=== PATIENT | male | born 1960 | race Caucasian/White ===

== ENCOUNTER → 2018-02-02 09:51 | Outpatient (CLI) | payer OTHER, SELFPAY ==
[2018-02-02 12:41] LABS: Vitamin D,25 Hydroxy 19.3 ng/mL (29.95-100.01)
[2018-02-02 12:43] LABS: Anion Gap 12 (5-15); BUN 19 mg/dL (7-18); BUN/Creat Ratio 17.6 RATIO (10-20); Calcium,Total 9.3 mg/dL (8.5-10.1); Chloride 107 mmol/L (98-107); Cholesterol 211 mg/dL (200); Creatinine, Serum 1.08 mg/dL (0.70-1.30); EST Glomerular Filtration Rate 74 mL/min (>60); Est Glom Filt Rate - Afr Amer 90 mL/min (>60); Glucose 94 mg/dL (74-106); High Density Lipoprotein 38 mg/dL; Potassium 4.5 mmol/L (3.5-5.1); Sodium Level 142 mmol/L (136-145); Triglycerides 221 mg/dL; Very Low Density Lipoprotein 44 mg/dL (5-40)
== END ==
PROVIDERS: Family Provider Family Medicine; PCP Family Medicine; Visit Provider Family Medicine
DX: Z00.00 Encounter for general adult medical examination without abnormal findings (principal)
CPT/HCPCS: 36415; 80048; 80061; 82306

== ENCOUNTER → 2019-04-17 15:43 | Outpatient (CLI) | payer OTHER, SELFPAY ==
[2016-01-21 13:17] VITALS: BMI 37.2
[2019-04-17 18:06] LABS: Vitamin D,25 Hydroxy 10.7 ng/mL (29.95-100.01)
[2019-04-17 18:22] LABS: Anion Gap 7 (5-15); BUN 18 mg/dL (7-18); BUN/Creat Ratio 15.9 RATIO (10-20); Calcium,Total 9.3 mg/dL (8.5-10.1); Chloride 106 mmol/L (98-107); Cholesterol 219 mg/dL (200); Creatinine, Serum 1.13 mg/dL (0.70-1.30); EST Glomerular Filtration Rate 70 mL/min (>60); Est Glom Filt Rate - Afr Amer 85 mL/min (>60); Glucose 83 mg/dL (74-106); High Density Lipoprotein 38 mg/dL; PSA,Total - Annual Screen 3.25 ng/mL (0.00-4.00); Potassium 4.2 mmol/L (3.5-5.1); Sodium Level 140 mmol/L (136-145); Thyroid Stim Hormone (TSH) 1.84 uIU/mL (0.358-3.74); Triglycerides 360 mg/dL; Very Low Density Lipoprotein 72 mg/dL (5-40)
== END ==
PROVIDERS: Family Provider Family Medicine; PCP Family Medicine; Referring Provider Family Medicine; Visit Provider Family Medicine
DX: Z00.00 Encounter for general adult medical examination without abnormal findings (principal); E66.9 Obesity, unspecified; I10 Essential (primary) hypertension
CPT/HCPCS: 36415; 80048; 80061; 82306; 84153; 84403; 84443; G0103

== ENCOUNTER 2019-12-30 15:07 | Emergency (ER) | payer OTHER, SELFPAY ==
[2019-12-30 15:07] VITALS: BP 143/74; PULSE 72; RESP 18; TEMP 36.4; O2SAT 94; BMI 43.7
[2019-12-30 16:14] VITALS: BMI 43.7
[2019-12-30 16:20] LABS: Absolute Lymphocyte Count 1.46 X10^3/uL (0.83-4.51); Absolute Neutrophil Count 5.6 X10^3/uL (2.0-7.7); Basophil# 0.06 X10^3/uL; Basophil% 0.7 % (0-1); Eosinophil# 0.23 X10^3/uL; Eosinophils% 2.8 % (0-5); Hematocrit 44.5 % (40-54); Hemoglobin 14.7 g/dL (13.0-16.5); Lymphocyte # 1.46 X10^3/ul (4.0); Lymphocyte % 17.5 % (19-41); Mean Corpuscular Hgb 31.7 pg (27.0-32.0); Mean Corpuscular Volume 95.9 fL (80-94); Mean Platelet Vol. 10.6 fl (6.2-12.0); Monocyte# 0.87 X10^3/uL; Monocyte% 10.5 % (0-10); NRBC Flagged by Analyzer 0 % (0-5); Neutrophil # 5.64 X10^3/uL (2.7-7.7); Neutrophil % 67.8 % (47-70); Platelet Count 185 K/mm3 (150-450); RBC Distribution Width CV 12.4 % (11.6-14.6); RBC Distribution Width SD 43.3 fl (35.1-43.9); Red Blood Count 4.64 M/mm3 (4.6-6.2); White Blood Count 8.3 K/mm3 (4.4-11.0)
--- NOTE | 2019-12-30 16:43 | ED.DCSUM_ITS ---
History of Present Illness Chief Complaint: Neuro S/Sx Detail of Chief Complaint: Droopy left eye, fatigue, malaise and elevated blood pressure Informant: Patient, Significant Other Onset: - - Symptoms probably present for 1 year. Ptosis 1 week per patient. Significant other does not believe there is any significant difference. Context: Gradual Onset Timing: Continuous Quality: Generalized fatigue Location: Generalized Current Severity: Mild Maximum Severity: Moderate Worsened by: Nothing Relieved by: Nothing Associated Symptoms: No other symptoms Narrative: Patient is a 59-year-old male who was sent to the emergency department by his physician based on symptoms. Patient denies headache. He denies double vision, blurred vision loss of vision. He does report his eyes crossing. He denies history of diabetes. He states images sometimes overlap. This is been an issue for 1 year. He has not seen an steelscope operator or cable assembler and swager in greater than 1 year. He has no known thyroid disease and denies thyroid symptoms. He denies cardiac or respiratory symptoms. He denies GI symptoms. He denies paresthesia, anesthesia or motor weakness. He denies problems with balance. 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 Recent Illness/Hospitalization: No - Past Medical History (1) Obstructive sleep apnea Status: Acute (2) History of hypertension Status: Acute Past Medical History - Allergies and Home Meds Allergies/Adverse Reactions: Allergies No Known Allergies Allergy (Verified 12/30/19 15:07) Primary Care Physician: Shady Pathak MD [Primary Care Provider] - Prior records reviewed: No Surgical History: noncontributory Lives: Spouse/ Significant Other Smoking Status: Never smoker Alcohol: None Drugs: None Review of Systems General: Reports: Malaise. Denies: Chills, Fever, Subjective, Sweats, Weight loss Eyes: Reports: - - Does report horizontal processing of images.. Denies: Visual changes - bilaterally, Blurred Vision - bilaterally, Diplopia ENT: Reports: - - Denies tinnitus or decreased hearing.. Denies: Bilateral ear pain, Rhinorrhea, Sore throat Cardiovascular: Denies: Chest pain, Palpitations Respiratory: Denies: Dyspnea, Cough, Dyspnea on exertion Gastrointestinal: Denies: Abdominal pain, Nausea, Vomiting, Diarrhea, Melena, Hematochezia Genitourinary: Denies: Dysuria, Hematuria, Frequency Musculoskeletal: Reports: Swelling. Denies: Myalgias, Arthralgias, Neck pain, Back pain, Extremity Pain, -, - - She reports increased swelling at nighttime and less swelling noted in the morning upon arising. Skin: Denies: Rash, Wounds Neurological: Denies: Headache, Weakness, Parasthesia, Numbness Endocrine: Denies: Polyuria, Polydipsia Hematologic: Denies: Easy bruising, Easy bleeding Physical Exam Vital Signs/Narrative: Vital Signs Temp Pulse Resp BP Pulse Ox 12/30/19 15:07 97.6 F L 72 18 143/74 H 94 Inital Vital Signs reviewed: Yes General: Well nourished, Well developed, Obese, No Acute Distress Head: Normocephalic, Atraumatic Eyes: Perrl. Negative for: EOMI - The right eye does not always track with the left. This may represent a 6th nerve palsy. 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 There is no ptosis. There is slight proptosis noted., Pale conjunctiva, Scleral icterus ENT: Moist mucous membranes, No rhinorrhea, TM's clear Neck: Supple, Nontender, No lymphadenopathy, No JVD Cardiovascular: Regular rate, Regular rhythm, No murmurs, Normal S1, Normal S2 Respiratory: No distress, CTA bilaterally, Chest nontender Abdomen: Soft, Nontender, Nondistended, Normal bowel sounds Back: Nontender, Normal Inspection Extremities: Nontender, Edema Skin: Normal color, No rash Neurological: Alert, Oriented x3, Cranial nerves II-XII grossly intact, Normal Strength, Normal Sensation, Normal DTR, - - There is no clonus or Babinski sign. Cerebellar testing was normal. Psychological: Normal affect, Normal Mood Diagnostic/Tx/Re-eval Laboratory Results 12/30/19 12/30/19 16:12 16:12 WBC 8.3 RBC 4.64 Hgb 14.7 Hct 44.5 MCV 95.9 H MCH 31.7 MCHC 33.0 RDW Std Deviation 43.3 RDW Coeff of Donny 12.4 Plt Count 185 MPV 10.6 Immature Gran % (Auto) 0.700 Neut % (Auto) 67.8 Lymph % (Auto) 17.5 L [place] % (Auto) 10.5 H Eos % (Auto) 2.8 Baso % (Auto) 0.7 Absolute Neuts (auto) 5.6 Absolute Lymphs (auto) 1.46 Nucleated RBC % 0 Sodium 141 Potassium 5.1 Chloride 111 H Carbon Dioxide 27.0 Anion Gap 3 L BUN 22 H Creatinine 1.15 Estim Creat Clear Calc 78.43 Est GFR (MDRD) Af Amer 83 Est GFR (MDRD) Non-Af 69 BUN/Creatinine Ratio 19.1 Glucose 87 Calcium 8.7 Total Bilirubin 0.50 AST 36 ALT 38 Alkaline Phosphatase 83 Total Protein 6.6 Albumin 3.3 Globulin 3.3 Albumin/Globulin Ratio 1.0 Patient's laboratory tests are unremarkable. Since the ocular findings are old we will have him follow-up with ophthalmology and his primary care physician. - Medical Decision Making CBC was obtained to assess for anemia. Basic metabolic panel was obtained to assess electrolytes and renal function. Imaging of the brain was not obtained since ocular findings are not new. ED Disposition - Plan for ED Patient: Disposition: Home or Assisted Living Diagnosis: Malaise and fatigue, Sixth nerve palsy of right eye Instructions: ED Weakness [facility] Referrals: Shady Pathak MD [Primary Care Provider] - 1 Week Shelton Kingston MD [STAFF PHYSICIAN] - 5-7 Days Additional Instructions: Since you presently do not have an steelscope operator you were referred to Dr. Arndt.
[2019-12-30 16:45] LABS: AST(SGOT) 36 U/L (15-37); Alanine Aminotransfer ALT/SGPT 38 U/L (16-61); Albumin, Serum 3.3 g/dL (3.2-5.0); Alkaline Phosphatase 83 U/L (45-117); Anion Gap 3 (5-15); BUN 22 mg/dL (7-18); BUN/Creat Ratio 19.1 RATIO (10-20); Calcium,Total 8.7 mg/dL (8.5-10.1); Chloride 111 mmol/L (98-107); Creatinine, Serum 1.15 mg/dL (0.70-1.30); EST Glomerular Filtration Rate 69 mL/min (>60); Est Glom Filt Rate - Afr Amer 83 mL/min (>60); Estimated Creatinine Clearance 78.43 ml/min; Globulin 3.3 g/dL (2.2-4.2); Glucose 87 mg/dL (74-106); Potassium 5.1 mmol/L (3.5-5.1); Protein, Total 6.6 g/dL (6.4-8.2); Sodium Level 141 mmol/L (136-145)
[2019-12-30 17:07] VITALS: BP 177/104; PULSE 51; RESP 20; O2SAT 96
[2019-12-30 17:21] VITALS: BP 179/96; PULSE 75; RESP 16; O2SAT 96
== END 2019-12-30 17:22 | disposition home or self-care (01) ==
PROVIDERS: Emergency Provider Emergency Medicine; PCP Family Medicine
DX: H49.20 Sixth [abducent] nerve palsy, unspecified eye (principal); G47.33 Obstructive sleep apnea (adult) (pediatric); E66.9 Obesity, unspecified; I10 Essential (primary) hypertension
CPT/HCPCS: 80053; 85025; 99283; A4216

== ENCOUNTER → 2020-01-17 10:32 | Outpatient (CLI) | payer OTHER, SELFPAY ==
[2019-12-30 16:14] VITALS: BMI 43.7
[2020-01-17 12:46] LABS: Cholesterol 220 mg/dL (200); High Density Lipoprotein 36 mg/dL; Triglycerides 235 mg/dL; Very Low Density Lipoprotein 47 mg/dL (5-40)
== END ==
LOC: MFPLAB 10:33
PROVIDERS: PCP Family Medicine; Referring Provider Family Medicine; Visit Provider Family Medicine
DX: I10 Essential (primary) hypertension (principal)
CPT/HCPCS: 36415; 80061

== ENCOUNTER → 2020-02-25 13:45 | Outpatient (CLI) | payer OTHER, SELFPAY | PROVIDERS: PCP Family Medicine; Referring Provider Family Medicine | DX: H53.2 Diplopia (principal) | CPT/HCPCS: 36415 ==

== ENCOUNTER 2020-03-24 08:58 | Inpatient (IN) | payer OTHER, SELFPAY ==
[2020-03-24] VITALS (9 sets, daily range): BP systolic 98–182; BP diastolic 61–100; PULSE 54–77; RESP 17–22; TEMP 36.3–36.8; O2SAT 87–96; BMI 43.9; BMI 43.0
--- NOTE | 2020-03-24 09:20 | EKG12_ITS ---
Test Reason : SOB Blood Pressure : / mmHG Vent. Rate : 058 BPM Atrial Rate : 072 BPM P-R Int : 000 ms QRS Dur : 086 ms QT Int : 402 ms P-R-T Axes : 000 052 056 degrees QTc Int : 394 ms Normal sinus rhythm Nonspecific ST and T wave abnormality Abnormal ECG Confirmed by VICKI DEL REAL, DARÍO ([id number]), editor greeting card SHANTE WONG ([id number]) on 03/27/2020 11:23:24 AM Referred By: KAROLINA Confirmed By:DARÍO COEHN MD
--- NOTE | 2020-03-24 09:24 | ED.VIS.GEN ---
History of Present Illness Chief Complaint: Shortness of Breath Informant: Patient Onset: Days Maximum Severity: Mild Narrative: The patient presents complaining of cough shortness of breath for about 6 days. 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 He has hypertension he has no cardiovascular disease. No history of DE PE COPD DVT. States his cough is harsh and dry nonproductive not sure if he is having fevers, bowel and bladder unremarkable he is able to execute all of his daily activities, presents complaining of the persistent cough and sense of shortness of breath Past Medical History - Allergies and Home Meds Allergies/Adverse Reactions: Allergies No Known Allergies Allergy (Verified 03/24/20 08:58) Primary Care Physician: Shady Pathak MD [Primary Care Provider] - Past Medical History: - - Pretension Covid exposure Surgical History: noncontributory Smoking Status: Never smoker Review of Systems General: Reports: Fever. Denies: Chills, Sweats Eyes: Denies: Visual changes - bilaterally, Diplopia ENT: Denies: Rhinorrhea, Sore throat Cardiovascular: Denies: Palpitations Respiratory: Reports: Dyspnea, Cough. Denies: Dyspnea on exertion Gastrointestinal: Denies: Abdominal pain, Nausea, Vomiting, Diarrhea, Melena, Hematochezia Genitourinary: Denies: Dysuria, Hematuria, Frequency Musculoskeletal: Denies: Back pain, Extremity Pain Skin: Denies: Rash, Wounds Neurological: Denies: Headache, Weakness, Numbness Physical Exam Vital Signs/Narrative: Vital Signs Temp Pulse Resp BP Pulse Ox 03/24/20 08:59 98.1 F 58 L 17 153/93 H 92 General: Well nourished, Well developed, No Acute Distress Head: Normocephalic, Atraumatic Eyes: Perrl, EOMI ENT: Moist mucous membranes, No rhinorrhea Neck: Supple, Nontender Cardiovascular: Regular rate, Regular rhythm, No murmurs Respiratory: No distress, CTA bilaterally, Chest nontender Abdomen: Soft, Nontender, Nondistended, Normal bowel sounds Back: Nontender, Normal Inspection Extremities: Nontender, No edema Skin: Normal color, No rash Neurological: Alert, Oriented x3, Cranial nerves II-XII grossly intact, Normal Strength, Normal Sensation Psychological: Normal affect, Normal Mood Diagnostic/Tx/Re-eval - Medical Decision Making Patient's resting company in the bed his lungs sound clear heart tones are unremarkable abdomen soft, he is awake alert no distress, his walking O2 sat was 88% or higher he is resting comfortably in the bed on 2 L with a sat of 96% Given all the above we discussed the broad differential to include coronavirus, other conditions, if his ED screen evaluation is unremarkable he would like to be discharged home to be treated with outpatient protocols and follow-up with outpatient providers Since ED screening labs are generally unremarkable see all those reports, occluding D-dimer negative Patient's EKG showed a sinus rhythm rate 60 some junctional beats Single view chest x-ray to my review shows nothing acute lungs well expanded no pneumothorax soft tissue unremarkable, radiology is concerned about the possibility of a subtle infiltrate left see those reports Spoke with Dr. Corrales infectious disease reviewed the case with him, he indicates that the patient would be eligible given his low-grade hypoxemia Covid status he would be eligible for IV remdesivir if he wished to be admitted. Dr. Ruth are stated that the patient does not require antibiotics or the left lung infiltrate given his Covid positive status as this is usually viral and not bacterial in the patients do not benefit from oral antibiotics Discussed all of this with the patient admission versus discharge The patient is feeling well he wants to go home he wants to go home on the Covid home protocol with oxygen, his Covid antigen was positive , Decadron taper per protocol, oxygen use per protocol and follow-up with the Covid follow-up team and his outpatient providers and return for change in symptoms in any way, again he is comfortable with this plan Home stable patient declined admission Final impression COVID-19 infection pneumonia Addendum The patient has reconsidered and would like to be admitted spoke with the hospitalist and will admit ED Disposition - Plan for ED Patient: Diagnosis: COVID-19 infection pneumonia Instructions: ED PNEUMONITIS Adult Prescriptions: Dexamethasone [Decadron] 6 mg PO DAILY 5 Days tab Prescription Printed Referrals: Shady Pathak MD [Primary Care Provider] - Additional Instructions: Please follow all of the Covid therapy instructions you were given return for change in symptoms
[2020-03-24 09:30] LABS: Absolute Lymphocyte Count 0.75 X10^3/uL (0.83-4.51); Absolute Neutrophil Count 3.1 X10^3/uL (2.0-7.7); Basophil# 0.01 X10^3/uL; Basophil% 0.2 % (0-1); Eosinophil# 0.03 X10^3/uL; Eosinophils% 0.7 % (0-5); Hematocrit 43.7 % (40-54); Hemoglobin 14.3 g/dL (13.0-16.5); Lymphocyte # 0.75 X10^3/ul (4.0); Lymphocyte % 17.5 % (19-41); Mean Corp Hgb Conc 32.7 g/dL (32-36); Mean Corpuscular Hgb 32.1 pg (27.0-32.0); Mean Corpuscular Volume 98.2 fL (80-94); Mean Platelet Vol. 10.5 fl (6.2-12.0); Monocyte# 0.32 X10^3/uL; Monocyte% 7.5 % (0-10); NRBC Flagged by Analyzer 0 % (0-5); Neutrophil % 72.5 % (47-70); Platelet Count 140 K/mm3 (150-450); RBC Distribution Width CV 12.7 % (11.6-14.6); RBC Distribution Width SD 45.3 fl (35.1-43.9); Red Blood Count 4.45 M/mm3 (4.6-6.2); White Blood Count 4.3 K/mm3 (4.4-11.0)
[2020-03-24 09:48] LABS: BNP,B-Type NATRIURETIC PEPTIDE 29.6 pg/mL (0-100)
[2020-03-24 09:49] LABS: Anion Gap 6 (5-15); BUN 17 mg/dL (7-18); BUN/Creat Ratio 17.3 RATIO (10-20); Calcium,Total 8.2 mg/dL (8.5-10.1); Chloride 109 mmol/L (98-107); Creatinine, Serum 0.98 mg/dL (0.70-1.30); EST Glomerular Filtration Rate 83 mL/min (>60); Est Glom Filt Rate - Afr Amer 100 mL/min (>60); Estimated Creatinine Clearance 92.03 ml/min; Glucose 118 mg/dL (74-106); Potassium 3.8 mmol/L (3.5-5.1); Sodium Level 139 mmol/L (136-145)
[2020-03-24] MEDS: dexAMETHasone 10 MG/ML Vial IV (09:58)
--- NOTE | 2020-03-24 10:21 | RAD_ITS ---
EXAM DESCRIPTION: PORTABLE AP CHEST CLINICAL HISTORY: 59 years Male, Shortness of breath, cough x2 days. Shortness of breath, cough x2 days. COMPARISON: None FINDINGS: The thorax is intact. The heart and mediastinum appear to be within normal limits. The lungs show a faint patchy alveolar infiltrate in the lateral aspect of the left midlung. The right lung is normal. RAD/Chest 1 View (Portable) IMPRESSION: A faint patchy alveolar infiltrate is noted in the lateral aspect of the left mid lung probably representing an early pneumonic infiltrate. Electronically Signed: Ramiro Vargas, at 10:39 EST Tel , Service support ,
--- NOTE | 2020-03-24 13:00 | NURSING ---
dr jones paged
[2020-03-24 13:32] LABS: D-Dimer Quantitative (DVT/PE) 0.42 FEU/ug/m (0.27-0.49)
--- NOTE | 2020-03-24 14:46 | NURSING ---
MS2 COVID COVID 19 FRITZ
--- NOTE | 2020-03-24 14:56 | HP.PCM_ITS ---
Problem List (1) Hypoxia Status: Acute (2) COVID-19 Status: Acute (3) Uncontrolled hypertension Status: Acute (4) Morbid obesity Status: Chronic (5) Obstructive sleep apnea Status: Chronic (6) Hypertension Status: Chronic Qualifiers: Hypertension type: essential hypertension Qualified Code(s): I10 - Essential (primary) hypertension History of Present Illness Date of Admission: 03/24/20 Chief Complaint: Progressive shortness of breath ongoing for 2 days The patient is a 59 year old M with past medical history of PAT on CPAP, hypertension, morbid obesity who started having symptoms of generalized aches, loss of smell, loss of taste starting from 11/30 0. Patient admits that a week prior to that, he was at a get together in his daughter's house. All the members of the people in the house got infected. He denied any fever or chills. Over the course of the last 2 days prior to admission he has been progressively short of breath with normal activities that he usually does. This got worse on the morning of admission he decided to come in. In the emergency department, his temperature was 98.1 F, heart rate 58, blood pressure was 153/93, respiratory 1217, SPO2 of 92% on room air. Patient however dipped down to 87% on ambulation. His RBC count was 4.3, hemoglobin 14.3, platelet count was 140, his BMP was unremarkable. His BNP was 29.6, troponin was 0.015. His admitting chest x-ray showed a left midlung alveolar infiltrates suggestive of an early pulmonic infiltrate. Past Medical History Past Medical History (Chronic Problems): Chronic Problems Obstructive sleep apnea (Chronic) Morbid obesity (Chronic) Hypertension (Chronic) Allergies No Known Allergies Allergy (Verified 03/24/20 08:58) Home Medications: Ambulatory Orders Medication Instructions Recorded Meloxicam 15 mg PO DAILY 12/30/19 Cholecalciferol (Vitamin D3) 5,000 unit PO DAILY 03/24/20 [Vitamin D3] Lisinopril [Zestril] 10 mg PO DAILY 03/24/20 Metoprolol Tartrate 25 mg PO BID 03/24/20 Sertraline HCl [Zoloft] 50 mg PO DAILY 03/24/20 Zinc 50 mg PO BID 03/24/20 Surgical History: no surgical history Psychiatric History: No pertinent psych hx Lives: Spouse/ Significant Other Smoking Status: Never smoker Tobacco Use: Non-smoker Alcohol: None Drugs: None - *Family History Maternal History Items: No pertinent history - of brain aneurysm Paternal History Items: No pertinent history Review of Systems Constitutional: Reports: Malaise, Weakness, Fatigue. Denies: Anorexia, Chills, Fever, Night Sweats, Weight Change Eyes: Denies: Blurred vision, Cataracts, Conjunctivae Inflammation, Pain, Redness, Vision Change HEENT: Denies: Difficulty Hearing, Difficulty Swallowing, Head Aches, Hearing Changes, Sinus Congestion, Sinus Drainage Cardiovascular: Denies: Chest Pain, Claudication, Light Headedness, Orthopnea, Palpitations Respiratory: Reports: Cough, Shortness of Breath, Shortness of breath at rest, Shortness of breath upon exertion. Denies: Hemoptysis, Sputum production Gastrointestinal: Denies: Abdominal Pain, Constipation, Hematemesis, Hematochezia, Nausea, Vomiting Genitourinary: Denies: Dysuria Musculoskeletal: Denies: Joint Pain, Joint stiffness, Joint swelling, Joint Tenderness Skin: Denies: Rash, Wounds Neurological: Denies: Numbness, Tingling, Focal weakness Psychiatric: Denies: Anxiety, Depression, Homicidal Ideations, Suicidal Ideations Hematologic/ Lymphatic: Denies: Easy Bruising, Easy Bleeding VTE Information - Inpt Only VTE Present on Admission: No VTE Pharm Prophylaxis ordered?: Yes - Physical Exam Vitals/I&O's: Vital Signs Temp Pulse Resp BP Pulse Ox 98.1 F 54 L 22 H 163/96 H 94 03/24/20 12:02 03/24/20 12:02 03/24/20 12:02 03/24/20 12:02 03/24/20 12:02 Oxygen Flow Rate (L/min) 2 Oxygen Delivery Method Nasal Cannula Weight: 155.1 kg Body Mass Index (BMI) 43.9 Finger Stick Blood Glucose 87 General: Alert, Oriented x3, Cooperative, No apparent distress, - - morbidly obese, on 2L oxygen HEENT: Atraumatic, PERRLA, EOMI, Normocephalic Oral: Moist Mucosa Neck: Supple Lungs: Diminished Cardiovascular: Regular rate, Regular Rhythm, Normal S1, Normal S2, No murmurs Abdomen: Bowel Sounds Present, Soft, Non Tender, Non-Distended, No Hepato- splenomegaly Extremities: No edema Skin: No rashes Musculoskeletal: No Tenderness to Palpation of Joints or Extremities Lymphatic: No Cervical, Supraclavicular, or Inguinal Adenopathy Neurological: Cranial nerves II-XII grossly intact Psych/Mental Status: Normal Affect, Appropriate Microbiology Past 72 Hours 03/24/20 09:49 Mucosa - Nose SARS-CoV-2 Antigen (Rapid) - Final SARS-CoV-2 (COVID 19) Laboratory Results 03/24/20 09:08: WBC 4.3 L, RBC 4.45 L, Hgb 14.3, Hct 43.7, MCV 98.2 H, MCH 32.1 H, MCHC 32.7, RDW Std Deviation 45.3 H, RDW Coeff of Donny 12.7, Plt Count 140 L, MPV 10.5, Immature Gran % (Auto) 1.600 H, Neut % (Auto) 72.5 H, Lymph % (Auto) 17.5 L, [place] % (Auto) 7.5, Eos % (Auto) 0.7, Baso % (Auto) 0.2, Absolute Neuts (auto) 3.1, Absolute Lymphs (auto) 0.75 L, Nucleated RBC % 0 03/24/20 09:08: Sodium 139, Potassium 3.8, Chloride 109 H, Carbon Dioxide 24.0, Anion Gap 6, BUN 17, Creatinine 0.98, Estim Creat Clear Calc 92.03, Est GFR (MDRD) Af Amer 100, Est GFR (MDRD) Non-Af 83, BUN/Creatinine Ratio 17.3, Glucose 118 H, Calcium 8.2 L, Troponin I < 0.015 03/24/20 09:08: B-Natriuretic Peptide 29.6 03/24/20 09:08: D-Dimer Quant (PE/DVT) 0.42 Assessment/Plan All Active Problems History of hypertension (Acute) Hypoxia (Acute) COVID-19 (Acute) Uncontrolled hypertension (Acute) 1. Acute hypoxic respiratory insufficiency secondary to acute COVID-19 pneumonia Continue with breathing treatments,PO steroids, encourage use of incentive spirometer. Wean off oxygen for SPO2 more than 94% 2. Acute COVID-19 pneumonia with hypoxia Started having symptoms on 03/18/20 Patient is currently on dexamethasone ID consulted 3. Hypertension, uncontrolled, continue on home metoprolol We will add hydralazine as needed 4. PAT on CPAP 5. Morbid obesity, BMI 43.0, lifestyle modification recommended 6. DVT PPx- On Lovenox SC BID 7. CODE STATUS: Full code I discussed code status with patient. I explained in details the various types of CODE STATUS-full code, DNR CCA, DNR CC. Cannot opted for full code and wanted aggressive measures. Time spent discussing CODE STATUS 16 minutes Inpatient E&M: 73935 Init Hosp L2 Procedures: 99391 Advncd Care Plan 30 Min
[2020-03-24] MEDS: levoFLOXacin 750 MG Tablet PO (15:33)
[2020-03-24] MEDS: Enoxaparin 40 MG/0.4 ML Syringe SC (19:39)
[2020-03-24] MEDS: Metoprolol Tartrate 50 MG Tablet PO (19:39)
[2020-03-25 05:07] VITALS: BP 152/83; PULSE 60; RESP 18; TEMP 36.6; O2SAT 94
[2020-03-25 07:18] LABS: Absolute Lymphocyte Count 0.57 X10^3/uL (0.83-4.51); Absolute Neutrophil Count 3.5 X10^3/uL (2.0-7.7); Basophil# 0.02 X10^3/uL; Basophil% 0.4 % (0-1); Hematocrit 42.8 % (40-54); Hemoglobin 14.2 g/dL (13.0-16.5); Lymphocyte # 0.57 X10^3/ul (4.0); Lymphocyte % 12.2 % (19-41); Mean Corp Hgb Conc 33.2 g/dL (32-36); Mean Corpuscular Hgb 32.4 pg (27.0-32.0); Mean Corpuscular Volume 97.7 fL (80-94); Mean Platelet Vol. 10.6 fl (6.2-12.0); Monocyte# 0.52 X10^3/uL; Monocyte% 11.2 % (0-10); NRBC Flagged by Analyzer 0 % (0-5); Neutrophil # 3.48 X10^3/uL (2.7-7.7); Neutrophil % 74.7 % (47-70); POSITIVE DIFFERENTIAL YES; Platelet Count 170 K/mm3 (150-450); RBC Distribution Width CV 12.4 % (11.6-14.6); RBC Distribution Width SD 44.5 fl (35.1-43.9); Red Blood Count 4.38 M/mm3 (4.6-6.2); White Blood Count 4.7 K/mm3 (4.4-11.0)
[2020-03-25 07:22] LABS: Differential Indicated SCAN CRITERIA MET
[2020-03-25 07:43] LABS: ALB/GLOB Ratio 1.2 RATIO (0.9-2.4); AST(SGOT) 22 U/L (15-37); Alanine Aminotransfer ALT/SGPT 40 U/L (16-61); Albumin, Serum 3.4 g/dL (3.2-5.0); Alkaline Phosphatase 103 U/L (45-117); Anion Gap 5 (5-15); BUN 19 mg/dL (7-18); BUN/Creat Ratio 19.6 RATIO (10-20); Chloride 110 mmol/L (98-107); Creatinine, Serum 0.97 mg/dL (0.70-1.30); EST Glomerular Filtration Rate 84 mL/min (>60); Est Glom Filt Rate - Afr Amer 101 mL/min (>60); Estimated Creatinine Clearance 92.98 ml/min; Globulin 2.9 g/dL (2.2-4.2); Glucose 132 mg/dL (74-106); Protein, Total 6.3 g/dL (6.4-8.2); Sodium Level 140 mmol/L (136-145)
[2020-03-25 07:54] LABS: Platelet Estimate ADEQUATE (ADEQ); Red Cell Morphology NORM C+C NORMAL (NORM C&C)
[2020-03-25 08:01] VITALS: BP 141/84; PULSE 46; RESP 18; TEMP 36.6; O2SAT 93
[2020-03-25] MEDS: dexAMETHasone 4 MG Tablet 6 MG PO (08:11)
[2020-03-25 08:13] VITALS: PULSE 46
[2020-03-25] MEDS: Meloxicam 15 MG Tablet PO (08:13)
[2020-03-25] MEDS: Sertraline 100 MG Tablet PO (08:13)
[2020-03-25] MEDS: Enoxaparin 40 MG/0.4 ML Syringe SC (08:14)
--- NOTE | 2020-03-25 09:18 | CASEMGMT ---
Addendum entered by Grecia Bustamante 03/25/20 10:26: Pt states is quarantining at home and has been improving. Pt states no concerns getting supplies at home. Lawanda HERRERA CM Original Note: JAVIER JAIMES assessment: Phone interview with patient for initial transition planning/care coordination assessment d/t pt COVID + at this time. JAVIER JAIMES introduced self and role at [facility], pt voices understanding and consents to assessment at this time. Pt is A/O x4 at this time and answers all questions appropriately at this time. Care providers, pharmacy, and demographics verified at this time. Presentation: Increased SOB, COVID +, states sx's started monday Admitting dx: COVID19 infection, hypoxia PCP: [facility] Specialists: Pt states no current specialists. Preferred Pharmacy: [facility] Insurance: [facility] Prescription Benefit: [facility] Living Will/HPOA: Pt states does not have LW/HPOA and declines info at this time. LNOK: Gigi Britt, Living Arrangements: Pt states lives with in 2 story home and states no concerns at home at this time. Pt states is independent with ADL's. Transportation: Pt states drives self and states no transportation concerns at this time. DME/HHC: Pt states has a cpap that was initially set up thru [facility] and states orders supplies online. Pt states would like [employer], if qualifies for home oxygen at discharge. Pt states no hx of HHC or SNF in the past. Pt states no concerns with going home at time of discharge. 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 Pt states does not smoke cigarettes or drink ETOH. Pt states no further concerns/needs at this time. CM to follow for home oxygen need and any further discharge planning/needs. Advised pt to ask for CM if any further questions/concerns/needs arise, voices understanding. Pt Goal: Home Plan: Home Lawanda HERRERA CM
[2020-03-25 11:54] VITALS: O2SAT 87; O2SAT 92; O2SAT 93
--- NOTE | 2020-03-25 13:20 | CASEMGMT ---
RN CM Note: Per Dr. Smith and Dr. Small, the patient can dc home after dose of Remdesivir today. Home oxygen testing completed and patient will need 2L NC on exertion. Pt would like [facility] for home oxygen. Script completed and clinicals/script faxed to [facility] [place] [facility]. -Call to [facility] to update portable tank will be needed, and requesting home oxygen set up be completed at home with prior to patient dc. Cole BURROWSN RN ACM
[2020-03-25 14:14] VITALS: BP 159/85; PULSE 58; RESP 18; TEMP 36.6; O2SAT 92
--- NOTE | 2020-03-25 14:38 | DCINST_ITS ---
- Discharge Diagnoses Current Active Problems: Current Active and Chronic Problems Obstructive sleep apnea (Chronic) Hypoxia (Acute) COVID-19 (Acute) Uncontrolled hypertension (Acute) Morbid obesity (Chronic) Hypertension (Chronic) Reason(s) for Visit for Discharge Instructions: Acute COVID-19 pneumonia You will use the following diet at home:: Cardiac Your food should be the consistency of: Regular Your liquids should be the consistency of: Regular/Thin Discharge Activity: Return to Normal Activity Instructions: ED PNEUMONITIS Adult Additional Instructions: Continue to use your incentive spirometer all the time. Complete the oral steroid and aspirin as prescribed. You should be on oxygen all the time. Allergies/Adverse Reactions: Allergies No Known Allergies Allergy (Verified 03/24/20 08:58) Medications to take at Discharge Meloxicam 15 mg PO DAILY 12/30/19 Cholecalciferol (Vitamin D3) [Vitamin D3] 5,000 unit PO DAILY 03/24/20 Lisinopril [Zestril] 10 mg PO DAILY 03/24/20 Sertraline HCl [Zoloft] 50 mg PO DAILY 03/24/20 Zinc 50 mg PO BID 03/24/20 Aspirin 81 mg PO DAILY 14 Days #14 tab.chew 03/25/20 Dexamethasone [Decadron] 6 mg PO DAILY 8 Days #8 tab 03/25/20 Metoprolol Tartrate [Lopressor (beta jamie)] 50 mg PO BID 30 Days #60 tab 03/25/20 The following prescriptions were given: Aspirin 81 mg PO DAILY 14 Days #14 tab.chew Transmission Status: Pending to [facility] Dexamethasone [Decadron] 6 mg PO DAILY 8 Days #8 tab Transmission Status: Pending to [facility] Metoprolol Tartrate [Lopressor (beta jamie)] 50 mg PO BID 30 Days #60 tab Transmission Status: Pending to [facility] Primary Care Physician: Shady Pathak MD [Primary Care Provider] - Please follow up with your Primary Care Physician in: within 1-2 weeks Test Results: Test results from this visit will be discussed in further detail at your follow- up appointment, if applicable. Proposed Discharge Date: 03/25/20
--- NOTE | 2020-03-25 14:39 | PCM.DC.SUM ---
Discharge Date and Diagnosis - Problem List Patient Problems: Active and Suspected Problems Hypoxia (Acute) COVID-19 (Acute) Uncontrolled hypertension (Acute) Date of Admission: 03/24/20 Date of Discharge: 03/25/20 - Primary Discharge Diagnosis Acute Problems: Active Problems Acute hypoxic respiratory insufficiency secondary to acute COVID-19 pneumonia Acute COVID-19 pneumonia Uncontrolled hypertension - Secondary Discharge Diagnosis Chronic Problems: Chronic Problems Obstructive sleep apnea (Chronic) Morbid obesity (Chronic) Hypertension (Chronic) Hospital Course and Treatment Imaging Results: Clinical Impression(s) from Imaging Studies Chest X-Ray 03/24/20 10:21 IMPRESSION: A faint patchy alveolar infiltrate is noted in the lateral aspect of the left mid lung probably representing an early pneumonic infiltrate. Electronically Signed: Ramiro Vargas, at 10:39 EST Tel , Service support , ID Operations: None Procedures: None Summary of Care Provided: The patient is a 59 year old M past medical history of PAT on CPAP, hypertension, morbid obesity who comes in with generalized aches, loss of smell and taste that started from 03/18/20. Patient admits that a week prior to that, he was at a get-together in his daughter's house. All the members of the people in the house got infected. He denied any fever or chills. Over the course of the last 2 days prior to admission, he has been progressively short of breath with normal activities that he usually does. This got worse on the morning of admission he decided to come in. In the emergency department, his temperature was 98.1 F, heart rate 58, blood pressure was 153/93, respiratory 1217, SPO2 of 92% on room air. Patient however dipped down to 87% on ambulation. His WBC count was 4.3, hemoglobin 14.3, platelet count was 140, his BMP was unremarkable. His BNP was 29.6, troponin was 0.015. His admitting chest x-ray showed a left midlung alveolar infiltrates suggestive of an early pulmonic infiltrate. He was admitted to the Medr floor and started on dexamethasone and remdesivir. He was seen by infectious disease. He was also started on incentive spirometer. By the next day, patient was off oxygen. He denied any new complaints. His blood pressure was uncontrolled at time of admission. Changes were made to his medications. He was ambulated and qualified for discharge on oxygen. He was discharged on 2 L of oxygen. He knows to follow-up with his primary care doctor within a week to have his labs repeated Patient Problems: Active and Suspected Problems Hypoxia (Acute) COVID-19 (Acute) Uncontrolled hypertension (Acute) Subjective: On the day of discharge, patient was seen and examined. Denied any new complaints. Objective: Physical exam: General: Alert, Oriented x3, Cooperative, No apparent distress, - - morbidly obese, off oxygen HEENT: Atraumatic, PERRLA, EOMI, Normocephalic Oral: Moist Mucosa Neck: Supple Lungs: Diminished Cardiovascular: Regular rate, Regular Rhythm, Normal S1, Normal S2, No murmurs Abdomen: Bowel Sounds Present, Soft, Non Tender, Non-Distended, No Hepato-splenomegaly Extremities: No edema Skin: No rashes Musculoskeletal: No Tenderness to Palpation of Joints or Extremities Lymphatic: No Cervical, Supraclavicular, or Inguinal Adenopathy Neurological: Cranial nerves II-XII grossly intact Psych/Mental Status: Normal Affect, Appropriate - Physical Exam Vitals/I&O's: Vital Signs Temp Pulse Resp BP Pulse Ox 97.9 F 58 L 18 159/85 H 92 03/25/20 14:14 03/25/20 14:14 03/25/20 14:14 03/25/20 14:14 03/25/20 14:14 Oxygen Flow Rate (L/min) [ 2 AMBULATION with Oxygen] Oxygen Flow Rate (L/min) 2 Oxygen Delivery Method Room Air Weight: 151.245 kg Body Mass Index (BMI) 43.0 Finger Stick Blood Glucose 87 Intake and Output for Last 24 Hours 03/23/20 03/24/20 03/25/20 23:59 23:59 23:59 Intake Total 440 / 440 640 / 640 Output Total 400 / 400 Balance 40 / 40 640 / 640 Microbiology Past 72 Hours 03/24/20 09:49 Mucosa - Nose SARS-CoV-2 Antigen (Rapid) - Final SARS-CoV-2 (COVID 19) 03/24/20 09:49 Mucosa - Nose Respiratory Panel (PCR) - Final Laboratory Results 03/25/20 06:55: WBC 4.7, RBC 4.38 L, Hgb 14.2, Hct 42.8, MCV 97.7 H, MCH 32.4 H, MCHC 33.2, RDW Std Deviation 44.5 H, RDW Coeff of Donny 12.4, Plt Count 170, MPV 10.6, Immature Gran % (Auto) 1.500 H, Neut % (Auto) 74.7 H, Lymph % (Auto) 12.2 L, [place] % (Auto) 11.2 H, Eos % (Auto) 0.0, Baso % (Auto) 0.4, Absolute Neuts (auto) 3.5, Absolute Lymphs (auto) 0.57 L, Nucleated RBC % 0, Differential Comment , Platelet Estimate ADEQUATE, RBC Morphology NORM C+C 03/25/20 06:55: Sodium 140, Potassium 5.0, Chloride 110 H, Carbon Dioxide 25.0, Anion Gap 5, BUN 19 H, Creatinine 0.97, Estim Creat Clear Calc 92.98, Est GFR (MDRD) Af Amer 101, Est GFR (MDRD) Non-Af 84, BUN/Creatinine Ratio 19.6, Glucose 132 H, Calcium 9.0, Total Bilirubin 0.40, AST 22, ALT 40, Alkaline Phosphatase 103, Total Protein 6.3 L, Albumin 3.4, Globulin 2.9, Albumin/Globulin Ratio 1.2 Current Medications Acetaminophen (Acetaminophen 325 Mg Tablet) 650 mg PO Q6H PRN PRN PRN Reason: Pain Score 1-10/Temp > 100.7 F Albuterol Sulfate (Albuterol 2.5 Mg/3 Ml Vial.Neb.) 2.5 mg INHALATION Q2H PRN PRN PRN Reason: Shortness of Breath/Wheezing Cholecalciferol (Cholecalciferol (Vit D3) 1,000 Unit (25mcg)) 5,000 unit PO DAILY [facility] Last Admin: 03/25/20 08:12 Dose: 5,000 unit Documented by: Dexamethasone (Dexamethasone 4 Mg Tablet) 6 mg PO DAILY [facility] Stop: 04/02/20 10:01 Last Admin: 03/25/20 08:11 Dose: 6 mg Documented by: Enoxaparin Sodium (Enoxaparin 40 Mg/0.4 Ml Syringe) 40 mg SC BID [facility] Last Admin: 03/25/20 08:14 Dose: 40 mg Documented by: Guaifenesin (Guaifenesin 10 Ml Udc (200mg/10ml)) 20 ml PO Q4H PRN PRN PRN Reason: COUGH Hydralazine HCl (Hydralazine 20 Mg/Ml Vial) 5 mg IV Q6H PRN PRN PRN Reason: BLOOD PRESSURE Remdesivir 100 mg/ Sodium (Chloride) 250 mls @ 125 mls/hr IV DAILY TAMIKA; Protocol Stop: 03/29/20 11:59 Remdesivir 200 mg/ Sodium (Chloride) 250 mls @ 125 mls/hr IV X1 ONE; Protocol Stop: 03/25/20 15:59 Last Admin: 03/25/20 14:20 Dose: 125 mls/hr Documented by: Meloxicam (Meloxicam 15 Mg Tablet) 15 mg PO DAILY [facility] Last Admin: 03/25/20 08:13 Dose: 15 mg Documented by: Metoprolol Tartrate (Metoprolol Tartrate 50 Mg Tablet) 50 mg PO BID [facility] Last Admin: 03/25/20 08:13 Dose: Not Given Documented by: Ondansetron HCl (Ondansetron 4 Mg/2 Ml Vial) 4 mg IV Q8H PRN PRN PRN Reason: NAUSEA/VOMITING Sertraline HCl (Sertraline 100 Mg Tablet) 100 mg PO DAILY [facility] Last Admin: 03/25/20 08:13 Dose: 100 mg Documented by: Sodium Chloride (0.9% Saline Lock 10 Ml Syringe) 10 - 40 ml IV UD PRN PRN Reason: SALINE FLUSH Discharge Diet: 2000 mg Sodium Diet Discharge Activity: Return to Normal Activity Home Medications: Medications to take at Discharge Meloxicam 15 mg PO DAILY 12/30/19 Cholecalciferol (Vitamin D3) [Vitamin D3] 5,000 unit PO DAILY 03/24/20 Lisinopril [Zestril] 10 mg PO DAILY 03/24/20 Sertraline HCl [Zoloft] 50 mg PO DAILY 03/24/20 Zinc 50 mg PO BID 03/24/20 Aspirin 81 mg PO DAILY 14 Days #14 tab.chew 03/25/20 Dexamethasone [Decadron] 6 mg PO DAILY 8 Days #8 tab 03/25/20 Metoprolol Tartrate [Lopressor (beta jamie)] 50 mg PO BID 30 Days #60 tab 03/25/20 Following Prescriptions Were Given to Patient: Aspirin 81 mg PO DAILY 14 Days #14 tab.chew Transmission Status: Received by [facility] Dexamethasone [Decadron] 6 mg PO DAILY 8 Days #8 tab Transmission Status: Received by [facility] Metoprolol Tartrate [Lopressor (beta jamie)] 50 mg PO BID 30 Days #60 tab Transmission Status: Received by [facility] Primary Care Physician: Shady Pathak MD [Primary Care Provider] - Please follow up with your Primary Care Physician in: within 1-2 weeks Patient Instructions: ED PNEUMONITIS Adult Disposition: Home Minutes spent on discharge:: 40 Patient Condition:: Stable Medical Necessity - Tobacco Use Smoking Status: Never smoker Tobacco Use: Non-smoker Meaningful Use Info Meaningful Use Diagnoses (Choose all that apply): None applicable Inpatient E&M: [id number] [facility]
--- NOTE | 2020-03-25 15:50 | PCM.HP.ID ---
Problem List (1) COVID-19 Status: Acute Reason for Consult: covid Consulted by: Dr. De Dios History of Present Illness: The patient is a 59 year old M presented yesterday to ED with sx since 03/18 with fever, chills, cough, dyspnea, aches. then got sick as well but is doing ok. He is not sure how he got it. Only place he has been was a gathering with his son-in-law and other people. He reports everyone at the gathering got covid. Came to ED, admitted on dex, feeling a little better today. Full ROS performed and neg except as noted above. - Medical History Past Medical History (Chronic Problems): Chronic Problems Obstructive sleep apnea (Chronic) Morbid obesity (Chronic) Hypertension (Chronic) Allergies/Adverse Reactions: Allergies No Known Allergies Allergy (Verified 03/24/20 08:58) Home Medications: Ambulatory Orders Medication Instructions Recorded Meloxicam 15 mg PO DAILY 12/30/19 Cholecalciferol (Vitamin D3) 5,000 unit PO DAILY 03/24/20 [Vitamin D3] Lisinopril [Zestril] 10 mg PO DAILY 03/24/20 Sertraline HCl [Zoloft] 50 mg PO DAILY 03/24/20 Zinc 50 mg PO BID 03/24/20 Aspirin 81 mg PO DAILY 14 Days #14 tab.chew 03/25/20 Dexamethasone [Decadron] 6 mg PO DAILY 8 Days #8 tab 03/25/20 Metoprolol Tartrate [Lopressor 50 mg PO BID 30 Days #60 tab 03/25/20 (beta jamie)] - Social History Tobacco Use: non-smoker Vital Signs Temp Pulse Resp BP Pulse Ox 97.9 F 58 L 18 159/85 H 92 03/25/20 14:14 03/25/20 14:14 03/25/20 14:14 03/25/20 14:14 03/25/20 14:14 Oxygen Flow Rate (L/min) [ 2 AMBULATION with Oxygen] Oxygen Flow Rate (L/min) 2 Oxygen Delivery Method Room Air Weight: 151.245 kg Body Mass Index (BMI) 43.0 Finger Stick Blood Glucose 87 Microbiology Past 72 Hours 03/24/20 09:49 SARS-CoV-2 Antigen (Rapid) - Final Mucosa - Nose SARS-CoV-2 (COVID 19) Respiratory Panel (PCR) - Final Laboratory Tests Past 24 Hrs 03/25/20 03/25/20 06:55 06:55 WBC 4.7 RBC 4.38 L Hgb 14.2 Hct 42.8 MCV 97.7 H MCH 32.4 H MCHC 33.2 RDW Std Deviation 44.5 H RDW Coeff of Donny 12.4 Plt Count 170 MPV 10.6 Immature Gran % (Auto) 1.500 H Neut % (Auto) 74.7 H Lymph % (Auto) 12.2 L [place] % (Auto) 11.2 H Eos % (Auto) 0.0 Baso % (Auto) 0.4 Absolute Neuts (auto) 3.5 Absolute Lymphs (auto) 0.57 L Nucleated RBC % 0 Differential Comment Platelet Estimate ADEQUATE RBC Morphology NORM C+C Sodium 140 Potassium 5.0 Chloride 110 H Carbon Dioxide 25.0 Anion Gap 5 BUN 19 H Creatinine 0.97 Estim Creat Clear Calc 92.98 Est GFR (MDRD) Af Amer 101 Est GFR (MDRD) Non-Af 84 BUN/Creatinine Ratio 19.6 Glucose 132 H Calcium 9.0 Total Bilirubin 0.40 AST 22 ALT 40 Alkaline Phosphatase 103 Total Protein 6.3 L Albumin 3.4 Globulin 2.9 Albumin/Globulin Ratio 1.2 - Other Studies Radiology: [] reviewed Other Studies: [] Route of nutrition/ use of supplements: [] Nutritional Intake: [] IV Site: [] Mclaughlin Catheter: [] - Physical Exam General: Alert, Oriented x3, Cooperative, No apparent distress HEENT: Atraumatic, PERRLA, EOMI Neck: Supple, No Nodes Lungs: Clear to auscultation, Diminished Cardiovascular: Regular rate, Regular Rhythm Abdomen: Soft, Non Tender, Non-Distended Extremities: No edema Skin: No rashes IV Site: Peripheral, without redness Musculoskeletal: No Tenderness to Palpation of Joints or Extremities Neurological: Cranial nerves II-XII grossly intact - Assessment/Plan Antibiotics: [] Assessment/Plan: [] Active and Suspected Problems Hypoxia (Acute) COVID-19 (Acute) Uncontrolled hypertension (Acute) covid with hypoxia - on dex, will give dose of remdesivir. Ok to d/c home on 10 days total remdesivir. D-dimer was normal. Will follow, thank you. D/w Dr. De Dios
--- NOTE | 2020-03-28 16:48 | CASEMGMT ---
RN CM Discharge Follow-up Phone Call: ALEX: Enrrique Strata: 1 Call Date: 03/28/2020 Discharge Date: 03/25/2020 Time of Call: 1649 Duration: 1 min Admitting Diagnosis: Covid 19 RN CM attempted to complete follow-up phone call after recent hospitalization. No answer, mailbox full and unable to leave message. CM will attempt call again at later time.
== END 2020-03-25 19:25 | disposition home health service (06) | DRG 177 ==
LOC: ED 09:43 → MS2 14:59
PROVIDERS: Internal Medicine; Admitting Provider Family Medicine; Emergency Provider Emergency Medicine; PCP Family Medicine; Visit Provider Family Medicine
DX: U07.1 COVID-19 (principal); J12.89 Other viral pneumonia; Z68.41 Body mass index [BMI] 40.0-44.9, adult; R09.02 Hypoxemia; E66.01 Morbid (severe) obesity due to excess calories; I10 Essential (primary) hypertension; G47.33 Obstructive sleep apnea (adult) (pediatric); Z66 Do not resuscitate; Z79.1 Long term (current) use of non-steroidal anti-inflammatories (NSAID); Z79.82 Long term (current) use of aspirin
CPT/HCPCS: 36415; 71045; 80048; 80053; 83880; 84484; 85025; 85379; 87426; 87633; 93005; 94640; 97802; 99285; J7050; A4216

== ENCOUNTER → 2020-07-20 13:36 | Outpatient (CLI) | payer OTHER, SELFPAY ==
[2020-03-24 15:44] VITALS: BMI 43.0
[2020-07-20 15:00] LABS: Absolute Lymphocyte Count 2.04 X10^3/uL (0.83-4.51); Absolute Neutrophil Count 4.4 X10^3/uL (2.0-7.7); Basophil# 0.07 X10^3/uL; Basophil% 0.9 % (0-1); Eosinophil# 0.19 X10^3/uL; Eosinophils% 2.6 % (0-5); Hematocrit 47.1 % (40-54); Hemoglobin 15.4 g/dL (13.0-16.5); Lymphocyte # 2.04 X10^3/ul (4.0); Lymphocyte % 27.5 % (19-41); Mean Corp Hgb Conc 32.7 g/dL (32-36); Mean Corpuscular Hgb 33.2 pg (27.0-32.0); Mean Corpuscular Volume 101.5 fL (80-94); Mean Platelet Vol. 11.1 fl (6.2-12.0); Monocyte# 0.65 X10^3/uL; Monocyte% 8.8 % (0-10); NRBC Flagged by Analyzer 0 % (0-5); Neutrophil # 4.38 X10^3/uL (2.7-7.7); Neutrophil % 59.1 % (47-70); Platelet Count 227 K/mm3 (150-450); RBC Distribution Width SD 48.7 fl (35.1-43.9); Red Blood Count 4.64 M/mm3 (4.6-6.2); White Blood Count 7.4 K/mm3 (4.4-11.0)
[2020-07-20 15:08] LABS: Anion Gap 2 (5-15); BUN 21 mg/dL (7-18); BUN/Creat Ratio 14.8 RATIO (10-20); Chloride 108 mmol/L (98-107); Creatinine, Serum 1.42 mg/dL (0.70-1.30); EST Glomerular Filtration Rate 54 mL/min (>60); Est Glom Filt Rate - Afr Amer 65 mL/min (>60); Glucose 114 mg/dL (74-106); Potassium 4.8 mmol/L (3.5-5.1); Sodium Level 142 mmol/L (136-145)
[2020-07-20 15:15] LABS: Hemoglobin A1c 5.7 % (3.8-5.6)
== END ==
PROVIDERS: PCP Family Medicine; Visit Provider Family Medicine
DX: Z01.818 Encounter for other preprocedural examination (principal)
CPT/HCPCS: 36415; 80048; 83036; 85025

== ENCOUNTER → 2020-10-28 09:05 | Outpatient (CLI) | payer OTHER, SELFPAY ==
[2020-03-24 15:44] VITALS: BMI 43.0
[2020-10-28 10:35] LABS: Absolute Lymphocyte Count 1.42 X10^3/uL (0.83-4.51); Basophil# 0.07 X10^3/uL; Basophil% 1.1 % (0-1); Eosinophil# 0.15 X10^3/uL; Eosinophils% 2.4 % (0-5); Hematocrit 45.4 % (40-54); Hemoglobin 14.9 g/dL (13.0-16.5); Lymphocyte # 1.42 X10^3/ul (0.83-4.51); Lymphocyte % 22.4 % (19-41); Mean Corp Hgb Conc 32.8 g/dL (32-36); Mean Corpuscular Hgb 32.2 pg (27.0-32.0); Mean Corpuscular Volume 98.1 fL (80-94); Mean Platelet Vol. 11.3 fl (6.2-12.0); Monocyte% 9.5 % (0-10); NRBC Flagged by Analyzer 0 % (0-5); Neutrophil # 4.02 X10^3/uL (2.7-7.7); Neutrophil % 63.5 % (47-70); Platelet Count 188 K/mm3 (150-450); RBC Distribution Width CV 12.8 % (11.6-14.6); RBC Distribution Width SD 45.6 fl (35.1-43.9); Red Blood Count 4.63 M/mm3 (4.6-6.2); White Blood Count 6.3 K/mm3 (4.4-11.0)
[2020-10-28 11:07] LABS: Anion Gap 7 (5-15); BUN 16 mg/dL (7-18); Calcium,Total 9.2 mg/dL (8.5-10.1); Chloride 109 mmol/L (98-107); Creatinine, Serum 1.14 mg/dL (0.70-1.30); EST Glomerular Filtration Rate 69 mL/min (>60); Est Glom Filt Rate - Afr Amer 84 mL/min (>60); Glucose 112 mg/dL (74-106); Potassium 4.3 mmol/L (3.5-5.1); Sodium Level 139 mmol/L (136-145)
== END ==
PROVIDERS: PCP Family Medicine; Visit Provider Family Medicine
DX: Z01.818 Encounter for other preprocedural examination (principal)
CPT/HCPCS: 36415; 80048; 85025

== ENCOUNTER → 2022-11-17 | Outpatient (CLI) | payer OTHER, SELFPAY ==
[2022-11-17 16:35] LABS: Anion Gap 5 (5-15); BUN 18 mg/dL (7-18); BUN/Creat Ratio 14.9 RATIO (10-20); Calcium,Total 9.4 mg/dL (8.5-10.1); Chloride 112 mmol/L (98-107); Cholesterol 209 mg/dL (200); Creatinine, Serum 1.21 mg/dL (0.70-1.30); EST Glomerular Filtration Rate 64 mL/min (>60); Est Glom Filt Rate - Afr Amer 78 mL/min (>60); Glucose 114 mg/dL (74-106); High Density Lipoprotein 35 mg/dL; PSA,Total - Annual Screen 3.67 ng/mL (0.00-4.00); Sodium Level 142 mmol/L (136-145); Thyroid Stim Hormone (TSH) 1.52 uIU/mL (0.358-3.74); Triglycerides 274 mg/dL; Very Low Density Lipoprotein 55 mg/dL (5-40)
== END | disposition home or self-care (01) ==
LOC: MFPLAB 12:15
PROVIDERS: PCP Family Medicine; Visit Provider Family Medicine
DX: Z00.00 Encounter for general adult medical examination without abnormal findings (principal)
CPT/HCPCS: 36415; 80048; 80061; 84153; 84443; G0103

== ENCOUNTER 2023-04-03 23:27 | Observation (INO) | payer OTHER, SELFPAY ==
[2023-04-03 23:27] VITALS: BP 115/64; PULSE 59; RESP 16; TEMP 35.8; O2SAT 99; BMI 42.7
--- NOTE | 2023-04-03 23:37 | EDS_ITS ---
HPI HPI - GI History of Present Illness Chief Complaint: Abd Pain Informant: patient and spouse/S.O. Narrative Narrative: Abdominal pain progressed to right lower quadrant. Started having discomfort mid abdomen around noon. Bowel movement with no relief. It was nonbloody. An hour ago pain with the right lower quadrant. No fevers. No nausea or vomiting. No diarrhea. Denies any abdominal surgeries in the past. Last meal was at n oon. History of hypertension on lisinopril. History of sleep apnea. Prior similar symptoms: No PFSH PFSH Home Medications meloxicam 15 mg tablet 15 mg PO DAILY pain 12/30/19 [History Last Taken 03/24/20] Cholecalciferol (Vitamin D3) [Vitamin D3] 5,000 unit PO DAILY supplement 0 [History Last Taken 03/24/20] sertraline 50 mg tablet 50 mg PO DAILY depression 03/24/20 [History Last Taken 03/24/20] bupropion HCl 300 mg 24 hr tablet, extended release 300 mg PO DAILY 04/03/23 [H istory Last Taken Unknown] losartan 50 mg tablet 50 mg PO DAILY 04/03/23 [History Last Taken Unknown] metoprolol tartrate 25 mg tablet 25 mg PO Q12H 04/03/23 [History Last Taken Unknown] phentermine 15 mg-topiramate ER 92 mg capsule,[id number] multphas (Qsymia) 1 cap PO Q24H 04/03/23 [History Last Taken Unknown] Allergy/AdvReac Type Severity Reaction Status Date / Time No Known Allergies Allergy Verified 04/04/23 00:13 Social History Smoking Status: Never smoker ROS ROS ED Constitutional Constitutional ED: Denies chills, fever(s) or sweats Eyes Eyes: Denies change in vision ENT ENT ED: Denies dysphagia or sore throat Cardiovascular Cardiovascular: Denies chest pain, leg edema, palpitations or racing heartbeat Respiratory/Chest Respiratory/Chest: Denies cough, dyspnea or dyspnea on exertion Gastrointestinal Gastrointestinal: Reports abdominal pain; Denies diarrhea, nausea or vomiting Genitourinary Genitourinary ED: Denies dysuria, hematuria or urinary frequency Musculoskeletal Musculoskeletal: Denies back pain, extremity pain or neck pain Integumentary Denies rash or wounds Neurologic Neurologic: Denies headache(s), paresthesias or weakness EXAM Physical Exam Const Vital Signs: 04/03/23 23:27 Temperature 96.4 F L Temperature Source Temporal Pulse Rate 59 L Respiratory Rate 16 Blood Pressure 115/64 Blood Pressure Mean 81 Pulse Ox 99 Oxygen Delivery Method Room Air Positive well nourished, well developed and obese General Appearance ED: well developed and NAD Nutritional Appearance: obese HEENT Reports moist mucous membranes normocephalic and atraumatic Eyes PERRL, EOMs intact bilaterally and conjunctivae normal General Eye ED: Yes normal appearance of both eyes Neck no lymphadenopathy and supple General: Negative for tenderness Chest Wall Chest: Negative for tenderness Resp normal respiratory effort and normal air movement Effort and Inspection: symmetric chest movement; Negative for respiratory distress Cardio regular rate, regular rhythm and no murmurs Peripheral Pulses: pulses 2+ throughout GI normal to inspection, nondistended, normoactive bowel sounds GI Narrative: Right lower quadrant tenderness guarding, negative rebound. Negative Rovsing's. Palpation: guarding; Negative for rebound tenderness present Back/Spine no CVA tenderness and no thoracic nor lumbar tenderness Extremity normal to inspection General Extremety ED: Negative for edema or tenderness General Extremity: Negative for edema Neuro oriented x3 and no sensory deficits noted Sensorium / Orientation: awake and alert Skin no rashes or lesions noted and no wounds MDM MDM MDM Narrative Medical decision making narrative: Interventions / MDM: Differential diagnosis: Appendicitis, abdominal pain Diagnosis considered but do not suspect: N/A My EKG interpretation: EKG: Sinus rate of 53, no ST or T wave changes. Imaging independently reviewed and interpreted by myself: CT abdomen pelvis IV contrast: Dilated appendix with appendicolith with stranding. No perforation is noted. Pending final read from radiology. Preop 1 view chest x-ray: No acute process. External documents reviewed: N/A Test considered but not ordered:N/A ED course: Patient mid on pain progressed to right lower quadrant. Guarding without rebound. IV established labs and fluids started. CT scan ordered. Declined any pain medications. 1250: White count at 14. Creatinine 1.29. CT scan abdomen pelvis interpreted by myself concerning for acute appendicitis with dilated appendix with appendicolith and stranding. No perforations noted. Is covered with Zosyn. Preop EKG chest x-ray ordered. Patient continued on IV fluids with n.p.o. status. He still declines any pain medicines at this time. 1255: I discussed with surgeon Dr. Montalvo with concerning findings. Patient be admitted under surgery service for plan OR in the morning. Discussed this with the patient and spouse. Radiologist did call confirming appendicitis no perforations. 2 liver hypodensities also noted on report. Re-evaluation: stable Disposition discussed with patient/family/significant other: Patient and spouse Case discussed with consulting clinician: General surgery This note was generated with [employer] dictation software. It may contain incorrect words, spelling, and punctuation that were not noted in checking the note before signing. Lab Data Attestation: I reviewed the patient's lab results. Labs: Laboratory Results - last 24 hr 04/03/23 04/04/23 23:55 00:55 WBC 14.2 H RBC 4.66 Hgb 15.2 Hct 46.4 MCV 99.6 H MCH 32.6 H MCHC 32.8 RDW Std Deviation 45.4 H RDW Coeff of Donny 12.4 Plt Count 194 MPV 11.1 Immature Gran % (Auto) 1.200 H Neut % (Auto) 78.6 H Lymph % (Auto) 10.2 L [place] % (Auto) 8.2 Eos % (Auto) 1.4 Baso % (Auto) 0.4 Absolute Neuts (auto) 11.2 H Absolute Lymphs (auto) 1.45 Nucleated RBC % 0 PT 13.9 INR 1.1 APTT 27.2 Sodium 138 Potassium 4.3 Chloride 111 H Carbon Dioxide 22.0 Anion Gap 5 BUN 25 H Creatinine 1.29 Estim Creat Clear Calc 67.26 Est GFR (MDRD) Af Amer 72 Est GFR (MDRD) Non-Af 60 BUN/Creatinine Ratio 19.4 Glucose 114 H Calcium 9.2 Urine Color Yellow Urine Clarity Cloudy Urine pH 7.0 Ur Specific [place] 1.010 Urine Protein 15 H Urine Glucose (UA) Normal Urine Ketones Negative Urine Occult Blood Negative Urine Nitrite Negative Urine Bilirubin Negative Urine Urobilinogen Normal Ur Leukocyte Esterase Negative Urine RBC 0 SEEN Urine WBC 0 SEEN Ur Squamous Epith Cells 0 SEEN Amorphous Sediment 4+ Urine Bacteria 1+ Urine Mucus 0 SEEN Blood Type B POSITIVE Antibody Screen NEGATIVE Discharge Plan Dx/Rx/DC Orders Clinical Impression: Acute appendicitis, Obstructive sleep apnea, History of hypertension, Abdominal pain Disposition Disposition: Acute Care Hospital [facility] Discharge Date/Time: 04/04/23 01:48
[2023-04-04] VITALS (9 sets, daily range): BP systolic 96–133; BP diastolic 54–70; PULSE 52–64; RESP 16–20; TEMP 36.2–36.7; O2SAT 95–96; BMI 42.2
[2023-04-04] MEDS: 0.9% Normal Saline (1000mL) 1,000 ML 125 ML IV (00:04)
[2023-04-04 00:20] LABS: International Normalized Ratio 1.1; Prothrombin Time (Protime)PT. 13.9 SECONDS (11.7-14.9)
[2023-04-04 00:21] LABS: Partial Thromboplast Time 27.2 Seconds (24.1-36.2)
[2023-04-04 00:22] LABS: Absolute Lymphocyte Count 1.45 X10^3/uL (0.83-4.51); Absolute Neutrophil Count 11.2 X10^3/uL (2.0-7.7); Anion Gap 5 (5-15); BUN 25 mg/dL (7-18); BUN/Creat Ratio 19.4 RATIO (10-20); Basophil# 0.05 X10^3/uL; Basophil% 0.4 % (0-1); Calcium,Total 9.2 mg/dL (8.5-10.1); Chloride 111 mmol/L (98-107); Creatinine, Serum 1.29 mg/dL (0.70-1.30); EST Glomerular Filtration Rate 60 mL/min (>60); Eosinophils% 1.4 % (0-5); Est Glom Filt Rate - Afr Amer 72 mL/min (>60); Estimated Creatinine Clearance 67.26 ml/min; Glucose 114 mg/dL (74-106); Hematocrit 46.4 % (40-54); Hemoglobin 15.2 g/dL (13.0-16.5); Lymphocyte # 1.45 X10^3/ul (0.83-4.51); Lymphocyte % 10.2 % (19-41); Mean Corp Hgb Conc 32.8 g/dL (32-36); Mean Corpuscular Hgb 32.6 pg (27.0-32.0); Mean Corpuscular Volume 99.6 fL (80-94); Mean Platelet Vol. 11.1 fl (6.2-12.0); Monocyte# 1.16 X10^3/uL; Monocyte% 8.2 % (0-10); NRBC Flagged by Analyzer 0 % (0-5); Neutrophil % 78.6 % (47-70); Platelet Count 194 K/mm3 (150-450); Potassium 4.3 mmol/L (3.5-5.1); RBC Distribution Width CV 12.4 % (11.6-14.6); RBC Distribution Width SD 45.4 fl (35.1-43.9); Red Blood Count 4.66 M/mm3 (4.6-6.2); Sodium Level 138 mmol/L (136-145); White Blood Count 14.2 K/mm3 (4.4-11.0)
[2023-04-04] MEDS: Piperacil/Tazobactam 4.5 GM in 0.9% Normal Saline (100mL MB+) 100 ML IV (01:10)
--- NOTE | 2023-04-04 01:11 | RAD_ITS ---
STUDY: X-RAY CHEST REASON FOR EXAM: Male, 62 years old patient presents for pre-op evaluation. TECHNIQUE: Single AP portable view of the chest. COMPARISON: March 24, 2020. FINDINGS: The lungs are expanded. There are prominent bronchovascular markings in both lungs. There is no demonstrated pleural abnormality. There is borderline cardiomegaly. Normal mediastinum and araceli. There is prominence of the pulmonary hilar arteries with peripheral pulmonary vascular congestion. There is atherosclerotic calcification of the aortic arch with tortuosity. There are diffuse degenerative changes of the visualized thoracic spine. Normal visualized ribs, clavicles, and shoulders. There is no demonstrated abnormality of the visualized soft tissue structures of the upper abdomen. RAD/Chest 1 View (Portable) IMPRESSION: Borderline cardiomegaly and mild pulmonary vascular congestion appears similar to previous radiograph. Electronically Signed: Kate Cloud MD at 2:23 EST ,
[2023-04-04 01:12] LABS: Mucous, Urine 0 SEEN /hpf (<or=2+); Red Blood Cells-Urine 0 SEEN /hpf (0-5); Squamous Epithelial Cells - UA 0 SEEN /hpf (0-5); White Blood Cells 0 SEEN /hpf (0-5)
[2023-04-04 01:21] LABS: Color, Urine Yellow (Yellow); Glucose, Dipstick Normal (Normal); Ketone-Dipstick Negative (Negative); Leukocyte Esterase-Dipstick Negative /ul (Negative); Nitrite-Dipstick Negative (Negative); Occult Blood-Urine Negative /ul (Negative); Protein-Dipstick 15 mg/dl (Negative); Urine Bilirubin Dipstick Negative (Negative); Urine Urobilinogen Normal (Normal)
[2023-04-04 01:22] LABS: Urine Clarity Cloudy (Clear)
[2023-04-04 01:34] LABS: Amorphous Sediment 4+; Bacteria 1+ /hpf (None Seen)
[2023-04-04] MEDS: Ondansetron 4 MG/2 ML Vial IV (02:24)
[2023-04-04] MEDS: Morphine 2 MG/ML Syringe IV (02:25)
[2023-04-04] MEDS: 0.9% Saline Lock 10 ML Syringe IV (02:25)
--- NOTE | 2023-04-04 06:20 | APP_PTH ---
PATIENT: TORRI DIAZ V LOC: MS3 U#:[id number] AGE/SX: 62/M ROOM: NH318 RE04/04/[address]: Dr. Moses Montalvo MD : 1960 BED: 1 DIS: 04/04/2023 SPEC #: [id number] RECD: 04/04/23 10:47 STATUS: WILBER CLAYTON #: [id number] SANTOS: 04/04/23 06:[address]: Moses Montalvo DEPT: SURGICAL PATHOLOGY RECD BY: Gris Mirza ENTERED: 04/04/23 11:55 SP TYPE: APPENDIX OTHR DR: Dr. Shady Pathak MD Tissues: Appendix, NOS Procedures: Surgery Specimen Level III HEADER OPERATION: Laparoscopic appendectomy PRE-OP DIAGNOSIS: Acute appendicitis TISSUE SUBMITTED: Appendix MICROSCOPIC DIAGNOSIS Appendix, appendectomy: Acute appendicitis and periappendicitis. KAROLINA:karina 04/05/2023 MICROSCOPIC DESCRIPTION Slides are reviewed. GROSS DESCRIPTION Received in fixative is one container labeled with the patient's name and designated appendix. The specimen consists of an appendix measuring 10.0 cm in length and 1.8 cm in average diameter. No gross perforations are evident. Serial sections reveal a patent lumen. No mass lesion is identified. [employer] sections are submitted in two cassettes. / AM:karina 04/04/2023 TC:2 CPT: [id number]
[2023-04-04] MEDS: Bupivacaine 0.25% 30 ML Vial (06:34)
[2023-04-04] MEDS: Lactated Ringers 1,000 ML 15 ML IV (06:58)
--- NOTE | 2023-04-04 07:01 | OP.PCM_ITS ---
Report of Operation Date of Procedure: 04/04/23 Pre-Operative Diagnosis: Acute appendicitis Post-Operative Diagnosis: Acute appendicitis Surgery/Procedure Performed:: Laparoscopic appendectomy Type of Anesthesia: General/Regional Specimen's removed: Appendix Estimated Blood Loss (mL): 5 Description of Procedure: The patient was brought into the operating room and general anesthesia was induced. The left arm was tucked and the abdomen was prepped and draped in usual sterile fashion. A small midline incision was made superior to the umbilicus and deepened to the level of the fascia. The fascia was elevated and incised. The peritoneum was also elevated and incised. A finger sweep was performed and a balloon trocar was placed into the abdomen and inflated. The abdomen was insufflated to 15 mmHg and the camera was inserted and the abdomen was inspected for any injuries upon entering the abdomen. There were none. The patient was placed in Trendelenburg position and a 5 mm ports placed in the left lower quadrant and suprapubic areas under direct visualization. Next using atraumatic bowel graspers the appendix was identified. The appendix was grasped and elevated and Enseal was used to take down the mesoappendix. A stapler was used to come across the base of the appendix. The appendix was then placed in Endo Catch bag and removed through the umbilical incision. The staple line was inspected and found to be hemostatic and intact. The 2 5 mm ports are removed under direct visualization. The balloon trocar was deflated and removed and all the air was removed from the abdomen. The umbilical incision fascia was closed with an 0 Vicryl [id number] suture. The incisions were then irrigated with saline and dried. Local anesthetic was injected into the incision sites. The skin incisions were then closed with interrupted 4-0 Monocryl suture and Steri- Strips. Bandages were applied and the patient was awoken and taken to PACU in stable condition. Patient tolerated the procedure well. Admit VTE Documentation VTE Mechan Device Prophylaxis: SCD's
--- NOTE | 2023-04-04 09:06 | HP.PCM.SX_ITS ---
HPI - General General Date of Admission: 04/04/23 HPI Narrative TORRI DIAZ, is a 62 M who presents with right lower quadrant pain that started yesterday afternoon. Patient denies any fevers or chills. Patient reports the pain is in the right lower quadrant does not radiate. He denies headache or diarrhea. [facility] Medical History (Updated 04/04/23 @ 09:[address] Moses Montalvo MD) CPAP (continuous positive airway pressure) dependence Depression Hypertension Sleep apnea Umbilical hernia Home Medications meloxicam 15 mg tablet 15 mg PO DAILY pain 12/30/19 [History Last Taken 03/24/20] Cholecalciferol (Vitamin D3) [Vitamin D3] 5,000 unit PO DAILY supplement 03/24/20 [History Last Taken 03/24/20] sertraline 50 mg tablet 50 mg PO DAILY depression 03/24/20 [History Last Taken 03/24/20] bupropion HCl 300 mg 24 hr tablet, extended release 300 mg PO DAILY 04/03/23 [History Last Taken Unknown] losartan 50 mg tablet 50 mg PO DAILY 04/03/23 [History Last Taken Unknown] metoprolol tartrate 25 mg tablet 25 mg PO Q12H 04/03/23 [History Last Taken Unknown] phentermine 15 mg-topiramate ER 92 mg capsule,[id number] multphas (Qsymia) 1 cap PO Q24H 04/03/23 [History Last Taken Unknown] Allergy/AdvReac Type Severity Reaction Status Date / Time No Known Allergies Allergy Verified 04/04/23 00:13 Social History Smoking Status: Never smoker Vital Signs Vital Signs Vital Signs: 04/03/23 23:27 04/04/23 01:11 04/04/23 02:46 Temperature 96.4 F L 97.5 F L Temperature Source Temporal Temporal Pulse Rate 59 L 53 L 52 L Respiratory Rate 16 18 16 Respiratory Effort Respiratory Depth Respiratory Pattern Blood Pressure 115/64 119/70 130/64 H Blood Pressure Mean 81 86 86 Blood Pressure Source Monitor Blood Pressure Position Semi-Fowlers Blood Pressure Location Right Forearm Baseline BP Pulse Ox 99 95 96 Oxygen Delivery Method Room Air Room Air Oxygen Flow Rate (L/min) 04/04/23 05:29 04/04/23 06:53 04/04/23 07:01 Temperature 97.8 F 98.1 F Temperature Source Temporal Temporal Pulse Rate 59 L 64 60 Respiratory Rate 18 20 H 18 Respiratory Effort Respiratory Depth Respiratory Pattern Normal Blood Pressure 128/58 H 131/66 H 117/61 Blood Pressure Mean 81 87 79 Blood Pressure Source Monitor Monitor Blood Pressure Position Semi-Fowlers Semi-Fowlers Blood Pressure Location Right Forearm Right Arm Baseline BP 128/58 128/58 Pulse Ox 95 95 96 Oxygen Delivery Method Room Air Nasal Cannula Nasal Cannula Oxygen Flow Rate (L/min) 4 3 04/04/23 07:15 04/04/23 07:50 04/04/23 07:54 Temperature 97.2 F L 98.0 F Temperature Source Temporal Temporal Pulse Rate 63 60 Respiratory Rate 18 16 Respiratory Effort Normal Non-Labored Respiratory Depth Normal Respiratory Pattern Normal Blood Pressure 119/58 L 133/70 H Blood Pressure Mean 78 91 Blood Pressure Source Monitor Monitor Blood Pressure Position Semi-Fowlers Semi-Fowlers Blood Pressure Location Right Arm Right Arm Baseline BP 128/58 Pulse Ox 95 95 Oxygen Delivery Method Nasal Cannula Nasal Cannula Oxygen Flow Rate (L/min) 3 3 Weight Weight: 328 lb 11.347 oz Body Mass Index (BMI) 42.2 Physical Exam Const alert and oriented x3 HEENT normocephalic Eyes PERRL Resp normal respiratory effort and normal air movement Cardio regular rate and regular rhythm GI soft to palpation and non-distended Palpation: tender RLQ Extremity normal to inspection Results Lab / Micro Data 04/03/23 23:55 04/03/23 23:55 Labs: Laboratory Results - last 24 hr 04/03/23 23:55: WBC 14.2 H, RBC 4.66, Hgb 15.2, Hct 46.4, MCV 99.6 H, MCH 32.6 H , MCHC 32.8, RDW Std Deviation 45.4 H, RDW Coeff of Donny 12.4, Plt Count 194, MPV 11.1, Immature Gran % (Auto) 1.200 H, Neut % (Auto) 78.6 H, Lymph % (Auto) 10.2 L, Mccracken % (Auto) 8.2, Eos % (Auto) 1.4, Baso % (Auto) 0.4, Absolute Neuts (auto) 11.2 H, Absolute Lymphs (auto) 1.45, Nucleated RBC % 0, PT 13.9, INR 1.1, APTT 27.2, Sodium 138, Potassium 4.3, Chloride 111 H, Carbon Dioxide 22.0, Anion Gap 5, BUN 25 H, Creatinine 1.29, Estim Creat Clear Calc 67.26, Est GFR (MDRD) Af Amer 72, Est GFR (MDRD) Non-Af 60, BUN/Creatinine Ratio 19.4, Glucose 114 H, Calcium 9.2, Blood Type B POSITIVE, Antibody Screen NEGATIVE 04/04/23 00:55: Urine Color Yellow, Urine Clarity Cloudy, Urine pH 7.0, Ur Speci fic [place] 1.010, Urine Protein 15 H, Urine Glucose (UA) Normal, Urine Ketones Negative, Urine Occult Blood Negative, Urine Nitrite Negative, Urine Bilirubin Negative, Urine Urobilinogen Normal, Ur Leukocyte Esterase Negative, Urine RBC 0 SEEN, Urine WBC 0 SEEN, Ur Squamous Epith Cells 0 SEEN, Amorphous Sediment 4+, Urine Bacteria 1+, Urine Mucus 0 SEEN Imagaing Radiology Impression Chest X-Ray 04/04/23 01:11 IMPRESSION: Borderline cardiomegaly and mild pulmonary vascular congestion appears similar to previous radiograph. Electronically Signed: Kate Cloud MD at 2:23 EST Reading Location ID and State: [address] [place] [address] , Service support , Abdomen/Pelvis CT 04/04/23 23:35 IMPRESSION: undefined ADDENDUM: 04/04/23 0147 IMPRESSION: undefined Assessment & Plan Assessment/Plan (1) Acute appendicitis: QUALIFIERS: Acute appendicitis type: unspecified acute appendicitis type Qualified Code(s): K35.80 - Unspecified acute appendicitis PLAN: The patient had right lower quadrant pain and CT scan revealed acute appendicitis. Patient was admitted and started on antibiotics. Patient will be taken this morning for laparoscopic appendectomy. I discussed laparoscopic appendectomy in detail with the patient. I discussed the risks including but not limited to bleeding, infection, injury to other organs that he has the bowel or bladder or ureter. Patient understands the risks and when to proceed. Moses Montalvo MD Pager: [facility] [address] [place] [address], [address] [place] [phone] Office:
--- NOTE | 2023-04-04 13:32 | DCINST_ITS ---
Discharge Instructions Diet Discharge Diet: Light diet - advance as tolerated Activity Discharge Activity: May Not Drive (for 2-3 days or while taking narcotic pain medications) May shower in (days): 1 Lifting Restrictions: 20 lbs for 2 weeks Dressing / Incision Call your doctor if your incision/area has: Continuous Slow Oozing, Sudden Increased Bleeding, Increased Pain/ Swelling, Increased Redness and Foul Smelling Discharge Call your doctor if you observe: Fever of 101 or Higher Suture Line Care: Avoid Pulling/Pushing and Avoid Pinching/Bending Remove Dressing in: 2 days Cleanse incision/area with: Soap & Water Follow Up Care Please Follow Up With: Moses Montalvo MD When: Please call to schedule 2 week follow up appointment at [phone] Test Results: Test results from this visit will be discussed in further detail at your follow- up appointment, if applicable. Discharge Plan Admission Admit Date/Time: 04/04/23 01:01 Attending Provider: Moses Montalvo Primary Care Provider: Shady Pathak Instructions Additional Instructions / Restrictions: Alternate ibuprofen and Tylenol for pain, oxycodone for breakthrough. Discharge Orders/Prescriptions Prescriptions: New acetaminophen 325 mg Tablet 650 mg PO Q4H PRN PRN (Reason: Pain 1-10 Or Fever) Qty: 0 0RF oxycodone 5 mg Tablet 5 - 10 mg PO Q4H PRN PRN (Reason: Pain Score 4-10) 5 Days Qty: 10 0RF Continued meloxicam 15 MG tablet 15 mg PO DAILY sertraline 50 MG tablet 50 mg PO DAILY Cholecalciferol (Vitamin D3) [Vitamin D3] 5,000 UNIT capsule 5,000 unit PO DAILY bupropion HCl 300 mg tablet extended release 24 hr 300 mg PO DAILY Patient Comments: TAKE 1 TABLET BY MOUTHEONCE DAILY losartan 50 mg tablet 50 mg PO DAILY Patient Comments: TAKE 1 TABLET BY MOUTHCONCE DAILY metoprolol tartrate 25 mg tablet 25 mg PO Q12H Patient Comments: TAKE 1 TABLET BY MOUTH 2TTIMES A DAY Qsymia 15-92 mg capsule, ER multiphase 24 hr 1 cap PO Q24H Patient Comments: TAKE 1 CAPSULE BY MOUTHTONCE DAILY Referrals / Follow Up: Shady Pathak MD [Primary Care Provider] - Disposition Disposition (needs filled in before D/C Order can be placed): Home, Self Care
--- NOTE | 2023-04-04 14:14 | CASEMGMT ---
RN CM into pt room, pt sitting up in chair. Pt denies any homegoing needs.
--- NOTE | 2023-04-04 14:30 | PHA.DC_ITS ---
Pharmacy [facility] has performed discharge medication reconciliation and counseling for this patient. 1. OXYCODONE 5-10MG PO Q4H PRN PAIN 4-10 The patient's discharge medication list was reviewed for discrepancies and discrepancies were resolved. The patient was counseled on the following discharge medications and changes in medications for homegoing were reviewed. The Reason for Use, instructions for use, and potential side effects were reviewed for all new medications. The patient's questions regarding all of their medications were answered. The patient was able to verbally demonstrate an understanding of their discharge medications. Medications at Discharge Home Medications meloxicam 15 mg tablet 15 mg PO DAILY pain 12/30/19 Cholecalciferol (Vitamin D3) [Vitamin D3] 5,000 unit PO DAILY supplement 03/24/20 sertraline 50 mg tablet 50 mg PO DAILY depression 03/24/20 bupropion HCl 300 mg 24 hr tablet, extended release 300 mg PO DAILY 04/03/23 losartan 50 mg tablet 50 mg PO DAILY 04/03/23 metoprolol tartrate 25 mg tablet 25 mg PO Q12H 04/03/23 phentermine 15 mg-topiramate ER 92 mg capsule,[id number] multphas (Qsymia) 1 cap PO Q24H 04/03/23 acetaminophen 325 mg tablet 650 mg (2 x 325 mg) PO Q4H PRN PRN Pain 1-10 Or Fever #0 tabs 04/04/23 oxycodone 5 mg tablet 5 - 10 mg (1 - 2 x 5 mg) PO Q4H PRN PRN Pain Score 4-10 5 days #10 tabs 04/04/23
--- NOTE | 2023-04-04 14:49 | CHAPLAIN ---
Type of Pastoral Visit _x__ Initial Visit ___ Follow-up Visit ___ On-call Visit ___ General Patient Visit ___ Spiritual Assessment ___ Family Conference ___ Bereavement ___ Rapid Response ___ Code Blue ___ Other (describe below) Pastoral Care Referral From _x__ Patient ___ Family ___ Nurse ___ Physician ___ School Community Relations Coordinator ___ Construction Safety Consultant ___ Other (describe below) Sacrament/Intervention _x__ Active listening ___ Anointing ___ Hinduism ___ Bereavement ___ Communion _x__ Suni exploration ___ _x__ Life review _x__ Prayer ___ Reconciliation ___ Sacrament of Sick ___ Supportive presence ___ Wedding ___ Other (describe below) Pastoral Comments patient presents with positive outlook on his situation and the good care he has received; pt asks questions of spiritual and world events; pt engages easily in conversation and expresses thanks for the time given to visit and be supportive; prayer welcomed
--- NOTE | 2023-04-04 23:35 | CT_ITS ---
We are attempting to reach an attending provider to discuss findings. An addendum with communication details will be sent when the communication is complete. EXAM: CT abdomen and pelvis with contrast. HISTORY: RLQ pain TECHNIQUE: CT Abdomen And Pelvis W/ Contrast Injection. Postcontrast images were obtained in the early and delayed phases. A radiation dose optimization technique was used for this scan. COMPARISON: None. LIMITATIONS: None. LOWER CHEST: Mild atelectasis in the lung bases bilaterally. LIVER: A 2 cm hypodense lesion is in the posterior segment of the right hepatic lobe with possible peripheral nodular discontinuous enhancement. Fill-in of the lesion on the delayed images. 1 cm hypodense lesion on the early phase images near the gallbladder fossa not well visualized on the delayed images. GALLBLADDER: Normal. BILE DUCTS: Normal. PANCREAS: Normal. SPLEEN: Normal. ADRENAL GLANDS: 8 mm right adrenal myelolipoma. Myelolipoma of similar size in the left adrenal gland. KIDNEYS/URETERS/BLADDER: Normal. AORTA: Normal caliber. BOWEL/MESENTERY: Small umbilical hernia contains only fat. No herniated bowel. No bowel obstruction. APPENDIX: The appendix is fluid-filled and dilated measuring 1.4 cm in diameter. An appendicolith is in the mid and proximal appendix. There is adjacent inflammatory change. No definite perforation. No abscess. PERITONEUM: Normal. REPRODUCTIVE ORGANS: Normal. BONES/SOFT TISSUES: No acute fracture. OTHER: None. CONCLUSION: Acute appendicitis. 2 cm and 1 cm liver lesions are incompletely characterized. Nonemergent three-phase CT is recommended. Electronically Signed: Angelo Yañez MD at 1:31 EST , CT/Abdomen/Pelvis W IV Cont ONLY IMPRESSION: undefined
== END 2023-04-04 17:06 | disposition home or self-care (01) ==
LOC: ED 04-04 00:59 → MS3 04-04 01:12
PROVIDERS: Admitting Provider Surgery; Emergency Provider Emergency Medicine; PCP Family Medicine; Referring Provider Surgery; Visit Provider Surgery
PROC: 0DTJ4ZZ Resection of Appendix, Percutaneous Endoscopic Approach (ICD-10-PCS; CPT 44970; principal; 2023-04-04 06:00)
DX: K35.80 Unspecified acute appendicitis (principal); I10 Essential (primary) hypertension; Z79.899 Other long term (current) drug therapy; G47.33 Obstructive sleep apnea (adult) (pediatric); F32.A Depression, unspecified
CPT/HCPCS: 44970; 00840; 71045; 74177; 80048; 81001; 85025; 85610; 85730; 86850; 86900; 86901; 88304; 93005; 96361; 96365; 96375; 99221; 99284; J7030; J7120; Q9967; A4216; C1760; G0378; J2405

== ENCOUNTER 2023-04-28 05:54 | Day surgery (SDC) | payer OTHER, SELFPAY ==
--- OUTSIDE RECORDS SUMMARY | 2023-04-28 05:55 | XMS RPT_ITS | CCD ---
Author Name Unknown Address [address] [place] [address] Organization [facility] Results Test Name Value Interpretation Reference Range Facil ity Clinical Note 07-31-2020 Note Date & Type Note Facility 07-31-2020 Note HNO ID: [id number] Author: Jolene Fernando Service: ? Author Type: Show Girl Type: Anesthesia Procedure Notes Filed: 07/31/2020 11:09 AM Note Text: ANESTHESIOLOGY PROCEDURE NOTE Airway General Information Procedure Start Time/Medication Administration: 07/31/2020 10:53 AM Patient location during procedure: OR Patient identity confirmed: arm band Indications and Patient Condition Preoxygenated: yes Patient position: sniffing Indications for airway management: anesthesia Method: asleep Final Airway Details Final airway type: supraglottic airway Number of attempts at approach: 1 Ventilation between attempts: none Final Supraglottic Airway: IGEL Size 5 Seal Adequate: yes Airway not difficult SIGNATURE: ORTEGA GUTIERREZ PATIENT NAME: Nick Britt DATE: July 31, 2020 TIME: 11:09 AM CSN: [id number] [facility] Summary Purpose Family History No Family History Records FoundNo Family History Records Found Advance Directives No Advanced Directives Records FoundNo Advanced Directives Records Found Additional Source Comments (unrecognized sect ion and content) No Status Records FoundNo Status Records Found INFORMATION SOURCE (unrecogn ized section and content) DATE CREATED AUTHOR AUTHOR'S RADHA ATAUSTEN 06/14/2021 [facility] FOR RECORDS PERTAINING TO PATIENTS WHO ARE OR HAVE BEEN ENROLLED IN A CHEMICAL DEPENDENCY/SUBSTANCEABUSE PROGRAM, SOME INFORMATION MAY BE OMITTED. This clinical summary was aggregated from multiple sources. Caution should be exercised in using it in the provision of clinical care. This summary normalizes information from multiple sources, and as a consequence, information in this document may materially change the coding, format and clinical context of patient data. In addition, data may be omitted in some cases. CLINICAL DECISIONS SHOULD BE BASED ON THE PRIMARY CLINICAL RECORDS. [facility]. provides no warranty or guarantee of the accuracy or completeness of information in this document.
[2023-04-28 06:43] VITALS: BP 114/65; PULSE 49; RESP 16; TEMP 36.2; O2SAT 96; BMI 43.0
--- NOTE | 2023-04-28 06:46 | HP.PCM_ITS ---
History and Physical Date of Admission: 04/28/23 Intake Vital Signs 04/04/2305:29 Height 6 ft 2 in Intake Visit Reasons: APPY 12-5 Chief Complaint: appy f/u Supervisor Hanging And Trimming Required: No Is patient in pain?: No Allergies No Known Allergies Allergy (Verified 04/17/23 09:57) Medications meloxicam 15 mg tablet 15 mg PO DAILY pain 12/30/19 [History Confirmed 04/03/23] Cholecalciferol (Vitamin D3) [Vitamin D3] 5,000 unit PO DAILY supplement 03/24/20 [History Confirmed 04/03/23] sertraline 50 mg tablet 50 mg PO DAILY depression 03/24/20 [History Confirmed 04/03/23] bupropion HCl 300 mg 24 hr tablet, extended release 300 mg PO DAILY 04/03/23 [History Confirmed 04/03/23] losartan 50 mg tablet 50 mg PO DAILY 04/03/23 [History Confirmed 04/03/23] metoprolol tartrate 25 mg tablet 25 mg PO Q12H 04/03/23 [History Confirmed 04/03/23] phentermine 15 mg-topiramate ER 92 mg capsule,[id number] multphas (Qsymia) 1 cap PO Q24H 04/03/23 [History Confirmed 04/03/23] Subjective Details: Patient is doing well after laparoscopic appendectomy. He would like to address his umbilical hernia. Objective Details: Incisions are healing well. Abdomen is soft and nontender. Coding Level of Care Code Global Post Op Diagnoses Umbilical hernia K42.9 [facility] Medical History (Updated 04/17/23 @ 10:[address] Moses Montalvo MD) CPAP (continuous positive airway pressure) dependence Depression Hypertension Sleep apnea Umbilical hernia Social History Smoking Status: Never smoker Assessment and Plan (No Qualifiers) Assessment and Plan (1) Umbilical hernia: Status: Acute Plan: The patient has a small umbilical hernia containing fat which is reducible but it is bothering him and growing larger and he would like it repaired. He is doing well after laparoscopic appendectomy with no abdominal pain and he may return to activity as tolerated. I discussed umbilical hernia repair with mesh. The umbilical defect is less than 3 [address] but I would place mesh due to his body habitus. I discussed open repair with mesh placement and the patient understands all the risks. I described the risks of bleeding, infection, injury other organs. Patient understands and is willing to proceed. Moses Montalvo MD Pager: [facility] [address] [place] [address], [address] [place] [address] Office: I have examined the patient and the H&P has been reviewed. There are no clinical changes since date of exam.
[2023-04-28] MEDS: Lactated Ringers 1,000 ML 15 ML IV (06:49)
--- NOTE | 2023-04-28 07:30 | HERN_PTH ---
PATHOLOGY RESULTS PATIENT: TORRI DIAZ V LOC: [facility] U#:[id number] AGE/SX: 62/M ROOM: RE04/28/[address]: Dr. Moses Montalvo MD : 1960 BED: DIS: 04/28/2023 SPEC #: [id number] RECD: 04/28/23 12:05 STATUS: WILBER MATILDE #: [id number] SANTOS: 04/28/23 07:[address]: Moses Montalvo DEPT: SURGICAL PATHOLOGY RECD BY: Shweta Vieyra ENTERED: 04/28/23 12:05 SP TYPE: Hernia OTHR DR: Dr. Shady Pathak MD Tissues: HERNIA Procedures: Surgery Specimen Level II HEADER OPERATION: Umbilical hernia repair with mesh PRE-OP DIAGNOSIS: Umbilical hernia TISSUE SUBMITTED: Hernia sac MICROSCOPIC DIAGNOSIS Hernia sac: A piece of fibroadipose and fibroconnective tissue, consistent with hernia sac. SJ:karina 05/02/2023 MICROSCOPIC DESCRIPTION Slides are reviewed. GROSS DESCRIPTION Received in fixative is one container labeled with the patient's name and designated hernia sac. The specimen consists of a piece of adipose tissue measuring 2.0 x 2.0 x 0.5 cm. The specimen is bisected and submitted entirely in one cassette. / SJ:rg 04/28/2023 TC:5 [facility]: [id number]
[2023-04-28] MEDS: Cefazolin 3 GM in 0.9% Normal Saline (100mL Bag) 100 ML IV (07:34)
[2023-04-28] MEDS: Bupivacaine Mpf 0.5% 30 ML VIAL (08:09)
--- NOTE | 2023-04-28 08:21 | PCM.OPRPT ---
Report of Operation Date of Procedure: 04/28/23 Pre-Operative Diagnosis: Umbilical hernia less than 3 cm Post-Operative Diagnosis: Same Surgery/Procedure Performed:: Umbilical hernia repair with mesh Type of Anesthesia: General/Regional Specimen's removed: Hernia sac Estimated Blood Loss (mL): 5 Description of Procedure: Patient was brought back to the operating room and general anesthesia was induced. The abdomen was prepped and draped in usual sterile fashion. A curvilinear incision was marked superior to the umbilicus and injected with local anesthetic. Scalpel was used to make incision. The umbilical stalk was elevated and the hernia sac was taken off of the umbilical stalk. The hernia sac was removed and the fat was reduced. A small Ventralex ST mesh was placed in the preperitoneal space. It was sutured to the anterior abdominal wall using 0 PDS suture. The area was irrigated and suctioned and then the fascia was reapproximated in a transverse fashion using interrupted 0 Nurolon sutures. The subcutaneous tissue was irrigated and suctioned dry. The skin was closed with interrupted 3-0 Vicryl sutures. Steri-Strips and bandages were applied. Patient tolerated the procedure well and was brought to PACU in stable condition. Grafts/Implants Used: small Ventralex ST mesh Admit VTE Documentation VTE Mechan Device Prophylaxis: SCD's
--- NOTE | 2023-04-28 08:23 | DCINST_ITS ---
Discharge Instructions Procedure Hernia Diet Discharge Diet: Light diet - advance as tolerated Activity Discharge Activity: May Not Drive (for 2-3 days or while taking narcotic pain meds.) and May Shower (with the bandage in place 1-2 days after surgery.) Lifting Restrictions: 20 pounds for 6 weeks. Additional Activity Instructions:: Climbing stairs is fine, walking is encouraged. Sitting in bed may be uncomfortable. Sitting up using your lateral muscles (sitting up sideways) is usually more comfortable. Do not drive, work heavy equipment of sign legal documents for 24 hours. Pain medications may cause nausea, you should typically eat light foods as you take your pain medications. Pain medications may also cause constipation. If you have difficulty with this, discuss with your doctor. Dressing / Incision Call your doctor if your incision/area has: Continuous Slow Oozing, Sudden Increased Bleeding, Increased Pain/ Swelling, Increased Redness and Foul Smelling Discharge Call your doctor if you observe: Fever of 101 or Higher Suture Line Care: Avoid Pulling/Pushing and Avoid Pinching/Bending Remove Dressing in: 2 days (Remove clear bandages in 2 days, remove Steri-Strips in 7 to 10 days.) Follow Up Care Please Follow Up With: Moses Montalvo MD When: Please call to schedule 2 week follow up appointment. [phone] Test Results: Test results from this visit will be discussed in further detail at your follow- up appointment, if applicable. Discharge Plan Admission Attending Provider: Moses Montalvo Primary Care Provider: Shady Pathak Instructions Additional Instructions / Restrictions: Alternate ibuprofen and Tylenol for pain, oxycodone for breakthrough Discharge Orders/Prescriptions Prescriptions: New oxycodone 5 mg tablet 5 - 10 mg PO Q6H PRN (Reason: pain) 5 Days Qty: 10 0RF No Action meloxicam 15 MG tablet 15 mg PO DAILY sertraline 50 MG tablet 50 mg PO DAILY Cholecalciferol (Vitamin D3) [Vitamin D3] 5,000 UNIT capsule 5,000 unit PO DAILY bupropion HCl 300 mg tablet extended release 24 hr 300 mg PO DAILY Patient Comments: TAKE 1 TABLET BY MOUTHEONCE DAILY losartan 50 mg tablet 50 mg PO DAILY Patient Comments: TAKE 1 TABLET BY MOUTHCONCE DAILY metoprolol tartrate 25 mg tablet 25 mg PO Q12H Patient Comments: TAKE 1 TABLET BY MOUTH 2TTIMES A DAY Qsymia 15-92 mg capsule, ER multiphase 24 hr 1 cap PO Q24H Patient Comments: TAKE 1 CAPSULE BY MOUTHTONCE DAILY Referrals / Follow Up: Shady Pathak MD [Primary Care Provider] - Disposition Disposition (needs filled in before D/C Order can be placed): Home, Self Care
[2023-04-28 08:30] VITALS: BP 100/53; BP 114/65; PULSE 52; RESP 16; TEMP 36.2; O2SAT 96
[2023-04-28 08:35] VITALS: BP 114/65; BP 95/60; PULSE 44; RESP 15; O2SAT 93
[2023-04-28 08:40] VITALS: BP 100/52; BP 114/65; PULSE 46; RESP 16; O2SAT 92
[2023-04-28 08:55] VITALS: BP 114/65; BP 98/58; PULSE 50; RESP 16; TEMP 36.4; O2SAT 95
[2023-04-28] MEDS: Acetaminophen 325 MG Tablet 650 MG PO (09:10)
[2023-04-28] MEDS: oxyCODONE 5 MG Tablet PO ×2 (09:10→09:50)
[2023-04-28 10:29] VITALS: BP 114/65; BP 97/68; PULSE 49; RESP 16; TEMP 36.6; O2SAT 98
== END 2023-04-28 10:35 | disposition home or self-care (01) ==
LOC: SDC 05:54 → AC 05:55
PROVIDERS: PCP Family Medicine; Referring Provider Surgery; Visit Provider Surgery
PROC: (CPT 49591; principal; 2023-04-28 07:15)
DX: K42.9 Umbilical hernia without obstruction or gangrene (principal); I10 Essential (primary) hypertension; F17.220 Nicotine dependence, chewing tobacco, uncomplicated; F41.9 Anxiety disorder, unspecified; Z99.89 Dependence on other enabling machines and devices; G47.30 Sleep apnea, unspecified; F32.A Depression, unspecified; Z90.49 Acquired absence of other specified parts of digestive tract
CPT/HCPCS: 49591; 00830; 88302; J7120; C1781; J2405

== ENCOUNTER → 2023-08-14 | Outpatient (CLI) | payer OTHER, SELFPAY ==
[2023-08-14 13:31] LABS: ALB/GLOB Ratio 1.2 RATIO (0.9-2.4); AST(SGOT) 20 U/L (15-37); Alanine Aminotransfer ALT/SGPT 53 U/L (16-61); Albumin, Serum 3.8 g/dL (3.2-5.0); Alkaline Phosphatase 108 U/L (45-117); Anion Gap 6 (5-15); BUN 38 mg/dL (7-18); BUN/Creat Ratio 33.6 RATIO (10-20); Calcium,Total 9.8 mg/dL (8.5-10.1); Chloride 113 mmol/L (98-107); Cholesterol 194 mg/dL (200); Creatinine, Serum 1.13 mg/dL (0.70-1.30); EST Glomerular Filtration Rate 69 mL/min (>60); Est Glom Filt Rate - Afr Amer 84 mL/min (>60); Globulin 3.2 g/dL (2.2-4.2); Glucose 106 mg/dL (74-106); High Density Lipoprotein 43 mg/dL; Potassium 3.9 mmol/L (3.5-5.1); Sodium Level 141 mmol/L (136-145); Triglycerides 133 mg/dL; Very Low Density Lipoprotein 27 mg/dL (5-40)
== END | disposition home or self-care (01) ==
LOC: MFPLAB 09:19
PROVIDERS: PCP Family Medicine; Visit Provider Family Medicine
DX: E66.8 Other obesity (principal); E78.00 Pure hypercholesterolemia, unspecified
CPT/HCPCS: 36415; 80053; 80061; 84403

== ENCOUNTER → 2023-08-23 | Outpatient (CLI) | payer OTHER, SELFPAY | END | disposition home or self-care (01) | LOC: MFPLAB 12:27 | PROVIDERS: PCP Family Medicine; Visit Provider Family Medicine | DX: E34.9 Endocrine disorder, unspecified (principal) | CPT/HCPCS: 36415; 84403 ==

== ENCOUNTER → 2023-10-16 | Outpatient (CLI) | payer OTHER, SELFPAY ==
[2023-10-16 12:51] LABS: Absolute Lymphocyte Count 1.47 X10^3/uL (0.83-4.51); Absolute Neutrophil Count 5.5 X10^3/uL (2.0-7.7); Basophil# 0.05 X10^3/uL; Basophil% 0.6 % (0-1); Eosinophil# 0.16 X10^3/uL; Hematocrit 48.7 % (40-54); Hemoglobin 15.7 g/dL (13.0-16.5); Lymphocyte # 1.47 X10^3/ul (0.83-4.51); Lymphocyte % 18.3 % (19-41); Mean Corp Hgb Conc 32.2 g/dL (32-36); Mean Corpuscular Hgb 32.2 pg (27.0-32.0); Mean Corpuscular Volume 99.8 fL (80-94); Mean Platelet Vol. 11.2 fl (6.2-12.0); Monocyte# 0.77 X10^3/uL; Monocyte% 9.6 % (0-10); NRBC Flagged by Analyzer 0 % (0-5); Neutrophil # 5.52 X10^3/uL (2.7-7.7); Neutrophil % 68.9 % (47-70); Platelet Count 186 K/mm3 (150-450); RBC Distribution Width CV 12.9 % (11.6-14.6); RBC Distribution Width SD 47.6 fl (35.1-43.9); Red Blood Count 4.88 M/mm3 (4.6-6.2)
== END | disposition home or self-care (01) ==
LOC: MFPLAB 10:02
PROVIDERS: PCP Family Medicine; Visit Provider Family Medicine
DX: R79.89 Other specified abnormal findings of blood chemistry (principal)
CPT/HCPCS: 36415; 84403; 85025

== ENCOUNTER → 2023-11-15 | Outpatient (CLI) | payer OTHER, SELFPAY ==
--- NOTE | 2023-11-15 15:00 | LES_PTH ---
PATIENT: TORRI DIAZ V LOC: [facility] U#:[id number] AGE/SX: 62/M ROOM: RE11/15/[address]: Dr. Shady Pathak MD : 1960 BED: DIS: 11/15/2023 SPEC #: [id number] RECD: 11/15/23 17:40 STATUS: WILBER MATILDE #: [id number] SANTOS: 11/15/23 15:[address]: Shady Pathak DEPT: SURGICAL PATHOLOGY RECD BY: Gris Mirza Tissues: Skin of back, NOS Procedures: Surgery Specimen Level IV HEADER OPERATION: Biopsy of back PRE-OP DIAGNOSIS: Neoplasm of skin TISSUE SUBMITTED: Biopsy of back MICROSCOPIC DIAGNOSIS Skin lesion of back, biopsy: Basal cell carcinoma, superficial, nodular, completely excised. Intradermal nevus. Demodex follicularis See comment. MISBAH/ 11/17/2023 COMMENT Case has been reviewed in consultation with Dr. Andersen who concurs with the above diagnosis. IDC:SJ MICROSCOPIC DESCRIPTION Slides are reviewed. GROSS DESCRIPTION Received is one container labeled with the patient's name and not further designated. The specimen consists of a piece of barakat-white skin ellipse measuring 1.5 x 0.9cm and up to 0.2cm in thickness. The specimen is inked, serially sectioned and submitted entirely in one cassette. KAROLINA/ 11/16/2023 TC:0 CPT:09085
== END | disposition home or self-care (01) ==
PROVIDERS: PCP Family Medicine; Referring Provider Family Medicine; Visit Provider Family Medicine
DX: C44.519 Basal cell carcinoma of skin of other part of trunk (principal); D23.5 Other benign neoplasm of skin of trunk; B88.0 Other acariasis
CPT/HCPCS: 88305

== ENCOUNTER 2024-02-24 02:33 | Emergency (ER) | payer OTHER, SELFPAY ==
[2024-02-24 02:35] VITALS: BP 154/76; PULSE 72; RESP 18; TEMP 36.5; O2SAT 98; BMI 41.9
[2024-02-24] MEDS: TERBUTALINE 5 MG PO (02:49)
--- NOTE | 2024-02-24 03:10 | EDS_ITS ---
HPI History of Present Illness Chief Complaint: Male Pain/Injury Informant: patient and spouse/S.O. Narrative Narrative: Patient is a 63-year-old male with past medical history of hypertension and obstructive sleep apnea. He also has a past medical history of erectile dysfunction and is currently using injectable ED medication. He states he used a dose directed by his doctor this evening but after 4 hours there has not been resolution of his erection. As the instructions to the medication states to seek medical help after 4 hours he presents for evaluation [facility] Medical History Anxiety Chews tobacco Depression Umbilical hernia CPAP (continuous positive airway pressure) dependence Sleep apnea Hypertension Home Medications ?Medication ?Instructions ?Recorded ?Last Taken ?Type meloxicam 15 mg tablet 15 mg PO DAILY pain 12/30/19 04/27/23 History Cholecalciferol (Vitamin D3) 5,000 unit PO DAILY supplement 03/24/20 04/27/23 History [Vitamin D3] sertraline 50 mg tablet 50 mg PO DAILY depression 03/24/20 04/27/23 History bupropion HCl 300 mg 24 hr tablet, 300 mg PO DAILY 04/03/23 04/27/23 History extended release losartan 50 mg tablet 50 mg PO DAILY 04/03/23 04/28/23 History metoprolol tartrate 25 mg tablet 25 mg PO Q12H 04/03/23 04/28/23 History phentermine 15 mg-topiramate ER 92 1 cap PO Q24H 04/03/23 04/27/23 History mg capsule,ext.[id number] multphas (Qsymia) Allergy/AdvReac Type Severity Reaction Status Date / Time No Known Allergies Allergy Verified 05/10/23 08:47 Surgical History History of appendectomy History of cataract extraction with lens replacement History of colonoscopy Social History Smoking Status: Never smoker ROS ROS ED Constitutional Constitutional ED: Denies chills or fever(s) Eyes Eyes: Denies change in vision ENT ENT ED: Denies sore throat Cardiovascular Cardiovascular: Denies chest pain Respiratory/Chest Respiratory/Chest: Denies cough or dyspnea Gastrointestinal Gastrointestinal: Denies abdominal pain, diarrhea, nausea or vomiting Genitourinary Genitourinary ED: Reports other Details: Positive priapism ; Denies dysuria Musculoskeletal Musculoskeletal: Denies myalgias Integumentary Denies rash Neurologic Neurologic: Denies headache(s) Psychiatric Psychiatric: Reports anxiety Hematologic/Lymphatic Hematologic/Lymphatic: Denies easy bleeding or easy bruising EXAM Physical Exam Const Vital Signs: 02/24/24 02:35 02/24/24 04:02 Temperature 97.7 F L 97.9 F Temperature Source Oral Pulse Rate 72 80 Respiratory Rate 18 16 Blood Pressure 154/76 H 143/88 H Blood Pressure Mean 102 106 Pulse Ox 98 98 Oxygen Delivery Method Room Air Positive well nourished and well developed General Appearance ED: well developed; Negative for pallor HEENT HEENT Narrative: Normocephalic atraumatic Eyes PERRL and EOMs intact bilaterally Neck supple Resp normal respiratory effort and clear to auscultation bilaterally Cardio regular rate and regular rhythm Narrative: Positive priapism without signs of ischemia Extremity normal to inspection Neuro oriented x3, CN's II-XII intact bilaterally, moves all extremities, no focal motor deficits and no sensory deficits noted Sensorium / Orientation: alert Motor Exam: strength 5/5 throughout Psych mental status grossly normal Skin no rashes or lesions noted General Skin Exam: Negative for pallor MDM MDM MDM Narrative Medical decision making narrative: The patient presented to the ER slightly hypertensive but has a past medical history of this. He reported 4 hours of a prolonged erection secondary to erectile dysfunction medication. He states he only tried taking Benadryl at home and therefore as he was just approaching the 4-hour peña upon arrival to the ER I felt that there was time to trial topical ice for vasoconstriction as well as oral medication as his physical exam and timeframe did not suggest acute ischemia. Patient was given 5 mg of terbutaline and 60 mg of pseudoephedrine. Ice was placed over top of the erection as well and after approximately 30 minutes there was improvement but not resolution of the erection. Therefore the patient had 200 mcg of phenylephrine injected into the corpus cavernosum as documented below. Following the injection the patient had complete resolution of his priapism and is therefore safe for discharge. Patient had the base of the penis cleaned with an alcohol swab. A 25-gauge needle was used to enter the corpus cavernosum. Blood was aspirated to confirm the needle is in the correct space. Then 200 mcg of phenylephrine was injected into the corpus cavernosum. Following injection the patient did have detumescence of his priapism. He also tolerated procedure well without comp lication History & Record Review Discussion w/independent historian: Patient and Significant other Discharge Plan Triage Chief Complaint: Male Pain/Injury ED Provider: Reno James Dx/Rx/DC Orders Clinical Impression: Priapism, drug-induced, Hypertension, Obstructive sleep apnea Instructions: ED Priapism Prescriptions: No Action meloxicam 15 MG tablet 15 mg PO DAILY sertraline 50 MG tablet 50 mg PO DAILY Cholecalciferol (Vitamin D3) [Vitamin D3] 5,000 UNIT capsule 5,000 unit PO DAILY bupropion HCl 300 mg tablet extended release 24 hr 300 mg PO DAILY Patient Comments: TAKE 1 TABLET BY MOUTHEONCE DAILY losartan 50 mg tablet 50 mg PO DAILY Patient Comments: TAKE 1 TABLET BY MOUTHCONCE DAILY metoprolol tartrate 25 mg tablet 25 mg PO Q12H Patient Comments: TAKE 1 TABLET BY MOUTH 2TTIMES A DAY Qsymia 15-92 mg capsule, ER multiphase 24 hr 1 cap PO Q24H Patient Comments: TAKE 1 CAPSULE BY MOUTHTONCE DAILY Primary Care Provider: Shady Pathak Referrals: Shady Pathak MD [Primary Care Provider] - Print Language: Georgian Disposition Disposition: Home, Self Care Discharge Date/Time: 02/24/24 04:04
[2024-02-24] MEDS: Phenylephrine 1 MG/10 ML SYRINGE INTRA-CAV (03:40)
[2024-02-24 04:02] VITALS: BP 143/88; PULSE 80; RESP 16; TEMP 36.6; O2SAT 98
== END 2024-02-24 04:04 | disposition home or self-care (01) ==
PROVIDERS: Emergency Provider Emergency Medicine; PCP Family Medicine; Visit Provider Emergency Medicine
DX: N48.33 Priapism, drug-induced (principal); G47.33 Obstructive sleep apnea (adult) (pediatric); I10 Essential (primary) hypertension; Z99.89 Dependence on other enabling machines and devices; F32.A Depression, unspecified; F41.9 Anxiety disorder, unspecified; Z79.899 Other long term (current) drug therapy; Z90.49 Acquired absence of other specified parts of digestive tract; Z98.49 Cataract extraction status, unspecified eye
CPT/HCPCS: 99283

== ENCOUNTER → 2024-04-11 | Outpatient (CLI) | payer OTHER, SELFPAY ==
--- NOTE | 2024-04-11 13:45 | MRI_ITS ---
STUDY: MR PROSTATE GLAND/ PELVIS WITH T WITHOUT CONTRAST REASON FOR EXAM: Male, 63 years old. ELEVATED PSA TECHNIQUE: Standardized fat and water weighted pulse sequences were obtained in all 3 orthogonal planes, pre-and post contrast administration. IV 29cc clariscan was administered for the contrast portion of the examination. COMPARISON: CT of abdomen and pelvis dated April 04, 2023. FINDINGS: Prostate gland volume/size: 5.49 x 5.48 x 5.48 which is moderately enlarged. Anterior fibromuscular stroma: Moderately thickened without a mass. Peripheral zone: Linear intermediate fibrotic strands and a few micronodules are scattered throughout both peripheral zones but no discrete mass or lobular enhancing abnormality seen to indicate a definitive neoplasm. Contrast-enhancement is diffuse and symmetric when compared to the central and transitional zones. Central zone: Rounded moderate size lobular islands of hyperplastic tissue intermixed with cystic and fibrotic strands which is fairly symmetric in the bilateral central and transitional zones slightly more prominent on the right. Transitional zone: Prostate capsule: Breeched with extension of intermediate linear strands through the posterior lateral side of the right transitional zone see image #19/38 series 11 with a trace amount of fluid in this region. This could be related to prior biopsy or prior trauma. This can also be seen with inflammation and infection with scarring and laxity of the wall. No discrete mass or enhancing abnormalities seen in this region that would indicate malignant neoplasm with extracapsular spread. However this should be correlated to PET/CT imaging to ensure no occult process is present in this region. Seminal vesicles: Small/hypoplastic with slightly thickened vee and a few areas of fibrotic replacement of the central fluid space but no mass or abnormal enhancing lesion. This is likely senescent/age-related or related to prior inflammation/infection/prostatitis. Pelvic sidewall lymphadenopathy: No demonstrated lymphadenopathy Bony structures: No marrow edema or occult fracture. No abnormal enhancing lesions or lytic or blastic aggressive process. Bladder: No demonstrated bladder mass or abnormal thickening or intraluminal filling defects/stones. Normal visualized small intestine. Normal visualized colon. There is no pelvic fluid. There is no pelvic mass lesion or lymphadenopathy. Normal abdominal wall. MRI/Pelvis W/WO Contrast IMPRESSION: 1. Prostate capsule: Breeched with extension of intermediate linear strands through the posterior lateral side of the right transitional zone see image #19/38 series 11 with a trace amount of fluid in this region. This could be related to prior biopsy or prior trauma. This can also be seen with inflammation and infection with scarring and laxity of the wall. No discrete mass or enhancing abnormalities seen in this region that would indicate malignant neoplasm with extracapsular spread. However this should be correlated to PET/CT imaging to ensure no occult process is present in this region. 2. Other findings are indicative of BPH and sequela of prior prostatitis. 3. PI-RADS 3: intermediate (the presence of clinically significant cancer is equivocal) 4. Targeted image guided biopsy of nodules or area of interest can be performed for definitive pathologic assessment of the tissue and diagnosis 5. Prostate PET/CT exam can also be performed to determine if there is viable malignant neoplasm in the prostate gland. Prostate MRI reference: 15-30% of prostate cancers can go undetected on Prostate MRI. Monitoring and assessment by Primary physician, Urology, and oncology service recommended and treated clnically. (Cancers ([place]). 2022Apr 12;15(99):4883. doi: 10.3390/[id number] Prostate Cancers Invisible on Multiparametric MRI: Pathologic Features in Correlation with Whole-Mount Prostatectomy Hayden Ballard 1,2,*, Matthew Lange 3, Madison Myers 1,2, Sakina Thakkar 1,2, Abel Braden 4, Julius Lewis 5, Waqar Hoffman 6, Gary Parra 1,2, Heath Cordon 1,2) Reference information: Normal prostate tissue Benign prostatic hypertrophy cancer/tumor - low signal peripheral , transitional, and central zones malignancy appears as bright on DWI and low signal on ADC map Prostate imaging-reporting and data system (PI-RADS) PI-RADS 1: very low (clinically significant cancer is highly unlikely to be present) PI-RADS 2: low (clinically significant cancer is unlikely to be present) PI-RADS 3: intermediate (the presence of clinically significant cancer is equivocal) PI-RADS 4: high (clinically significant cancer is likely to be present) PI-RADS 5: very high (clinically significant cancer is highly likely to be present) PI-RADS X: component of exam technically inadequate or not performed Prostate malignancy distribution: Peripheral zone: 70-80% Transitional zone: 10-20% Central zone: 5% or less Electronically Signed: Aidan Castro MD at 8:41 EST Reading Location ID and State: [facility] / [place] , Service support ,
[2024-04-11 13:56] LABS: CREATININE FINGERSTICK 1.3 mg/dL (0.70-1.30)
== END | disposition home or self-care (01) ==
LOC: MRI 13:03
PROVIDERS: PCP Family Medicine
DX: Z01.812 Encounter for preprocedural laboratory examination (principal); R97.20 Elevated prostate specific antigen [PSA]
CPT/HCPCS: 72197; A9575

== ENCOUNTER → 2024-04-16 | Outpatient (CLI) | payer OTHER, SELFPAY ==
--- NOTE | 2024-04-16 12:41 | RAD_ITS ---
STUDY: X-RAY - LEFT SHOULDER REASON FOR EXAM: Male, 63 years old. pain TECHNIQUE: 4 view(s) of the shoulder. COMPARISON: None. FINDINGS: There is mild degenerative arthrosis of the glenohumeral articulation. There is hypertrophic osteoarthrosis of the acromioclavicular joint with inferior osseous spur formation. There is a hook of the anterior acromion consistent with a Type III morphology. Normal humeral head and visualized proximal humerus. The soft tissue structures are unremarkable. Normal visualized pulmonary apex. RAD/Shoulder min 2 Views IMPRESSION: Degenerative changes. No acute abnormalities. Electronically Signed: Doug Maki MD at 19:45 EST ,
== END | disposition home or self-care (01) ==
LOC: MTRAD 12:40
PROVIDERS: PCP Family Medicine; Referring Provider Orthopaedic Surgery Sports Medicine; Visit Provider Orthopaedic Surgery Sports Medicine
DX: M25.512 Pain in left shoulder (principal)
CPT/HCPCS: 73030

== ENCOUNTER 2024-05-28 10:30 | Outpatient (RCR) | payer OTHER, SELFPAY ==
--- NOTE | 2024-05-20 11:18 | HP.PTEVAL_ITS ---
Patient's Visit Information Visit Information Visit Information: TORRI DIAZ is a 63 year old M referred to Physical Therapy by Dr. Compa Nettles MD with a diagnosis of L shoulder pain/Impingement. Date of Evaluation: 05/20/24 Physical Therapist: JENN Pérez Visit Plan Frequency: 2x /Week Duration: 6 Weeks Plan: 2X/ week for 4-6 weeks for scapular and postural exercises, RC strength, s tretching of the L shoulder/AROM with HEP HEP: green mid rows, doorway stretch, and scapular retractions Subjective Subjective: Pt has pain in his L shoulder for about a few months. It hurts when he reaches back for the seatbelt and at night trying to sleep. He does not feel that his L shoulder is weak. He can sleep on his L shoulder. He has no N&T. He does have neck pain at the base of the neck (trap region). He is R handed. He did get a shot in the shoulder and it did help for a few weeks. Pain L shoulder pain: Pain Intensity (Out of 10): 3 Pain Intensity Range: 8 Comment: pulling the seatbelt Objective Objective: R handed AROM: R shoulder flex 140 and L 125 R shoulder ABD 155 and L 140 R shoulder ER 55 and L 45 R shoulder IR T12 and L L2 UE MMT: R shoulder Flex 15.6 and L 15.4 R shoulder ABD 16.8 and L 14.5 R shoulder ER 17.4 and L 14.1 R shoulder IR 17.8 and L 17.4 -Empty can. Question able impingement sign Posture: rounded shoulders, fw head Palpation: tender under the L acromion Balance/Special Test Scores Quick DASH Score: 11.3625 Goals Goal 1:: I HEP Goal Time Frame: 6-8 Weeks Goal 2:: Increase L shoulder AROM (at the time of the eval: R shoulder flex 140 and L 125 R shoulder ABD 155 and L 140 R shoulder ER 55 and L 45 R shoulder IR T12 and L L2) Goal Time Frame: 6-8 Weeks Goal 3:: Decrease L shoulder pain by 50% Goal Time Frame: 6-8 Weeks Goal 4:: Sit with better posture during workday Goal Time Frame: 6-8 Weeks Rehabilitation Potential Rehabilitation Potential: Good Anticipated Interventions Patient/Client Instruction: Educate patient on: Condition and Plan of Care For the Purpose of:: To decrease pain, To increase ROM, To improve nutrient delivery to tissue, To improve muscle performance and motor function, To improve ability to perform ADL's, To increase tolerance to activity/condition/position, To improve performance and independence with ADL's, To improve health of tissue, To decrease soft tissue restriction and To increase flexibility/ROM Therapeutic Exercise to Include: Strength training, Postural training, Flexibilty training, Neuromotor development, Passive ROM, Active ROM and Scapular Strength/Stabilization For the Purpose of:: To decrease pain, To increase ROM, To improve nutrient delivery to tissue, To improve muscle performance and motor function, To increase tolerance to activity/condition/position, To improve performance and independence with ADL's, To improve health of tissue, To decrease soft tissue restriction and To increase flexibility/ROM Manual Therapy Techniques to Include: Passive ROM For the Purpose of:: To increase ROM Cryotherapy (ice pack, ice massage): Yes Thermo therapy (hot pack): Yes For the Purpose of:: To decrease pain, To increase ROM and To improve nutrient delivery to tissue Text: Thank you for the opportunity to evaluate your patient. For Medicare and Medicare HMO plans, please review the plan of care and approve it. It will need to be FAXED BACK to us at [phone] for Medicare purposes. For Medicare only, by signing this I certify the plan of care. Please let me know if there are questions or concerns regarding this plan of care. Physician Signature: Date:
== END 2024-07-26 10:42 | disposition home or self-care (01) ==
LOC: PT 10:30
PROVIDERS: PCP Family Medicine; Referring Provider Orthopaedic Surgery Sports Medicine; Visit Provider Orthopaedic Surgery Sports Medicine
DX: M25.512 Pain in left shoulder (principal); M25.812 Other specified joint disorders, left shoulder
CPT/HCPCS: 97110; 97161

== ENCOUNTER → 2024-06-02 | Outpatient (CLI) | payer OTHER, SELFPAY ==
--- NOTE | 2024-06-02 12:17 | MRI_ITS ---
PROCEDURE: MRI left shoulder without IV contrast REASON FOR EXAM: Pain TECHNIQUE: Multisequence multiplanar MR images of the left shoulder were obtained without the administration of intravenous contrast. COMPARISON: None. FINDINGS Full-thickness full width tear of the supraspinatus tendon with mild retraction measuring up to 8 mm. Moderate superimposed supraspinatus tendinopathy. Mild infraspinatus tendinopathy without discrete tear. Subscapularis tendon is intact. No significant rotator cuff muscle atrophy. Mild intracapsular biceps tendinopathy near the labral anchor. Glenohumeral joint alignment is maintained. No displaced labral tear or paralabral cysts. No focal chondral defects. No significant joint effusion. Severe acromioclavicular joint osteoarthritis including large marginal osteophytes, subcortical cysts, capsular hypertrophy and bone marrow edema. Undersurface osteophytes at the AC joint measure up to 5 mm. Negative for fracture or marrow replacement. Prominent marginal osteophyte along the inferior glenoid measuring up to 7 mm. Moderate fluid in the subacromial/subdeltoid bursa. Large amount of fluid in the subcoracoid bursa measuring 2.0 x 4.5 x 4.1 cm (AP, TV and CC dimensions). MRI/Upper Ext Joint Only(Routine) IMPRESSION: 1. Full-thickness full width mildly retracted tear of the supraspinatus tendon with superimposed tendinopathy. No significant rotator cuff muscle atrophy. 2. Mild infraspinatus tendinopathy. 3. Mild intracapsular biceps tendinopathy. 4. Severe acromioclavicular joint osteoarthritis. 5. Subcoracoid bursitis as above. Moderate fluid in the subacromial/subdeltoid bursa. Reading Location: [facility]
== END | disposition home or self-care (01) ==
LOC: MRI 06-03 10:52
PROVIDERS: Referring Provider Orthopaedic Surgery Sports Medicine; Visit Provider Orthopaedic Surgery Sports Medicine
DX: M25.512 Pain in left shoulder (principal); M25.812 Other specified joint disorders, left shoulder
CPT/HCPCS: 73221

== ENCOUNTER → 2024-07-18 | Outpatient (CLI) | payer OTHER, SELFPAY ==
[2024-07-18 15:30] LABS: Absolute Lymphocyte Count 1.41 X10^3/uL (0.83-4.51); Absolute Neutrophil Count 5.3 X10^3/uL (2.0-7.7); Basophil% 1.3 % (0-1); Eosinophil# 0.21 X10^3/uL; Eosinophils% 2.6 % (0-5); Hematocrit 50.7 % (40-54); Hemoglobin 16.9 g/dL (13.0-16.5); Lymphocyte # 1.41 X10^3/ul (0.83-4.51); Lymphocyte % 17.7 % (19-41); Mean Corp Hgb Conc 33.3 g/dL (32-36); Mean Corpuscular Hgb 34.5 pg (27.0-32.0); Mean Corpuscular Volume 103.5 fL (80-94); Mean Platelet Vol. 10.9 fl (6.2-12.0); Monocyte# 0.85 X10^3/uL; Monocyte% 10.7 % (0-10); NRBC Flagged by Analyzer 0 % (0-5); Neutrophil # 5.32 X10^3/uL (2.7-7.7); Neutrophil % 66.6 % (47-70); Platelet Count 166 K/mm3 (150-450); RBC Distribution Width CV 13.2 % (11.6-14.6); RBC Distribution Width SD 50.6 fl (35.1-43.9)
[2024-07-18 16:34] LABS: Anion Gap 9 (5-15); BUN 17 mg/dL (4-19); BUN/Creat Ratio 15.4 RATIO (10-20); Calcium,Total 9.5 mg/dL (7.6-11.0); Carbon Dioxide 26.5 mmol/L (21.0-32.0); Chloride 104 mmol/L (98-108); Creatinine, Serum 1.12 mg/dL (0.70-1.20); EST Glomerular Filtration Rate 73 (>60); Glucose 81 mg/dL (70-99); Potassium 4.5 mmol/L (3.3-5.1); Sodium Level 139 mmol/L (133-145)
== END | disposition home or self-care (01) ==
LOC: MFPLAB 12:00
PROVIDERS: PCP Family Medicine; Referring Provider Family Medicine; Visit Provider Family Medicine
DX: M25.512 Pain in left shoulder (principal)
CPT/HCPCS: 36415; 80048; 85025

== ENCOUNTER 2024-07-24 05:53 | Day surgery (SDC) | payer OTHER, SELFPAY ==
--- NOTE | 2024-07-11 08:23 | EKG12_ITS ---
Test Reason : PREOP Blood Pressure : */* mmHG Vent. Rate : 76 BPM Atrial Rate : 76 BPM P-R Int : 152 ms QRS Dur : 92 ms QT Int : 366 ms P-R-T Axes : -25 31 46 degrees QTcB Int : 411 ms Sinus rhythm with Premature atrial complexes Otherwise normal ECG Confirmed by SHANNAN DEL REAL, JENNYFER ([id number]), medical editor SHANTE WONG ([id number]) on 07/15/2024 11:30:30 AM Referred By: Compa Nettles Confirmed By: JENNYFER CAMPBELL MD
[2024-07-11 09:24] LABS: Hematocrit 52.3 % (40-54); Hemoglobin 17.6 g/dL (13.0-16.5); Mean Corp Hgb Conc 33.7 g/dL (32-36); Mean Platelet Vol. 10.4 fl (6.2-12.0); Platelet Count 180 K/mm3 (150-450); RBC Distribution Width CV 13.6 % (11.6-14.6); RBC Distribution Width SD 50.4 fl (35.1-43.9); Red Blood Count 5.18 M/mm3 (4.6-6.2); White Blood Count 7.2 K/mm3 (4.4-11.0)
--- NOTE | 2024-07-12 14:34 | PAT.ANESEVAL ---
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 When Was Last Pacemaker Check QUESTION #4 FULL TEXT: You/Your Family Experience fever (hyperthermia) with Anesthesia Last Oral Intake Last Oral intake: Last Oral Intake NPO since Meds taken in AM with sips of water? Meds patient instructed to take am of surgery PONV PONV - blister pack operator: PONV - blister pack operator Female No 07/10/24 12:54 HX of Motion Sickness No 07/10/24 12:54 HX of N/V After Surgery No 07/10/24 12:54 Non-Smoker No 07/10/24 12:54 Duration of Surgery greater Yes 07/10/24 12:54 than 60 minutes Number of Risk Factors 1 07/10/24 12:54 PONV Score Low Risk 07/10/24 12:54 Height & Weight Height & Weight: Anesthesia: Height & Weight Height 6 ft 2 in 04/18/24 13:52 Respiratory Assessment Respiratory Assessment - blister pack operator: Respiratory Tract Infection Hx - blister pack operator Hx Respiratory Tract Infection No 07/10/24 12:54 STOP Sleep Apnea STOP Sleep Apnea - blister pack operator: STOP Sleep Apnea - blister pack operator Hx Hypertension Yes: CONTROLLED WITH MED 07/10/24 12:54 Hx Sleep Apnea Yes 07/10/24 12:54 CPAP Yes 07/10/24 12:54 BIPAP No 07/10/24 12:54 Do you snore loudly (louder than talking or can be heard Do you often feel tired/ fatigued/ sleepy during daytime? Has anyone observed you stop breathing during sleep? STOP Results Positive 07/10/24 12:54 QUESTION #5 FULL TEXT : Do you snore loudly (louder than talking or can be heard through closed doors)? Tobacco Use History Tobacco Use History - blister pack operator: Tobacco Use History - blister pack operator Tobacco Use Smoking Status Current every day smoker 07/10/24 12:54 Hx Tobacco Use Yes: CHEWS TOBACCO 07/10/24 12:54 Years Smoking Packs Smoked per Day Smoking Cessation Date was within the last 15 years Hx Smoking Cessation Date Hx Smoking Cessation Counseling Hematologic Medial History Hematologic Hx - blister pack operator: Hematologic Medical Hx - documentation liaison Hx of Blood Transfusion No 07/10/24 12:54 Hx of Transfusion in last 3 No 07/10/24 12:54 Months Date of Last Transfusion (if within last 3 months) Ever experience any problems No 07/10/24 12:54 with transfusion(s)? Specify any problems Hx of Preganancy in last 3 N/A 07/10/24 12:54 Months Nurse Filling Out Transfusion DSCHRIBER 07/10/24 12:54 & Questions: Date: 07/10/24 07/10/24 12:54 Time: 12:55 07/10/24 12:54 Patient unable to answer at this time (ie. confused, unrespo /Reproduction History /Reproductive History - blister pack operator: /Reproductive Hx- blister pack operator Hx Now Gestational Age (in weeks): EDC: Hx Hx Para Hx Section SAB No 07/10/24 12:54 PFSH Medical History (Updated 07/10/24 @ 13:01 by Nay Werner) Alcohol use History of steroid therapy Arthritis Prostate disease Restless legs Back pain Arthrosis of left acromioclavicular joint Left rotator cuff tear Impingement of left shoulder Left shoulder pain Anxiety Chews tobacco Depression Umbilical hernia CPAP (continuous positive airway pressure) dependence Hypertension Home Medications ?Medication ?Instructions ?Recorded ?Last Taken ?Type meloxicam 15 mg tablet 15 mg PO DAILY pain 12/30/19 04/27/23 History Cholecalciferol (Vitamin D3) 5,000 unit PO DAILY supplement 03/24/20 04/27/23 History [Vitamin D3] sertraline 50 mg tablet 50 mg PO DAILY depression 03/24/20 04/27/23 History bupropion HCl 300 mg 24 hr tablet, 300 mg PO DAILY 04/03/23 04/27/23 History extended release losartan 50 mg tablet 50 mg PO DAILY 04/03/23 04/28/23 History metoprolol tartrate 25 mg tablet 25 mg PO Q12H 04/03/23 04/28/23 History phentermine 15 mg-topiramate ER 92 1 cap PO Q24H 04/03/23 04/27/23 History mg capsule,ext.[id number] multphas (Qsymia) Allergy/AdvReac Type Severity Reaction Status Date / Time No Known Allergies Allergy Verified 07/10/24 12:51 Surgical History (Updated 07/10/24 @ 13:01 by Nay Werner) History of umbilical hernia repair History of cataract extraction with lens replacement History of colonoscopy History of appendectomy Social History Smoking Status: Current every day smoker tobacco type: smokeless tobacco Audit: Pertinent Findings Pertinent Findings EKG Perinent findings: 04/04/2023. Sinus bradycardia 53 bpm. Recommendation Anesthesia Recommendation Anesthesia recommendation: OPTIMIZED for anesthesia
[2024-07-24] VITALS (14 sets, daily range): BP systolic 89–144; BP diastolic 61–85; PULSE 66–82; RESP 16; TEMP 36.1–37.3; O2SAT 88–96; BMI 41.3
[2024-07-24] MEDS: 0.9% Normal Saline (1000mL) 1,000 ML 15 ML IV (06:31)
--- NOTE | 2024-07-24 07:03 | PCM.HP.STD ---
HPI - General HPI Narrative TORRI DIAZ is a 63 M who presents for a left shoulder arthroscopy, subacromial decompression, rotator cuff repair, possible biceps tenodesis. no changes to h and p. rab, post op instructions, narcotic counselling given. left shoulder marked. no further questions. will proceed. MR#: [id number] Acct: [id number] Name: TORRI DIAZ V Rep #: [id number] : 1960 Provider: Dr. Compa Nettles MD Age/Sex: 63/M Location: [facility] [place] Status: Signed Intake Vital Signs 04/18/2413:52 Height 6 ft 2 in Weight: 318 lb 2 oz BMI 40.8 Intake Visit Reasons: LEFT SHOULDER Chief Complaint: left shoulder MRI review Accompanied by: Self Is patient in pain?: Yes Pain scale (1-10): 3 Allergies No Known Allergies Allergy (Verified 06/06/24 10:00) Medications ?Medication ?Instructions ?Recorded ?Confirmed ?Type meloxicam 15 mg tablet 15 mg PO DAILY pain 12/30/19 06/06/24 History Cholecalciferol (Vitamin D3) 5,000 unit PO DAILY supplement 03/24/20 06/06/24 History [Vitamin D3] sertraline 50 mg tablet 50 mg PO DAILY depression 03/24/20 06/06/24 History bupropion HCl 300 mg 24 hr tablet, 300 mg PO DAILY 04/03/23 06/06/24 History extended release losartan 50 mg tablet 50 mg PO DAILY 04/03/23 06/06/24 History metoprolol tartrate 25 mg tablet 25 mg PO Q12H 04/03/23 06/06/24 History phentermine 15 mg-topiramate ER 92 1 cap PO Q24H 04/03/23 06/06/24 History mg capsule,ext.[id number] multphas (Qsymia) Have you fallen in the past year?: No PFSH Medical History (Updated 06/06/24 @ 10:03 by Compa Nettles MD) Arthrosis of left acromioclavicular joint Left rotator cuff tear Impingement of left shoulder Left shoulder pain Anxiety Chews tobacco Depression Umbilical hernia CPAP (continuous positive airway pressure) dependence Sleep apnea Hypertension Surgical History History of cataract extraction with lens replacement History of colonoscopy History of appendectomy Social History Smoking Status: Never smoker HPI LEFT SHOULDER Details: This documentation accurately reflects the service provided and the decisions made by me, Dr. Compa Nettles MD 06/06/24 0939. Part of today?s visit was documented by [ ], acting as scribe. TORRI DIAZ is a 63 year old M here today for FU L shoulder MRI. Patient had a cortisone injection little over 6 weeks ago that helped temporarily but the pain is back and worse with lifting with the arm in abduction and mostly located on the lateral aspect of the shoulder. Supplemental Info [facility] Imaging Services [address], [place] [address] Upper Ext Joint Only(Routine) MR#: [id number] Acct: [id number] Name: TORRI DIAZ V Rep #: [id number] : 1960 M 63 From: Georges Lock DO PCP: Care Physician,No Primary Status: REG CLI Study: Upper Ext Joint Only(Routine) Date of Exam: 06/02/24 Exam# [id number] Ordering Dr: Compa Nettles MD PROCEDURE: MRI left shoulder without IV contrast REASON FOR EXAM: Pain TECHNIQUE: Multisequence multiplanar MR images of the left shoulder were obtained without the administration of intravenous contrast. COMPARISON: None. FINDINGS Full-thickness full width tear of the supraspinatus tendon with mild retraction measuring up to 8 mm. Moderate superimposed supraspinatus tendinopathy. Mild infraspinatus tendinopathy without discrete tear. Subscapularis tendon is intact. No significant rotator cuff muscle atrophy. Mild intracapsular biceps tendinopathy near the labral anchor. Glenohumeral joint alignment is maintained. No displaced labral tear or paralabral cysts. No focal chondral defects. No significant joint effusion. Severe acromioclavicular joint osteoarthritis including large marginal osteophytes, subcortical cysts, capsular hypertrophy and bone marrow edema. Undersurface osteophytes at the AC joint measure up to 5 mm. Negative for fracture or marrow replacement. Prominent marginal osteophyte along the inferior glenoid measuring up to 7 mm. Moderate fluid in the subacromial/subdeltoid bursa. Large amount of fluid in the subcoracoid bursa measuring 2.0 x 4.5 x 4.1 cm (AP, TV and CC dimensions). MRI/Upper Ext Joint Only(Routine) IMPRESSION: 1. Full-thickness full width mildly retracted tear of the supraspinatus tendon with superimposed tendinopathy. No significant rotator cuff muscle atrophy. 2. Mild infraspinatus tendinopathy. 3. Mild intracapsular biceps tendinopathy. 4. Severe acromioclavicular joint osteoarthritis. 5. Subcoracoid bursitis as above. Moderate fluid in the subacromial/subdeltoid bursa. Reading Location: [facility] I independently reviewed the imaging. Concur with radiologist report. Coding Level of Care Code Off vis,est,level 4 Diagnoses Impingement of left shoulder M25.812 Left shoulder pain M25.512 Left rotator cuff tear M75.102 Arthrosis of left acromioclavicular joint M19.012 Assessment and Plan Assessment and Plan (1) Impingement of left shoulder: Status: Acute Plan: 63-year-old man with rotator cuff tear tendinitis of the biceps as well as AC joint arthrosis. Explained the diagnosis prognosis different treatment options available to the patient. Generally rotator cuff tears are recommended to be fixed as a 10-year follow-up they do better and are smaller at 10 years follow-up. Patient would like to go ahead with a left shoulder arthroscopy, subacromial decompression, rotator cuff repair, possible biceps tenodesis. The patient is not having any pain at the AC joint and a negative cross body adduction test so I have chosen not to perform a distal clavicle excision despite the AC joint arthrosis. They understand patient does use a sleep apnea machine with PAT so I will get a clearance from the family Dr. Pathak. Generally medical problems like PAT and obesity can increase the risks of infection and other complications related to surgery. Patient understands signed the consent form for surgery as well as possible need for blood products. Pros and cons risks and benefits were discussed with the patient including but not limited to infection, pain, stiffness, bleeding, damage to surrounding structures, neurovascular injury, recurrence or retear, failure or wear of hardware or fixation, instability, fracture, deep vein thrombosis and pulmonary embolism, anesthetic risks, , patient dissatisfaction, need for further surgery and other risks. Patient understood and wished to proceed with surgery, and signed the informed consent documentation. (2) Left shoulder pain: Status: Acute (3) Left rotator cuff tear: Status: Acute (4) Arthrosis of left acromioclavicular joint: Status: Acute Clinical Quality Measures Falls Risk Screening/Assistive Devices Have you fallen in the past year?: No Ortho Exam General General: Yes no acute distress Neurologic: Yes alert and Yes oriented x3 Psychologic: Yes reasonable and appropriate [facility] Medical History (Updated 07/10/24 @ 13:01 by Nay Werner) Alcohol use History of steroid therapy Arthritis Prostate disease Restless legs Back pain Arthrosis of left acromioclavicular joint Left rotator cuff tear Impingement of left shoulder Left shoulder pain Anxiety Chews tobacco Depression Umbilical hernia CPAP (continuous positive airway pressure) dependence Hypertension Home Medications ?Medication ?Instructions ?Recorded ?Last Taken ?Type meloxicam 15 mg tablet 15 mg PO DAILY pain 12/30/19 07/23/24 History Cholecalciferol (Vitamin D3) 5,000 unit PO DAILY supplement 03/24/20 07/23/24 History [Vitamin D3] bupropion HCl 300 mg 24 hr tablet, 300 mg PO DAILY 04/03/23 07/24/24 History extended release losartan 50 mg tablet 50 mg PO DAILY 04/03/23 07/24/24 History Fish OiL 07/24/24 07/23/24 History Allergy/AdvReac Type Severity Reaction Status Date / Time No Known Allergies Allergy Verified 07/10/24 12:51 Surgical History (Updated 07/10/24 @ 13:01 by Nay Werner) History of umbilical hernia repair History of cataract extraction with lens replacement History of colonoscopy History of appendectomy Social History Smoking Status: Current every day smoker tobacco type: smokeless tobacco Vital Signs Vital Signs Vital Signs: 07/24/24 06:28 07/24/24 06:32 Temperature 99.2 F H Temperature Source Temporal Pulse Rate 69 Respiratory Rate 16 Respiratory Pattern Normal Blood Pressure 144/85 H Blood Pressure Mean 104 Blood Pressure Source Monitor Blood Pressure Position Semi-Fowlers Blood Pressure Location Left Arm Pulse Ox 94 Oxygen Delivery Method Room Air Weight Weight: 321 lb 13.998 oz Body Mass Index (BMI) 41.3 Results Lab / Micro Data 07/11/24 08:37
--- NOTE | 2024-07-24 07:04 | PRE.ANES_ITS ---
ASA Classification* ASA Classification ASA Classification: 3 Assessment & Plan Anesthesia* Anesthesia Assessment Anesthesia Assessment: Discussed sedation and/or anesthesia options, risks, benefits, and alternatives with patient/parents/legal guardian/POA. Questions invited. The patient/parents/legal guardian/POA seems to understand and agrees to proceed with anesthesia plan. Reviewed the physical assessment, medical history, allergy history and patient home medications list prior to surgery/procedure/anesthetic and documented any changes. Performed airway and anesthesia risk assessments. Anesthesia Type Anesthesia Type: General Anesthesia Focused Assessment* Temperature: 99.2 F Pulse Rate: 69 Blood Pressure: 144/85 Respiratory Rate: 16 Pulse Ox: 94 Airway Assessment Mouth opens: >3 cm Mallampati Score: II Focused Labs Anesthesia Preop lab: CBC WBC 8.0 K/mm3 (4.4-11.0) 07/18/24 12:00 07/18/24 RBC 4.90 M/mm3 (4.6-6.2) 07/18/24 12:00 07/18/24 Hgb 16.9 g/dL (13.0-16.5) H 07/18/24 12:00 5 Hct 50.7 % (40-54) 07/18/24 12:00 07/18/24 Plt Count 166 K/mm3 (150-450) 07/18/24 12:00 07/18/24 CHEMISTRY Potassium 4.5 mmol/L (3.3-5.1) 07/18/24 12:00 07/18/24 Sodium 139 mmol/L (133-145) 07/18/24 12:07/18/24 BUN 17 mg/dL (4-19) 07/18/24 12:07/18/24 Creatinine 1.12 mg/dL (0.70-1.20) 07/18/24 12:00 07/18/24 Glucose 81 mg/dL (70-99) 07/18/24 12:00 07/18/24 TSH 1.52 uIU/mL (0.358-3.74) 11/17/22 12:16 COAG PT 13.9 SECONDS (11.7-14.9) 04/03/23 23:55 Pre-Assessment Diagnosis/Proposed Procedure Planned Operative Procedure(s): LEFT SHOULDER ARTHROSCOPY SUBCROMIAL DECOMPRESSION RTC REPAIR POSS BICEPS TENODESIS Anesthesia History Anesthesia History - canal tender: Anesthesia History - canal tender Hx Hospitalization No 07/10/24 12:54 Any Problems With Anesthesia No 07/10/24 12:54 Cholinesterase deficiency No 07/10/24 12:54 You/Your Family Experience No 07/10/24 12:54 fever (hyperthermia) with Relationship Recent Exposure to Contagious No 07/24/24 06:28 Disease Does patient have nerve No 07/10/24 12:54 stimulator Patient instructed to have device shut off --Does patient have Pacemaker No 07/24/24 06:32 or ICD? When Was Last Pacemaker Check QUESTION #4 FULL TEXT: You/Your Family Experience fever (hyperthermia) with Anesthesia Last Oral Intake Last Oral intake: Last Oral Intake NPO since 00:00 07/24/24 06:32 Meds taken in AM with sips of Yes 07/24/24 06:32 water? Meds patient instructed to bupropion 07/24/24 06:32 take am of surgery losartan PONV PONV - canal tender: PONV - canal tender Female No 07/10/24 12:54 HX of Motion Sickness No 07/10/24 12:54 HX of N/V After Surgery No 07/10/24 12:54 Non-Smoker No 07/10/24 12:54 Duration of Surgery greater Yes 07/10/24 12:54 than 60 minutes Number of Risk Factors 1 07/10/24 12:54 PONV Score Low Risk 07/10/24 12:54 Height & Weight Height & Weight: Anesthesia: Height & Weight Height 6 ft 2 in 07/24/24 06:32 Weight: 146 kg 07/24/24 06:32 Body Mass Index (BMI) 41.3 07/24/24 06:32 Respiratory Assessment Respiratory Assessment - canal tender: Respiratory Tract Infection Hx - canal tender Hx Respiratory Tract Infection No 07/10/24 12:54 STOP Sleep Apnea STOP Sleep Apnea - canal tender: STOP Sleep Apnea - canal tender Hx Hypertension Yes: CONTROLLED WITH MED 07/10/24 12:54 Hx Sleep Apnea Yes 07/10/24 12:54 CPAP Yes 07/10/24 12:54 BIPAP No 07/10/24 12:54 Do you snore loudly (louder than talking or can be heard Do you often feel tired/ fatigued/ sleepy during daytime? Has anyone observed you stop breathing during sleep? STOP Results Positive 07/10/24 12:54 QUESTION #5 FULL TEXT : Do you snore loudly (louder than talking or can be heard through closed doors)? 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 Specify any problems Hx of Preganancy in last 3 N/A 07/10/24 12:54 Months Nurse Filling Out Transfusion DSCHRIBER 07/10/24 12:54 & Questions: Date: 07/10/24 07/10/24 12:54 Time: 12:55 07/10/24 12:54 Patient unable to answer at this time (ie. confused, unrespo /Reproduction History /Reproductive History - canal tender: /Reproductive Hx- canal tender Hx Now Gestational Age (in weeks): EDC: Hx Hx Para Hx Section SAB No 07/10/24 12:54 Active Medications Active Medications: Current Medications Generic Name Dose Route Start Last Admin Trade Name Freq PRN Reason Stop Dose Admin Cefazolin Sodium 3 gm/ N/A 30 mls @ 600 mls/hr 07/24/24 09:05 IV 07/24/24 09:07 PREOP ONE Sodium Chloride 1,000 mls @ 15 mls/hr 07/24/24 06:10 07/24/24 06:31 IV 07/29/24 19:29 15 mls/hr .Q48H TAMIKA Administration PFSH Medical History Alcohol use History of steroid therapy Arthritis Prostate disease Restless legs Back pain Arthrosis of left acromioclavicular joint Left rotator cuff tear Impingement of left shoulder Left shoulder pain Anxiety Chews tobacco Depression Umbilical hernia CPAP (continuous positive airway pressure) dependence Hypertension Home Medications ?Medication ?Instructions ?Recorded ?Last Taken ?Type meloxicam 15 mg tablet 15 mg PO DAILY pain 12/30/19 07/23/24 History Cholecalciferol (Vitamin D3) 5,000 unit PO DAILY suppl ement 03/24/20 07/23/24 History [Vitamin D3] bupropion HCl 300 mg 24 hr tablet, 300 mg PO DAILY 08/2107/24/24 History extended release losartan 50 mg tablet 50 mg PO DAILY 04/03/2306/30 History Fish OiL 07/24/24 07/23/24 History Allergy/AdvReac Type Severity Reaction Status Date / Time No Known Allergies Allergy Verified 07/10/24 12:51 Surgical History History of umbilical hernia repair History of cataract extraction with lens replacement History of colonoscopy History of appendectomy Social History Smoking Status: Current every day smoker tobacco type: smokeless tobacco Review of Systems (Anesthesia) ROS Narrative System reviewed and no additional complaints, except as documented.
[2024-07-24] MEDS: Cefazolin 3 GM in Syringe 1 EACH IV (07:27)
--- NOTE | 2024-07-24 07:30 | TESH_PTH ---
PATIENT: NICK BRITT V LOC: [facility] – [place] U#:[id number] AGE/SX: 63/M ROOM: RE07/24/[address]: Dr. Compa Nettles MD : 1960 BED: DIS: 07/24/2024 SPEC #: [id number] RECD: 07/24/24 12:05 STATUS: WILBER MATILDE #: [id number] SANTOS: 07/24/24 07:[address]: Compa Nettles DEPT: SURGICAL PATHOLOGY RECD BY: Camden Peoples ENTERED: 07/24/24 12:06 SP TYPE: TENDON OTHR DR: Dr. Shady Pathak MD Tissues: A - Tendon and tendon sheath, NOS Procedures: Surgery Specimen Level III HEADER OPERATION: Left shoulder arthroplasty, subacromial decompression PRE-OP DIAGNOSIS: Impingement of left shoulder, left shoulder pain, left rotator cuff tear, arthrosis of left acromioclavicular joint TISSUE SUBMITTED: A- Left bicep MICROSCOPIC DIAGNOSIS A. LEFT BICEPS TENDON, LEFT SHOULDER ARTHROPLASTY: * DENSE FIBROUS TISSUE WITH REACTIVE/DEGENERATIVE CHANGES. MICROSCOPIC DESCRIPTION Slides are reviewed. GROSS DESCRIPTION A. Received in formalin labeled, Nick Britt, and designated biceps left, is an 8.1 x 0.8 x 0.5 cm elongated portion of fibrous connective tissue/tendon with a minimal amount of attached barakat fibrous tissue and possible red-brown skeletal muscle. Sectioning is unremarkable. Multiple sections are submitted in one cassette. SOBEIDA 07/24/2024 CPT:76365
[2024-07-24] MEDS: Bupivacaine 0.25% 30 ML Vial (07:51)
[2024-07-24] MEDS: Epinephrine (1 mg/ml) 1 MG/ML VIAL (07:51)
--- NOTE | 2024-07-24 09:03 | PCM.OPRPT ---
Problems Associated Problem List Diagnoses (1) Arthrosis of left acromioclavicular joint: (2) Left rotator cuff tear: (3) Impingement of left shoulder: (4) Left shoulder pain: (5) Superior labrum harmuwju-vt-umrwqdkso (SLAP) tear of left shoulder: Procedures Musculoskeletal [id number]: Other Procedure See Report Operative Report (Standard) Operative Information Date of Procedure: 07/24/24 Pre-Operative Diagnosis: Left shoulder impingement syndrome rotator cuff tear and biceps tear Post-Operative Diagnosis: Left shoulder impingement syndrome rotator cuff tear and SLAP tear Surgery/Procedure Performed: Left shoulder arthroscopy subacromial decompression rotator cuff repair biceps tenodesis nursing director: Yes Cryptologic Technician Technical: rudy Tasks completed by assistant city attorney: Retracting Type of Anesthesia: General and Local RN Documented Start/Stop Times: Operation Date: 07/24/24 07:30 Case Time Into Pre-Op 07/24/24 06:04 Out of Pre-Op 07/24/24 07:22 Anesthesia Start 07/24/24 07:27 Into Room 07/24/24 07:27 Procedure Start 07/24/24 07:51 Procedure Start Time: 07:51 Procedure Stop Time: 09:08 Select all DRAINS/GRAFTS/IMPLANTS that apply: Implanted device Implanted device details: Arthrex 4.75 mm swivel lock anchor and metal biceps button Estimated Blood Loss: 50 Specimen collected: Yes Description of specimen(s) removed: Long head of biceps Description of surgery: Patient brought to the operating room theater. Placed supine on the table. SCDs on the legs. General anesthetic induced. 3 g IV Ancef administered prior to the start of the case. Patient transferred left side up lateral decubitus beanbag positioner axillary roll used all bony prominences padded. Upper extremity prepped and draped with chlorhexidine-based prep solution allowing over 3 minutes drying time prior to draping. 15 pounds of inline traction with the arm in 40 degrees of abduction was utilized. Preoperative timeout performed to confirm the site patient the surgery. Began by inserting the arthroscope through a standard posterior arthroscopy portal. Did a full diagnostic arthroscopy. The cartilage on the glenoid and humeral head appeared normal. Subscapularis was normal. No loose bodies. Slight labral fraying. I established an anterior portal through the rotator interval. I gently debrided the anterior labrum. The biceps - Slightly hypertrophic with a type II SLAP tear so I performed an intra-articular biceps tenotomy to plan for later tenodesis. There was a full-thickness anterior leading edge tear of the supraspinatus tendon as consistent with the MRI. I marked this with a spinal needle. Next I placed the arthroscope in the subacromial space. I established to accessory working lateral portals with cannulas. There is a high amount of inflammatory bursitis. I performed a complete bursectomy. I did a subacromial decompression for 4 mm down to flat margins with a high-speed carolyn instrument. Identified the full-thickness tear of the anterior leading edge of the cuff tendon. This is about 1 cm x 1 cm. I performed a decortication at the greater tuberosity as well as multiple trephination's using power pick instrument. I then passed an inverted horizontal mattress fiber tape suture as well as a fiber link suture at the anterior leading edge tissue gently debrided the margins of the rotator cuff. I then inserted this into a knotless 4.75 mm Arthrex swivel lock bio composite anchor just off the greater tuberosity this achieved good compression of the footprint I also used the stay suture in a knotless configuration to slightly compress a very small dogear. Arthroscopy pictures taken and saved onto the system throughout the case. I then turned my attention to the biceps tenodesis subpectoral technique. Performed a 1 inch incision centered over the long head of the biceps on the upper proximal medial aspect of the humerus carried the dissection down through skin and subcutaneous tissue achieved meticulous hemostasis. Identified the long head of the biceps tendon shorten this. I used the Arthrex biceps tension tight button technique with the locking loop suture. I passed the loop and a luggage tag configuration then distal to this from anterior to posterior past the suture back through the tendon to create a locking configuration. I then drilled a unicortical hole removed any bone dust. I then passed the button flipped the button and then did an onlay technique with the biceps tension tight button pulling the free and to shorten up the suture and then cut this short. This is a solid repair. Wound thoroughly irrigated subcutaneous tissue closed with 2-0 Vicryl suture and skin with 3-0 Monocryl. Skin cleaned with wet dry dressing. 20 cc of quarter percent bupivacaine instilled in and around the soft tissues. Skin cleaned with wet dry dressing followed by Steri-Strips Adaptic 4 x 4 gauze ABD dressing cloth tape with an abduction pillow sling for the upper extremity. Patient woken up from the general anesthetic transferred off the operating table taken to postanesthetic care unit in stable condition. All sponge needle instrument counts were correct no complications plan for the patient discharged home according to day surgery criteria follow-up in the office in 2 days time. CPT 46144, 92963, 84948, 60924? Surgical Findings: as above Complications Complications: No Admit VTE Documentation VTE Present on Admission: No VTE Mechan Device Prophylaxis: SCD's VTE Pharm Prophylaxis ordered?: No Reason prophylaxis not ordered: Treatment Not Indicated
--- NOTE | 2024-07-24 09:13 | DCINST_ITS ---
Discharge Instructions Diet Discharge Diet: No restrictions Activity May resume sexual activity in: No Restrictions Ice area for (Minutes): 10 Lifting Restrictions: no lifting over 1 pound, ok for breaks from the sling Additional Activity Instructions:: ok for pendulums and elbow ROM 4x/day Dressing / Incision Call your doctor if your incision/area has: Continuous Slow Oozing, Sudden Increased Bleeding, Increased Pain/ Swelling, Increased Redness, Foul Smelling Discharge and Swelling at the incision site Call your doctor if you observe: Fever of 101 or Higher, Coldness, Increased Pain and Numbness or Tingling Change Dressing in: leave in place till F/U Cleanse incision/area with: Do not get Incision Wet Additional Dressing/Incision Instructions:: OK to change dressings if leaking / strike through Follow Up Care Please Follow Up With: Compa Nettles MD When: 2 days or within 2 weeks Test Results: Test results from this visit will be discussed in further detail at your follow- up appointment, if applicable. Discharge Plan Admission Attending Provider: Compa Nettles Primary Care Provider: Shady Pathak Instructions Patient Instructions: After Shoulder Arthroscopy Print Language: Chinese Discharge Orders/Prescriptions Prescriptions: New oxycodone-acetaminophen [Endocet] 5-325 mg tablet 1 tab PO Q4H MDD 6 PRN (Reason: pain) 5 Days Qty: 30 0RF No Action meloxicam 15 MG tablet 15 mg PO DAILY Cholecalciferol (Vitamin D3) [Vitamin D3] 5,000 UNIT capsule 5,000 unit PO DAILY bupropion HCl 300 mg tablet extended release 24 hr 300 mg PO DAILY Patient Comments: TAKE 1 TABLET BY MOUTHEONCE DAILY losartan 50 mg tablet 50 mg PO DAILY Patient Comments: TAKE 1 TABLET BY MOUTHCONCE DAILY Fish OiL Referrals / Follow Up: Care Physician,No Primary [Non-Staff] - Compa Nettles MD [[facility] Staff - Active Staff] - Disposition Disposition (needs filled in before D/C Order can be placed): Home, Self Care
--- NOTE | 2024-07-24 09:25 | PCM.POST.ANE ---
Anesthesia: Postop Eval I Current Vital Signs Temperature: 98.6 F Pulse Rate: 75 Blood Pressure: 101/75 Respiratory Rate: 16 Pulse Ox: 93 Assessment Airway patent: Yes Spontaneous unlabored respirations: Yes nausea: No Vomiting: No Anesthesia Complication: No Fluid Hydration Crystalloid volume administer (ml): 1,700 Total IV fluid infused: 1,700 Progress Note Anesthesia document: Postop Eval 1 completed: Yes
--- NOTE | 2024-07-24 10:35 | POSTOPAN2_ITS ---
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 Spontaneous unlabored Yes 07/24/24 09:25 AUTOMOTIVE GLASS [email or web address] respirations Mental status nausea No 07/24/24 09:25 AUTOMOTIVE GLASS [email or web address] Vomiting No 07/24/24 09:25 AUTOMOTIVE GLASS [email or web address] Anesthesia Postop Eval I: Fluid Summary Crystalloid volume administer 1,700 07/24/24 09:25 AUTOMOTIVE GLASS [email or web address] (ml) Colloids volume administered ( ml) Blood Product volume administered (ml) Total IV fluid infused 1,700 07/24/24 09:25 AUTOMOTIVE GLASS [email or web address] Anesthesia Postop Eval I: Summary Notes Anesthesia Complication No 07/24/24 09:25 AUTOMOTIVE GLASS [email or web address] Anesthesia Complication Comment: Post-operative progress note Anesthesia: Postop Eval II Evaluation Mental status: Awake Pain Level: 0 nausea: No Vomiting: No
--- NOTE | 2024-07-24 10:35 | PCM.POSTANE2 ---
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 Spontaneous unlabored Yes 07/24/24 09:25 MASS SPECTROMETRY [email or web address] respirations Mental status nausea No 07/24/24 09:25 MASS SPECTROMETRY [email or web address] Vomiting No 07/24/24 09:25 MASS SPECTROMETRY [email or web address] Anesthesia Postop Eval I: Fluid Summary Crystalloid volume administer 1,700 07/24/24 09:25 MASS SPECTROMETRY [email or web address] (ml) Colloids volume administered ( ml) Blood Product volume administered (ml) Total IV fluid infused 1,700 07/24/24 09:25 MASS SPECTROMETRY MANAGER.[email or web address] Anesthesia Postop Eval I: Summary Notes Anesthesia Complication No 07/24/24 09:25 MASS SPECTROMETRY [email or web address] Anesthesia Complication Comment: Post-operative progress note Anesthesia: Postop Eval II Evaluation Mental status: Awake Pain Level: 0 nausea: No Vomiting: No
[2024-07-24] MEDS: HYDROcodone Bitartrate/Apap 5/325 Tablet PO (11:22)
== END 2024-07-24 12:25 | disposition home or self-care (01) ==
LOC: SDC 05:53 → AC 05:53
PROVIDERS: Anesthesiology; PCP Family Medicine; Referring Provider Orthopaedic Surgery Sports Medicine; Visit Provider Orthopaedic Surgery Sports Medicine
PROC: (CPT 29805; principal; 2024-07-24 07:10)
DX: M19.012 Primary osteoarthritis, left shoulder (principal); I10 Essential (primary) hypertension; S43.432A Superior glenoid labrum lesion of left shoulder, initial encounter; M75.102 Unspecified rotator cuff tear or rupture of left shoulder, not specified as traumatic; G47.30 Sleep apnea, unspecified; Z99.89 Dependence on other enabling machines and devices; M25.812 Other specified joint disorders, left shoulder; F17.220 Nicotine dependence, chewing tobacco, uncomplicated
CPT/HCPCS: 29827; 29826; 23430; 29822; 01630; 36415; 85027; 88304; 88311; 93005; C1713; J2405

== ENCOUNTER 2024-08-30 10:00 | Outpatient (RCR) | payer OTHER, SELFPAY ==
--- NOTE | 2024-08-05 20:51 | HP.PTEVAL_ITS ---
Patient's Visit Information Visit Information Visit Information: TORRI DIAZ is a 63 year old M referred to Physical Therapy by Dr. Compa Manrique MD with a diagnosis of S/P L shld arthroscopy subacromial decomp rotator cuff repair 07/24/24. Date of Evaluation: 08/01/24 Physical Therapist: Lisseth Dunn PT, Cert MDT Visit Plan Frequency: 2-3x /Week Duration: 2 Months Plan: 2-3 X'S A WK X 8 WKS: NO active elbow ROM until 6 wks PO. 1. START W/GENTLE PROM L SHLD AND GRADE I AND II MOBS WITH DISTRACTION FOR PAIN RELIEF AND TO INCREASE ROM TOLERATED UNTIL AT LEAST 4 WKS PO AND SCAR MOBILIZ ATION NEEDED. PROM L ELBOW. 2. OK TO PROGRESS TO AAROM AT 4 WKS PO KEEPING PAIN 0-3/10 X 1-2 WKS 3. PROGRESS TO AROM TOLERATED AT 6 WEEKS PO WORKING TOWARD FULL ROM ALL PLANES AGAIN KEEPING PAIN 0-3/10 AND WHEN ROM IS FULL OK TO ADD RESISTANCE. 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 Subjective Subjective: Work/Leisure: [employer] EX[employer]IVE [employer]. SELF EMPLOYEED - ALREADY BACK TO WORK [employer]. 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 Present symptoms: L SHLD AND UPPER ARM. PATIENT DENIES NUMBNESS AND TINGLING. DENIES NECK PAIN. Present since: ABOUT 6 MONTHS AGO Getting Better, Getting Worse or Staying the Same: GETTING BETTER Pain Scale: Worst - 8/10 Least - 3/10 Currently: 5/10 Commenced as a result of: NO APPARENT REASON Symptoms at onset: A LOT OF L SHLD PAIN Worse: CHICKEN WING, BRINGING SEAT BELT OVER, RAISING IT UP, SHAMPOOING HAIR Better: RESTING IT (HASN'T TAKEN ANY PAIN MEDICINE SINCE LAST MONDAY) Disturbed sleep: SLEPT IN BED GOOD LAST NIGHT OTHER: *PATIENT REPORTS DR. MANRIQUE WAS REALLY MAD WHEN HE SAW HIM LAST MONDAY BECAUSE HE WASN'T WEARING THE SLING ANY MORE AND HAD BEEN MOVING IT SO MUCH. ALSO STATES DR. HDZ SAW HIM MONDAY AND DIDN'T WANT HIM MOVING HIS ARM AT ALL. HE REPORTS HE HASN'T BEEN WEARING THE SLING AND HE HAS BEEN MOVING IT BECAUSE OF WHAT HE KNOWS FROM PEOPLE NOT DOING WELL AFTER KNEE REPLACEMENTS WHEN THEY DON'T MOVE. Previous history/Previous treatment: X-RAY THEN CORTISONE SHOT WITH BENEFIT X ABOUT 3 WKS. CORTISONE SHOT WORE OFF THEN PT EVAL IN MAY THEN MRI IN MAY SHOWING RCT. This episode: Left shoulder arthroscopy sub acromial decompression rotator cuff repair biceps tenodesis 07/24/24. Dizziness: NO Tinnitus: NO Nausea: Shortness of Breath: NO Difficulty Swallowing: NO Imaging: L SHLD MRI 06/02/24: IMPRESSION: 1. Full-thickness full width mildly retracted tear of the supraspinatus tendon with superimposed tendinopathy. No significant rotator cuff muscle atrophy. 2. Mild infraspinatus tendinopathy. 3. Mild intracapsular biceps tendinopathy. 4. Severe acromioclavicular joint osteoarthritis. 5. Subcoracoid bursitis as above. Moderate fluid in the subacromial/subdeltoid bursa. PMH/Recent major surgery: (per [facility] EMR 08/01/24) Superior labrum [id number] (SLAP) tear of left shoulder Alcohol use History of steroid therapy Arthritis Prostate disease Restless legs Back pain Arthrosis of left acromioclavicular joint Left rotator cuff tear Impingement of left shoulder Left shoulder pain Anxiety Chews tobacco Depression Umbilical hernia CPAP (continuous positive airway pressure) dependence Hypertension History of umbilical hernia repair History of cataract extraction with lens replacement History of colonoscopy History of appendectomy Objective Objective: THIS PATIENT AMBULATES INDEP'LY INTO PT WITHOUT L UE SLING. 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 Sitting Posture/Standing Posture: SLOUCHED IN SITTING WITH AND RSH'S. Active Correction of posture: ABLE TO PARTIALLY CORRECT. Other Observations: ACTIVELY MOVING L UE AROUND UPON ARRIVAL UNTIL THIS PT RECOMMENDED AGAINST IT. INDEP GAIT AND TRANSFERS. PATIENT INITIALLY USING L UE WITH TRANSFERS AGAIN, UNTIL THIS PT RECOMMENDED AGAINST IT. Sensory deficit: L UE LIGHT TOUCH SENSATION GROSSLY INTACT ROM deficit: L SHLD SUPINE PASSIVE FLEX TO 130 DEG AND ER TO 30 DEG WITH END RANGE DISCOMFORT INTO FLEXION AND NO C/O PAIN WITH ER. PATIENT DEMO'S FULL AROM OF L ELBOW, FOREARM, WRIST AND HAND BUT THIS PT ADVISED AGAINST AROM OF ELBOW. ENCOURAGED AROM OF L HAND AND WRIST. Motor deficit: R UE WFL. L UE NT Cervical Mvmt Loss: CERVICAL ROM WFL Postural strength: FAIR Balance/Special Test Scores Quick DASH Score: [id number] Goals Goal 1:: PATIENT WILL HAVE L SHLD PROM TO 150 DEG AND ER TO 50 DEG Goal 2:: PATIENT WILL REPORT L SHLD PAIN RANGING 0-3/10 AND AT LEAST 75% IMPROVEMENT. Goal 3:: PATIENT WILL HAVE L SHLD AROM TO 170 FLEX AND 60 ER ALONG WITH IR TO SMALL OF BACK TO IMPROVE ADL FUNCTION. Goal Time Frame: 6-8 Weeks Goal 4:: PATIENT WILL BE INDEP WITH A HEP FOR CONTINUED IMPROVEMENT ONCE FORMAL PHYSCIAL THERAPY CONCLUDES. Goal Time Frame: 8-12 Weeks Goal 5:: PATIENT WILL SCORE AN 10 OR BETTER ON THE QUICK DASH QUESTIONNAIRE. Goal Time Frame: 8-12 Weeks Rehabilitation Potential Physical Therapy Diagnosis: L UE STIFFNESS AND WEAKNESS S/P L SHLD SURGERY. Rehabilitation Potential: Good Anticipated Interventions Patient/Client Instruction: Educate patient on: Condition, Plan of Care and Risk Factors For the Purpose of:: To improve self management Therapeutic Exercise to Include: Strength training, Body mechanics, Postural training, Flexibilty training, Passive ROM, Active ROM and Scapular Strength/Stabilization For the Purpose of:: To decrease pain, To increase ROM, To improve muscle performance and motor function, To improve ability to perform ADL's, To increase tolerance to activity/condition/position, To improve ability of physical actions for home/community/work/leisure, To increase flexibility/ROM and To improve self management Cryotherapy (ice pack, ice massage): Yes For the Purpose of:: To decrease pain and To decrease swelling/inflammation Text: Thank you for the opportunity to evaluate your patient. For Medicare and Medicare HMO plans, please review the plan of care and approve it. It will need to be FAXED BACK to us at [phone] for Medicare purposes. For Medicare only, by signing this I certify the plan of care. Please let me know if there are questions or concerns regarding this plan of care. Physician Signature: Date:
== END 2024-08-30 19:00 | disposition home or self-care (01) ==
LOC: PT 10:00
PROVIDERS: PCP Family Medicine; Referring Provider Orthopaedic Surgery Sports Medicine; Visit Provider Orthopaedic Surgery Sports Medicine
DX: M75.102 Unspecified rotator cuff tear or rupture of left shoulder, not specified as traumatic (principal); M25.812 Other specified joint disorders, left shoulder; M25.512 Pain in left shoulder
CPT/HCPCS: 97110; 97140; 97162; 97530

== ENCOUNTER 2024-11-27 10:01 | Outpatient (CLI) | payer MEDICARE, OTHER, SELFPAY ==
[2024-11-27 13:29] LABS: AST(SGOT) 20 U/L (<=37); Alanine Aminotransfer ALT/SGPT 18 U/L (<=46); Albumin, Serum 4.4 g/dL (3.4-4.8); Alkaline Phosphatase 116 U/L (40-129); Anion Gap 14 (5-15); BUN 21 mg/dL (4-19); BUN/Creat Ratio 16.0 RATIO (10-20); Calcium,Total 9.8 mg/dL (7.6-11.0); Carbon Dioxide 23.3 mmol/L (21.0-32.0); Chloride 104 mmol/L (98-108); Cholesterol 195 mg/dL (<=200); Globulin 2.5 g/dL (2.2-4.2); Glucose 111 mg/dL (70-99); Low Density Lipoprotein Calc. 116 mg/dL; Potassium 4.7 mmol/L (3.3-5.1); Triglycerides 100 mg/dL; Very Low Density Lipoprotein 20 mg/dL (5-40); cholesterol:hdl ratio screen 3.31
--- OUTSIDE RECORDS SUMMARY | 2024-11-27 18:10 | XMS RPT_ITS | CCD ---
Author Organization [facility] Care Team Providers Care Structural Analyst Name Role Phone Dr. Shady Pathak Primary Care Provider Dr. Supa Barragan Emergency Provider [phone] Katia, Dr. Lopes Admit Provider Katia, Dr. Lopes Attending Provider Katia, Dr. Lopes Referring Provider Katia, Dr. Lopes Other Provider Zo, Dr. Caruso Referring Provider Zo, Dr. Caruso Primary Care Provider Dr. Moses Montalvo Attending Provider Katia, Dr. Lopes Referring Provider Katia, Dr. Lopes Other Provider Zo, Dr. Caruso Referring Provider Zo, Dr. Caruso Primary Care Provider Dr. Moses Montalvo Attending Provider Shady Pathak MD Primary Care Provider Dr. Shady Pathak MD Primary Care Provider YAO MCCABE Attending Provider YAO MCCABE Referring Provider Compa Manrique MD Attending Provider Compa Manrique MD Referring Provider Dr. Shady Pathak MD Referring Provider Care Physician, No Primary Primary Care Provider Unavailable Care Physician, No Primary Referring Provider Un available Zachariah DEL REAL, Dr. Baez Attending Provider Zo DEL REAL, Dr. Caruso Attending Provider Tho DEL REAL, Compa Other Provider Zo DEL REAL, Dr. Caruso Primary Care Provider Compa Manrique MD Referring Provider Zo DEL REAL, Dr. Caruso Referring Provider Tho DEL REAL, Compa Attending Provider Care Physician, No Primary Referring Provider Un available Thomas Saenz Attending Provider Zo, Shady Referring Unavailable Mollison, Compa Attending Unavailable Pathak, Shady Primary Care Unavailable Care Physician, No Primary Referring Unava ilable Mollison, Compa Attending Unavailable Pathak, Shady Primary Care Unavailable TALIWALREJI Referring Unavailable TALIWALREJI Attending Unavailable Pathak, Shady Primary Care Unavailable Care Physician, No Primary Referring Unava ilable Care Physician, No Primary Primary Care Unava ilable Mollison, Compa Attending Unavailable Mollison, Compa Attending Unavailable Pathak, Shady Primary Care Unavailable Pathak, Shady Referring Unavailable Care Physician, No Primary Referring Unava ilable Mollison, Compa Attending Unavailable Nestor Soni Attending Unavailabl e Zo, Shady Primary Care Unavailable Mollison, Compa Referring Unavailable Mollison, Compa Referring Unavailable Mollison, Compa Attending Unavailable Mollison, Compa Consulting Unavailable Pathak, Shady Primary Care Unavailable Care Physician, No Primary Primary Care Unava ilable Tho, Compa Attending Unavailable Mollison, Compa Referring Unavailable Pathak, Shady Referring Unavailable Pathak, Shady Primary Care Unavailable Pathak, Shady Attending Unavailable Mollison, Compa Attending Unavailable Mollison, Compa Referring Unavailable Pathak, Shady Primary Care Unavailable Reno James Attending Unavailable Pathak, Shady Primary Care Unavailable Mollison, Compa Attending Unavailable Pathak, Shady Primary Care Unavailable Mollison, Compa Referring Unavailable Mollison, Compa Attending Unavailable Mollison, Compa Referring Unavailable Pathak, Shady Primary Care Unavailable Pathak, Shady Referring Unavailable Pathak, Shady Attending Unavailable Pathak, Shady Primary Care Unavailable Mollison, Compa Referring Unavailable Mollison, Compa Attending Unavailable Pathak, Shady Primary Care Unavailable Pathak, Shady Referring Unavailable Thomas Collins Attending Unavailable Pathak, Shady Primary Care Unavailable Mollison, Compa Attending Unavailable Pathak, Shady Primary Care Unavailable Shady Pathak Referring Unavailable Zo, Shady Referring Unavailable Compa Manrique Attending Unavailable Shady Pathak MD Primary Care Provider [phone] SHADY PATHAK Primary Care Unavailable SHADY PATHAK Primary Care Unavailable YAO MCCABE Referring Unavailable SELF, SELF Referring Unavailable YAO MCCABE Attending Unavailable SHADY PATHAK Primary Care Unavailable SHADY PATHAK Referring Unavailable CARLIN SHAW Attending Unavailable SHADY PATHAK Primary Care Unavailable YAO MCCABE Attending Unavailable SHADY PATHAK Primary Care Unavailable SHADY PATHAK Referring Unavailable YAO MCCABE Attending Unavailable YAO MCCABE Referring Unavailable SHADY PATHAK Primary Care Unavailable Medications Current Medications Medication Drug Class(es) Dates Sig (Normalized) Sig (Original) Ashwagandha Extract 500 mg capsule (1 source) Start: 08-10-2024 take 2 tablets by mouth once daily Ashwagandha Extract 500 mg capsule Active mg PO August 10, 2024 12:00am 2 tablets daily ASHWAGANDHA PO (4 sources) ASHWAGANDHA PO Take by mouth. Active biotin 10 mg oral tablet (5 sources) Start: 08-10-2024 take 1 tablet by mouth twice daily Biotin 10 mg tablet Active 10 mg PO TWICE A DAY August 10, 2024 12:00am Biotin 5 MG tabl et Take by mouth. Active 24 hr buPROPion hydrochloride 300 mg extended release oral tablet (13 sources) Aminoketone Start: 04-03-2023 take 1 tablet by mouth once daily Bupropion Hcl 300 mg tablet extended release 24 hr Active 300 mg PO DAILY April 03, 2023 1:00am cholecalciferol 0.125 mg oral capsule (4 sources) Vitamin D Cholecalciferol (Vitamin D) 125 MCG (5000 UT) capsule Active Cholecalciferol (Vitamin D3) (Vitamin D3) 5,000 UNIT capsule (10 sources) Start: 03-24-2020 take 1 capsule by mouth once daily Cholecalciferol (Vitamin D3) (Vitamin D3) 5,000 UNIT capsule Active 5000 U PO DAILY March 24, 2020 1:00am supplement Start: 03-24-2020 take 1 capsule by mo uth once daily Cholecalciferol (Vitamin D3) (Vitamin D3) 5,000 UNIT capsule Active 5000 U PO DAILY March 24, 2020 1:00am Start: 03-24-2020 take 1 capsule by mo uth once daily Cholecalciferol (Vitamin D3) (Vitamin D3) 5,000 UNIT capsule Active 5000 UNIT PO DAILY March 24, 2020 12:00am Start: 03-24-2020 take 1 capsule by mo uth once daily Cholecalciferol (Vitamin D3) (Vitamin D3) 5,000 UNIT capsule Active 5000 UNIT PO DAILY March 24, 2020 1:00am Fish Oils (4 sources) Start: 07-24-2024 Fish OiL Activ e July 24, 2024 12:00am HERBAL PRODUCT (20 sources) HERBAL PRODUCT M ethylfoal/ B complex Active HERBAL PRODUCT R eplace this text with the name of the herbal product Active HERBAL PRODUCT N itric oxide booster Active HERBAL PRODUCT l iporush Active HERBAL PRODUCT C ensor body toner Active Levomefolate-Algal Oil (L-Methylfolate Forte) 7.5-90.314 mg capsule (1 source) Start: 08-10-2024 take 7.5-90.314 mg by mouth once daily Levomefolate-Algal Oil (L-Methylfolate Forte) 7.5-90.314 mg capsule Active 1 NMA PO daily August 10, 2024 12:00am B complex liporush (1 source) Start: 08-10-2024 liporush Active .Route August 10, 2024 12:00am 1 daily loratadine 10 mg oral tablet (2 sources) Start: 08-10-2024 take 1 tablet by mouth once daily Loratadine (Claritin) 10 mg tablet Active 10 mg PO daily August 10, 2024 12:00am LORazepam 1 mg oral tablet (2 sources) Benzodiazepine Start: 04-02-2024 End: 04-02-2024 take 1 tablet by mouth once, then take 1 tablet by mouth every hour LORazepam 1 MG tablet Indications: Prostate cancer screening , Elevated prostate specific antigen (PSA) Take 1 tablet by mouth once for 1 dose. Take 1hr prior to MRI imaging 1 tablet 04/02/2024 Active losartan potassium 50 mg oral tablet (13 sources) Angiotensin 2 Receptor Autumn Start: 04-03-2023 take 1 tablet by mouth once daily Losartan 50 mg tablet Active 50 mg PO DAILY April 03, 2023 1:00am meloxicam 15 mg oral tablet (14 sources) Nonsteroidal Anti-inflammatory Drug Start: 12-30-2019 take 1 tablet by mouth once daily Meloxicam 15 MG tablet Active 15 mg PO DAILY December 30, 2019 12:00am pain Meloxicam 15 MG Tab Dispersible Active nitric oxide booster (1 source) Start: 08-10-2024 nitric oxide booster Active .Route August 10, 2024 12:00am 3 a day 24 hr phentermine 15 mg / topiramate 92 mg extended release oral capsule (14 sources) Sympathomimetic Amine Anorectic Start: 08-10-2024 Phentermine-Topiram ate (Qsymia) 15-92 mg capsule, ER multiphase 24 hr Active 1 NMA PO Q24H August 10, 2024 12:00am Start: 04-03-2023 End: 07-24-2024 Phentermine-Topiramate (Qsym ia) 15-92 mg capsule, ER multiphase 24 hr Discontinued 1 NMA PO Q24H April 03, 2023 1:00am July 24, 2024 6:26am tadalafil 5 mg oral tablet (6 sources) Phosphodiesterase 5 Inhibitor Start: 08-10-2024 take 1 tablet by mouth once daily Tadalafil 5 mg tablet Active 5 mg PO daily August 10, 2024 12:00am Start: 04-02-2024 take 1 tablet by alma th once daily as needed tadalafil 20 MG tablet Indications: Prostate cancer screening , Elevated prostate specific antigen (PSA) , Erectile dysfunction, unspecified erectile dysfunction type Take 1 tablet by mouth daily as needed. 30 tablet 5 04/02/2024 Active Start: 12-28-2023 End: 04-02-2024 take 1 tablet by mouth once daily tadalafil 5 MG tablet Indications: Erectile dysfunction, unspecified erectile dysfunction type Take 1 tablet by mouth daily. 30 tablet 11 12/28/2023 04/02/2024 Discontinued (Alternate therapy) 1 ml testosterone cypionate 200 mg/ml injection (4 sources) Androgen Start: 12-18-2023 testosterone c ypionate 200 MG/ML Solution injection 12/18/2023 Active Completed/Discontinued Medications Medication Drug Class(es) Dates Sig (Normalized) Sig (Original) acetaminophen 325 mg oral tablet (8 sources) Start: 04-04-2023 End: 04-17-2023 take 1-10 tablets by mouth every four hours as needed for pain Acetaminophen 325 mg Tablet Discontinued 650 mg PO EVERY 4 HOURS NEEDED as needed for Pain 1-10 Or Fever 0 0 April 04, 2023 1:00am April 17, 2023 10:57am Start: 04-04-2023 End: 04-17-2023 take 650 mg by mouth every four hours as needed Acetaminophen Discontinued 650 MG PO EVERY 4 HOURS NEEDED 0 April 04, 2023 1:00am April 17, 2023 10:57am acetaminophen 325 mg / oxyCODONE hydrochloride 5 mg oral tablet (4 sources) Opioid Agonist Start: 07-24-2024 End: 11-05-2024 Oxycodone-Acetaminophen (Endocet) 5-325 mg tablet Discontinued 1 {tbl} PO Q4H as needed for pain 30 5 0 July 24, 2024 November 05, 2024 9:26am Superior labrum junzktgm-hz-rncrmwqdu (SLAP) tear of left shoulder Tear of left rotator cuff Impingement of left shoulder Left shoulder pain Superior glenoid labrum lesion of left shoulder, initial encounter Other specified joint disorders, left shoulder Pain in left shoulder alprostadil/papaverin e/phentolamine (TRI-MIX ) 0.01-29.4-1 mg/ml injection 0.1 mL (2 sources) Start: 02-21-2024 End: 02-21-2024 alprostadil/papaverine/phent ol amine (TRI-MIX ) 0.01-29.4-1 mg/ml injection 0.1 mL Start: 02-21-2024 End: 02-21-2024 0.1 mL, Intracavernosal, ONC E (IN CLINIC), 1 dose, On Mon02/21/24 at 1100 aspirin 81 mg chewable tablet (10 sources) Platelet Aggregation Inhibitor, Nonsteroidal Anti-inflammatory Drug Start: 03-25-2020 End: 04-08-2020 take 1 tablet by mouth once daily Aspirin 81 MG tablet,chewable Discontinued 81 mg PO DAILY 14 14 0 March 25, 2020 1:00am April 07, 2020 1:00am April 08, 2020 1:02am dexamethasone 4 mg oral tablet (10 sources) Corticosteroid Start: 03-25-2020 End: 04-02-2020 take 6 mg by mouth once daily Dexamethasone 4 MG tablet Discontinued 6 mg PO DAILY 8 8 0 March 25, 2020 1:00am April 01, 2020 1:00am April 02, 2020 1:02am Start: 03-25-2020 End: 04-02-2020 take 6 mg by mouth once daily Dexamethasone Discontinu ed 6 MG PO DAILY 8 8 March 25, 2020 1:00am April 02, 2020 1:02am doxycycline hyclate 100 mg oral tablet (1 source) Tetracycline-class Drug Start: 08-10-2024 End: 08-17-2024 take 1 tablet by mouth twice daily Doxycycline Hyclate 100 mg tablet Discontinued 100 mg PO TWICE A DAY 14 7 0 August 10, 2024 12:00am August 16, 2024 12:00am August 17, 2024 12:09am lisinopril 10 mg oral tablet (10 sources) Angiotensin Converting Enzyme Inhibitor Start: 03-24-2020 End: 04-03-2023 take 1 tablet by mouth once daily Lisinopril 10 MG tablet Discontinued 10 mg PO DAILY March 24, 2020 1:00am April 04, 2023 12:37am bp metoprolol tartrate 25 mg oral tablet (20 sources) beta-Adrenergic Autumn Start: 04-03-2023 End: 07-24-2024 take 1 tablet by mouth every twelve hours Metoprolol Tartrate 25 mg tablet Discontinued 25 mg PO Q12H April 03, 2023 1:00am July 24, 2024 6:25am Start: 03-25-2020 End: 04-24-2020 take 1 tablet by mouth twice daily Metoprolol Tartrate 50 MG tablet Discontinued 50 mg PO TWICE A DAY 60 30 0 March 25, 2020 1:00am April 23, 2020 1:00am April 24, 2020 1:03am Start: 03-24-2020 End: 03-25-2020 take 1 tablet by mouth twice daily Metoprolol Tartrate 25 MG tablet Discontinued 25 mg PO TWICE A DAY March 24, 2020 1:00am March 25, 2020 3:37pm heart oxyCODONE hydrochloride 5 mg oral tablet (15 sources) Opioid Agonist Start: 04-28-2023 End: 05-10-2023 take 5-10 mg by mouth every six hours as needed for pain Oxycodone 5 mg tablet Discontinued 5 - 10 mg PO EVERY 6 HOURS as needed for pain 10 5 0 April 28, 2023 May 10, 2023 9:47am Umbilical hernia Umbilical hernia without obstruction or gangrene Start: 04-04-2023 End: 04-17-2023 take 5-10 mg by mouth every four hours as needed for pain Oxycodone 5 mg Tablet Discontinued 5 - 10 mg PO EVERY 4 HOURS NEEDED as needed for Pain Score 4-10 10 5 0 April 04, 2023 April 17, 2023 10:57am Acute appendicitis Unspecified acute appendicitis predniSONE 5 mg oral tablet (4 sources) Start: 06-19-2024 End: 07-10-2024 Prednisone 5 mg tablets,dose pack Discontinued 0 PO per package directions 48 0 June 19, 2024 1:00am July 10, 2024 12:52pm Arthrosis of left acromioclavicular joint Tear of left rotator cuff Impingement of left shoulder Primary osteoarthritis, left shoulder Other specified joint disorders, left shoulder pain PO PER PKG DIR sertraline 50 mg oral tablet (10 sources) Serotonin Reuptake Inhibitor Start: 03-24-2020 End: 07-24-2024 take 1 tablet by mouth once daily Sertraline 50 MG tablet Discontinued 50 mg PO DAILY March 24, 2020 1:00am July 24, 2024 6:26am depression Zinc (10 sources) Start: 03-24-2020 End: 04-03-2023 take 1 tablet by mouth twice daily Zinc 50 MG tablet Discontinued 50 mg PO TWICE A DAY March 24, 2020 1:00am April 04, 2023 12:37am supplement Start: 03-24-2020 End: 04-03-2023 take 1 tablet by mouth twice daily Zinc 50 MG tablet Discontinued 50 mg PO TWICE A DAY March 24, 2020 1:00am April 04, 2023 12:37am Start: 03-24-2020 End: 04-03-2023 take 50 mg by mouth twice daily Zinc Discontinued 50 M G PO TWICE A DAY March 24, 2020 1:00am April 04, 2023 12:37am Start: 03-24-2020 End: 04-03-2023 take 50 mg by mouth twice daily Zinc Discontinued 50 M G PO TWICE A DAY March 24, 2020 12:00am April 03, 2023 11:37pm Start: 03-24-2020 take 50 mg by mouth twice angelina y Zinc Active 50 MG PO TWICE A DAY March 24, 2020 1:00am Problems Active Problems Problem Classification Problem Date Documented Date Episodic/Chronic Abdominal hernia (10 sources) Umbilical hernia; Translations: [Umbilical hernia without obstruction or gangrene] 04-17-2023 Episodic Abdominal pain (12 sources) Abdominal pain; Translations: [Unspecified abdominal pain] 04-04-2023 Episodic Appendicitis and other appendiceal conditions (12 sources) Acute appendicitis; Translations: [Unspecified acute appendicitis] 04-04-2023 Episodic Diabetes mellitus without complication (1 source) Hyperglycemia; Translations: [Hyperglycemia, unspecified] 11-12-2024 Episodic Essential hypertension (20 sources) Hypertensive disorder; Translations: [Essential (primary) hypertension] Onset: 10-30-2020 03-24-2020 Chronic Hyperplasia of prostate (1 source) Benign prostatic hyperplasia; Translations: [Benign prostatic hyperplasia with lower urinary tract symptoms] 12-28-2023 Chronic Malaise and fatigue (10 sources) Malaise and fatigue; Translations: [Other malaise] 12-31-2019 Episodic Osteoarthritis (13 sources) Arthropathy; Translations: [Primary osteoarthritis, left shoulder] Onset: 06-06-2024 06-06-2024 Chronic Other circulatory disease (10 sources) H/O: hypertension; Translations: [Personal history of other diseases of the circulatory system] 03-24-2020 Episodic Other circulatory disease (3 sources) Personal history of other diseases of the circulatory system; Translations: [Personal history of other diseases of circulatory system] 04-04-2023 Episodic Other connective tissue disease (15 sources) Tear of left rotator cuff; Translations: [Unspecified rotator cuff tear or rupture of left shoulder, not specified as traumatic] 06-06-2024 Episodic Other eye disorders (10 sources) Abducens nerve palsy; Translations: [Sixth [abducent] nerve palsy, right eye] 12-31-2019 Episodic Other inflammatory condition of skin (2 sources) Erythematous condition, unspecified; Translations: [Erythema of face] 08-10-2024 Episodic Other lower respiratory disease (10 sources) Hypoxia; Translations: [Hypoxemia] 03-24-2020 Episodic Other male genital disorders (5 sources) Male erectile dysfunction, unspecified; Translations: [Impotence of organic origin] Onset: 04-02-2024 12-28-2023 Chronic Other male genital disorders (4 sources) 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; Translations: [Priapism, drug-induced] 03-03-2024 Chronic Other male genital disorders (1 source) Priapism, drug-induced; Translations: [Priapism, drug-induced] Onset: 03-18-2024 Chronic Other male genital disorders (1 source) Acquired buried penis; 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] 11-12-2024 Chronic Other non-traumatic joint disorders (20 sources) Disorder of shoulder; Translations: [Other specified joint disorders, left shoulder] 04-18-2024 Episodic Other nutritional; endocrine; and metabolic disorders (10 sources) Morbid obesity; Translations: [Morbid (severe) obesity due to excess calories] 03-24-2020 Chronic Other nutritional; endocrine; and metabolic disorders (4 sources) Obese class II; Translations: [Obesity, unspecified] Onset: 12-28-2023 12-28-2023 Chronic Residual codes; unclassified (11 sources) Obstructive sleep apnea syndrome; Translations: [Obstructive sleep apnea (adult) (pediatric)] Onset: 10-30-2020 03-24-2020 Chronic Residual codes; unclassified (3 sources) Obstructive sleep apnea (adult) (pediatric); Translations: [Obstructive sleep apnea (adult)(pediatric)] 04-04-2023 Chronic Residual codes; unclassified (1 source) Other specified postprocedural states; Translations: [Other specified postprocedural states] Onset: 09-20-2024 Episodic Sprains and strains (14 sources) Anterior to posterior tear of superior glenoid labrum of left shoulder; Translations: [Superior glenoid labrum lesion of left shoulder, initial encounter] Onset: 09-20-2024 07-24-2024 Episodic Unclassified (3 sources) M25.512 - Pain in left shoulder,M25.812 - Other specified joint disorders, left shoulder Unclassified (3 sources) M75.102 - Unspecified rotator cuff tear or rupture of left shoulder, not specified as traumatic,M25.812 - Other specified joint disorders, left shoulder,M25.512 - Pain in left shoulder Unclassified (1 source) Superior labrum jiubxszo-am-xcmnwldbg (SLAP) tear of left shoulder Unclassified (1 source) Status post rotator cuff repair Unclassified (1 source) Left shoulder pain Unclassified (1 source) S43.432A - Superior glenoid labrum lesion of left shoulder, initial encounter,Z98.890 - Other specified postprocedural states Unclassified (2 sources) New Patient; Translations: [New Patient] Onset: 11-12-2024 Viral infection (10 sources) Disease caused by 2019-nCoV; Translations: [COVID-19] 03-24-2020 Episodic Past or Other Problems Problem Classification Problem Date Documented Da te Episodic/Chronic Other connective tissue disease (1 source) Unspecified rotator cuff tear or rupture of left shoulder, not specified as traumatic; Translations: [Unspecified rotator cuff tear or rupture of left shoulder, not specified as traumatic] Onset: 07-26-2024 Episodic Other connective tissue disease (1 source) Contracture of palmar fascia; 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]] Onset: 05-09-2005 11-12-2024 Episodic Other non-epithelial cancer of skin (1 source) Unspecified malignant neoplasm of skin, unspecified; Translations: [Unspecified malignant neoplasm of skin, unspecified] Onset: 12-08-2023 Episodic Other non-traumatic joint disorders (20 sources) Pain in left shoulder; Translations: [Left shoulder pain] Onset: 08-02-2024 04-15-2024 Episodic Other non-traumatic joint disorders (1 source) Other specified joint disorders, left shoulder; Translations: [Other specified joint disorders, left shoulder] Onset: 07-26-2024 Episodic Other screening for suspected conditions (not mental disorders or infectious disease) (7 sources) Patient encounter status; Translations: [Encounter for screening for malignant neoplasm of prostate] Onset: 04-02-2024 12-28-2023 Episodic Results Test Name Value Interpretation Reference Range Facility Orthopedic Visit Reporton Orthopedic Visit Report [facility] [address] [place] [address] OFFICE VISIT Date of Service: 11/05/24 MR#: [id number] Acct: [id number] Name: TORRI BRITT V Rep #: [id number] : 1960 Provider: Dr. Compa dee MD Age/Sex: 63/M Location: [facility] Status: Signed Intake Vital Signs 09/03/24 08:50 Height 6 ft 2 in Weight: 312 lb BMI 40.0 Intake Visit Reasons: LEFT SHOULDER Accompanied by: Self Is patient in pain?: No (only has pain at night) Allergies No Known Allergies Allergy (Verified 11/05/24 09:25) Medications ???Medication ???Instructions ???Recorded ???Confirmed ???Type meloxicam 15 mg tablet 15 mg PO DAILY pain 12/30/1911/05 History Cholecalciferol (Vitamin D3) 5,000 unit PO DAILY supplement 11/05/24 History [Vitamin D3] bupropion HCl 300 mg 24 hr tablet, 300 mg PO DAILY 04/03/23 5 History extended release losartan 50 mg tablet 50 mg PO DAILY 04/03/23 11/05/24 H istory Fish OiL 07/24/24 11/05/24 History ashwagandha extract 500 mg capsule mg PO 08/10/24 11/05/24 History biotin 10 mg tablet 10 mg PO BID 08/10/24 11/05/24 His tory levomefolate 7.5 mg-algal oil 1 cap PO QDAY 08/10/24 11/05/24 Hi story 90.314 mg capsule (L-Methylfolate Forte) liporush .Route 08/10/24 11/05/24 History loratadine 10 mg tablet (Claritin) 10 mg PO QDAY 08/10/24 11/05/24 History nitric oxide booster .Route 08/10/24 11/05/24 History phentermine 15 mg-topiramate ER 92 1 cap PO Q24H 08/10/24 11/05/24 History mg capsule,ext.[id number] hr multphas (Qsymia) tadalafil 5 mg tablet 5 mg PO QDAY 08/10/24 11/05/24 His tory Have you fallen in the past year?: No PFSH Medical History Superior labrum lukoyjhq-th-kmzclyoul (SLAP) tear of left shoulder Alcohol use History of steroid therapy Arthritis Prostate disease Restless legs Back pain Arthrosis of left acromioclavicular joint Left rotator cuff tear Impingement of left shoulder Left shoulder pain Anxiety Chews tobacco Depression Umbilical hernia CPAP (continuous positive airway pressure) dependence Hypertension Surgical History S/P rotator cuff repair History of umbilical hernia repair History of cataract extraction with lens replacement History of colonoscopy History of appendectomy Social History Smoking Status: Current every day smoker tobacco type: smokeless tobacco HPI LEFT SHOULDER Details: This documentation accurately reflects the service provided and the decisions made by me, Dr. Compa Manrique MD 11/05/2493. Part of today???s visit was documented by [ ], acting as scribe. TORRI BRITT is a 63 year old M here today for 3.5 months FU Left shoulder arthroscopy subacromial decompression rotator cuff repair biceps tenodesis. Patient doing well. Has been doing physical therapy as well as some other self-directed exercises for strengthening of the upper extremity. Still has some mild nighttime laterally sided pain in the shoulder worse with sleeping on that side he is more of a side sleeper. Ortho Exam General General: Yes no acute distress Neurologic: Yes alert and Yes oriented x3 Psychologic: Yes reasonable and appropriate Left Shoulder Skin/Wound: Yes CDI, Yes healed, No ecchymosis, No erythema and No swelling (mild) Testing: No Hawkin's, No Neer's, No Speed's, No TTP Biceps, Yes AROM-Forward Elevation 0-180, Yes AROM-External Rotation at side 0-60 and No empty can SHOULDER: nvi mru ain/pin ax nerve. strong rad pulse. Full strength in forward elevation external rotation and with elbow flexion. Coding Level of Care Code Off vis,est,level 3 Diagnoses S/P rotator cuff repair Z98.890 Assessment and Plan Assessment and Plan (1) S/P rotator cuff repair: Status: Acute Plan: TORRI BRITT is a 63 year old M here today for 3.5 months FU Left shoulder arthroscopy subacromial decompression rotator cuff repair biceps tenodesis. Patient doing a lot better now. I would recommend to discontinue physical therapy at this point send simply focus on pain control and light strengthening of the upper extremity and follow-up as needed. The patient understands and agreement with the plan no further questions or concerns. Clinical Quality Measures Falls Risk Screening/Assistive Devices Have you fallen in the past year?: No 11/05/2450 Date Compa Wong Signature: Date (if applicable) CC: Normal [facility] Orthopedic Visit Reporton Orthopedic Visit Report [facility] [address] [place] [address] OFFICE VISIT Date of Service: 09/03/24 MR#: [id number] Acct: [id number] Name: TORRI BRITT V Rep #: [id number] : 1960 Provider: Dr. Compa dee MD Age/Sex: 63/M Location: [facility] Status: Signed with Addenda ADDENDUM by Vera Herrera on 09/03/24 at 0920 Office Procedure Documentation entered by Vera Herrera 09/03/24 09:20: Ortho Injections Injections Yes Subacromial Injection Left Is this a patient provided medication?: No Details: Obtained consent for injection. Under sterile conditions, injected the patients left subacromial with 1cc Kenalog 3cc Bupivacaine. The patient tolerated the injection well without any noted complication. Patient should call our office if redness develops, pain worsens or if they have any concerns. Office Meds Kenalog 40 mg/mL suspension for injection Performing Provider: Compa Manrique MD Performing Location: [facility] Administered by: Compa Manrique MD on 09/03/24 09:19 Dose Route Admin Location Dispensed Lot Number Expiration Date NDC Man ufacturer 40 mg intra-articular left subacromial 1 mL [id number] 08/29/25 2866-6725-11 [facility] Date cc: * Signed Intake Vital Signs 07/26/24 09:29 04/12/25 09:54 09/03/24 08:50 Height 6 ft 2 in 6 ft 2 in 6 ft 2 in Weight: 312 lb BMI 40.0 Intake Visit Reasons: LEFT SHOULDER Chief Complaint: Left shoulder 4 week post op Accompanied by: Is patient in pain?: Yes Pain scale (1-10): 2 Allergies No Known Allergies Allergy (Verified 09/03/24 08:53) Medications ???Medication ???Instructions ???Recorded ???Confirmed ???Type meloxicam 15 mg tablet 15 mg PO DAILY pain 12/30/1909/03 History Cholecalciferol (Vitamin D3) 5,000 unit PO DAILY supplement 09/03/24 History [Vitamin D3] bupropion HCl 300 mg 24 hr tablet, 300 mg PO DAILY 04/03/23 5 History extended release losartan 50 mg tablet 50 mg PO DAILY 04/03/23 09/03/24 H istory Fish OiL 07/24/24 09/03/24 History oxycodone-acetaminoph en 5 mg-325 1 tab PO Q4H PRN pain 5 days #30 0 07/24/24 09/03/24 Rx mg tablet (Endocet) tabs ashwagandha extract 500 mg capsule mg PO 08/10/24 09/03/24 History biotin 10 mg tablet 10 mg PO BID 08/10/24 09/03/24 His tory levomefolate 7.5 mg-algal oil 1 cap PO QDAY 08/10/24 09/03/24 Hi story 90.314 mg capsule (L-Methylfolate Forte) liporush .Route 08/10/24 09/03/24 History loratadine 10 mg tablet (Claritin) 10 mg PO QDAY 08/10/24 09/03/24 History nitric oxide booster .Route 08/10/24 09/03/24 History phentermine 15 mg-topiramate ER 92 1 cap PO Q24H 08/10/24 09/03/24 History mg capsule,ext.inwgrfe88 hr multphas (Qsymia) tadalafil 5 mg tablet 5 mg PO QDAY 08/10/24 09/03/24 His tory Have you fallen in the past year?: No PFSH Medical History Superior labrum ygjohabn-dr-yiqjjhgmj (SLAP) tear of left shoulder Alcohol use History of steroid therapy Arthritis Prostate disease Restless legs Back pain Arthrosis of left acromioclavicular joint Left rotator cuff tear Impingement of left shoulder Left shoulder pain Anxiety Chews tobacco Depression Umbilical hernia CPAP (continuous positive airway pressure) dependence Hypertension Surgical History S/P rotator cuff repair History of umbilical hernia repair History of cataract extraction with lens replacement History of colonoscopy History of appendectomy Social History Smoking Status: Current every day smoker tobacco type: smokeless tobacco HPI LEFT SHOULDER Details: This documentation accurately reflects the service provided and the decisions made by me, Dr. Compa Manrique MD 09/03/24 0813. Part of today???s visit was documented by [ ], acting as scribe. TORRI BRITT is a 63 year old M here today for 6 weeks FU Left shoulder arthroscopy subacromial decompression rotator cuff repair biceps tenodesis. Doing well patient diligently doing the physical therapy. No stiffness but the patient is having quite a bit of pain at night and difficulty sleeping. No constitutional symptoms. Coding Level of Care Code Attention Gustavo Diagnoses Superior labrum punafwmh-xt-jkhilddew (SLAP) tear of left shoulder S43.432A S/P rotator cuff repair Z98.890 Comment Postop and CPT inject major joint Assessment and Plan Assessment and Plan (1) Superior labrum mrgtxotf-fg-uvlicysoj (SLAP) tear of left shoulder: Status: Acute Plan: (more content not included)... Normal [facility] Urgent Care Visit Reporton 0 08-10-2024 Urgent Care Visit Report [facility] [address], [address] [place] [address] OFFICE VISIT Date of Service: 08/10/24 MR#: [id number] Acct: [id number] Name: TORRI BRITT V Rep #: [id number] : 1960 Provider: ARNIE Mattson Age/Sex: 63/M Location: [facility] Status: Signed Intake Vital Signs 07/26/24 09:29 08/10/24 09:54 Height 6 ft 2 in 6 ft 2 in Weight: 325 lb 2 oz BMI 41.7 BP 120/86 H Position Sitting Pulse 75 Temp 98.0 F Temp Source Oral Pulse Oximetry (%) 97 Oxygen Delivery Method room air Intake Visit Reasons: R FACIAL IRRITATION/CONCERN FOR CELLULITIS Accompanied by: Is patient in pain?: No Allergies No Known Allergies Allergy (Verified 08/10/24 09:49) Medications ???Medication ???Instructions ???Recorded ???Confirmed ???Type meloxicam 15 mg tablet 15 mg PO DAILY pain 12/30/1908/10 History Cholecalciferol (Vitamin D3) 5,000 unit PO DAILY supplement 08/10/24 History [Vitamin D3] bupropion HCl 300 mg 24 hr tablet, 300 mg PO DAILY 04/03/23 5 History extended release losartan 50 mg tablet 50 mg PO DAILY 04/03/23 08/10/24 H istory Fish OiL 07/24/24 08/06/24 History oxycodone-acetaminoph en 5 mg-325 1 tab PO Q4H PRN pain 5 days #30 0 07/24/24 08/06/24 Rx mg tablet (Endocet) tabs ashwagandha extract 500 mg capsule mg PO 08/10/24 08/10/24 History biotin 10 mg tablet 10 mg PO BID 08/10/24 08/10/24 His tory doxycycline hyclate 100 mg tablet 100 mg PO BID 7 days #14 tabs 04/2408/10/24 Rx levomefolate 7.5 mg-algal oil 1 cap PO QDAY 08/10/24 08/10/24 Hi story 90.314 mg capsule (L-Methylfolate Forte) liporush .Route 08/10/24 History loratadine 10 mg tablet (Claritin) 10 mg PO QDAY 08/10/24 08/10/24 History nitric oxide booster .Route 08/10/24 History phentermine 15 mg-topiramate ER 92 1 cap PO Q24H 08/10/24 08/10/24 History mg capsule,ext. hr multphas (Qsymia) tadalafil 5 mg tablet 5 mg PO QDAY 08/10/24 08/10/24 His tory Have you fallen in the past year?: No Nurse's Note: Patient has right side irritation with redness and its swollen and its itches and its painful to touch. [facility] Medical History Superior labrum wsegadmt-vp-awsclmmby (SLAP) tear of left shoulder Alcohol use History of steroid therapy Arthritis Prostate disease Restless legs Back pain Arthrosis of left acromioclavicular joint Left rotator cuff tear Impingement of left shoulder Left shoulder pain Anxiety Chews tobacco Depression Umbilical hernia CPAP (continuous positive airway pressure) dependence Hypertension Surgical History History of umbilical hernia repair History of cataract extraction with lens replacement History of colonoscopy History of appendectomy Social History Smoking Status: Current every day smoker tobacco type: smokeless tobacco HPI HPI Details: TORRI BRITT, is a 63 M who presents to the office today for evaluation of facial erythema. Patient states that over the past 24 hours he has noticed increased erythema and swelling of his face starting on the right side then spreading diffusely across the face this morning. Patient denies recent changes in soaps, lotions, or washes he also denies use of new medications or supplements. Patient notes that his face feels puffy and itchy since onset, no treatment has been utilized for these symptoms. He denies symptoms of eye pain, visual loss, ear pain, sore throat, SOB, dyspnea, and difficulty speaking. Patient notes that he did undergo rotator cuff repair approximately 2.5 weeks ago but is not currently on medication in the postoperative period. Patient is otherwise asymptomatic. ROS Const Constitutional: No chills, fatigue or fever(s) Eyes Eyes: No blurry vision, change in vision, irritation or eye pain ENT ENT: No hoarseness, lip swelling, neck pain, sore throat or throat swelling Resp Respiratory: No cough, shortness of breath or stridor Gastro GI: No abdominal pain Musc Musculoskeletal: No neck pain Skin Skin: Positive for change in skin color, redness, itchy eyes, rash and skin swelling Endo Endocrine: No fatigue Aller/Imm Allergy/Immunologic: Positive for itchy eyes; No lip swelling or throat swelling Exam Const General: cooperative, healthy appearing and no acute distress [facility] Head: normal to inspection, atraumatic and no abrasions Ears: external ears normal Nose: external nose normal (erythema) Face and sinus: no abrasions, no ecchymosis, erythema (diffuse), edema (mild and diffuse) and no lacerations Mouth: oral mucosae normal, tongue normal and orophary (more content not included)... Normal [facility] Orthopedic Visit Reporton Orthopedic Visit Report [facility] [place] [address] OFFICE VISIT Date of Service: 08/06/24 MR#: [id number] Acct: [id number] Name: TORRI BRITT V Rep #: [id number] : 1960 Provider: Dr. Compa dee MD Age/Sex: 63/M Location: [facility] Status: Signed Intake Vital Signs 04/18/24 13:52 07/26/24 09:29 Height 6 ft 2 in 6 ft 2 in Intake Visit Reasons: left shoulder Chief Complaint: Left shoulder 2 week post op Accompanied by: Is patient in pain?: No Allergies No Known Allergies Allergy (Verified 08/06/24 09:44) Medications ???Medication ???Instructions ???Recorded ???Confirmed ???Type meloxicam 15 mg tablet 15 mg PO DAILY pain 12/30/1908/06 History Cholecalciferol (Vitamin D3) 5,000 unit PO DAILY supplement 08/06/24 History [Vitamin D3] bupropion HCl 300 mg 24 hr tablet, 300 mg PO DAILY 04/03/23 5 History extended release losartan 50 mg tablet 50 mg PO DAILY 04/03/23 08/06/24 H istory Fish OiL 07/24/24 08/06/24 History oxycodone-acetaminoph en 5 mg-325 1 tab PO Q4H PRN pain 5 days #30 0 07/24/24 08/06/24 Rx mg tablet (Endocet) tabs Have you fallen in the past year?: No PFSH Medical History Superior labrum iaqzpoks-qa-dwmeofzwc (SLAP) tear of left shoulder Alcohol use History of steroid therapy Arthritis Prostate disease Restless legs Back pain Arthrosis of left acromioclavicular joint Left rotator cuff tear Impingement of left shoulder Left shoulder pain Anxiety Chews tobacco Depression Umbilical hernia CPAP (continuous positive airway pressure) dependence Hypertension Surgical History History of umbilical hernia repair History of cataract extraction with lens replacement History of colonoscopy History of appendectomy Social History Smoking Status: Current every day smoker tobacco type: smokeless tobacco HPI left shoulder Details: This documentation accurately reflects the service provided and the decisions made by me, Dr. Compa Manrique MD 08/06/24 0842. Part of today???s visit was documented by [ ], acting as scribe. TORRI BRITT is a 63 year old M here today for 2 weeks FU Left shoulder arthroscopy subacromial decompression rotator cuff repair biceps tenodesis. well. started PT. doing some light exercises. Coding Level of Care Code Global Post Op Diagnoses Superior labrum hsrlvnam-bx-hhspxfhej (SLAP) tear of left shoulder S43.432A Arthrosis of left acromioclavicular joint M19.012 Left rotator cuff tear M75.102 Impingement of left shoulder M25.812 Assessment and Plan Assessment and Plan (1) Superior labrum inetxxfz-ul-hdorhuaae (SLAP) tear of left shoulder: Status: Acute Plan: TORRI BRITT is a 63 year old M here today for 2 weeks FU Left shoulder arthroscopy subacromial decompression rotator cuff repair biceps tenodesis. ok to shower over incisions. dc sling. start gentle ROM. FU 4 weeks. (2) Arthrosis of left acromioclavicular joint: Status: Acute (3) Left rotator cuff tear: Status: Acute (4) Impingement of left shoulder: Status: Acute Clinical Quality Measures Falls Risk Screening/Assistive Devices Have you fallen in the past year?: No Ortho Exam General General: Yes no acute distress Neurologic: Yes alert and Yes oriented x3 Psychologic: Yes reasonable and appropriate Left Shoulder Skin/Wound: Yes CDI, Yes healed, Yes ecchymosis, No erythema and No swelling (mild) SHOULDER: nvi mru ain/pin ax nerve. strong rad pulse. faint bruising. passive fe 80, er 20. 08/06/24 0958 Date Compa Manrique MD Cosigner Signature: Date (if applicable) CC: Normal [facility] Inital Evaluation (1) - PTon 08-05-2024 Inital Evaluation (1) - PT [facility] Physical Therapy [facility] [address] [place] [address]. [address] [place] [address] / REHABILITATION SERVICES INITIAL EVALUATION MR#: [id number] Acct: [id number] Name: TORRI BRITT V Rep #: [id number] : 1960 63 From: Lisseth Dunn PT, Cert. MDT Referring Dr.: Dr. Compa Manrique MD Status: R EG RCR Insurance: [employer] SELF PAY INSURANCE Patient's Visit Information Visit Information Visit Information: TORRI BRITT is a 63 year old M referred to Physical Therapy by Dr. Compa Manrique MD with a diagnosis of S/P L shld arthroscopy subacromial decomp rotator cuff repair 07/24/24. Date of Evaluation: 08/01/24 Physical Therapist: Lisseth Dunn, PT, Cert MDT Visit Plan Frequency: 2-3x /Week Duration: 2 Months Plan: 2-3 X'S A WK X 8 WKS: NO active elbow ROM until 6 wks PO. 1. START W/GENTLE PROM L SHLD AND GRADE I AND II MOBS WITH DISTRACTION FOR PAIN RELIEF AND TO INCREASE ROM TOLERATED UNTIL AT LEAST 4 WKS PO AND SCAR MOBILIZATION NEEDED. PROM L ELBOW. 2. OK TO PROGRESS TO AAROM AT 4 WKS PO KEEPING PAIN 0-3/10 X 1-2 WKS 3. PROGRESS TO AROM TOLERATED AT 6 WEEKS PO WORKING TOWARD FULL ROM ALL PLANES AGAIN KEEPING PAIN 0-3/10 AND WHEN ROM IS FULL OK TO ADD RESISTANCE. HEP, MANAGER TRACK INSTRUCTION AND ICE NEEDED FOR DISCOMFORT. 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 Present symptoms: L SHLD AND UPPER ARM. PATIENT DENIES NUMBNESS AND TINGLING. DENIES NECK PAIN. Present since: ABOUT 6 MONTHS AGO Getting Better, Getting Worse or Staying the Same: GETTING BETTER Pain Scale: Worst - 8/10 Least - 3/10 Currently: 09/07 Commenced as a result of: NO APPARENT REASON Symptoms at onset: A LOT OF L SHLD PAIN Worse: CHICKEN WING, BRINGING SEAT BELT OVER, RAISING IT UP, SHAMPOOING HAIR Better: RESTING IT (HASN'T TAKEN ANY PAIN MEDICINE SINCE LAST MONDAY) Disturbed sleep: SLEPT IN BED GOOD LAST NIGHT OTHER: *PATIENT REPORTS DR. MANRIQUE WAS REALLY MAD WHEN HE SAW HIM LAST MONDAY BECAUSE HE WASN'T WEARING THE SLING ANY MORE AND HAD BEEN MOVING IT SO MUCH. ALSO STATES DR. HDZ SAW HIM MONDAY AND DIDN'T WANT HIM MOVING HIS ARM AT ALL. HE REPORTS HE HASN'T BEEN WEARING THE SLING AND HE HAS BEEN MOVING IT BECAUSE OF WHAT HE KNOWS FROM PEOPLE NOT DOING WELL AFTER KNEE REPLACEMENTS WHEN THEY DON'T MOVE. Previous history/Previous treatment: X-RAY THEN CORTISONE SHOT WITH BENEFIT X ABOUT 3 WKS. CORTISONE SHOT WORE OFF THEN PT EVAL IN MAY THEN MRI IN MAY SHOWING RCT. This episode: Left shoulder arthroscopy sub acromial decompression rotator cuff repair biceps tenodesis 07/24/24. Dizziness: NO Tinnitus: NO Nausea: Shortness of Breath: NO Difficulty Swallowing: NO Imaging: L SHLD MRI 06/02/24: IMPRESSION: 1. Full-thickness full width mildly retracted tear of the supraspinatus tendon with superimposed tendinopathy. No significant rotator cuff muscle atrophy. 2. Mild infraspinatus tendinopathy. 3. Mild intracapsular biceps tendinopathy. 4. Severe acromioclavicular joint osteoarthritis. 5. Subcoracoid bursitis as above. Moderate fluid in the subacromial/subdeltoi d bursa. PMH/Recent major surgery: (per [facility] EMR 08/01/24) Superior labrum vokzfdtv-cw-hpkfaawzm (SLAP) tear of left shoulder Alcohol use History of steroid therapy Arthritis Prostate disease Restless legs Back pain Arthrosis of left acromioclavicular joint Left rotator cuff tear Impingement of left shoulder Left shoulder pain Anxiety Chews tobacco Depression Umbilical hernia CPAP (continuous positive airway pressure) dependence Hypertension History of umbilical hernia repair History of cataract extraction with lens replacement History of colonoscopy History of appendectomy Objective Objective: THIS PATIENT AMBULATES INDEP'LY INTO PT WITHOUT L UE SLING. 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 Sitting Posture/Standing Posture: SLOUCHED IN SITTING WITH FH AND RSH'S. Active Correction of posture: ABLE TO PARTIALLY CORRECT. Other Observations: ACTIVELY MOVING L UE AROUND UPON ARRIVAL UNTIL THIS PT RECOMMENDED AGAINST IT. INDEP GAIT AND TRANSFERS. PATIENT INITIALLY USING L UE WITH TRANSFERS AGAIN, UNTIL THIS PT RECOMM ENDED AGAINST IT. Sensory deficit: L UE LIGHT TOUCH SENSATION GROSSLY INTACT ROM deficit: L SHLD SUPINE PASSIVE FLEX TO 130 DEG AND ER TO 30 DEG WITH END RANGE DISCOMFORT INTO FLEXION AND NO C/O PAIN WITH ER. PATIENT DEMO'S FULL AROM OF L ELBOW, FOREARM, WRIST AND HAND BUT THIS PT ADVISED AGAINST AROM OF ELBOW. ENCOURAGED AROM OF L HAND AND WRIST. Motor deficit: R UE WFL. L UE NT Cervical Mvmt Loss: CERVICAL ROM WFL Postural strength: FAIR Balance/Special Test Scores Quick DASH Score: 22.7250 Goals Goal 1:: PATIENT WILL HAVE L S (more content not included)... Normal [facility] Orthopedic Visit Reporton Orthopedic Visit Report [facility] [address] [place] [address] [address] [place] [address] OFFICE VISIT Date of Service: 07/26/24 MR#: [id number] Acct: [id number] Name: TORRI BRITT V Rep #: [id number] : 1960 Provider: Dr. Compa dee MD Age/Sex: 63/M Location: [facility] Status: Signed Intake Vital Signs 04/18/24 13:52 07/24/24 06:32 07/26/24 09:29 Height 6 ft 2 in 6 ft 2 in 6 ft 2 in Intake Visit Reasons: left shoulder Chief Complaint: Left shoulder post op Accompanied by: Is patient in pain?: Yes Pain scale (1-10): 3 Allergies No Known Allergies Allergy (Verified 07/26/24 09:32) Medications ???Medication ???Instructions ???Recorded ???Confirmed ???Type meloxicam 15 mg tablet 15 mg PO DAILY pain 12/30/1907/26 History Cholecalciferol (Vitamin D3) 5,000 unit PO DAILY supplement 07/26/24 History [Vitamin D3] bupropion HCl 300 mg 24 hr tablet, 300 mg PO DAILY 04/03/23 5 History extended release losartan 50 mg tablet 50 mg PO DAILY 04/03/23 07/26/24 H istory Fish OiL 07/24/24 07/26/24 History oxycodone-acetaminoph en 5 mg-325 1 tab PO Q4H PRN pain 5 days #30 0 07/24/24 07/26/24 Rx mg tablet (Endocet) tabs Have you fallen in the past year?: No PFSH Medical History (Updated 07/24/24 @ 09:03 by Compa Manrique MD) Superior labrum mhrnbiau-qk-xzbepbske (SLAP) tear of left shoulder Alcohol use History of steroid therapy Arthritis Prostate disease Restless legs Back pain Arthrosis of left acromioclavicular joint Left rotator cuff tear Impingement of left shoulder Left shoulder pain Anxiety Chews tobacco Depression Umbilical hernia CPAP (continuous positive airway pressure) dependence Hypertension Surgical History History of umbilical hernia repair History of cataract extraction with lens replacement History of colonoscopy History of appendectomy Social History Smoking Status: Current every day smoker tobacco type: smokeless tobacco HPI left shoulder Details: This documentation accurately reflects the service provided and the decisions made by me, Dr. Compa Manrique MD 07/26/24 0929. Part of today???s visit was documented by [ ], acting as scribe. TORRI BRITT is a 63 year old M here today for POD 2 Left shoulder arthroscopy subacromial decompression rotator cuff repair biceps tenodesis. Doing well was having little bit of issues with pain. He had 1 time where he took 2 tablets of the Percocet but overall settling down unfortunately he could not get a block due to the obstructive sleep apnea he is understanding of that. Ortho Exam General General: Yes no acute distress Neurologic: Yes alert and Yes oriented x3 Psychologic: Yes reasonable and appropriate Left Shoulder Skin/Wound: Yes CDI, Yes healing, No ecchymosis, No erythema and Yes swelling (mild) SHOULDER: nvi mru ain/pin ax nerve. strong rad pulse. Coding Level of Care Code Global Post Op Diagnoses Superior labrum ftlvcwtv-dv-moabvpcjp (SLAP) tear of left shoulder S43.432A Left rotator cuff tear M75.102 Impingement of left shoulder M25.812 Left shoulder pain M25.512 Assessment and Plan Assessment and Plan (1) Superior labrum fcnmfgba-vs-dwrnwgare (SLAP) tear of left shoulder: Status: Acute Plan: TORRI BRITT is a 63 year old M here today for POD 2 Left shoulder arthroscopy subacromial decompression rotator cuff repair biceps tenodesis. Okay for pendulum exercises gentle hand wrist and elbow range of motion no heavy lifting. Change dressings every 1 to 2 days keep the incisions clean and dry and follow-up in the office in 2 weeks time. (2) Left rotator cuff tear: Status: Acute (3) Impingement of left shoulder: Status: Acute (4) Left shoulder pain: Status: Acute Orders: Referrals PT Referral M25.512 - Pain in left shoulder, M25.812 - Other specified joint disorders, left shoulder, M75.102 - Unspecified rotator cuff tear or rupture of left shoulder, not specified as traumatic Clinical Quality Measures Falls Risk Screening/Assistive Devices Have you fallen in the past year?: No 07/26/24 0950 Date Compa Manrique MD Cosigner Signature: Date (if applicable) CC: Normal [facility] Decalcification bone/plaqueo n 07-24-2024 Decalcification bone/plaque -------- Patient Age/Sex Location Account Attending Physician -------- TORRI BRITT V 63/M [facility] [id number] Dr. Compa Manrique MD -------- Specimen: [id number] Received: 07/24/24 Status: WILBER Rasmussen Num: [id number] Spec Type: TENDON Subm Dr: Dr. Compa Manrique MD HEADER OPERATION: Left shoulder arthroplasty, subacromial decompression PRE-OP DIAGNOSIS: Impingement of left shoulder, left shoulder pain, left rotator cuff tear, arthrosis of left acromioclavicular joint TISSUE SUBMITTED: A- Left bicep -------- MICROSCOPIC DIAGNOSIS A. LEFT BICEPS TENDON, LEFT SHOULDER ARTHROPLASTY: * DENSE FIBROUS TISSUE WITH REACTIVE/DEGENERATIVE CHANGES. MICROSCOPIC DESCRIPTION Slides are reviewed. GROSS DESCRIPTION A. Received in formalin labeled, Torri Britt, and designated biceps left, is an 8.1 x 0.8 x 0.5 cm elongated portion of fibrous connective tissue/tendon with a minimal amount of attached barakat fibrous tissue and possible red-brown skeletal muscle. Sectioning is unremarkable. Multiple sections are submitted in one cassette. 07/24/2024 CPT:00538 -------- Patient Age/Sex Location Account Attending Physician -------- TORRI BRITT V 63/M [facility] [id number] Dr. Compa Manrique MD -------- Signed (signature on file) Dr. Antonia Leyva MD 07/29/24 8509 -------- Normal [facility] Comment on above: Performed By: #### P DEC #### [facility] [address] [place], [address] Discharge Instructionon 06-30 Discharge Instruction [facility] Medical Records Department [address] [place] [address] Instructions for Home/Discharge Instructions 07/24/24912 MR#: [id number] Acct: [id number] Name: TORRI BRITT V Rep #: [id number] : 1960 63 From: Compa Manrique MD PCP: Dr. Shady Pathak MD Status:REG [facility] Discharge Instructions Diet Discharge Diet: No restrictions Activity May resume sexual activity in: No Restrictions Ice area for (Minutes): 10 Lifting Restrictions: no lifting over 1 pound, ok for breaks from the sling Additional Activity Instructions:: ok for pendulums and elbow ROM 4x/day Dressing / Incision Call your doctor if your incision/area has: Continuous Slow Oozing, Sudden Increased Bleeding, Increased Pain/ Swelling, Increased Redness, Foul Smelling Discharge and Swelling at the incision site Call your doctor if you observe: Fever of 101 or Higher, Coldness, Increased Pain and Numbness or Tingling Change Dressing in: leave in place till F/U Cleanse incision/area with: Do not get Incision Wet Additional Dressing/Incision Instructions:: OK to change dressings if leaking / strike through Follow Up Care Please Follow Up With: Compa Manrique MD When: 2 days or within 2 weeks Test Results: Test results from this visit will be discussed in further detail at your follow-up appointment, if applicable. Discharge Plan Admission Attending Provider: Compa Manrique Primary Care Provider: Shady Pathak Instructions Patient Instructions: After Shoulder Arthroscopy Print Language: Vincentian Discharge Orders/Prescriptions Prescriptions: New oxycodone-acetaminoph en [Endocet] 5-325 mg tablet 1 tab PO Q4H MDD 6 PRN (Reason: pain) 5 Days Qty: 30 0RF No Action meloxicam 15 MG tablet 15 mg PO DAILY Cholecalciferol (Vitamin D3) [Vitamin D3] 5,000 UNIT capsule 5,000 unit PO DAILY bupropion HCl 300 mg tablet extended release 24 hr 300 mg PO DAILY Patient Comments: TAKE 1 TABLET BY MOUTHEONCE DAILY losartan 50 mg tablet 50 mg PO DAILY Patient Comments: TAKE 1 TABLET BY MOUTHCONCE DAILY Fish OiL Referrals / Follow Up: Care Physician,No Primary [Non-Staff] - Compa Manrique MD [Med Staff - Active Staff] - Disposition Disposition (needs filled in before D/C Order can be placed): Home, Self Care 07/24/24915 Compa Manrique MD CC: Dr. Shady Pathak MD Signed [facility] MR/POSTOP.[facility] 07-24-2024 MR/POSTOP.[facility] Medical Records Department [address] [place] [address] Anesthesia Postop Eval I 07/24/24924 MR#: [id number] Acct: [id number] Name: TORRI BRITT V Rep #: [id number] : 1960 63 From: Gene Blackwell CRNA PCP: Dr. Shady Pathak MD Status:REG [facility] Y Race: C Location: [place] [address] Anesthesia: Postop Eval I Current Vital Signs Temperature: 98.6 F Pulse Rate: 75 Blood Pressure: 101/75 Respiratory Rate: 16 Pulse Ox: 93 Assessment Airway patent: Yes Spontaneous unlabored respirations: Yes nausea: No Vomiting: No Anesthesia Complication: No Fluid Hydration Crystalloid volume administer (ml): 1,700 Total IV fluid infused: 1,700 Progress Note Anesthesia document: Postop Eval 1 completed: Yes 07/24/24926 Date Gene Blackwell DRY WALL APPLICATOR Cosigner Signature: Date CC: Signed Normal [facility] MR/[id number] 07-24-2024 MR/POSTOPAN2 [facility] Medical Records Department [address] [place] [address] Anesthesia Postop Eval II 07/24/24 1035 MR#: [id number] Acct: [id number] Name: TORRI BRITT V Rep #: [id number] : 1960 63 From: Malik Ortiz MD PCP: Dr. Shady Pathak MD Status:REG [facility] Y Race: C Location: [address] Anesthesia Postop Eval I Sum Postop Eval Completion status Anesthesia document: Postop Eval 1 completed: Yes Anesthesia Postop Eval I Summary Anesthesia Postop Eval I Summary: Anesthesia Postop Eval I: Assessment Summary Airway patent Yes 07/24/24 09:25 DRY WALL [email or web address] Spontaneous unlabored Yes 07/24/24 09:25 DRY WALL [email or web address] respirations Mental status nausea No 07/24/24 09:25 DRY WALL [email or web address].[email or web address] Vomiting No 07/24/24 09:25 DRY WALL [email or web address] Anesthesia Postop Eval I: Fluid Summary Crystalloid volume administer 1,700 07/24/24 09:25 DRY WALL [email or web address].TNES (ml) Colloids volume administered ( ml) Blood Product volume administered (ml) Total IV fluid infused 1,700 07/24/24 09:25 DRY WALL [email or web address].TNES Anesthesia Postop Eval I: Summary Notes Anesthesia Complication No 07/24/24 09:25 DRY WALL [email or web address].TNES Anesthesia Complication Comment: Post-operative progress note Anesthesia: Postop Eval II Evaluation Mental status: Awake Pain Level: 0 nausea: No Vomiting: No 07/24/24 1035 Date Malik Ortiz MD Cosigner Signature: Date CC: Signed Normal [facility] Operative Reporton 03-26-202 5 Operative Report [facility] Medical Records Department [address] [place] [address] Operative Report 07/24/24 0903 MR#: [id number] Acct: [id number] Name: TORRI BRITT V Rep #: [id number] : 1960 63 From: Compa Manrique MD PCP: Dr. Shady Pathak MD [facility] Location: [place] [address] Problems Associated Problem List Diagnoses (1) Arthrosis of left acromioclavicular joint: (2) Left rotator cuff tear: (3) Impingement of left shoulder: (4) Left shoulder pain: (5) Superior labrum ftopodor-nr-gwdwfadvt (SLAP) tear of left shoulder: Procedures Musculoskeletal 20xxx-29xxx: Other Procedure See Report Operative Report (Standard) Operative Information Date of Procedure: 07/24/24 Pre-Operative Diagnosis: Left shoulder impingement syndrome rotator cuff tear and biceps tear Post-Operative Diagnosis: Left shoulder impingement syndrome rotator cuff tear and SLAP tear Surgery/Procedure Performed: Left shoulder arthroscopy subacromial decompression rotator cuff repair biceps tenodesis power plant assistant: Yes Forex Trader: rudy Tasks completed by orthodontist assistant: Retracting Type of Anesthesia: General and Local RN Documented Start/Stop Times: Operation Date: 07/24/24 07:30 Case Time Into Pre-Op 07/24/24 06:04 Out of Pre-Op 07/24/24 07:22 Anesthesia Start 07/24/24 07:27 Into Room 07/24/24 07:27 Procedure Start 07/24/24 07:51 Procedure Start Time: 07:51 Procedure Stop Time: 09:08 Select all DRAINS/GRAFTS/IMPLANT S that apply: Implanted device Implanted device details: Arthrex 4.75 mm swivel lock anchor and metal biceps button Estimated Blood Loss: 50 Specimen collected: Yes Description of specimen(s) removed: Long head of biceps Description of surgery: Patient brought to the operating room theater. Placed supine on the table. SCDs on the legs. General anesthetic induced. 3 g IV Ancef administered prior to the start of the case. Patient transferred left side up lateral decubitus beanbag positioner axillary roll used all bony prominences padded. Upper extremity prepped and draped with chlorhexidine-based prep solution allowing over 3 minutes drying time prior to draping. 15 pounds of inline traction with the arm in 40 degrees of abduction was utilized. Preoperative timeout performed to confirm the site patient the surgery. Began by inserting the arthroscope through a standard posterior arthroscopy portal. Did a full diagnostic arthroscopy. The cartilage on the glenoid and humeral head appeared normal. Subscapularis was normal. No loose bodies. Slight labral fraying. I established an anterior portal through the rotator interval. I gently debrided the anterior labrum. The biceps - Slightly hypertrophic with a type II SLAP tear so I performed an intra-articular biceps tenotomy to plan for later tenodesis. There was a full-thickness anterior leading edge tear of the supraspinatus tendon as consistent with the MRI. I marked this with a spinal needle. Next I placed the arthroscope in the subacromial space. I established to accessory working lateral portals with cannulas. There is a high amount of inflammatory bursitis. I performed a complete bursectomy. I did a subacromial decompression for 4 mm down to flat margins with a high-speed carolyn instrument. Identified the full-thickness tear of the anterior leading edge of the cuff tendon. This is about 1 cm x 1 cm. I performed a decortication at the greater tuberosity as well as multiple trephination's using power pick instrument. I then passed an inverted horizontal mattress fiber tape suture as well as a fiber link suture at the anterior leading edge tissue gently debrided the margins of the rotator cuff. I then inserted this into a knotless 4.75 mm Arthrex swivel lock bio composite anchor just off the greater tuberosity this achieved good compression of the footprint I also used the stay suture in a knotless configuration to slightly compress a very small dogear. Arthroscopy pictures taken and saved onto the system throughout the case. I then turned my attention to the biceps tenodesis subpectoral technique. Performed a 1 inch incision centered over the long head of the biceps on the upper proximal medial aspect of the humerus carried the dissection down through skin and subcutaneous tissue achieved meticulous hemostasis. Identified the long head of the biceps tendon shorten this. I used the Arthrex biceps tension tight button technique with the locking loop suture. I passed the loop and a luggage tag configuration then distal to this from anterior to posterior past the suture back through the tendon to create a locking configuration. I then drilled a unicortical hole removed any bone dust. I then passed the button flipped the button and then did an onlay technique with the biceps tension tight button pulling the free and to shorten up the suture and then cut th (more content not included)... Normal [facility] Absolute lymphocyte countOrd ered By: Shady Pathak on 07-18-2024 Lymphocytes Auto (Unsp spec) [#/Vol] 1.41 10*3/uL 0.83-4.51 [facility] Absolute neutrophil countOrd ered By: Shady Pathak on 07-18-2024 Neutrophils (Bld) [#/Vol] 5.3 10*3/uL 2.0-7.7 [facility] Anion gap in Serum or Plasma Ordered By: Shady Pathak on 07-18-2024 Anion gap [Moles/Vol] 9 mmol/L 5-15 [facility] Automated blood erythrocyte countOrdered By: Shady Pathak on 07-18-2024 RBC (Bld) [#/Vol] 4.90 10*6/uL Normal 4.6-6.2 [facility] Comment on above: Performed By: #### L 500.2500, L100.0100 #### [facility] [address] [facility] [place], [address] Automated blood hematocrit ( percentage)Ordered By: Shady Pathak on 07-18-2024 Hematocrit (Bld) [Volume fraction] 50.7 % Normal 40-54 [facility] Comment on above: Performed By: #### L 500.2500, L100.0100 #### [facility] [address] [place], [address] Automated lymphocyte count a s percentage of total leukocytesOrdered By: Shady Pathak on 07-18-2024 Lymphocytes/100 WBC (Bld) 17.7 % Low 19-41 [facility] Comment on above: Performed By: #### L 500.2500, L100.0100 #### [facility] [address] [place], [address] Lymphocytes/100 WBC Auto (Unsp spec) 17.7 % Low 19-41 [facility] BUN/creatinine ratioOrdered By: Shady Pathak on 07-18-2024 Urea nitrogen/Creatinine [Mass ratio] 15.4 mg/mg 02-17 [facility] Basic Metabolic Profile (BMP )on 07-18-2024 BUN/CRE 15.4 RATIO Normal - [facility] Comment on above: Performed By: #### L 500.2500, L100.0100 #### [facility] [address] [place], [address] GAP 9 Normal -15 [facility] Comment on above: Performed By: #### L 500.2500, L100.0100 #### [facility] [address] [place], [address] Basophil percentageOrdered B y: Shady Pathak on 07-18-2024 Basophils/100 WBC (Bld) 1.3 % High 0-1 [facility] Comment on above: Performed By: #### L 500.2500, L100.0100 #### [facility] [address] [place], [address] CBC W/Diff, Automatedon --2024 Absolute Lymph 1.41 X10 3/uL Normal 0.83-4.51 [facility] Comment on above: Performed By: #### L 500.2500, L100.0100 #### [facility] [address] [place], [address] Absolute Neut 5.3 X10 3/uL Normal 2.0-7.7 [facility] Comment on above: Performed By: #### L 500.2500, L100.0100 #### [facility] [address] [place], [address] IG% 1.100 High 0.0-0.9 [facility] Comment on above: Result Comment: IG% - Immature Granulocytes (promyelocytes, myelocytes and metamyelocytes) > 1% indicates that a LEFT SHIFT is Present. Performed By: #### L 500.2500, L100.0100 #### [facility] [address] [place], [address] Nucleated RBC (Bld) [#/Vol] 0 10*3/uL Normal 0-5 [facility] Comment on above: Performed By: #### L 500.2500, L100.0100 #### [facility] [address] [place], [address] RDW SD 50.6 fl High 35.1-43.9 [facility] Comment on above: Performed By: #### L 500.2500, L100.0100 #### [facility] [address] [place], [address] Carbon dioxide, total [Moles /volume] in Central venous bloodOrdered By: Shady Pathak on 07-18-2024 CO2 [Moles/Vol] 26.5 mmol/L Normal 21.0-32.0 [facility] Comment on above: Performed By: #### L 500.2500, L100.0100 #### [facility] [address] [place], [address] Chloride assayOrdered By: Arnie Pathak on 07-18-2024 Chloride [Moles/Vol] 104 mmol/L Normal 98-108 [facility] Comment on above: Performed By: #### L 500.2500, L100.0100 #### [facility] [address] [place], [address] Eosinophil percentageOrdered By: Shady Pathak on 07-18-2024 Eosinophils/100 WBC (Bld) 2.6 % Normal 0-5 [facility] Comment on above: Performed By: #### L 500.2500, L100.0100 #### [facility] [address] [place], [address] Erythrocyte distribution wid th ratioOrdered By: Shady Pathak on 07-18-2024 Erythrocyte distribution width (RBC) [Ratio] 13.2 % Normal 11.6-14.6 [facility] Comment on above: Performed By: #### L 500.2500, L100.0100 #### [facility] [address] [place], [address] Erythrocyte distribution wid th standard deviationOrdered By: Shady Pathak on 07-18-2024 Erythrocyte distribution width (RBC) [Entitic vol] 50.6 fL High 35.1-43.9 [facility] Erythrocyte distribution width (RBC) [Ratio] 50.6 fl High 35.1-43.9 [facility] GFR/1.73 sq M.predicted connie g non-blacks MDRD (S/P/Bld) [Vol rate/Area]Ordered By: Shady Pathak on 07-18-2024 Estimated GFR (MDRD) Non-Af Amer 73 >60 [facility] Comment on above: mL/min/1.73m2 CKD-EP I Creatinine Equation (2020) Glomerular filtration rate ( GFR) estimation/1.73 sq m using serum, plasma, or whole bOrdered By: Shady Pathak on 07-18-2024 GFR/1.73 sq M.predicted among non-blacks MDRD (S/P/Bld) [Vol rate/Area] 73 mL/min/{1.73_m2} Normal >60 [facility] Comment on above: mL/min/1.73m2 CKD-EP I Creatinine Equation (2020) Result Comment: mL/m in/1.73m2 CKD-EPI Creatinine Equation (2020) Performed By: #### L 500.2500, L100.0100 #### [facility] [address] [place], [address] Hemoglobin measurementOrdere d By: Shady Pathak on 07-18-2024 Hemoglobin (Bld) [Mass/Vol] 16.9 g/dL High 13.0-16.5 [facility] Comment on above: Performed By: #### L 500.2500, L100.0100 #### [facility] [address] [place], [address] Immature granulocytes/100 WB C Auto (Bld)Ordered By: Shady Pathak on 07-18-2024 Immature granulocytes/100 WBC (Bld) 1.100 % High 0.0-0.9 [facility] Comment on above: IG% - Immature Granu locytes (promyelocytes, myelocytes and metamyelocytes) > 1% indicates that a LEFT SHIFT is Present. Lymphocytes Auto (Unsp spec) [#/Vol]Ordered By: Shady Pathak on 07-18-2024 Lymphocytes (Bld) [#/Vol] 1.41 10*3/uL 0.83-4.51 [facility] MCV (mean corpuscular volume ) determinationOrdered By: Shady Pathak on 07-18-2024 MCV (RBC) [Entitic vol] 103.5 fL High 80-94 [facility] Comment on above: Performed By: #### L 500.2500, L100.0100 #### [facility] [address] [place], [address] Mean corpuscular hemoglobin (MCH) determinationOrdered By: Shady Pathak on 07-18-2024 MCH (RBC) [Entitic mass] 34.5 pg High 27.0-32.0 [facility] Comment on above: Performed By: #### L 500.2500, L100.0100 #### [facility] [address] [place], [address] Mean corpuscular hemoglobin concentration (MCHC) determinationOrdered By: Shady Pathak on 07-18-2024 MCHC (RBC) [Mass/Vol] 33.3 g/dL Normal 32-36 [facility] Comment on above: Performed By: #### L 500.2500, L100.0100 #### [facility] [address] [place], [address] Mean platelet volume determi nationOrdered By: Shady Pathak on 07-18-2024 Platelet mean volume (Bld) [Entitic vol] 10.9 fL Normal 6.2-12.0 [facility] Comment on above: Performed By: #### L 500.2500, L100.0100 #### [facility] [address] [place], [address] Monocyte percentageOrdered B y: Shady Pathak on 07-18-2024 Monocytes/100 WBC (Bld) 10.7 % High 0-10 [facility] Comment on above: Performed By: #### L 500.2500, L100.0100 #### [facility] [address] [place], [address] Neutrophil percentageOrdered By: Shady Pathak on 07-18-2024 Neutrophils/100 WBC (Bld) 66.6 % Normal 47-70 [facility] Comment on above: Performed By: #### L 500.2500, L100.0100 #### [facility] [address] [place], [address] Nucleated red blood cell per centageOrdered By: Shady Pathak on 07-18-2024 Nucleated RBC/100 WBC (Bld) [Ratio] 0 % 0-5 [facility] Platelet countOrdered By: Arnie Pathak on 07-18-2024 Platelets (Bld) [#/Vol] 166 10*3/uL Normal 150-450 [facility] Comment on above: Performed By: #### L 500.2500, L100.0100 #### [facility] [address] [place], [address] Potassium measurement (mass/ volume)Ordered By: Shady Pathak on 07-18-2024 Potassium [Moles/Vol] 4.5 mmol/L Normal 3.3-5.1 [facility] Comment on above: Performed By: #### L 500.2500, L100.0100 #### [facility] [address] [place], [address] Potassium (Unsp spec) [Mass/Vol] 4.5 mmol/L 3.3-5.1 [facility] Serum creatinine measurement (mass/volume)Ordered By: Shady Pathak on 07-18-2024 Creatinine [Mass/Vol] 1.12 mg/dL Normal 0.70-1.20 [facility] Comment on above: Performed By: #### L 500.2500, L100.0100 #### [facility] [address] [place], [address] Serum glucose measurement (m ass/volume)Ordered By: Shady Pathak on 07-18-2024 Glucose [Mass/Vol] 81 mg/dL Normal 70-99 [facility] Comment on above: Performed By: #### L 500.2500, L100.0100 #### [facility] [address] [place], [address] Serum or plasma calcium armando urement (mass/volume)Ordered By: Shady Pathak on 07-18-2024 Calcium [Mass/Vol] 9.5 mg/dL Normal 7.6-11.0 [facility] Comment on above: Performed By: #### L 500.2500, L100.0100 #### [facility] [address] [place], [address] Serum or plasma urea nitroge n measurement (mass/volume)Ordered By: Shady Pathak on 07-18-2024 Urea nitrogen [Mass/Vol] 17 mg/dL Normal 4-19 [facility] Comment on above: Performed By: #### L 500.2500, L100.0100 #### [facility] [address] [place], [address] Sodium levelOrdered By: Shady Pathak on 07-18-2024 Sodium [Moles/Vol] 139 mmol/L Normal 133-145 [facility] Comment on above: Performed By: #### L 500.2500, L100.0100 #### [facility] [address] [place], [address] White blood cell (WBC) count Ordered By: Shady Pathak on 07-18-2024 WBC (Bld) [#/Vol] 8.0 10*3/uL Normal 4.4-11.0 [facility] Comment on above: Performed By: #### L 500.2500, L100.0100 #### [facility] [address] [place], [place], [address] Electrocardiogram reportOrde red By: Nestor Soni on 07-15-2024 EKG study [facility] Cardiovascular Services [address] [place] [address] 12 Lead EKG 07/11/24 0831 MR#: [id number] Acct: [id number] Name: TORRI BRITT V Rep #:[id number] : 1960 63 From: Nestor martines MD Attending Dr: Dr. Compa Manrique MD Status: PRE [facility] Ordering Dr: Malik Ortiz MD Date: 06/29 07/23 Location: [facility] Sex: M C Admitted: Test Reason : PREOP Blood Pressure : */* mmHG Vent. Rate : 76 BPM Atrial Rate : 76 BPM P-R Int : 152 ms QRS Dur : 92 ms QT Int : 366 ms P-R-T Axes : -25 31 46 degrees QTcB Int : 411 ms Sinus rhythm with Premature atrial complexes Otherwise normal ECG Confirmed by ZACHARIAH DEL REAL, JENNYFER ([id number]), electronic news gathering editor SHANTE WONG ([id number]) on07/15/2024 11:30:30 AM Referred By: Compa Manrique Confirmed By: JENNYFER SONI MD 07/15/24 1130 Date _ Nestor Soni MD CC: Dr. Malik Ortiz MD; Dr. Shady Pathak MD; Dr. Compa Manrique MD ~ Signed [facility] Work Phone: MR/PATImani 07-12-2024 MR/PATRUTH [facility] Medical Records Department [address] [place] [address] PAT - Anesthesia 07/12/24 1434 MR#: [id number] Acct: [id number] Name: TORRI BRITT V Rep #: [id number] : 1960 63 From: Malik Ortiz MD PCP: Dr. 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 When Was Last Pacemaker Check QUESTION #4 FULL TEXT: You/Your Family Experience fever (hyperthermia) with Anesthesia Last Oral Intake Last Oral intake: Last Oral Intake NPO since Meds taken in AM with sips of water? Meds patient instructed to take am of surgery PONV PONV - textiles and clothing teacher: PONV - textiles and clothing teacher Female No 07/10/24 12:54 HX of Motion Sickness No 07/10/24 12:54 HX of N/V After Surgery No 07/10/24 12:54 Non-Smoker No 07/10/24 12:54 Duration of Surgery greater Yes 07/10/24 12:54 than 60 minutes Number of Risk Factors 1 07/10/24 12:54 PONV Score Low Risk 07/10/24 12:54 Height Weight Height Weight: Anesthesia: Height Weight Height 6 ft 2 in 04/18/24 13:52 Respiratory Assessment Respiratory Assessment - textiles and clothing teacher: Respiratory Tract Infection Hx - textiles and clothing teacher Hx Respiratory Tract Infection No 07/10/24 12:54 STOP Sleep Apnea STOP Sleep Apnea - textiles and clothing teacher: STOP Sleep Apnea - textiles and clothing teacher Hx Hypertension Yes: CONTROLLED WITH MED 07/10/24 12:54 Hx Sleep Apnea Yes 07/10/24 12:54 CPAP Yes 07/10/24 12:54 BIPAP No 07/10/24 12:54 Do you snore loudly (louder than talking or can be heard Do you often feel tired/ fatigued/ sleepy during daytime? Has anyone observed you stop breathing during sleep? STOP Results Positive 07/10/24 12:54 QUESTION #5 FULL TEXT : Do you snore loudly (louder than talking or can be heard through closed doors)? 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 Specify any problems Hx of Preganancy in last 3 N/A 07/10/24 12:54 Months Nurse Filling Out Transfusion DSCHRIBER 07/10/24 12:54 Questions: Date: 07/10/24 07/10/24 12:54 Time: 12:55 07/10/24 12:54 Patient unable to answer at this time (ie. confused, unrespo /Reproductio n History /Reproductiv e History - textiles and clothing teacher: /Reproductiv e Hx- textiles and clothing teacher Hx Now Gestational Age (in weeks): EDC: Hx Hx Para Hx Section SAB No 07/10/24 12:54 PFS Medical History (Updated 07/10/24 @ 13:01 by Nay Werner) Alcohol use History of steroid therapy Arthritis Prostate disease Restless legs Back pain Arthrosis of left acromioclavicular joint Left rotator cuff tear Impingement of left shoulder Left shoulder pain Anxiety Chews tobacco Depression Umbilical hernia CPAP (continuous positive airway pressure) dependence Hypertension Home Medications ???Medication ???Instructions ???Recorded ???Last Taken ???Type meloxicam 15 mg tablet 15 mg PO DAILY pain 12/30/1904/27 History Cholecalciferol (Vitamin D3) 5,000 unit PO DAILY supplement 04/27/23 History [Vitamin D3] sertraline 50 mg tablet 50 mg PO DAILY depression 03/24/20 04/27/23 History bupropion HCl 300 mg 24 hr tablet, 300 mg PO DAILY 04/03/23 3 History extended release losartan 50 mg tablet 50 mg PO DAILY 04/03/23 (more content not included)... Normal [facility] 12 Lead EKGon 07-11-2024 12 Lead EKG [facility] Cardiovascular Services [address] [place] [address] 12 Lead EKG 07/11/24 0831 MR#: [id number] Acct: [id number] Name: TORRI BRITT V Rep #: [id number] : 1960 63 From: Nestor Soni MD Attending Dr: Dr. Compa Manrique MD Status: CA E [facility] Ordering Dr: Malik Ortiz MD Date: 07/11/24 Location: [facility] Sex: M C Admitted: Test Reason : PREOP Blood Pressure : */* mmHG Vent. Rate : 76 BPM Atrial Rate : 76 BPM P-R Int : 152 ms QRS Dur : 92 ms QT Int : 366 ms P-R-T Axes : -25 31 46 degrees QTcB Int : 411 ms Sinus rhythm with Premature atrial complexes Otherwise normal ECG Confirmed by ZACHARIAH DEL REAL, JENNYFER ([id number]), electronic news gathering editor SHANTE WONG ([id number]) on 07/15/2024 11:30:30 AM Referred By: Compa Manrique Confirmed By: JENNYFER SONI MD 07/15/24 1130 Date Nestor Soni MD CC: Dr. Malik Ortiz MD; Dr. Shady Pathak MD; Dr. Compa Manrique MD Signed [facility] CBC-Complete Blood Cnt No Di ffon 07-11-2024 Erythrocyte distribution width (RBC) [Ratio] 13.6 % Normal 11.6-14.6 [facility] Comment on above: Performed By: #### L 100.0500 ####[facility] [address] [place], [address] Hematocrit (Bld) [Volume fraction] 52.3 % Normal 40-54 [facility] Comment on above: Performed By: #### L 100.0500 ####[facility] [address] [place], [address] Hemoglobin (Bld) [Mass/Vol] 17.6 g/dL High 13.0-16.5 [facility] Comment on above: Performed By: #### L 100.0500 ####[facility] [address] [place], [address] MCH (RBC) [Entitic mass] 34.0 pg High 27.0-32.0 [facility] Comment on above: Performed By: #### L 100.0500 ####[facility] [address] [place], [address] MCHC (RBC) [Mass/Vol] 33.7 g/dL Normal 32-36 [facility] Comment on above: Performed By: #### L 100.0500 ####[facility] [address] [place], [address] MCV (RBC) [Entitic vol] 101.0 fL High 80-94 [facility] Comment on above: Performed By: #### L 100.0500 ####[facility] [address] [place], [address] Platelet mean volume (Bld) [Entitic vol] 10.4 fL Normal 6.2-12.0 [facility] Comment on above: Performed By: #### L 100.0500 ####[facility] [address] [place], [address] Platelets (Bld) [#/Vol] 180 10*3/uL Normal 150-450 [facility] Comment on above: Performed By: #### L 100.0500 ####[facility] [address] [place], [place], [phone]) RBC (Bld) [#/Vol] 5.18 10*6/uL Normal 4.6-6.2 [facility] Comment on above: Performed By: #### L 100.0500 ####[facility] [address] [place], [place], [phone] RDW SD 50.4 fl High 35.1-43.9 [facility] Comment on above: Performed By: #### L 100.0500 ####[facility] [address] [place], [place], [phone]) WBC (Bld) [#/Vol] 7.2 10*3/uL Normal 4.4-11.0 [facility] Comment on above: Performed By: #### L 100.0500 ####[facility] [address] [place], [place], [phone]) Erythrocyte distribution wid th ratioOrdered By: Malik Ortiz on 07-11-2024 Erythrocyte distribution width (RBC) [Ratio] 13.6 % 11.6-14.6 [facility] Erythrocyte distribution wid th standard deviationOrdered By: Malik Ortiz on 07-11-2024 Erythrocyte distribution width (RBC) [Entitic vol] 50.4 fL High 35.1-43.9 [facility] Erythrocyte distribution width (RBC) [Ratio] 50.4 fl High 35.1-43.9 [facility] Hematocrit Auto (Bld) [Volum e fraction]Ordered By: Malik Ortiz on 07-11-2024 Hematocrit (Bld) [Volume fraction] 52.3 % 40-54 [facility] Hemoglobin measurementOrdere d By: Malik Ortiz on 07-11-2024 Hemoglobin (Bld) [Mass/Vol] 17.6 g/dL High 13.0-16.5 [facility] MCV (mean corpuscular volume ) determinationOrdered By: Malik Ortiz on 07-11-2024 MCV (RBC) [Entitic vol] 101.0 fL High 80-94 [facility] Mean corpuscular hemoglobin (MCH) determinationOrdered By: Malik Ortiz on 07-11-2024 MCH (RBC) [Entitic mass] 34.0 pg High 27.0-32.0 [facility] Mean corpuscular hemoglobin concentration (MCHC) determinationOrdered By: Malik Ortiz on 07-11-2024 MCHC (RBC) [Mass/Vol] 33.7 g/dL 32-36 [facility] Mean platelet volume determi nationOrdered By: Malik Ortiz on 07-11-2024 Platelet mean volume (Bld) [Entitic vol] 10.4 fL 6.2-12.0 [facility] Platelet countOrdered By: Dick Ortiz on 07-11-2024 Platelets (Bld) [#/Vol] 180 10*3/uL 150-450 [facility] RBC Auto (Bld) [#/Vol]Ordere d By: Malik Ortiz on 07-11-2024 RBC (Bld) [#/Vol] 5.18 10*6/uL 4.6-6.2 [facility] White blood cell (WBC) count Ordered By: Malik Ortiz on 07-11-2024 WBC (Bld) [#/Vol] 7.2 10*3/uL 4.4-11.0 [facility] Orthopedic Visit Reporton Orthopedic Visit Report [facility] [address] [place] [address] OFFICE VISIT Date of Service: 06/06/24 MR#: [id number] Acct: [id number] Name: TORRI BRITT V Rep #: [id number] : 1960 Provider: Dr. Compa dee MD Age/Sex: 63/M Location: [facility] Status: Signed Intake Vital Signs 04/18/24 13:52 Height 6 ft 2 in Weight: 318 lb 2 oz BMI 40.8 Intake Visit Reasons: LEFT SHOULDER Chief Complaint: left shoulder MRI review Accompanied by: Self Is patient in pain?: Yes Pain scale (1-10): 3 Allergies No Known Allergies Allergy (Verified 06/06/24 10:00) Medications ???Medication ???Instructions ???Recorded ???Confirmed ???Type meloxicam 15 mg tablet 15 mg PO DAILY pain 12/30/1906/06 History Cholecalciferol (Vitamin D3) 5,000 unit PO DAILY supplement 06/06/24 History [Vitamin D3] sertraline 50 mg tablet 50 mg PO DAILY depression 03/24/20 06/06/24 History bupropion HCl 300 mg 24 hr tablet, 300 mg PO DAILY 04/03/23 5 History extended release losartan 50 mg tablet 50 mg PO DAILY 04/03/23 06/06/24 H istory metoprolol tartrate 25 mg tablet 25 mg PO Q12H 04/03/23 06/06/24 Hi story phentermine 15 mg-topiramate ER 92 1 cap PO Q24H 04/03/23 06/06/24 History mg capsule,ext. hr multphas (Qsymia) Have you fallen in the past year?: No PFSH Medical History (Updated 06/06/24 @ 10:03 by Compa Manrique MD) Arthrosis of left acromioclavicular joint Left rotator cuff tear Impingement of left shoulder Left shoulder pain Anxiety Chews tobacco Depression Umbilical hernia CPAP (continuous positive airway pressure) dependence Sleep apnea Hypertension Surgical History History of cataract extraction with lens replacement History of colonoscopy History of appendectomy Social History Smoking Status: Never smoker HPI LEFT SHOULDER Details: This documentation accurately reflects the service provided and the decisions made by me, Dr. Compa Manrique MD 06/06/24 0937. Part of today???s visit was documented by [ ], acting as scribe. TORRI BRITT is a 63 year old M here today for FU L shoulder MRI. Patient had a cortisone injection little over 6 weeks ago that helped temporarily but the pain is back and worse with lifting with the arm in abduction and mostly located on the lateral aspect of the shoulder. Supplemental Info [facility] Imaging Services [address] [place], [place] [id number] Upper Ext Joint Only(Routine) MR#: [id number] Acct: [id number] Name: TORRI BRITT V Rep #: [id number] : 1960 M 63 From: Georges Lock DO PCP: Care Physician,No Primary Status: REG CLI Study: Upper Ext Joint Only(Routine) Date of Exam: 06/02/24 Exam# [id number] Ordering Dr: Compa Manrique MD PROCEDURE: MRI left shoulder without IV contrast REASON FOR EXAM: Pain TECHNIQUE: Multisequence multiplanar MR images of the left shoulder were obtained without the administration of intravenous contrast. COMPARISON: None. FINDINGS Full-thickness full width tear of the supraspinatus tendon with mild retraction measuring up to 8 mm. Moderate superimposed supraspinatus tendinopathy. Mild infraspinatus tendinopathy without discrete tear. Subscapularis tendon is intact. No significant rotator cuff muscle atrophy. Mild intracapsular biceps tendinopathy near the labral anchor. Glenohumeral joint alignment is maintained. No displaced labral tear or paralabral cysts. No focal chondral defects. No significant joint effusion. Severe acromioclavicular joint osteoarthritis including large marginal osteophytes, subcortical cysts, capsular hypertrophy and bone marrow edema. Undersurface osteophytes at the AC joint measure up to 5 mm. Negative for fracture or marrow replacement. Prominent marginal osteophyte along the inferior glenoid measuring up to 7 mm. Moderate fluid in the subacromial/subdeltoi d bursa. Large amount of fluid in the subcoracoid bursa measuring 2.0 x 4.5 x 4.1 cm (AP, TV and CC dimensions). MRI/Upper Ext Joint Only(Routine) IMPRESSION: 1. Full-thickness full width mildly retracted tear of the supraspinatus tendon with superimposed tendinopathy. No significant rotator cuff muscle atrophy. 2. Mild infraspinatus tendinopathy. 3. Mild intracapsular biceps tendinopathy. 4. Severe acromioclavicular joint osteoarthritis. 5. Subcoracoid bursitis as above. Moderate fluid in the subacromial/subdeltoi d bursa. Edie (more content not included)... Normal [facility] Upper Ext Joint Only(Routine )on 06-02-2024 Upper Ext Joint Only(Routine) [facility] Imaging [address] [address] Upper Ext Joint Only(Routine) MR#: [id number] Acct: [id number] Name: TORRI BRITT V Rep #: [id number] : 1960 M 63 From: Georges Delacruz PCP: Care Physician,No Primary Status: REG CLI Study: Upper Ext Joint Only(Routine) Date of Exam: 0 06/02/24 Exam# [id number] Ordering Dr: Compa Manrique MD PROCEDURE: MRI left shoulder without IV contrast REASON FOR EXAM: Pain TECHNIQUE: Multisequence multiplanar MR images of the left shoulder were obtained without the administration of intravenous contrast. COMPARISON: None. FINDINGS Full-thickness full width tear of the supraspinatus tendon with mild retraction measuring up to 8 mm. Moderate superimposed supraspinatus tendinopathy. Mild infraspinatus tendinopathy without discrete tear. Subscapularis tendon is intact. No significant rotator cuff muscle atrophy. Mild intracapsular biceps tendinopathy near the labral anchor. Glenohumeral joint alignment is maintained. No displaced labral tear or paralabral cysts. No focal chondral defects. No significant joint effusion. Severe acromioclavicular joint osteoarthritis including large marginal osteophytes, subcortical cysts, capsular hypertrophy and bone marrow edema. Undersurface osteophytes at the AC joint measure up to 5 mm. Negative for fracture or marrow replacement. Prominent marginal osteophyte along the inferior glenoid measuring up to 7 mm. Moderate fluid in the subacromial/subdeltoi d bursa. Large amount of fluid in the subcoracoid bursa measuring 2.0 x 4.5 x 4.1 cm (AP, TV and CC dimensions). MRI/Upper Ext Joint Only(Routine) IMPRESSION: 1. Full-thickness full width mildly retracted tear of the supraspinatus tendon with superimposed tendinopathy. No significant rotator cuff muscle atrophy. 2. Mild infraspinatus tendinopathy. 3. Mild intracapsular biceps tendinopathy. 4. Severe acromioclavicular joint osteoarthritis. 5. Subcoracoid bursitis as above. Moderate fluid in the subacromial/subdeltoi d bursa. Reading Location: [facility] CC: Dr. Compa Manrique MD; No Primary Care Physician Primary Care Md: Signed Normal [facility] Inital Evaluation (1) - PTon 05-20-2024 Inital Evaluation (1) - PT [facility] Physical Therapy [facility] [address] [place] [address] / REHABILITATION SERVICES INITIAL EVALUATION MR#: [id number] Acct: [id number] Name: TORRI BRITT V Rep #: [id number] : 1960 63 From: Katiuska BARAJAS Referring Dr.: Dr. Compa Manrique MD Status: R EG RCR Insurance: [employer] [employer]URANCE Patient's Visit Information Visit Information Visit Information: TORRI BRITT is a 63 year old M referred to Physical Therapy by Dr. Compa Manrique MD with a diagnosis of L shoulder pain/Impingement. Date of Evaluation: 05/20/24 Physical Therapist: JENN Pérez Visit Plan Frequency: 2x /Week Duration: 6 Weeks Plan: 2X/ week for 4-6 weeks for scapular and postural exercises, RC strength, stretching of the L shoulder/AROM with HEP HEP: green mid rows, doorway stretch, and scapular retractions Subjective Subjective: Pt has pain in his L shoulder for about a few months. It hurts when he reaches back for the seatbelt and at night trying to sleep. He does not feel that his L shoulder is weak. He can sleep on his L shoulder. He has no N T. He does have neck pain at the base of the neck (trap region). He is R handed. He did get a shot in the shoulder and it did help for a few weeks. Pain L shoulder pain: Pain Intensity (Out of 10): 3 Pain Intensity Range: 8 Comment: pulling the seatbelt Objective Objective: R handed AROM: R shoulder flex 140 and L 125 R shoulder ABD 155 and L 140 R shoulder ER 55 and L 45 R shoulder IR T12 and L L2 UE MMT: R shoulder Flex 15.6 and L 15.4 R shoulder ABD 16.8 and L 14.5 R shoulder ER 17.4 and L 14.1 R shoulder IR 17.8 and L 17.4 -Empty can. Question able impingement sign Posture: rounded shoulders, fw head Palpation: tender under the L acromion Balance/Special Test Scores Quick DASH Score: 11.3625 Goals Goal 1:: I HEP Goal Time Frame: 6-8 Weeks Goal 2:: Increase L shoulder AROM (at the time of the eval: R shoulder flex 140 and L 125 R shoulder ABD 155 and L 140 R shoulder ER 55 and L 45 R shoulder IR T12 and L L2) Goal Time Frame: 6-8 Weeks Goal 3:: Decrease L shoulder pain by 50% Goal Time Frame: 6-8 Weeks Goal 4:: Sit with better posture during workday Goal Time Frame: 6-8 Weeks Rehabilitation Potential Rehabilitation Potential: Good Anticipated Interventions Patient/Client Instruction: Educate patient on: Condition and Plan of Care For the Purpose of:: To decrease pain, To increase ROM, To improve nutrient delivery to tissue, To improve muscle performance and motor function, To improve ability to perform ADL's, To increase tolerance to activity/condition/po sition, To improve performance and independence with ADL's, To improve health of tissue, To decrease soft tissue restriction and To increase flexibility/ROM Therapeutic Exercise to Include: Strength training, Postural training, Flexibilty training, Neuromotor development, Passive ROM, Active ROM and Scapular Strength/Stabilizatio n For the Purpose of:: To decrease pain, To increase ROM, To improve nutrient delivery to tissue, To improve muscle performance and motor function, To increase tolerance to activity/condition/po sition, To improve performance and independence with ADL's, To improve health of tissue, To decrease soft tissue restriction and To increase flexibility/ROM Manual Therapy Techniques to Include: Passive ROM For the Purpose of:: To increase ROM Cryotherapy (ice pack, ice massage): Yes Thermo therapy (hot pack): Yes For the Purpose of:: To decrease pain, To increase ROM and To improve nutrient delivery to tissue Text: Thank you for the opportunity to evaluate your patient. For Medicare and Medicare HMO plans, please review the plan of care and approve it. It will need to be FAXED BACK to us at [phone] for Medicare purposes. For Medicare only, by signing this I certify the plan of care. Please let me know if there are questions or concerns regarding this plan of care. Physician Signature: Date : 05/20/24 1118 CC: Dr. Shady Pathak MD; Dr. Compa Manrique MD Signed Normal [facility] Orthopedic Visit Reporton Orthopedic Visit Report [facility] [place] [address] OFFICE VISIT Date of Service: 05/14/24 MR#: [id number] Acct: [id number] Name: TORRI BRITT V Rep #: [id number] : 1960 Provider: Dr. Compa dee MD Age/Sex: 63/M Location: [facility] Status: Signed Intake Vital Signs 04/18/24 13:52 Height 6 ft 2 in Weight: 318 lb 2 oz BMI 40.8 Intake Visit Reasons: LEFT SHOULDER Chief Complaint: left shoulder Accompanied by: Self Is patient in pain?: Yes Allergies No Known Allergies Allergy (Verified 05/14/24 09:41) Medications ???Medication ???Instructions ???Recorded ???Confirmed ???Type meloxicam 15 mg tablet 15 mg PO DAILY pain 12/30/19 05/14/24 History Cholecalciferol (Vitamin D3) 5,000 unit PO DAILY supplement 03/24/20 05/14/24 History [Vitamin D3] sertraline 50 mg tablet 50 mg PO DAILY depression 03/24/20 05/14/24 History bupropion HCl 300 mg 24 hr tablet, 300 mg PO DAILY 04/03/23 05/14/24 History extended release losartan 50 mg tablet 50 mg PO DAILY 04/03/23 05/14/24 History metoprolol tartrate 25 mg tablet 25 mg PO Q12H 04/03/23 05/14/24 History phentermine 15 mg-topiramate ER 92 1 cap PO Q24H 04/03/23 05/14/24 History mg capsule,ext.hiefqau23 hr multphas (Qsymia) Have you fallen in the past year?: No PFSH Medical History Impingement of left shoulder Left shoulder pain Anxiety Chews tobacco Depression Umbilical hernia CPAP (continuous positive airway pressure) dependence Sleep apnea Hypertension Surgical History History of cataract extraction with lens replacement History of colonoscopy History of appendectomy Social History Smoking Status: Never smoker HPI LEFT SHOULDER Details: This documentation accurately reflects the service provided and the decisions made by me, Dr. Compa Manrique MD 05/14/24 0920. Part of today???s visit was documented by [ ], acting as scribe. TORRI BRITT is a 63 year old M here today for follow-up left shoulder pain. The patient had a cortisone injection 4 weeks ago unfortunately this is not taken care of his pain. patient has been trying meloxicam for the pain in the shoulder as well as the knees. Coding Level of Care Code Off vis,est,level 3 Diagnoses Impingement of left shoulder M25.812 Left shoulder pain M25.512 Assessment and Plan Assessment and Plan (1) Impingement of left shoulder: Status: Acute Plan: TORRI BRITT is a 63 year old M here today for follow-up left shoulder pain. The patient had a cortisone injection 4 weeks ago unfortunately this is not taken care of his pain. Patient also has tried oral anti-inflammatories and the pain has unfortunately returned over the last week in the same spot. This is consistent with possibly rotator cuff tear (biceps tendonitis, bursitis, tendinosis or other ddx) so therefore I will go ahead and order an MRI to rule that out in addition I put in a physical therapy referral for [facility] the patient should try that as well for 6 weeks before considering surgery and I would like to see the patient back after the MRI. He understands no further questions or concerns. (2) Left shoulder pain: Status: Acute Orders: Orders Upper Ext Joint Only(Routine) Today M25.512 - Pain in left shoulder, M25.812 - Other specified joint disorders, left shoulder Referrals PT Referral M25.512 - Pain in left shoulder, M25.812 - Other specified joint disorders, left shoulder Clinical Quality Measures Falls Risk Screening/Assistive Devices Have you fallen in the past year?: No Ortho Exam General General: Yes no acute distress Neurologic: Yes alert and Yes oriented x3 Psychologic: Yes reasonable and appropriate Left Shoulder Skin/Wound: Yes CDI, No ecchymosis, No erythema and No swelling Testing: Yes Hawkin's, Yes Neer's, No Speed's, No TTP Biceps, Yes TTP AC Joint, Yes AROM-Forward Elevation 0-180, Yes AROM-External Rotation at side 0-60, Yes empty can, No cross arm, No scapular winging and Yes belly press normal SHOULDER: normal motor and sens to axillary N, MRU and AIN/PIN. Hand warm well perfused normal radial pulse Strength in forward elevation and external rotation both 09/02. 05/14/24 0959 Date Compa Ocampo Signature: Date (if applicable) CC: Normal [facility] Orthopedic Visit Reporton Orthopedic Visit Report [facility] [address] [place] [address] OFFICE VISIT Date of Service: 04/18/24 MR#: [id number] Acct: [id number] Name: TORRI BRITT V Rep #: [id number] : 1960 Provider: Dr. Compa dee MD Age/Sex: 63/M Location[place] [facility] Status: Signed with Addenda ADDENDUM by Vera Herrera on 04/18/24 at 1503 Office Procedure Documentation entered by Vera Herrera 04/18/24 15:03: Ortho Injections Injections Yes Subacromial Injection Left Is this a patient provided medication?: No Details: Obtained consent for injection. Under sterile conditions, injected the patients left shoulder subacromial with 2cc Kenalog 4cc Bupivacaine. The patient tolerated the injection well without any noted complication. Patient should call our office if redness develops, pain worsens or if they have any concerns. Office Meds Kenalog 40 mg/mL suspension for injection Performing Provider: Compa Manrique MD Performing Location: [facility] Administered by: Compa Manrique MD on 04/18/24 15:02 Dose Route Admin Location Dispensed Lot Number Expiration Date [employer] 80 mg intra-articular left subacromial 2 mL [id number] 08/29/25 4948-4479-93 [employer] Date cc: * Signed Intake Vital Signs 02/24/24 02:35 04/18/24 13:52 Height 6 ft 2 in 6 ft 2 in Weight: 318 lb 2 oz BMI 40.8 Intake Visit Reasons: LEFT SHOULDER Chief Complaint: left shoulder Accompanied by: Self Is patient in pain?: Yes (with certain movements) Allergies No Known Allergies Allergy (Verified 04/18/24 13:57) Medications ???Medication ???Instructions ???Recorded ???Confirmed ???Type meloxicam 15 mg tablet 15 mg PO DAILY pain 12/30/19 04/18/24 History Cholecalciferol (Vitamin D3) 5,000 unit PO DAILY supplement 03/24/20 04/18/24 History [Vitamin D3] sertraline 50 mg tablet 50 mg PO DAILY depression 03/24/20 04/18/24 History bupropion HCl 300 mg 24 hr tablet, 300 mg PO DAILY 04/03/23 04/18/24 History extended release losartan 50 mg tablet 50 mg PO DAILY 04/03/23 04/18/24 History metoprolol tartrate 25 mg tablet 25 mg PO Q12H 04/03/23 04/18/24 History phentermine 15 mg-topiramate ER 92 1 cap PO Q24H 04/03/23 04/18/24 History mg capsule,ext.uwlizxw57 hr multphas (Qsymia) Have you fallen in the past year?: No PFSH Medical History (Updated 04/18/24 @ 14:20 by Compa Manrique MD) Impingement of left shoulder Left shoulder pain Anxiety Chews tobacco Depression Umbilical hernia CPAP (continuous positive airway pressure) dependence Sleep apnea Hypertension Surgical History History of cataract extraction with lens replacement History of colonoscopy History of appendectomy Social History Smoking Status: Never smoker HPI LEFT SHOULDER Details: This documentation accurately reflects the service provided and the decisions made by me, Dr. Compa Manrique MD 04/18/24 8425. Part of today???s visit was documented by [ ], acting as scribe. TORRI BRITT is a 63 year old M here today for left shoulder pain. This has been going on for a year or 2 but worse in the last few weeks. It is particularly bad if he reaches behind his back and it is quite severe but no pain at rest no crepitus there is definitely some pain with reaching and lifting. It is worse at night wakes the patient up a couple times overnight. Never had this problem before. No past history of surgery. Does do some lifting working out of the gym. 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 The pain is mostly located anteriorly. Supplemental Info [facility] Imaging Services [address] [place] [id number] Shoulder min 2 Views MR#: [id number] Acct: [id number] Name: TORRI BRITT V Rep #: [id number] : 1960 M 63 From: Doug Maki MD PCP: Dr. Shady Pathak MD Status: REG CLI Study: Shoulder min 2 Views Date of Exam: 04/16/24 Exam# [id number] Ordering Dr: Compa Manrique MD [id number] STUDY: X-RAY - LEFT SHOULDER REASON FOR EXAM: Male, 63 years old. pain TECHNIQUE: 4 view(s) of the shoulder. COMPARISON: None. FINDINGS: There is mild degenerative arthrosis of the glenohumeral articulation. There is hypertrophic osteoarthrosis of the acromioclavicular joint with inferior osseous spur formation. There is a hook of the anterior acrom (more content not included)... Normal [facility] Shoulder min 2 Viewson 04-16 Shoulder min 2 Views [facility] Imaging Services [address] [place] [address] Shoulder min 2 Views MR#: [id number] Acct: [id number] Name: TORRI BRITT V Rep #: [id number] : 1960 M 63 From: Doug delacruz MD PCP: Dr. Shady Pathak MD Status: REG CL Study: Shoulder min 2 Views Date of Exam: 04/16/24 Exam# [id number] Ordering Dr: Compa Manrique MD [id number] STUDY: X-RAY - LEFT SHOULDER REASON FOR EXAM: Male, 63 years old. pain TECHNIQUE: 4 view(s) of the shoulder. COMPARISON: None. FINDINGS: There is mild degenerative arthrosis of the glenohumeral articulation. There is hypertrophic osteoarthrosis of the acromioclavicular joint with inferior osseous spur formation. There is a hook of the anterior acromion consistent with a Type III morphology. Normal humeral head and visualized proximal humerus. The soft tissue structures are unremarkable. Normal visualized pulmonary apex. RAD/Shoulder min 2 Views IMPRESSION: Degenerative changes. No acute abnormalities. Electronically Signed: Doug Maki MD at 19:45 EST , CC: Dr. Shady Pathak MD; Dr. Compa Manrique MD Primary Care Md: Signed Normal [facility] CREATININE FINGERSTICKon Creatinine [Mass/Vol] 1.3 mg/dL Normal 0.70-1.30 [facility] Comment on above: Performed By: #### L 9100.0200 ####[facility] [id number] [place], [place], [address] GFR/1.73 sq M.predicted among non-blacks MDRD (S/P/Bld) [Vol rate/Area] 58.0000 mL/min/{1.73_m2} Low >60 [facility] Comment on above: Performed By: #### L 9100.0200 ####[facility] [id number] [place], [place], [address] Creatinine measurement at be dsideon 04-11-2024 Creatinine [Mass/Vol] 1.3 mg/dL 0.70-1.30 [facility] EGFRon 04-11-2024 GFR/1.73 sq M.predicted among non-blacks MDRD (S/P/Bld) [Vol rate/Area] 58.0000 mL/min/{1.73_m2} Low >60 [facility] Pelvis W/WO Contraston 04-11 Pelvis W/WO Contrast [facility] Imaging Services [address] [place], [place] [address] Pelvis W/WO Contrast MR#: [id number] Acct: [id number] Name: TORRI BRITT Van Rep #: [id number] : 1960 M 63 From: Aidan newell MD PCP: Dr. Shady Pathak MD Status: REG CLI Study: Pelvis W/WO Contrast Date of Exam: 04/11/24 Exam# [id number] Ordering Dr: YAO MCCABE [id number] STUDY: MR PROSTATE GLAND/ PELVIS WITH T WITHOUT CONTRAST REASON FOR EXAM: Male, 63 years old. ELEVATED PSA TECHNIQUE: Standardized fat and water weighted pulse sequences were obtained in all 3 orthogonal planes, pre-and post contrast administration. IV 29cc clariscan was administered for the contrast portion of the examination. COMPARISON: CT of abdomen and pelvis dated April 04, 2023. FINDINGS: Prostate gland volume/size: 5.49 x 5.48 x 5.48 which is moderately enlarged. Anterior fibromuscular stroma: Moderately thickened without a mass. Peripheral zone: Linear intermediate fibrotic strands and a few micronodules are scattered throughout both peripheral zones but no discrete mass or lobular enhancing abnormality seen to indicate a definitive neoplasm. Contrast-enhancement is diffuse and symmetric when compared to the central and transitional zones. Central zone: Rounded moderate size lobular islands of hyperplastic tissue intermixed with cystic and fibrotic strands which is fairly symmetric in the bilateral central and transitional zones slightly more prominent on the right. Transitional zone: Prostate capsule: Breeched with extension of intermediate linear strands through the posterior lateral side of the right transitional zone see image #19/38 series 11 with a trace amount of fluid in this region. This could be related to prior biopsy or prior trauma. This can also be seen with inflammation and infection with scarring and laxity of the wall. No discrete mass or enhancing abnormalities seen in this region that would indicate malignant neoplasm with extracapsular spread. However this should be correlated to PET/CT imaging to ensure no occult process is present in this region. Seminal vesicles: Small/hypoplastic with slightly thickened vee and a few areas of fibrotic replacement of the central fluid space but no mass or abnormal enhancing lesion. This is likely senescent/age-related or related to prior inflammation/infectio n/prostatitis. Pelvic sidewall lymphadenopathy: No demonstrated lymphadenopathy Bony structures: No marrow edema or occult fracture. No abnormal enhancing lesions or lytic or blastic aggressive process. Bladder: No demonstrated bladder mass or abnormal thickening or intraluminal filling defects/stones. Normal visualized small intestine. Normal visualized colon. There is no pelvic fluid. There is no pelvic mass lesion or lymphadenopathy. Normal abdominal wall. MRI/Pelvis W/WO Contrast IMPRESSION: 1. Prostate capsule: Breeched with extension of intermediate linear strands through the posterior lateral side of the right transitional zone see image #19/38 series 11 with a trace amount of fluid in this region. This could be related to prior biopsy or prior trauma. This can also be seen with inflammation and infection with scarring and laxity of the wall. No discrete mass or enhancing abnormalities seen in this region that would indicate malignant neoplasm with extracapsular spread. However this should be correlated to PET/CT imaging to ensure no occult process is present in this region. 2. Other findings are indicative of BPH and sequela of prior prostatitis. 3. PI-RADS 3: intermediate (the presence of clinically significant cancer is equivocal) 4. Targeted image guided biopsy of nodules or area of interest can be performed for definitive pathologic assessment of the tissue and diagnosis 5. Prostate PET/CT exam can also be performed to determine if there is viable malignant neoplasm in the prostate gland. Prostate MRI reference: 15-30% of prostate cancers can go undetected on Prostate MRI. Monitoring and assessment by Primary physician, Urology, and oncology service recommended and treated clnically. (Cancers (Basel). 2022 13;15(13):1080. doi: [email or web address] 25 Prostate Cancers Invisible on Multiparametric MRI: Pathologic Features in Correlation with Whole-Mount Prostatectomy Hayden Ballard 1,2,*, Matthew Lange 3, Madison Myers 1,2, Sakina Thakkar 1,2, Abel Braden 4, Julius Lewis 5, Waqar Hoffman 6, Gary Parra 1,2, Heath Cordon 1,2) Reference information: Normal prostate tissue Benign prostatic hypertrophy cancer/tumor - low signal peripheral , transitional, and central zones malignancy appears as bright on DWI and low signal on (more content not included)... Normal [facility] Emergency Department Summary on 02-24-2024 Emergency Department Summary [facility] Medical Records Department [address] [place] [address] Emergency Department Summary 02/24/24 MR#: [id number] Acct: [id number] Name: TORRI BRITT V Rep #: [id number] : 1960 63 From: Reno James DO PCP: Dr. Shady Pathak MD Status:DEP ER Location: ED HPI History of Present Illness Chief Complaint: Male Pain/Injury Informant: patient and spouse/S.O. Narrative Narrative: Patient is a 63-year-old male with past medical history of hypertension and obstructive sleep apnea. He also has a past medical history of erectile dysfunction and is currently using injectable ED medication. He states he used a dose directed by his doctor this evening but after 4 hours there has not been resolution of his erection. As the instructions to the medication states to seek medical help after 4 hours he presents for evaluation [facility] Medical History Anxiety Chews tobacco Depression Umbilical hernia CPAP (continuous positive airway pressure) dependence Sleep apnea Hypertension Home Medications ???Medication ???Instructions ???Recorded ???Last Taken ???Type meloxicam 15 mg tablet 15 mg PO DAILY pain 12/30/19 04/27/23 History Cholecalciferol (Vitamin D3) 5,000 unit PO DAILY supplement 03/24/20 04/27/23 History [Vitamin D3] sertraline 50 mg tablet 50 mg PO DAILY depression 03/24/20 04/27/23 History bupropion HCl 300 mg 24 hr tablet, 300 mg PO DAILY 04/03/23 04/27/23 History extended release losartan 50 mg tablet 50 mg PO DAILY 04/03/23 04/28/23 History metoprolol tartrate 25 mg tablet 25 mg PO Q12H 04/03/23 04/28/23 History phentermine 15 mg-topiramate ER 92 1 cap PO Q24H 04/03/23 04/27/23 History mg capsule,ext.[id number] hr multphas (Qsymia) Allergy/AdvReac Type Severity Reaction Status Date / Time No Known Allergies Allergy Verified 05/10/23 08:47 Surgical History History of appendectomy History of cataract extraction with lens replacement History of colonoscopy Social History Smoking Status: Never smoker ROS ROS ED Constitutional Constitutional ED: Denies chills or fever(s) Eyes Eyes: Denies change in vision ENT ENT ED: Denies sore throat Cardiovascular Cardiovascular: Denies chest pain Respiratory/Chest Respiratory/Chest: Denies cough or dyspnea Gastrointestinal Gastrointestinal: Denies abdominal pain, diarrhea, nausea or vomiting Genitourinary Genitourinary ED: Reports other Details: Positive priapism ; Denies dysuria Musculoskeletal Musculoskeletal: Denies myalgias Integumentary Denies rash Neurologic Neurologic: Denies headache(s) Psychiatric Psychiatric: Reports anxiety Hematologic/Lymphatic Hematologic/Lymphatic : Denies easy bleeding or easy bruising EXAM Physical Exam Const Vital Signs: 02/24/24 02:35 02/24/24 04:02 Temperature 97.7 F L 97.9 F Temperature Source Oral Pulse Rate 72 80 Respiratory Rate 18 16 Blood Pressure 154/76 H 143/88 H Blood Pressure Mean 102 106 Pulse Ox 98 98 Oxygen Delivery Method Room Air Positive well nourished and well developed General Appearance ED: well developed; Negative for pallor HEENT HEENT Narrative: Normocephalic atraumatic Eyes PERRL and EOMs intact bilaterally Neck supple Resp normal respiratory effort and clear to auscultation bilaterally Cardio regular rate and regular rhythm Narrative: Positive priapism without signs of ischemia Extremity normal to inspection Neuro oriented x3, CN's II-XII intact bilaterally, moves all extremities, no focal motor deficits and no sensory deficits noted Sensorium / Orientation: alert Motor Exam: strength 5/5 throughout Psych mental status grossly normal Skin no rashes or lesions noted General Skin Exam: Negative for pallor MDM MDM MDM Narrative Medical decision making narrative: The patient presented to the ER slightly hypertensive but has a past medical history of this. He reported 4 hours of a prolonged erection secondary to erectile dysfunction medication. He states he only tried taking Benadryl at home and therefore as he was just approaching the 4-hour peña upon arrival to the ER I felt that there was time to trial topical ice for vasoconstriction as well as oral medication as his physical exam and timeframe did not suggest acute ischemia. Patient was given 5 mg of terbutaline and 60 mg of pseudoephedrine. Ice was placed over top of the erection as well and after approximately 30 minutes there was improvement but not resolution of the erection. Therefore the patient had 200 mcg of phenylephrine injected into the corpus cavernosum as documented bel (more content not included)... Normal [facility] POCT URINE DIPSTICK AUTOMATE Don 12-28-2023 Amorphous sediment LM Ql (Urine sed) [facility] Appearance (U) slightly cloudy [facility] Bacteria LM Ql (Urine sed) [facility] Bilirubin Ql (U) Negative [facility] Casts LM.LPF (Urine sed) [#/Area] [facility] Color (U) yellow [facility] Crystals LM Nom (Urine sed) [facility] Epithelial cells.squamous LM.HPF (Urine sed) [#/Area] [facility] Flow cytometry specialist review Jerod (Unsp spec) [Interp] [facility] Glucose Auto test strip (U) [Mass/Vol] Negative mg/dL [facility] Interpretation and review of laboratory results Abnormal [facility] Ketones [Mass/Vol] Negative mg/dL [facility] Leukocyte esterase Qn (U) [facility] Leukocyte esterase Test strip Ql (U) Negative [facility] Microscopic observation Gram stain Nom (Bronch spec) [facility] Nitrite Ql (U) Negative [facility] pH (U) 7.5 [pH] Abnormal 5 - 7 [facility] Protein Ql (U) Negative mg/dL [facility] RBC LM.HPF (Urine sed) [#/Area] [facility] RBC Ql (U) Negative [facility] Specific gravity (U) [Rel density] 1.020 1.001 - 1.035 [facility] Transitional cells LM Ql (Urine sed) [facility] Urobilinogen Qn (U) [facility] WBC LM.HPF (Urine sed) [#/Area] [facility] PSA, SCREENINGon 12-28-2023 Interpretation and review of laboratory results Abnormal [facility] Prostate specific Ag [Mass/Vol] 4.01 ng/mL High NINF - 4.00 ng/mL [facility] Comment on above: This test was perfor med on the [facility] Immunoassay platform which is a 2-step sandwich chemiluminescent immunoassay. It is important to note that assays using different manufacturers and/or methods may not be comparable. [facility] Surgery Specimen Level Fei 11-15-2023 Surgery Specimen Level IV -------- Patient Age/Sex Location Account Attending Physician -------- [facility] [id number] Dr. Shady Pathak MD -------- Specimen: [id number] Received: 11/15/23 Status: WILBER Rasmussen Num: [id number] Spec Type: Lesion Subm Dr: Dr. Shady Pathak MD HEADER OPERATION: Biopsy of back PRE-OP DIAGNOSIS: Neoplasm of skin TISSUE SUBMITTED: Biopsy of back -------- MICROSCOPIC DIAGNOSIS Skin lesion of back, biopsy: Basal cell carcinoma, superficial, nodular, completely excised. Intradermal nevus. Demodex follicularis See comment. / 11/17/2023 COMMENT Case has been reviewed in consultation with Dr. Andersen who concurs with the above diagnosis. IDC: MICROSCOPIC DESCRIPTION Slides are reviewed. GROSS DESCRIPTION Received is one container labeled with the patient's name and not further designated. The specimen consists of a piece of barakat-white skin ellipse measuring 1.5 x 0.9cm and up to 0.2cm in thickness. The specimen is inked, serially sectioned and submitted entirely in one cassette. / 11/16/2023 TC:0 CPT:99752 -------- Patient Age/Sex Location Account Attending Physician -------- TORRI BRITT V 62/M [facility] [id number] Dr. Shady Pathak MD -------- Signed (signature on file) Dr. Pan Kiran DO 11/17/23 1300 -------- Normal [facility] Comment on above: Performed By: #### P SUIV ####[facility] [id number] [place], [address] Basophil percentageOrdered B y: Shady Pathak on 08-23-2023 Testosterone [Mass/Vol] 170.28 ng/dL [facility] Comment on above: CENTRAL 90% REFERENC E RANGES MALE AGE <50 197.44 - 669.58 ng/dL MALE AGE > or = 50 187.72 - 684.19 ng/dL FEMALE AGE <50 8.38 - 35.01 ng/dL FEMALE AGE > or = 50 <7.00 - 35.92 ng/dL Effective as of 11/24/20 Basophil percentageOrdered B y: Shady Pathak on 08-14-2023 Bilirubin [Mass/Vol] 0.60 mg/dL 0.20-1.00 [facility] Comment on above: For patients on eltr ombopag therapy, use of Dimension [place] TBIL is not recommended. Chloride [Moles/Vol] 113 mmol/L 98-107 [facility] Cholesterol [Mass/Vol] 194 mg/dL <200 [facility] Comment on above: <200 mg/dL Desirable 200-240 mg/dL Borderline >240 mg/dL High Risk Glucose [Mass/Vol] 106 mg/dL 74-106 [facility] Comment on above: Fasting Glucose resu lt from 100 to 125 mg/dL suggests IMPAIRED HOMEOSTASIS per A.D.A. criteria. Potassium [Moles/Vol] 3.9 mmol/L 3.5-5.1 [facility] Protein [Mass/Vol] 7.0 g/dL 6.4-8.2 [facility] Sodium [Moles/Vol] 141 mmol/L 136-145 [facility] Testosterone [Mass/Vol] 158.12 ng/dL [facility] Comment on above: CENTRAL 90% REFERENC E RANGES MALE AGE <50 197.44 - 669.58 ng/dL MALE AGE > or = 50 187.72 - 684.19 ng/dL FEMALE AGE <50 8.38 - 35.01 ng/dL FEMALE AGE > or = 50 <7.00 - 35.92 ng/dL Effective as of 11/24/20 Triglyceride [Mass/Vol] 133 mg/dL <199 [facility] Comment on above: The drugs N-Acetylcy steine and Metamizole may falsely depress this assay.Serum Triglycerides Reference Interval Normal <150 mg/dL Borderline high 150 - 199 mg/dL High 200 - 499 mg/dL Very High > or = 500 mg/dL Laboratory - Chemistry and C hemistry - challengeOrdered By: Shady Pathak on 08-14-2023 Albumin/Globulin [Mass ratio] 1.2 {ratio} 0.9-2.4 [facility] ALP [Catalytic activity/Vol] 108 U/L 45-117 [facility] ALT [Catalytic activity/Vol] 53 U/L 16-61 [facility] Cholesterol in HDL [Mass/Vol] 43 mg/dL >40 [facility] Comment on above: The drugs N-Acetylcy steine and Metamizole may falsely depress this assay. Reference Range HDL <40 mg/dL Low HDL Cholesterol HDL >or= 60 mg/dL High HDL Cholesterol Cholesterol in LDL [Mass/Vol] 124 mg/dL 0-130 [facility] CO2 [Moles/Vol] 22.0 mmol/L 21.0-32.0 [facility] Globulin (S) [Mass/Vol] 3.2 g/dL 2.2-4.2 [facility] Urea nitrogen/Creatinine [Mass ratio] 33.6 mg/mg 10-20 [facility] No Panel InformationOrdered By: Shady Pathak on 08-14-2023 Estimated GFR (MDRD) Amer 84 mL/min >60 [facility] Comment on above: GFR Calc Estimated GFR (MDRD) Non-Af Amer 69 mL/min >60 [facility] Comment on above: Non- GFR Calc VLDL Cholesterol 27 mg/dL 5-40 [facility] Serum or plasma calcium armando urement (mass/volume)Ordered By: Shady Pathak on 08-14-2023 Calcium [Mass/Vol] 9.8 mg/dL 8.5-10.1 [facility] Serum or plasma creatinine m easurement (mass/volume)Ordered By: Shady Pathak on 08-14-2023 Creatinine [Mass/Vol] 1.13 mg/dL 0.70-1.30 [facility] Comment on above: The validity of the calculated GFR & GFRAA in patients over 70 years has not been determined. Clinical correlation is essential. Serum or plasma urea nitroge n measurement (mass/volume)Ordered By: Shady Pathak on 08-14-2023 Urea nitrogen [Mass/Vol] 38 mg/dL 7-18 [facility] Thin prep Papanicolaou smear with manual screeningOrdered By: Shady Pathak on 08-14-2023 Thin prep Papanicolaou smear with manual screening 3.8 g/dL 3.2-5.0 [facility] Thin prep Papanicolaou smear with manual screening 20 U/L 15-37 [facility] Thin prep Papanicolaou smear with manual screening 6 5-15 [facility] Amorphous sediment detection in urine sediment by light microscopyOrdered By: Supa Barragan on 04-04-2023 Amorphous sediment LM Ql (Urine sed) 4+ [facility] Basophil percentageOrdered B y: Supa Barragan on 04-04-2023 Basophil percentage 0 SEEN /hpf 0-5 [facility] Bilirubin Test strip Ql (U)O rdered By: Supa Barragan on 04-04-2023 Bilirubin Ql (U) Negative Negative [facility] Ketones Test strip Ql (U)Ord ered By: Supa Barragan on 04-04-2023 Ketones Ql (U) Negative Negative [facility] Mucus LM Ql (Urine sed)Order ed By: Supa Barragan on 04-04-2023 Mucus Ql (Urine sed) 0 SEEN /hpf [facility] Nitrite Test strip Ql (U)Ord ered By: Supa Barragan on 04-04-2023 Nitrite Ql (U) Negative Negative [facility] Protein Test strip Ql (U)Ord ered By: Supa Barragan on 04-04-2023 Protein Ql (U) 15 mg/dl Negative [facility] Squamous epithelial cells de tection in urine sediment by light microscopyOrdered By: Supa Barragan on 04-04-2023 Epithelial cells.squamous LM Ql (Urine sed) 0 SEEN /hpf 0-5 [facility] Urine blood detectionOrdered By: Supa Barragan on 04-04-2023 RBC Ql (U) Negative Negative [facility] RBC Ql (U) 0 SEEN /hpf 0-5 [facility] Urine clarityOrdered By: Don Barragan on 04-04-2023 Clarity (U) Cloudy Clear [facility] Urine color determinationOrd ered By: Supa Barragan on 04-04-2023 Color (U) Yellow Yellow [facility] Urine glucose detectionOrder ed By: Supa Barragan on 04-04-2023 Glucose Ql (U) Normal mg/dl Normal [facility] Urine leukocyte esterase det ection by dipstickOrdered By: Supa Barragan on 04-04-2023 Leukocyte esterase Test strip Ql (U) Negative Negative [facility] Urine pHOrdered By: Supa Barragan on 04-04-2023 pH (U) 7.0 [pH] 5.0 - 8.0 [facility] Urine sediment bacteria coun t by microscopy (number/high power field)Ordered By: Supa Barragan on 04-04-2023 Bacteria LM.HPF (Urine sed) [#/Area] 1 /[HPF] None Seen [facility] Urine specific gravity measu rementOrdered By: Supa Barragan on 04-04-2023 Specific gravity (U) [Rel density] 1.010 1.002-1.030 [facility] Urobilinogen Auto test strip Ql (U)Ordered By: Supa Barragan on 04-04-2023 Urobilinogen Ql (U) Normal mg/dl Normal [facility] Absolute lymphocyte countOrd ered By: Supa Barragan on 04-03-2023 Lymphocytes Auto (Unsp spec) [#/Vol] 1.45 10*3/uL 0.83-4.51 [facility] Basophil percentageOrdered B y: Supa Barragan on 04-03-2023 Basophils/100 WBC (Bld) 0.4 % 0-1 [facility] Chloride [Moles/Vol] 111 mmol/L 98-107 [facility] Eosinophils/100 WBC (Bld) 1.4 % 0-5 [facility] Glucose [Mass/Vol] 114 mg/dL 74-106 [facility] Comment on above: Fasting Glucose resu lt from 100 to 125 mg/dL suggests IMPAIRED HOMEOSTASIS per A.D.A. criteria. Neutrophils (Bld) [#/Vol] 11.2 10*3/uL 2.0-7.7 [facility] Neutrophils/100 WBC (Bld) 78.6 % 47-70 [facility] Potassium [Moles/Vol] 4.3 mmol/L 3.5-5.1 [facility] Sodium [Moles/Vol] 138 mmol/L 136-145 [facility] WBC (Bld) [#/Vol] 14.2 10*3/uL 4.4-11.0 [facility] Blood erythrocytes count (nu mber/volume)Ordered By: Supa Barragan on 04-03-2023 RBC (Bld) [#/Vol] 4.66 10*6/uL 4.6-6.2 [facility] Blood hemoglobin measurement (mass/volume)Ordered By: Supa Barragan on 04-03-2023 Hemoglobin (Bld) [Mass/Vol] 15.2 g/dL 13.0-16.5 [facility] Blood lymphocytes/100 leukoc ytesOrdered By: Supa Barragan on 04-03-2023 Lymphocytes/100 WBC (Bld) 10.2 % 19-41 [facility] Blood monocytes/100 leukocyt esOrdered By: Supa Barragan on 04-03-2023 Monocytes/100 WBC (Bld) 8.2 % 0-10 [facility] Blood platelet mean volumeOr dered By: Supa Barragan on 04-03-2023 Platelet mean volume (Bld) [Entitic vol] 11.1 fL 6.2-12.0 [facility] Determination of erythrocyte mean corpuscular volume (MCV)Ordered By: Supa Barragan on 04-03-2023 MCV (RBC) [Entitic vol] 99.6 fL 80-94 [facility] Hematocrit Auto (Bld) [Volum e fraction]Ordered By: Supa Barragan on 04-03-2023 Hematocrit (Bld) [Volume fraction] 46.4 % 40-54 [facility] INR in Blood by Coagulation assayOrdered By: Supa Barragan on 04-03-2023 INR Coag (Bld) [Relative time] 1.1 {INR} [facility] Laboratory - Chemistry and C hemistry - challengeOrdered By: Supa Barragan on 04-03-2023 CO2 [Moles/Vol] 22.0 mmol/L 21.0-32.0 [facility] Urea nitrogen/Creatinine [Mass ratio] 19.4 mg/mg 10-20 [facility] Laboratory - CoagulationOrde red By: Supa Barragan on 04-03-2023 aPTT Coag (Bld) [Time] 27.2 s 24.1-36.2 [facility] PT Coag (PPP) [Time] 13.9 s 11.7-14.9 [facility] Laboratory - Hematology and Cell countsOrdered By: Supa Barragan on 04-03-2023 Erythrocyte distribution width (RBC) [Entitic vol] 45.4 fL 35.1-43.9 [facility] Erythrocyte distribution width (RBC) [Ratio] 12.4 % 11.6-14.6 [facility] Immature granulocytes/100 WBC (Bld) 1.200 % 0.0-0.9 [facility] Comment on above: IG% - Immature Granu locytes (promyelocytes, myelocytes and metamyelocytes) > 1% indicates that a LEFT SHIFT is Present. MCH (RBC) [Entitic mass] 32.6 pg 27.0-32.0 [facility] Nucleated RBC/100 WBC (Bld) [Ratio] 0 % 0-5 [facility] MCHC Auto (RBC) [Mass/Vol]Or dered By: Supa Barragan on 04-03-2023 MCHC (RBC) [Mass/Vol] 32.8 g/dL 32-36 [facility] No Panel InformationOrdered By: Supa Barragan on 04-03-2023 Estimated Creatinine Clearance Calc 67.26 ml/min [facility] Estimated GFR (MDRD) Amer 72 mL/min >60 [facility] Comment on above: GFR Calc Estimated GFR (MDRD) Non-Af Amer 60 mL/min >60 [facility] Comment on above: Non- GFR Calc Platelets bldOrdered By: Don Barragan on 04-03-2023 Platelets (Bld) [#/Vol] 194 10*3/uL 150-450 [facility] Serum or plasma calcium armando urement (mass/volume)Ordered By: Supa Barragan on 04-03-2023 Calcium [Mass/Vol] 9.2 mg/dL 8.5-10.1 [facility] Serum or plasma creatinine m easurement (mass/volume)Ordered By: Supa Barragan on 04-03-2023 Creatinine [Mass/Vol] 1.29 mg/dL 0.70-1.30 [facility] Comment on above: The validity of the calculated GFR & GFRAA in patients over 70 years has not been determined. Clinical correlation is essential. Serum or plasma urea nitroge n measurement (mass/volume)Ordered By: Supa Barraagn on 04-03-2023 Urea nitrogen [Mass/Vol] 25 mg/dL 7-18 [facility] Thin prep Papanicolaou smear with manual screeningOrdered By: Supa Barragan on 04-03-2023 Thin prep Papanicolaou smear with manual screening 5 5-15 [facility] Basophil percentageOrdered B y: Shady Pathak on 11-17-2022 Chloride [Moles/Vol] 112 mmol/L 98-107 [facility] Cholesterol [Mass/Vol] 209 mg/dL <200 [facility] Comment on above: <200 mg/dL Desirable 200-240 mg/dL Borderline >240 mg/dL High Risk Glucose [Mass/Vol] 114 mg/dL 74-106 [facility] Comment on above: Fasting Glucose resu lt from 100 to 125 mg/dL suggests IMPAIRED HOMEOSTASIS per A.D.A. criteria. Potassium [Moles/Vol] 5.0 mmol/L 3.5-5.1 [facility] Comment on above: Slight Hemolysis, Re sult may be falsely increased. Sodium [Moles/Vol] 142 mmol/L 136-145 [facility] Triglyceride [Mass/Vol] 274 mg/dL <199 [facility] Comment on above: The drugs N-Acetylcy steine and Metamizole may falsely depress this assay.Serum Triglycerides Reference Interval Normal <150 mg/dL Borderline high 150 - 199 mg/dL High 200 - 499 mg/dL Very High > or = 500 mg/dL Laboratory - Chemistry and C hemistry - challengeOrdered By: Shady Pathak on 11-17-2022 CO2 [Moles/Vol] 25.0 mmol/L 21.0-32.0 [facility] Urea nitrogen/Creatinine [Mass ratio] 14.9 mg/mg 10-20 [facility] No Panel InformationOrdered By: Shady Pathak on 11-17-2022 Estimated GFR (MDRD) Amer 78 mL/min >60 [facility] Comment on above: GFR Calc Estimated GFR (MDRD) Non-Af Amer 64 mL/min >60 [facility] Comment on above: Non- GFR Calc Prostate Specific Antigen Screen 3.67 ng/mL 0.00-4.00 [facility] Comment on above: This test was perfor med using the TPSA assay method for the[employer] chemistry system. Values obtained with differentassay methods cannot be used interchangably.When changing PSA assays in the course of monitoring apatient, additional sequential testing should be carriedout to confirm baseline values. Thyroid Stimulating Hormone (TSH) 1.52 uIU/mL 0.358-3.74 [facility] Serum or plasma calcium armando urement (mass/volume)Ordered By: Shady Pathak on 11-17-2022 Calcium [Mass/Vol] 9.4 mg/dL 8.5-10.1 [facility] Serum or plasma cholesterol in HDL measurement (mass/volume)Ordered By: Shady Pathak on 11-17-2022 Cholesterol in HDL [Mass/Vol] 35 mg/dL >40 [facility] Comment on above: The drugs N-Acetylcy steine and Metamizole may falsely depress this assay. Reference Range HDL <40 mg/dL Low HDL Cholesterol HDL >or= 60 mg/dL High HDL Cholesterol Serum or plasma cholesterol in VLDL measurement (mass/volume)Ordered By: Shady Pathak on 11-17-2022 Cholesterol in VLDL [Mass/Vol] 55 mg/dL 5-40 [facility] Serum or plasma creatinine m easurement (mass/volume)Ordered By: Shady Pathak on 11-17-2022 Creatinine [Mass/Vol] 1.21 mg/dL 0.70-1.30 [facility] Comment on above: The validity of the calculated GFR & GFRAA in patients over 70 years has not been determined. Clinical correlation is essential. Serum or plasma low density lipoprotein (LDL) cholesterol measurement (mass/volume)Ordered By: Shady Pathak on 11-17-2022 Cholesterol in LDL [Mass/Vol] 119 mg/dL 0-130 [facility] Serum or plasma urea nitroge n measurement (mass/volume)Ordered By: Shady Pathak on 11-17-2022 Urea nitrogen [Mass/Vol] 18 mg/dL 7-18 [facility] Thin prep Papanicolaou smear with manual screeningOrdered By: Shady Pathak on 11-17-2022 Thin prep Papanicolaou smear with manual screening 5 5-15 [facility] ANES POSTPROC EVALon 021 ANES POSTPROC EVAL HNO ID: [id number] Author: Guerline Velazco MD Service: Anesthesiology Author Type: Anesthesiologist Type: Anesthesia Postprocedure Evaluation Filed: 10/30/2020 8:49 AM Note Text: POST ANESTHESIA EVALUATION NOTE : 1960 Procedure Summary Date: 10/30/20 Room / Location: [place] [id number] / [facility] [place] Anesthesia Start: 809 Anesthesia Stop: 831 Procedure: REPAIR BLEPHAROPTOSIS CONJUNCTIVO-TARSO LEVATOR RESECTION (Right ) Diagnosis: Ptosis of right eyelid (Ptosis of right eyelid [H02.401]) Surgeons: Moses Mayfield MD Responsible Provider: Guerline Velazco MD Anesthesia Type: MAC ASA Status: 3 Anesthesia Type: MAC Last vitals Vitals Value Taken Time BP 108/88 10/30/20 0840 Temp 36.7 ?C (98 ?F) 10/30/20 0830 Pulse 43 10/30/20 0840 Resp 16 10/30/20 0840 SpO2 94 % 10/30/20 0840 Post Anesthesia Patient Status Patient Evaluation: PACU. PACU/ICU Patient Condition: stable. Anticipated Disposition: phase 2 then home. Neurological Status: aware and responsive. Pulmonary Status: breathing comfortably on room air Airway Control: returned to baseline unsupported. Cardiovascular Status: stable. Pain Management: clinically adequate - multimodal analgesia pain management approach Postoperative Hydration: acceptable. Intraoperative Events: no significant anesthesia events Post Operative Nausea/Vomiting Status: no significant post operative nausea or vomiting Anesthetic Observations: Recommendation: continue current plan of care. No complications documented. SIGNATURE: Guerline Velazco MD PATIENT NAME: Torri Britt DATE: October 30, 2020 TIME: 8:49 AM CSN: [id number] [facility] ANES PRE-OPon 10-30-2020 ANES PRE-OP HNO ID: [id number] Author: Guerline Velazco MD Service: Anesthesiology Author Type: Anesthesiologist Type: Anesthesia Preprocedure Evaluation Filed: 10/30/2020 7:57 AM Note Text: ANESTHESIOLOGY DAY OF SURGERY NOTE : 1960 Procedure(s) (LRB): REPAIR BLEPHAROPTOSIS CONJUNCTIVO-TARSO LEVATOR RESECTION (Right) Surgeon(s): Moses Mayfield MD Estimated body mass index is 46.64 kg/m? as calculated from the following: Height as of this encounter: 185.4 cm (6' 1). Weight as of this encounter: 160.3 kg (353 lb 8 oz). Most recent hematocrit and potassium results: No results found for this basename: HCT,HEMATOCRIT,K,POTA SSIUM Relevant Problems No relevant active problems I - PHYSICAL EVALUATION AIRWAY Patient intubated: No. Mallampati: III. TM distance: >3 FB. Neck ROM: full ROM without neurological symptoms. Mouth opening: adequate. Short neck: yes. Thick neck: yes DENTAL Dental findings: teeth intact. Additional exam findings: no II - ANESTHESIA PLAN ASA Score: 3 Anesthetic Plan: MAC The patient is not a current smoker. NPO Status: adequate Monitoring plan: standard ASA. Postoperative analgesic plan: parenteral or oral opioids. Anesthetic Risks, Benefits, Alternatives, Personnel Discussed. Consent obtained from: patient.Patient / Surrogate agrees to blood products: blood products not planned Significant changes in the patient condition since the History and Physical, not otherwise documented in primary service progress note: no. Potential Anesthesia issues that may suggest increased risk of complications or contraindication to planned procedure: none. Vitals Value Taken Time BP 114/95 10/30/20 0725 Pulse 46 10/30/20 0725 Resp 20 10/30/20 0725 Temp 36.3 ?C (97.4 ?F) 10/30/20 0725 SpO2 95 % 10/30/20 0725 Facility-Administered Medications as of 10/30/2020 Medication Dose Route Frequency - lactated ringers iv infusion 30 mL/hr INTRAVENOUS CONTINUOUS Outpatient Medications as of 10/30/2020 Medication Sig - losartan (COZAAR) 50 mg tablet Take 50 mg by mouth once daily. - cyclobenzaprine (FLEXERIL) 10 mg tablet Take by mouth three times daily. - clonazePAM (KLONOPIN) 0.5 mg tablet Take 0.5 mg by mouth twice daily as needed for Anxiety. - sertraline (ZOLOFT) 50 mg tablet Take 50 mg by mouth once daily. - lisinopril (ZESTRIL, PRINIVIL) 10 mg tablet Take 10 mg by mouth once daily. - metoprolol tartrate, short acting, (LOPRESSOR) 25 mg tablet Take 25 mg by mouth twice daily. - buPROPion XL (WELLBUTRIN XL) 300 mg 24 hr tablet Take 300 mg by mouth once daily. - sildenafil (VIAGRA) 50 mg tablet Take 50 mg by mouth as needed. - triamcinolone acetonide (KENALOG) 0.1 % cream Apply to affected area twice daily. I have interviewed and examined the patient. I have reviewed the medical record and/or the pre-anesthesia evaluation, pertinent labs, and test results. This contains updated information obtained within 48 hours of Surgery/Procedure. SIGNATURE: Guerline Velazco MD PATIENT NAME: Torri Britt DATE: October 30, 2020 TIME: 7:55 AM CSN: [id number] [facility] PRE-OP HNO ID: [id number] Author: Guerline Velazco MD Service: Anesthesiology Author Type: Anesthesiologist Type: Anesthesia Preprocedure Evaluation Filed: 10/30/2020 7:40 AM Note Text: ANESTHESIOLOGY DAY OF SURGERY NOTE : 1960 Procedure(s) (LRB): REPAIR BLEPHAROPTOSIS CONJUNCTIVO-TARSO LEVATOR RESECTION (Right) Surgeon(s): Moses Mayfield MD Estimated body mass index is 46.64 kg/m? as calculated from the following: Height as of this encounter: 185.4 cm (6' 1). Weight as of this encounter: 160.3 kg (353 lb 8 oz). Most recent hematocrit and potassium results: No results found for this basename: HCT,HEMATOCRIT,K,POTA SSIUM Relevant Problems No relevant active problems I - PHYSICAL EVALUATION AIRWAY Patient intubated: No. Tracheostomy tube not present Mallampati: III. TM distance: >3 FB. Neck ROM: full ROM without neurological symptoms. Mouth opening: non-adequate. Short neck: yes. Thick neck: yes DENTAL Dental findings: broken tooth. Additional exam findings: no II - ANESTHESIA PLAN ASA Score: 3 Anesthetic Plan: MAC The patient is not a current smoker. NPO Status: adequate Monitoring plan: standard ASA. Postoperative analgesic plan: parenteral or oral opioids. Anesthetic Risks, Benefits, Alternatives, Personnel Discussed. Consent obtained from: patient.Patient / Surrogate agrees to blood products: blood products not planned Significant changes in the patient condition since the History and Physical, not otherwise documented in primary service progress note: no. Potential Anesthesia issues that may suggest increased risk of complications or contraindication to planned procedure: none. Vitals Value Taken Time BP 114/95 10/30/20 07 Pulse 46 10/30/20 07 Resp 20 10/30/20724 Temp 36.3 ?C (97.4 ?F) 10/30/20 07 SpO2 95 % 10/30/20724 Facility-Administered Medications as of 10/30/2020 Medication Dose Route Frequency - lactated ringers iv infusion 30 mL/hr INTRAVENOUS CONTINUOUS Outpatient Medications as of 10/30/2020 Medication Sig - losartan (COZAAR) 50 mg tablet Take 50 mg by mouth once daily. - cyclobenzaprine (FLEXERIL) 10 mg tablet Take by mouth three times daily. - clonazePAM (KLONOPIN) 0.5 mg tablet Take 0.5 mg by mouth twice daily as needed for Anxiety. - sertraline (ZOLOFT) 50 mg tablet Take 50 mg by mouth once daily. - lisinopril (ZESTRIL, PRINIVIL) 10 mg tablet Take 10 mg by mouth once daily. - metoprolol tartrate, short acting, (LOPRESSOR) 25 mg tablet Take 25 mg by mouth twice daily. - buPROPion XL (WELLBUTRIN XL) 300 mg 24 hr tablet Take 300 mg by mouth once daily. - sildenafil (VIAGRA) 50 mg tablet Take 50 mg by mouth as needed. - triamcinolone acetonide (KENALOG) 0.1 % cream Apply to affected area twice daily. I have interviewed and examined the patient. I have reviewed the medical record and/or the pre-anesthesia evaluation, pertinent labs, and test results. This contains updated information obtained within 48 hours of Surgery/Procedure. SIGNATURE: Guerline Velazco MD PATIENT NAME: Torri Britt DATE: October 30, 2020 TIME: 7:35 AM CSN: [id number] [facility] HISTORY PHYSICALon HISTORY PHYSICAL HNO ID: [id number] Author: Moses Mayfield MD Service: Ophthalmology Author Type: Physician Type: HANDP Filed: 10/30/2020 8:14 AM Note Text: UPDATED HISTORY AND PHYSICAL EXAMINATION SERVICE DATE: 10/30/2020 SERVICE TIME: 8:13 AM PHYSICAL EXAM MUST BE COMPLETED ON ADMISSION The History and Physical (completed in the past 30 days) has been reviewed and the patient has been examined. The contents accurately reflect the patient's condition with the following additions or revisions since the HANDP was completed. Examination indicates no changes. This HANDP can be found in the scanned documents dated10/28/20. SIGNATURE: Moses Mayfield MD PATIENT NAME: Torri Britt DATE: October 30, 2020 TIME: 8:13 AM PAGER: [facility] OPERATIVE NOon 10-30-2020 OPERATIVE NO HNO ID: [id number] Author: Moses Mayfield MD Service: Ophthalmology Author Type: Physician Type: Operative Report Filed: 10/30/2020 8:27 AM Note Text: OPERATIVE/PROCEDURE REPORT OPHTHAMOLOGY LOG ID: [id number] Surgery/Procedure Date: 10/30/2020 Incision/Procedure Start Time: 8:20 AM Incision Close/Procedure End Time: 8:25 AM Surgeon(s)/Procedural ist(s) and Controls Technician(s): Surgeon(s) and Role: * Moses Mayfield MD - Primary Procedure(s): Procedure(s) (LRB): REPAIR BLEPHAROPTOSIS CONJUNCTIVO-TARSO LEVATOR RESECTION (Right) 3. mm. Preoperative Diagnosis: Ptosis of right eyelid [H02.401] Postoperative Diagnosis: Same as Preop Operative Indications: Difficulty with reading and driving. The patient has a history of blurred vision, making it difficult to read and drive. The ptosis is worse on down gaze, resulting in their symptoms. The patient has a scotoma greater than 20- 30 degrees which improves on eyelid taping. Anesthesia: Monitored Anesthesia Care Procedure Details: The patient was brought into the operating room, and placed under adequate local anesthesia. The face was prepped and draped in the usual sterile fashion for upper lid surgery. The caliper was set at a pre operatively determined amount and thus used to measure the amount of Contreras muscle and conjunctiva to be resected. This tissue was grasped temporally and nasally using locking forceps and the tissue was then brought inferiorly. A Putterman clamp was then placed imbricating the tissue within the jaws of the clamp. A single-arm 6-0 Prolene suture was then passed full thickness from the lid, from a nasal approach, running it through the tissue posterior to the clamp engaging tarsus with each bite. Once the suture was run through the length of the clamp, the other arm was then brought full thickness through the lid temporally. The intervening tissue was resected with Andrey scissors and discarded. The suture was then tied on the lid surface making a knot in the center of the eyelid. Antibiotic ointment and ice compresses were placed over the eye postoperatively. The patient was returned to the recovery room in satisfactory condition. Estimated Blood Loss: Minimal unless noted here. Specimens: * No specimens in log * Implantable Devices: * No implants in log * Drains: None unless noted here. Complications: None I performed the entire procedure. SIGNATURE: Moses Mayfield MD PATIENT NAME: Torri Britt DATE: October 30, 2020 TIME: 8:27 AM PAGER/CONTACT #: [facility] ANES POSTPROC EVALon 021 ANES POSTPROC EVAL HNO ID: [id number] Author: Michael Neff Service: Anesthesiology Author Type: Anesthesiologist Type: Anesthesia Postprocedure Evaluation Filed: 07/31/2020 12:34 PM Note Text: POST ANESTHESIA EVALUATION NOTE : 1960 Procedure Summary Date: 07/31/20 Room / Location: [facility] OR02 / [facility] [place] Anesthesia Start: 1045 Anesthesia Stop: 1140 Procedure: REPAIR STRABISMUS 2 HORIZONTAL MUSCLES (Right Eye) Diagnosis: Monocular exotropia of right eye (Monocular exotropia of right eye [H50.111]) Surgeons: Moses Mayfield Responsible Provider: Michael Neff Anesthesia Type: general ASA Status: 3 Anesthesia Type: general Last vitals Vitals Value Taken Time BP 114/83 07/31/20 1200 Temp 36.3 ?C (97.4 ?F) 07/31/20 1137 Pulse 49 07/31/20 1150 Resp 18 07/31/20 1200 SpO2 96 % 07/31/20 1200 Post Anesthesia Patient Status Patient Evaluation: PACU. PACU/ICU Patient Condition: stable. Anticipated Disposition: phase 2 then home. Neurological Status: aware and responsive. Pulmonary Status: breathing comfortably on room air Airway Control: returned to baseline unsupported. Cardiovascular Status: stable. Pain Management: clinically adequate - multimodal analgesia pain management approach Postoperative Hydration: acceptable. Intraoperative Events: no significant anesthesia events Recommendation: continue current plan of care. No complications documented. SIGNATURE: Michael Neff MD PATIENT NAME: Torri Britt DATE: July 31, 2020 TIME: 12:33 PM CSN: [id number] [facility] ANES PRE-OPon 07-31-2020 ANES PRE-OP HNO ID: [id number] Author: Michael Neff Service: Anesthesiology Author Type: Anesthesiologist Type: Anesthesia Preprocedure Evaluation Filed: 07/31/2020 11:18 AM Note Text: ANESTHESIOLOGY DAY OF SURGERY NOTE : 1960 Procedure(s) (LRB): REPAIR STRABISMUS 2 HORIZONTAL MUSCLES (Right) Surgeon(s): Moses Mayfield Estimated body mass index is 44.77 kg/m? as calculated from the following: Height as of this encounter: 186.7 cm (6' 1.5). Weight as of this encounter: 156 kg (344 lb). Most recent hematocrit and potassium results: No results found for this basename: HCT,HEMATOCRIT,K,POTA SSIUM Relevant Problems No relevant active problems I - PHYSICAL EVALUATION AIRWAY Patient intubated: No. Tracheostomy tube not present Mallampati: III. TM distance: >3 FB. Neck ROM: full ROM without neurological symptoms. Mouth opening: adequate. Thick neck: yes DENTAL Dental findings: teeth intact. Additional exam findings: no II - ANESTHESIA PLAN ASA Score: 3 Anesthetic Plan: general Airway type: LMA NPO Status: adequate Monitoring plan: standard ASA. Postoperative analgesic plan: parenteral or oral opioids and multimodal analgesia. Anesthetic Risks, Benefits, Alternatives, Personnel Discussed. Consent obtained from: patient.Patient / Surrogate agrees to blood products: blood products not planned Significant changes in the patient condition since the History and Physical, not otherwise documented in primary service progress note: no. Vitals Value Taken Time BP 114/77 07/31/20926 Pulse 47 07/31/20929 Resp 22 07/31/20926 Temp 36.6 ?C (97.9 ?F) 07/31/20926 SpO2 95 % 07/31/20926 Facility-Administered Medications as of 07/31/2020 Medication Dose Route Frequency - lactated ringers iv infusion 30 mL/hr INTRAVENOUS CONTINUOUS Outpatient Medications as of 07/31/2020 Medication Sig - clonazePAM (KLONOPIN) 0.5 mg tablet Take 0.5 mg by mouth twice daily as needed for Anxiety. - sertraline (ZOLOFT) 50 mg tablet Take 50 mg by mouth once daily. - lisinopril (ZESTRIL, PRINIVIL) 10 mg tablet Take 10 mg by mouth once daily. - metoprolol tartrate, short acting, (LOPRESSOR) 25 mg tablet Take 25 mg by mouth twice daily. - buPROPion XL (WELLBUTRIN XL) 300 mg 24 hr tablet Take 300 mg by mouth once daily. - sildenafil (VIAGRA) 50 mg tablet Take 50 mg by mouth as needed. - triamcinolone acetonide (KENALOG) 0.1 % cream Apply to affected area twice daily. I have interviewed and examined the patient. I have reviewed the medical record and/or the pre-anesthesia evaluation, pertinent labs, and test results. This contains updated information obtained within 48 hours of Surgery/Procedure. SIGNATURE: Michael Neff MD PATIENT NAME: Torri Britt DATE: July 31, 2020 TIME: 10:12 AM CSN: [id number] [facility] HISTORY PHYSICALon HISTORY PHYSICAL HNO ID: [id number] Author: Moses Mayfield Service: Ophthalmology Author Type: Physician Type: HANDP Filed: 07/31/2020 10:47 AM Note Text: UPDATED HISTORY AND PHYSICAL EXAMINATION SERVICE DATE: 07/31/2020 SERVICE TIME: 10:47 AM PHYSICAL EXAM MUST BE COMPLETED ON ADMISSION The History and Physical (completed in the past 30 days) has been reviewed and the patient has been examined. The contents accurately reflect the patient's condition with the following additions or revisions since the HANDP was completed. Examination indicates no changes. This HANDP can be found in the scanned documents dated 07/20/20. SIGNATURE: Moses Mayfield MD PATIENT NAME: Torri Britt DATE: July 31, 2020 TIME: 10:47 AM PAGER: [facility] OPERATIVE NOon 07-31-2020 OPERATIVE NO HNO ID: [id number] Author: Moses Mayfield Service: Ophthalmology Author Type: Physician Type: Operative Report Filed: 07/31/2020 11:35 AM Note Text: OPERATIVE/PROCEDURE REPORT OPHTHAMOLOGY LOG ID: [id number] Surgery/Procedure Date: 07/31/2020 Incision/Procedure Start Time: 11:01 AM Incision Close/Procedure End Time: 11:32 AM Surgeon(s)/Procedural ist(s) and Controls Technician(s): Surgeon(s) and Role: * Moses Mayfield - Primary Procedure(s): Procedure(s) (LRB): REPAIR STRABISMUS 2 HORIZONTAL MUSCLES (Right) Preoperative Diagnosis: Monocular exotropia of right eye [H50.111] Postoperative Diagnosis: Same as Pre op Operative Indications: Double vision Anesthesia: Monitored Anesthesia Care Procedure Details: The patient was brought into the operating room, placed under adequate retrobulbar anesthesia. The face was prepped and draped usual sterile fashion for eye muscle surgery. Lid speculum was inserted. Forced ductions were normal. A limbus incision was made down to bare sclera over the lateral rectus muscle, which was isolated and cleaned. A double-arm 6-0 Vicryl suture was passed through the belly of the muscle in double-locking fashion. The muscle was then cut and recessed using the hang back technique. The conjunctiva was closed using 7-0 Vicryl. A limbus incision was made down to bare sclera over the medial rectus muscle. A clamp was placed posterior to the insertion and a double-arm 6-0 Vicryl suture was passed through the belly of the muscle in double-locking fashion posterior to the clamp. The muscle was resected. The clamp was removed and the resected muscle was reattached to the original insertion using 6-0 Vicryl. The conjunctiva was closed with 7-0 Vicryl. Antibiotic ointment was placed in the eye, which was patched. The patient was returned to recovery room in satisfactory condition. Estimated Blood Loss: Minimal unless noted here. Specimens: * No specimens in log * Implantable Devices: * No implants in log * Drains: None unless noted here. Complications: None I performed the entire procedure. SIGNATURE: Moses Mayfield MD PATIENT NAME: Torri Britt DATE: July 31, 2020 TIME: 11:34 AM PAGER/CONTACT #: [facility] PreOp/PreProc COVIDon 2020 SARS-CoV-2 (COVID-19) RNA YENNY+probe Ql (Unsp spec) UPPER RESPIRATORY TRACT SWAB Normal [facility] Comment on above: Performed By: #### P OCOVD #### [address] [address] SARS-CoV-2 (COVID-19) RNA YENNY+probe Ql (Unsp spec) Negative Normal Negative for COVID19 (SARS CoV2) by PCR. [facility] Comment on above: Result Comment: This test was developed and its performance characteristics determined by [facility] [place]. This test has been authorized by FDA under an Emergency Use Authorization (EUA). This test has been validated in accordance with the FDA's Guidance Document Policy for Diagnostics Testing in Laboratories Certified to Perform High Complexity Testing under CLIA prior to Emergency use Authorization for Coronavirus Disease 2019 during the Public Health Emergency issued on June 29, 2019. Test performed by [facility], [facility] [place], [facility] [place], [place] [address]. Performed By: #### P OCOVD #### [address] [place], [place] [address] Vital Signs Date Time Vital Sign Value Performing Clinician Faci lity 11-12-2024 10:23-0400 Body height 188 cm Pepito Araujo MD, PhD Work Phone: [facility] 11-12-2024 10:23-0400 Body mass index (BMI) [Ratio] 39.01 kg/m2 Pepito Araujo MD, PhD Work Phone: [facility] 11-12-2024 10:23-0400 Body weight 137.8 kg Pepito Araujo MD, PhD Work Phone: [facility] 11-12-2024 10:23-0400 Diastolic blood pressure 88 mm[Hg] Pepito Araujo MD, PhD Work Phone: [facility] 11-12-2024 10:23-0400 Heart rate 80 /min Pepito Araujo MD, PhD Work Phone: [facility] 11-12-2024 10:23-0400 SaO2% (BldA) [Mass fraction] 93 % Pepito Araujo MD, PhD Work Phone: [facility] 11-12-2024 10:23-0400 Systolic blood pressure 155 mm[Hg] Pepito Araujo MD, PhD Work Phone: [facility] 09-03-2024 08:50-0400 Body height 187.[address] Shady Pathak MD Work Phone: [facility] 09-03-2024 08:50-0400 Body mass index (BMI) [Ratio] 40 kg/m2 Dr. Shady Pathak MD Work Phone: [facility] 09-03-2024 08:50-0400 Body weight 141.[address] Shady Pathak MD Work Phone: [facility] 08-10-2024 09:54-0400 Body mass index (BMI) [Ratio] 41.7 kg/m2 Dr. Shady Pathak MD Work Phone: [facility] 08-10-2024 09:54-0400 Body temperature 98 [degF] Dr. Shady Pathak MD Work Phone: [facility] 08-10-2024 09:54-0400 Body weight 147.[address] Shady Pathak MD Work Phone: 2(077)[phone] [place] [address] 08-10-2024 09:54-0400 Diastolic blood pressure 86 mm[Hg] Dr. Shady Pathak MD Work Phone: 5(750)976-804323 [address] 08-10-2024 09:54-0400 Heart rate 75 /min Dr. Shady Pathak MD Work Phone: 6(287)964-488361 [place] [address] 08-10-2024 09:54-0400 SaO2% (BldA) [Mass fraction] 97 % Dr. Shady Pathak MD Work Phone: 2(129)[phone] [address] 08-10-2024 09:54-0400 Systolic blood pressure 120 mm[Hg] Dr. Shady Pathak MD Work Phone: 9(821)[phone] [address] 07-26-2024 09:29-0400 Body height 187.[address] Shady Pathak MD Work Phone: 9(401)[phone] [address] 07-24-2024 12:11-0400 Body temperature 97 [degF] Dr. Shady Pathak MD Work Phone: 3(601)[phone] [place] [address] 07-24-2024 12:11-0400 Diastolic blood pressure 73 mm[Hg] Dr. Shady Pathak MD Work Phone: [facility] 07-24-2024 12:11-0400 Heart rate 82 /min Dr. Shady Pathak MD Work Phone: 7(026)[phone] [address] 07-24-2024 12:11-0400 Respiratory rate 16 /min Dr. Shady Pathak MD Work Phone: 3(660)[phone] [address] 07-24-2024 12:11-0400 SaO2% (BldA) [Mass fraction] 93 % Dr. Shady Pathak MD Work Phone: 0(424)[phone] [place] [address] 07-24-2024 12:11-0400 Systolic blood pressure 132 mm[Hg] Dr. Shady Pathak MD Work Phone: [facility] 07-24-2024 10:00-0400 Inhaled oxygen flow rate 2 L/min Dr. Shady Pathak MD Work Phone: [facility] 07-24-2024 06:32-0400 Body height 187.[address] Shady Pathak MD Work Phone: [facility] 07-24-2024 06:32-0400 Body mass index (BMI) [Ratio] 41.3 kg/m2 Dr. Shady Pathak MD Work Phone: [facility] 07-24-2024 06:32-0400 Body weight [address] Shady Pathak MD Work Phone: [facility] 04-18-2024 13:52-0500 Body mass index (BMI) [Ratio] 40.8 kg/m2 Dr. Shady Pathak MD Work Phone: [facility] 04-18-2024 13:52-0500 Body weight 144.[address] Shady Pathak MD Work Phone: [facility] 04-02-2024 12:52-0500 Body height 188 cm Yao Mccabe MD Work Phone: [facility] 04-02-2024 12:52-0500 Body mass index (BMI) [Ratio] 40.06 kg/m2 Yao Mccabe MD Work Phone: [facility] 04-02-2024 12:52-0500 Body weight 141.52 kg Yao Mccabe MD Work Phone: [facility] 02-21-2024 09:37-0400 Body height 188 cm Carlin Shaw MD Work Phone: [facility] 02-21-2024 09:37-0400 Body mass index (BMI) [Ratio] 40.06 kg/m2 Carlin Shaw MD Work Phone: [facility] 02-21-2024 09:37-0400 Body weight 141.52 kg Carlin Shaw MD Work Phone: [facility] 02-21-2024 09:37-0400 Diastolic blood pressure 87 mm[Hg] Carlin Shaw MD Work Phone: [facility] 02-21-2024 09:37-0400 Heart rate 65 /min Carlin Shaw MD Work Phone: [facility] 02-21-2024 09:37-0400 SaO2% (BldA) [Mass fraction] 97 % Carlin Shaw MD Work Phone: [facility] 02-21-2024 09:37-0400 Systolic blood pressure 144 mm[Hg] Carlin Shaw MD Work Phone: [facility] 12-28-2023 08:30-0400 Body height 188 cm Yao Mccabe MD Work Phone: [facility] 12-28-2023 08:30-0400 Body mass index (BMI) [Ratio] 39.8 kg/m2 Yao Mccabe MD Work Phone: [facility] 12-28-2023 08:30-0400 Body weight 140.62 kg Yao Mccabe MD Work Phone: [facility] 12-28-2023 08:30-0400 Heart rate 66 /min Yao Mccabe MD Work Phone: [facility] 12-28-2023 08:30-0400 SaO2% (BldA) [Mass fraction] 98 % Yao Mccabe MD Work Phone: [facility] 04-28-2023 10:29-0500 Body temperature 97.9 [degF] Dr. Shady Pathak Work Phone: [facility] 12-29-2023 10:29-0500 Diastolic blood pressure 68 mm[Hg] Dr. Shady Pathak Work Phone: [facility] 04-28-2023 10:29-0500 Heart rate 49 /min Dr. Shady Pathak Work Phone: [facility] 04-28-2023 10:29-0500 Respiratory rate 16 /min Dr. Shady Pathak Work Phone: [facility] 04-28-2023 10:29-0500 SaO2% (BldA) [Mass fraction] 98 % Dr. Shady Pathak Work Phone: [facility] 04-28-2023 10:29-0500 Systolic blood pressure 97 mm[Hg] Dr. Shady Pathak Work Phone: [facility] 04-28-2023 06:43-0500 Body height 187.[address] Shady Pathak Work Phone: [facility] 04-28-2023 06:43-0500 Body mass index (BMI) [Ratio] 43 kg/m2 Dr. Shady Pathak Work Phone: [facility] 04-28-2023 06:43-0500 Body weight [address] Shady Pathak Work Phone: [facility] 04-04-2023 11:46-0500 Body temperature 98.1 [degF] Dr. Shady Pathak Work Phone: [facility] 04-04-2023 11:46-0500 Diastolic blood pressure 56 mm[Hg] Dr. Shady Pathak Work Phone: [facility] 04-04-2023 11:46-0500 Heart rate 64 /min Dr. Shady Pathak Work Phone: [facility] 04-04-2023 11:46-0500 Respiratory rate 16 /min Dr. Shady Pathak Work Phone: [facility] 04-04-2023 11:46-0500 SaO2% (BldA) [Mass fraction] 95 % Dr. Shady Pathak Work Phone: [facility] 04-04-2023 11:46-0500 Systolic blood pressure 96 mm[Hg] Dr. Shady Pathak Work Phone: [facility] 04-04-2023 07:50-0500 Inhaled oxygen flow rate 3 L/min Dr. Shady Pathak Work Phone: [facility] 04-04-2023 05:29-0500 Body height 187.[address] Shady Pathak Work Phone: [facility] 04-04-2023 05:29-0500 Body mass index (BMI) [Ratio] 42.2 kg/m2 Dr. Shady Pathak Work Phone: [facility] 04-04-2023 05:29-0500 Body weight 149.[address] Shady Pathak Work Phone: [facility] 04-04-2023 01:11-0500 Diastolic blood pressure 70 mm[Hg] [facility] 04-04-2023 01:11-0500 Heart rate 53 /min [facility] 04-04-2023 01:11-0500 Respiratory rate 18 /min [facility] 04-04-2023 01:11-0500 SaO2% (BldA) [Mass fraction] 95 % [facility] 04-04-2023 01:11-0500 Systolic blood pressure 119 mm[Hg] [facility] 04-03-2023 23:27-0500 Body height 187.96 cm [facility] 04-03-2023 23:27-0500 Body mass index (BMI) [Ratio] 42.7 kg/m2 [facility] 04-03-2023 23:27-0500 Body temperature 96.4 [degF] [facility] 04-03-2023 23:27-0500 Body weight 151.18 kg [facility] Encounters Encounter Date Encounter Type Care Provider Facility Start: 11-12-2024 End: 11-12-2024 Office outpatient visit 25 minutes Pepito Del Valle MD, PhD Work Phone: [facility] Comment on above: Acquired buried peni s (Primary Dx); Hyperglycemia, unspecified Start: 11-12-2024 ambulatory SHADY PATHAK Facility :[facility] Start: 11-05-2024 End: 11-05-[address] Compa Manrique MD -[facility] Work Phone: Start: 11-05-2024 End: 11-05-[address] Shady Pathak MD Work Phone: [facility] Start: 09-03-2024 End: 09-03-[address] Compa Manrique MD -[facility] Work Phone: Start: 09-03-2024 End: 09-03-2024 ambulatory [facility] Facility:[facility] Start: 08-30-2024 ambulatory [facility] Facility :[facility] Start: 08-30-[address] Compa vargas MD -Physical Therapy Work Phone: Start: 08-10-2024 End: 08-10-2024 Patient encounter procedure Thomas Collins [place] -[facility] Work Phone: Start: 08-10-2024 End: 08-10-2024 ambulatory Shady Pathak Facility:[facility] Start: 08-06-2024 End: 08-06-[address] Compa aMnrique MD -[facility] Work Phone: Start: 08-06-2024 End: 08-06-2024 ambulatory No Primary Care Physician Facility:[facility] Start: 08-02-2024 Encounter for other preprocedural examination [facility] Start: 07-26-2024 End: 07-26-[address] Compa Manrique MD -[facility] Work Phone: Start: 07-26-2024 End: 07-26-2024 ambulatory No Primary Care Physician Facility:[facility] Start: 07-24-2024 ambulatory [facility] Facility :[facility] Start: 07-24-2024 Non-patient / Non-visit Dr. Compa banegas MD -[facility] Start: 07-24-2024 End: 07-24-2024 Admission to same day surgery center Dr. Compa Manrique MD -[facility] Start: 07-24-2024 End: 07-24-[address] Shady Pathak MD Work Phone: [facility] Work Phone: Start: 07-18-2024 End: 07-18-[address] Shady Pathak MD Work Phone: [facility] Work Phone: Start: 07-18-2024 End: 07-18-[address] Shady Pathak MD -Laboratory, [facility] Start: 07-18-2024 End: 07-18-2024 ambulatory Shady Pathak Facility:[facility] Start: 07-11-2024 End: 07-11-2024 ambulatory Nestor Soni Facility:[facility] Start: 07-11-2024 End: 07-11-2024 Non-patient / Non-visit Dr. Nestor Soin MD -[facility] Work Phone: Start: 06-06-2024 End: 06-06-[address] Compa Manrique MD -[facility] Work Phone: Start: 06-06-2024 End: 06-06-2024 ambulatory No Primary Care Physician Facility:[facility] Start: 06-02-2024 End: 06-02-[address] Compa Manrique MD -[facility] Work Phone: Start: 06-02-2024 End: 06-02-2024 ambulatory No Primary Care Physician Facility:[facility] Start: 05-28-2024 End: 07-26-[address] Shady Pathak MD Work Phone: [facility] Work Phone: Start: 05-28-2024 End: 07-26-[address] Compa Manrique MD -Physical Therapy Work Phone: Start: 05-28-[address] Compa vargas MD -Physical Therapy Work Phone: Start: 05-14-2024 Encounter for preprocedural laboratory examination [facility] Start: 05-14-2024 End: 05-14-[address] Compa Manrique MD -[facility] Work Phone: Start: 05-14-2024 End: 05-14-2024 ambulatory Shady Pathak Facility:[facility] Start: 04-18-2024 End: 04-18-[address] Compa Manrique MD -[facility] Work Phone: Start: 04-18-2024 End: 04-18-2024 ambulatory Shady Pathak Facility:[facility] Start: 04-16-2024 End: 04-16-[address] [facility] Start: 04-16-2024 ambulatory YAO MCCABE Facility:[facility] Start: 04-16-2024 End: 04-16-2024 ambulatory Compa Manrique Facility:[facility] Start: 04-11-2024 End: 04-11-[address] Shady Pathak MD Work Phone: -[facility] Work Phone: Start: 04-11-2024 End: 04-11-2024 ambulatory [facility] Facility:[facility] Start: 04-02-2024 End: 04-02-2024 Office outpatient visit 25 minutes Yao Mccabe MD Work Phone: [facility] [place] Comment on above: Prostate cancer scre ening (Primary Dx); Elevated prostate specific antigen (PSA); Erectile dysfunction, unspecified erectile dysfunction type Start: 04-02-2024 ambulatory YAO MCCABE Facility:[facility] Start: 02-24-2024 End: 02-24-2024 Emergency department patient visit Renosharlene James Facility:[facility] Start: 02-21-2024 End: 02-21-2024 Patient encounter procedure Carlin Shaw MD Work Phone: [facility] [place] Comment on above: Erectile dysfunction , unspecified erectile dysfunction type (Primary Dx) Start: 02-21-2024 ambulatory SHADY PATHAK Facility :[facility] Start: 12-28-2023 ambulatory SHADY PATHAK Facility :[facility] Start: 12-28-2023 End: 12-28-2023 Office outpatient new 45 minutes Yao Mccabe MD Work Phone: [facility] [place] Comment on above: Erectile dysfunction , unspecified erectile dysfunction type (Primary Dx); Prostate cancer screening; Benign non-nodular prostatic hyperplasia with lower urinary tract symptoms Start: 12-28-2023 ambulatory SELF SELF Facility:[facility] Start: 11-15-2023 End: 11-15-2023 ambulatory Shady Pathak Facility:[facility] Start: 08-23-2023 End: 08-23-[address] Shady Pathak Work Phone: [facility] Work Phone: Start: 08-23-2023 End: 08-23-[address] Shady Pathak Work Phone: [facility] Start: 08-14-2023 End: 08-14-[address] Shady Pathak Work Phone: [facility] Work Phone: Start: 08-14-2023 End: 08-14-[address] Shady Pathak Work Phone: [facility] Start: 05-10-2023 End: 05-10-[address] Shady Pathak Work Phone: [facility] Work Phone: Start: 04-28-2023 Non-patient / Non-visit Dr. Arnie Pathak Work Phone: [facility] Start: 04-28-2023 End: 04-28-2023 Admission to same day surgery center [facility] Start: 04-28-2023 End: 04-28-[address] Shady Pathak Work Phone: [facility] Work Phone: Start: 04-17-2023 End: 04-17-[address] Shady Pathak Work Phone: [facility] Work Phone: Start: 04-04-2023 Non-patient / Non-visit Dr. Arnie Pathak Work Phone: [facility] Start: 04-04-2023 End: 04-04-2023 Evaluation and management of inpatient [facility] Work Phone: Start: 04-04-2023 End: 04-04-[address] Shady Pathak Work Phone: [facility] Work Phone: Start: 11-17-2022 End: 11-17-2022 ambulatory [facility] Work Phone: Start: 11-17-2022 End: 11-17-2022 Patient encounter procedure [facility] Procedures Date Procedure Procedure Detail Performing Clinician Start: 07-24-2024 Procedure on shoulder joint Dr. Shady Pathak MD Work Phone: Start: 06-02-2024 MRI of joint of lowe r extremity Dr. Shady Pathak MD Work Phone: Start: 04-16-2024 Plain X-ray of shoulder Dr. Shady Pathak MD Work Phone: Start: 04-11-2024 MRI of pelvis with contrast Dr. Shady Pathak MD Work Phone: Start: 12-28-2023 PSA screening SHADY TME[facility] Comment on above: Result Comment: This test was performed on the [employer] IM Immunoassay platform which is a 2-step sandwich chemiluminescent immunoassay. It is important to note that assays using different manufacturers and/or methods may not be comparable. Performed By: #### E PSA #### [facility] (DEFAULT) [address] [place] [address] Start: 12-28-2023 Urnls dip stick/tabl et rgnt auto w/o microscopy Yao Mccabe MD Work Phone: Start: 04-28-[address] Shady Pathak Work Phone: Start: 04-04-2023 Computed tomography of abdomen and pelvis with intravenous contrast Start: 04-04-[address] Shady Pathak Work Phone: Start: 04-04-2023 Plain chest X-ray Dr. Roland Pathak Work Phone: History of repair of musculotendinous cuff of shoulder S/P rotator cuff repair Dr. Compa Manrique MD History of repair of musculotendinous cuff of shoulder S/P rotator cuff repair Dr. Compa Manrique MD Plan of Treatment Date Care Activity Detail Author Start: 02-15-2026 Tetanus vaccination TETANUS [facility] Start: 04-02-2025 Prostate specific an tigen measurement PROSTATE CANCER SCREENING DISCUSSION [facility] Start: 12-30-2024 Influenza vaccination INFLUENZA VACC INE (#1) [facility] Start: 12-27-2024 Prostate specific an tigen measurement PROSTATE CANCER SCREENING DISCUSSION [facility] Start: 11-12-2024 End: 11-12-2025 Hemoglobin A1c/Hemoglobin.total in Blood HEMOGLOBIN A1C Lab Routine Acquired buried penis Hyperglycemia, unspecified Expected: 11/12/2024, Expires: 11/12/2025 [facility] Comment on above: Expected: 11/12/2024 , Expires: 11/12/2025 Start: 07-26-2024 Patient referral [facility] Work Phone: Start: 07-24-2024 Anes arthrs humeral h/n strnclav & shoulder nos ANESTH SURGERY OF SHOULDER [facility] Start: 07-24-2024 Arthroscopy shoulder rotator cuff repair KARMEN ARTHRS SRG RT8TR CUF RPR [facility] Start: 07-24-2024 Arthroscopy shoulder surg debridement limited KARMEN ARTHRS SRG LMTD DBRDMT [facility] Start: 07-24-2024 Arthroscopy shoulder w/coracoacrm ligmnt release KARMEN ARTHRS SRG DECOMPRESSION [facility] Start: 07-24-2024 Tenodesis long tendo n biceps REPAIR BICEPS TENDON [facility] Start: 07-24-2024 Patient discharge [facility] Start: 07-24-2024 Application of ice collar, cap or bag [facility] Start: 07-24-2024 Assessment of risk o f venous thromboembolism [facility] Start: 07-24-2024 Catheterization of vein [facility] Start: 07-24-2024 Continuous positive airway pressure ventilation treatment [facility] Start: 07-24-2024 Following clinical pathway protocol [facility] Start: 07-24-2024 Incentive spirometry [facility] Start: 07-24-2024 Introduction of urin carlyle catheter [facility] Start: 07-24-2024 Provision of activit y privileges [facility] Start: 07-24-2024 Vital signs measurements [facility] Start: 07-24-2024 [facility] Start: 07-24-2024 Medication education [facility] Start: 05-14-2024 Patient referral [facility] Work Phone: Start: 04-02-2024 End: 04-02-2025 MR Prostate WO and W contrast IV MRI PROSTATE WITH AND WITHOUT CONTRAST Imaging Routine Prostate cancer screening Elevated prostate specific antigen (PSA) Expected: 04/02/2024, Expires: 04/02/2025 [facility] Comment on above: Expected: 04/02/2024 , Expires: 04/02/2025 Start: 04-02-2024 End: 04-02-2024 Patient encounter procedure 04/02/2024 1:30 PM EST Office Visit [facility] [address] [place] [id number] Yao Mccabe MD [address] [place] [address] [facility] Start: 02-26-2024 End: 02-26-2024 Patient encounter procedure 02/26/2024 1:00 PM EDT Office Visit [facility] [address] [place] [address] Chadd Patterson, RN [employer] [address] [place] [address] [facility] Start: 12-31-2023 COVID-19 VACCINE ( season) COVID-19 VACCINE ( season) [facility] Start: 12-31-2023 COVID-19 VACCINE () COVID-19 VACCINE () [facility] Start: 12-31-2023 COVID-19 VACCINE () COVID-19 VACCINE () [facility] Start: 12-31-2023 Influenza vaccination INFLUENZA VACC INE (#1) [facility] Start: 12-22-2023 Abdominal aortic ane urysm screening ABDOMINAL AORTIC ANEURYSM HIGH RISK SCREEN [facility] Start: 12-22-2023 Pneumococcal vaccination PNEUM OCOCCAL VACCINE SERIES (1 of 1 - PCV) [facility] Start: 04-28-2023 Anesthesia hernia re pair lower abdomen nos ANESTH REPAIR OF HERNIA [facility] Start: 04-28-2023 RPR AA HRN 1ST < 3 CM RDC RPR AA HRN 1ST < 3 CM RDC [facility] Start: 04-28-2023 Patient discharge [facility] Start: 04-04-2023 Anesthesia intraperitoneal lower abd w/laps nos ANESTH SURG LOWER ABDOMEN [facility] Start: 04-04-2023 Laparoscopic appendectomy LAPA ROSCOPY APPENDECTOMY [facility] Start: 04-04-2023 Patient discharge [facility] Start: 04-04-2023 Incentive spirometry [facility] Start: 04-04-2023 Oxygen therapy [facility] Start: 04-04-2023 [facility] Start: 04-04-2023 Application of intermittent pneumatic compression device [facility] Start: 04-04-2023 End: 04-04-2023 Following clinical pathway protocol [facility] Start: 04-04-2023 Ambulation without limitation [facility] Start: 04-04-2023 Taking patient vital signs [facility] Start: 04-04-2023 [facility] Start: 04-04-2023 Plain chest X-ray Chest 1 View (Port able) [facility] Start: 04-04-2023 XR Chest Single view [facility] Start: 04-04-2023 Admission procedure [facility] Start: 12-30-2022 COVID-19 VACCINE ( season) COVID-19 VACCINE ( season) [facility] Start: 2018 RSV VACCINE (1 - 1-d ose 60+ series) RSV VACCINE (1 - 1-dose 60+ series) [facility] Start: 2018 RSV VACCINE (1 - Ris k 60-74 years 1-dose series) RSV VACCINE (1 - Risk 60-74 years 1-dose series) [facility] Start: 01-12-2012 Screening for malign ant neoplasm of colon COLORECTAL CANCER SCREENING DISCUSSION [facility] Start: 2008 Pneumococcal vaccination PNEUM OCOCCAL VACCINE SERIES (1 of 1 - PCV) [facility] Start: 2008 Zoster vaccine hzv l sherice for subcutaneous use ZOSTER (SHINGLES) VACCINE (1 of 2) [facility] Start: 1998 Lipid panel LIPID SCREENING [facility] Start: 1977 Third diphtheria, te tanus and acellular pertussis (DTaP) vaccination TDAP (ADULT) [facility] Start: 1973 HIV screening HIV SCREENING DISCUSSION [facility] Start: 1960 Hepatitis C screening HEPATITI S C VIRUS SCREENING [facility] Start: 1960 Tetanus vaccination TETANUS [facility] Adjnt tis trnsfr/stanford rgmt any area 30.1-60 sq cm TRANSFER/REARRANGEMENT ADJACENT TISSUE GENITALIA Acquired buried penis [facility] Excision excessive s kin & subq tissue other area EXCISION EXCESSIVE SKIN SQ TISSUE OTHER AREA Acquired buried penis [facility] Armando post-voiding residual urine&/bladder cap CA ARMANDO POST-VOIDING RESIDUAL URINE&/BLADDER CAP CA Charge Routine Benign non-nodular prostatic hyperplasia with lower urinary tract symptoms Ordered: 12/28/2023 [facility] Comment on above: Ordered: 12/28/2023 Patient Education After Shoulder Arthroscopy [facility] Work Phone: Patient referral [facility] Work Phone: Scrotoplasty complicated SCROTOP LASTY W/ GRAFT Acquired buried penis [facility] Immunizations Immunization Date Immunization Notes Care Provider Walker multani 03-15-2024 influenza virus vaccine, unspecified formulation Pepito Araujo MD, PhD Work Phone: [facility] 01-27-2023 influenza, injectabl e, quadrivalent, preservative free [facility] 03-18-2022 influenza, injectabl e, quadrivalent, preservative free [facility] 06-08-2021 zoster vaccine recombinant [facility] 04-14-2021 Covid (Moderna) [facility] 04-02-2021 zoster vaccine recombinant [facility] 08-07-2020 Covid (Moderna) [facility] 07-10-2020 Covid (Moderna) [facility] 02-23-2020 Influenza virus vaccine [facility] 02-02-2018 influenza, injectabl e, quadrivalent, preservative free [facility] 02-16-2016 tetanus toxoid, redu christo diphtheria toxoid, and acellular pertussis vaccine, adsorbed [facility] Payers Date Payer Category Payer Medicare [id number] 2024 Medicare (Managed Care) MEDICARE [employer] HMO PPO [id number] 2024 Unknown [id number] 2023 Private Health Insurance [employer]ET[employer]IER SOSA [id number] 2023-Present [address] [place] [id number] 2023 Self-pay [id number] 2023 Unknown [id number] 1960 Unknown [id number] .1.076881.3.579.2. 594 1958 Unknown [id number] .1.404852.3.579.2. 594 1958 Unknown [id number] ..1.949270.3.579.2. 594 1958 Unknown [id number] .1.968038.3.579.2. 594 1958 Unknown [id number] ..1.753811.3.579.2. 594 1958 Unknown [id number] 06.16.830.1.980835.3.579.2. 594 Unknown [id number] Unknown [facility] DO NOT USE 22 [id number] Unknown [id number] .840.1.061040.3.579.2. 462 Unknown [id number] 2.16.840.1.874329.3.579.2. 462 Unknown [id number] 2.16.840.1.007071.3.579.2. 462 Unknown [id number] 2.16.840.1.151759.3.579.2. 462 Unknown [id number] 2.16.840.1.214495.3.579.2. 462 Unknown [id number] 2.16.840.1.201254.3.579.2. 462 Unknown [id number] 2.16.840.1.489946.3.579.2. 462 Unknown [id number] 2.16.840.1.943861.3.579.2. 462 Unknown [id number] 2.16.840.1.426076.3.579.2. 462 Unknown [id number] 2.16.840.1.396877.3.579.2. 462 Unknown [id number] 2.16.840.1.202937.3.579.2. 462 Unknown [id number] 2.16.840.1.115760.3.579.2. 462 Unknown [id number] 2.16.840.1.866461.3.579.2. 462 Unknown [id number] 2.16.840.1.041169.3.579.2. 462 Unknown [id number] 2.16.840.1.165389.3.579.2. 462 Unknown [id number] 2.16.840.1.742743.3.579.2. 462 Unknown [id number] 2.16.840.1.825047.3.579.2. 462 Unknown [id number] 2.16840.1.960285.3.579.2. 462 Unknown [id number] 2.16.840.1.889532.3.579.2. 462 Social History Date Type Detail Facility Start: 03-24-2020 End: 04-21-2023 Tobacco smoking status NHIS Unknown if ever smoked [facility] Start: 03-24-2020 None [facility] Start: 03-24-2020 Spouse/ Signif icant Other [facility] Start: 03-24-2020 Non-smoker [facility] Start: 1960 Sex Assigned At Male [facility] Start: 12-28-2023 End: 11-12-2024 Tobacco smoking status NHIS Never smoked tobacco [facility] Start: 12-28-2023 End: 11-12-2024 Tobacco use and exposure User of smokeless tobacco [facility] History of tobacco use Snuff User [facility] Start: 12-28-2023 End: 11-12-2024 History of Social function [facility] Start: 12-28-2023 End: 11-12-2024 Tobacco use panel [facility] Start: 11-20-2023 Gender identity Identifies as male gender (finding) [facility] Start: 12-22-2023 Sexual orientation Heterosexual (fin ding) [facility] Start: 07-10-2024 Tobacco smoking stat us NHIS Smokes tobacco daily (finding) [facility] Start: 11-20-2023 End: 07-24-2024 Sex Male (finding) [facility] History of tobacco use Passive smoker [facility] Start: 11-12-2024 Alcoholic beverage intake Ex-drinker (finding) [facility] Start: 11-12-2024 Alcohol Comment I am not a reg ular drinker, vacationing, parties, special ev [facility] Medical Equipment Procedure Code Equipment Code Equipment Origin al Text Equipment Identifier Dates Repair, hernia, umbilical, using mesh ([id number]) Extra-gynaecological surgical mesh, composite-polymer [id number] FDA Start: 04-28-2023 Arthroscopy, shoulder FIBERLINK [id number] FDA Start: 07-24-2024 Arthroscopy, shoulder FIBERTAPE FDA Start: 07-24-2024 Arthroscopy, shoulder Tendon/ligament bone anchor, non-bioabsorbable [id number] FDA Start: 07-24-2024 Arthroscopy, shoulder Tendon/ligament bone anchor, bioabsorbable ()[id number] FDA Start: 07-24-2024 Arthroscopy, shoulder FIBERLINK [id number] FDA Start: 07-24-2024 Arthroscopy, shoulder FIBERTAPE FDA Start: 07-24-2024 Arthroscopy, shoulder FIBERLINK [id number] FDA Start: 07-24-2024 Arthroscopy, shoulder FIBERTAPE FDA Start: 07-24-2024 Appendectomy, laparoscopic Surgical staple loading unit, non-cutting ()[id number] FDA Start: 04-04-2023 Goals Date Patient Goal Desired Activity /State Functional Status Date Assessment Result Facility 04-04-2023 Functional status Bathroom Privilege [facility] Work Phone: Mental Status Date Assessment Result Facility 07-24-2024 Cognitive function Voice/Name [facility] Work Phone: 04-28-2023 Cognitive function Voice/Name [facility] Work Phone: 04-04-2023 Cognitive function Level Of Cons ciousness Awake;Alert;Appropriate;Follow s Commands [facility] Work Phone: 04-04-2023 Cognitive function Voice/Name [facility] Work Phone: Clinical Notes 07-31-2020 to 11-12-2024 Fabiano Santos - 11/12/2024 10:45 AM Daniela oBone MD - 11/12/2024 10:45 AM EDTPatient Instructions Note Date & Type Note Facility 11-12-2024 History of Presen t illness Narrative 2-step identification process completed. Patients name and verified. Images from the original note were not included. UROLOGY OUTPATIENT CONSULTATION: HISTORY OF PRESENT ILLNESS Subjective Torri Britt is a 63 y.o. male h/o hypogonadism (on TRT) and ED who presents for evaluation of Erectile Dysfunction Did see Yao Mccabe for ED and has been on Trimix 10-20 units but getting results 3 hours later and painful. Trimix does get him firm enough but not firm enough for penetration and is uncomfortable. Previously did use Tadalafil 20 mg. Current weight loss of 80 lbs. Has been working out on stair climber and weight lifting and doing 11,000 steps daily. Is troubled by the escutcheon. Currently voiding on self. Not having any skin breakdown or irritation. NO issues with blood pressure or blood glucose. No labs for Hgb A1c. 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 Relevant Family and Social History: No relevant family history pertaining to this condition Social History Tobacco Use Smoking status: Never Passive exposure: Past Smokeless tobacco: Current Types: Snuff Substance Use Topics Alcohol use: Not Currently Comment: I am not a regular drinker, vacationing, parties, special ev Allergies: has no known allergies. Physical Exam: Gen: No acute distress Abd: (Photos Below) : (Photos Below) Physical Exam Photos: Standing AP: Standing AP (Lifting Pannus): Lateral: Supine with Escutcheon Lifted, Retracting Foreskin: Penis/Escutcheon P2a (reducible penile skin, sufficient penile skin, present pubic sulcus, ESCUTCHEON) Abdomen A1 (abdominal sulcus present, PRESENT but noncontributory abdominal pannus) Scrotum S0 (scrotal sulcus present, sufficient scrotal skin, absent lymphedema) AABP Classification P2a, A1, and S0 Imaging: N/a Labs: Lab Results Component Value Date GLUCOSE negative 12/28/2023 No results found for: WBC, WBCCOUNT, WBCFETAL, HGB, HCT, PLATELET, MCV No results found for: HGBA1C Relevant Medications: Outpatient Medications Prior to Visit Medication Sig Dispense Refill ASHWAGANDHA PO Take by mouth. Biotin 5 MG tablet Take by mouth. buPROPion 300 MG tablet XL Cholecalciferol (Vitamin D) 125 MCG (5000 UT) capsule HERBAL PRODUCT Methylfoal/ B complex HERBAL PRODUCT Replace this text with the name of the herbal product HERBAL PRODUCT Nitric oxide booster HERBAL PRODUCT liporush HERBAL PRODUCT Censor body toner Loratadine 10 MG tablet Take 1 tablet by mouth daily. Losartan 50 MG tablet Meloxicam 15 MG Tab Dispersible tadalafil 20 MG tablet Take 1 tablet by mouth daily as needed. 30 tablet 5 testosterone cypionate 200 MG/ML Solution injection LORazepam 1 MG tablet Take 1 tablet by mouth once for 1 dose. Take 1hr prior to MRI imaging 1 tablet 0 Qsymia 15-92 MG Cap SR 24HR No facility-administered medications prior to visit. Relevant Family and Social History: Family History Problem Relation Age of Onset Diabetes Father Social History Tobacco Use Smoking status: Never Passive exposure: Past Smokeless tobacco: Current Types: Snuff Substance Use Topics Alcohol use: Not Currently Comment: I am not a regular drinker, vacationing, parties, special ev Allergies: No Known Allergies Assessment and Plan: Torri Britt is a 63 y.o. male with buried penis and ED not adequately addressed with tadalafil and Trimix. This is a 63 y.o. 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 Anatomic configuration is notable for a prominent escutcheon without significant scrotal lymphedema. History is notable for obesity with massive weight loss. His BMI is currently 39. He does not have a history of diabetes, with no Hgb A1c on record. His condition is also complicated by ED. This represents an undiagnosed new problem with uncertain prognosis; for which a moderate amount of review including medical records, available test results, an independent history and ordering tests of my own was required to formulate a plan. This plan includes a recommendation for management with major surgery with a high risk morbidity due to patient comorbidities, the nature of the condition and the nature of the surgery.. We discussed his clinical presentation and the underlying contributing factors in the setting of adult acquired buried penis. We reviewed the role for surgical intervention in this disease state, and the reasons why medical interventions are unlikely to yield improvement (scarring/loss of genital skin due to persistent inflammation, primary localized lymphedema). We reviewed surgical options, including a less aggressive debridement focused on exposing the glans to improve voiding function (partial scrotectomy with primary closure, exposure of glans with primary closure of skin to coronal margin). We also reviewed a standard buried penis repair, with the goal to improve voiding and potentially sexual function. This would include mons escutcheonectomy, without reduction scrotoplasty, and without penile graft. I was florencia with the patient that my goal for him is to be able to expose and direct his glans and penis with the hope that this improves his urinary and sexual function. I explained that this may increase the length of his externalized penis, but that his actual penile length will not change. I also explained that while these repairs generally do not have negative effects on erectile function, they certainly do not have positive effects on ED. He should therefore expect following the repair to have unchanged erectile function. We discussed the perioperative course with such a procedure. We discussed that surgery is same day and will need transportation to and from the hospital. We reviewed expectation that if a graft is taken, he will have a bolster dressing and urethral catheter for 1 week, which will be removed in the clinic. We discussed the expected outcomes with harvest of a skin graft from the thigh (if a sufficient graft cannot be harvested from the escutcheon) including change in appearance at the harvest site, as well as potential issues including chronic pain, contracture, changes in sensation, or poor wound healing requiring additional wound care. With respect to the primary excision sites, we discussed issues including wound dehiscence/breakdown, hematoma/bleeding, infection, poor graft take in the worst case requiring revision grafting, and injury to the penis or surrounding strictures. We reviewed that it can take some time to have ingrowth of cutaneous sensation to the grafted shaft skin. We reviewed that the incidence of complications is as high as 50% depending on the repair type and that half of the patients who undergo a complex repair end up doing some level of wound care as an outpatient. Regarding concomitant conditions, I explained that up to 31% of patients are found to have a urethral stricture in the setting of AABP and that we would determine the best way to manage this based on the severity, length, location and etiology of the stricture. We also discussed that up to 7% of AABP repairs will diagnose penile squamous cell carcinoma and up to 35% of cases may discover pre-malignant lesions (Chuck KR, Lucille D, Lexa KM, Evan D, Shanel A, Sim TW, Tiera PJ. The Prevalence of Penile Cancer in Patients With Adult Acquired Buried Penis. Urology. 2019 Nov;133:229-233. doi: 10.1016/j.urology.2019.07.019. Epub 2018Nov 26. PMID: 11857567.). Depending on the final pathology, we discussed that we will talk about next steps and referrals. Finally, we also reviewed the high patient satisfaction rate in prior studies of this patient population, after all wounds are healed, and the relatively good (>85% 1-year disease free survival). In terms of nutrition, diet and exercise, we discussed optimizing his diet and activity. We discussed eating lean meats such as grilled chicken, fish, and turkey and avoiding red meat to minimize inflammation. Additionally we discussed avoiding processed foods/beverages, fast foods, and processed oils. We discussed increasing intake of fruits and vegetables and seed oils such as avocado and olive oil. Additionally we discussed starting protein supplementation such as Boost or Ensure or protein supplement of choice. Finally we discussed increasing physical activity with walking, resistance training or running. After this lengthy discussion, the patient is interested in Buried penis repair and possible later IPP. I explained that we generally try to do these repairs with Buried penis repair first then IPP later Given the above, the patient and I mutually agreed upon the following course of action: - Schedule for Buried penis repair without skin graft with same-day discharge - No heavy lifting x 6 weeks - Vacuum device and penis ring for penile rehabilitation - Future IPP discussion and scheduling - Hgb A1c and Ucx At the end of the visit, the patient was given time to answer any and all remaining questions. Annie Boone MD documented in this encounter [facility] 11-12-2024 Instructions Pepito Araujo MD, PhD - 11/12/2024 10:45 AM EDT Images from the original note were not included. At [facility] we are committed to providing you with the best care possible. As part of this commitment, we created this guide on male erectile dysfunction surgery for you. It provides the information you will need to prepare for and recover from your surgery. We hope you find this guide helpful. If you have any questions at all, please do not hesitate to call us at . The Basics / Preparing for Your Surgery Penile Prosthesis: The Basics A penile implant is an option if you can't get or keep an erection that's firm enough for sex and other treatment options haven't worked. There are two types of penile implants Noninflatable (Malleable) - this implant is always firm. It can be bent into different positions. Inflatable (IPP) - this is a flexible prosthesis that is pumped up to obtain an erection. The prosthesis can be deflated to go back to a flaccid position. This type of prosthesis contains 3 parts: A reservoir in the belly that holds salt water (saline). A pump in the scrotum that moves saline from the reservoir to the cylinders, creating an erection. A release valve on the pump that moves the saline from the cylinders back to the reservoir. The AMS 700 and Coloplast Titan are the IPPs commonly used in the [place]. Placement of it requires surgery with general anesthesia. More information on the AMS 700 is available at: https://www.edcure.org/ and AMS 700 Penile Implant Education This web site has information, including videos, about how the device works, patient experience and other facts. Penile Prosthesis: Risks Although not common, the following complications can occur: Infection is the most serious complication, and the rate is 1-3%. It may manifest early (in 10 days or so) or late (in several months or years). The infection rate is higher if you have scar tissue in the penis from Peyronie's disease or previous implantation. Device malfunction includes self-inflation, leakage of fluid, difficult deflation, device failure etc. Perforation of the prosthesis may occur at the back of the penis behind the scrotum, into the urethra, or at the head of the penis. If perforation of the urethra occurs during surgery, the operation will have to be stopped. If it occurs later, the device will have to be removed or replaced and the site of perforation repaired. The tubes of a three-piece prosthesis may be injured in future abdominal or scrotal surgery. Pain may persist for several weeks or even months following surgery. Tissue loss (necrosis) may occur in patients with vascular disease (diabetes) or patients undergoing extensive reconstruction of the penis for scarring or Peyronie's disease. There is substantial interference with urination with a semi-rigid prosthesis. Other complications include numbness near the incision which may take several months to resolve, swelling and bruising (blue and black) which may take several weeks to resolve, and some scarring near the incision, etc. Preparing for Your Surgery at [facility] A Preoperative Anesthesia Appointment will be made to ensure that you have the appropriate tests that you will need for your surgery (such as lab tests and X-rays). At that appointment you will also meet with a nurse who will review specific instructions that you should follow before your surgery. For example, the nurse will explain which medications and foods you may need to avoid. You will be called the day prior to your surgery date to confirm the time that you should arrive to the hospital for surgery. Surgery success rates are much higher in non-smokers. Please do everything you can to quit smoking. We have resources to help you quit. You will self-administer a hibiclens shower the morning of surgery. The instructions for this will be given to you at the preoperative anesthesia appointment. The Day of Your Surgery The Surgery is performed at the outpatient surgery center at [facility]. When you arrive, you will be registered for surgery. After registering you will be directed to go the preoperative preop holding area Here you will change into a hospital gown, have your vital signs (such as your heart rate and blood pressure) checked and have a chance to speak with your surgeon. You will also meet the anesthesiologist. He or she will place an intravenous line (IV) in your arm and will give you medication through the line to make you sleepy. You will be in the pre-op hold and prep area for 1-2 hours. You may want to bring something to read or listen to. Next, you will be taken to the operating room. Here, the anesthesiologist will hook you up to various monitors. He or she will also give you oxygen through a small mask placed over your nose and mouth. Soon after this, you will drift off to sleep. When the surgery is over, you will be taken to the recovery room. When you arrive in the recovery room (also known as the PACU), you will be very sleepy but able to hear those around you. You can expect to be in the PACU for about 2-3 hours. You will leave the PACU once you appear to be recovering well and when a hospital room becomes available for you. For Friends and Family Once you are brought into the pre-op hold and prep area, your family and friends can wait for you in the Waiting Room in the basement level. When the surgery is over, a member of the surgical team will contact them. Once you are settled in the PACU, they may be allowed to visit you. After the Surgery Here is what you can expect after your surgery: You will have an incision (wound) between 1) your scrotum and penis OR 2) above your penis. The incision will be 1 inches long. It will be closed with stitches. These will dissolve (melt away) in 1-2 months and do not need to be removed IPP will be partially pumped up after surgery. You will have a dressing over your penis and you may have a drain after surgery. Do not try to pump up the IPP. You will have a follow up visit in 4 weeks where you will be taught how to use your IPP. You may start walking the day of your surgery. You can expect these symptoms. They are normal and should go away with time. Bruising and mild bleeding at your incisions Mild bruising and swelling of your scrotum Mild pain in the perineum (the area between your anus and scrotum), scrotum and hips. This should improve with activity during the first week after surgery. Generally, patients leave the same day of surgery. Please arrange to have a family member or friend pick you up when it is time for you to leave. Recovery room nurses will review these home care instructions with you. By following the instructions carefully, you will improve your chances for a quick recovery. Recovery at Home: Home Care Instructions Here are some tips for caring for yourself at home. Activity Try to get some activity each day. Walking is a good choice. Do not drive while taking prescription pain medication. Do not have sex for 4 weeks. For 6 weeks, try to avoid the following: Lifting more than 5 pounds (about a half gallon of milk) Vigorous activity, such as yard work or heavy housework. Medications Take your usual medications as prescribed, unless you were told otherwise. You will be prescribed an antibiotic, Ibuprofen, Tylenol and stool softeners. Take these as prescribed. Common medications include Antibiotic: Unless otherwise specified, take Bactrim DS two times daily to prevent infection. This should be taken for 5 days at home after surgery to prevent infection. Pain regimen: Ibuprofen, Tylenol, ice pack. Stool softeners (Senna, Colace, Miralax, Dulcolax). Take to prevent constipation. Eating and drinking You may not have a normal appetite right away. Drink plenty of water to stay hydrated and resume your regular diet when you feel ready. Preventing constipation Anesthesia and pain medication can affect your bowel movements. It will take time for your bowel movements to be normal. To prevent constipation: Drink apple juice, prune juice and plenty of water. Eat high-fiber foods (whole grains, leafy greens, and other vegetables and fruits). Take stool softeners Try a fiber supplement (for example, Metamucil or Citrucel) Bathing/caring for your incision You can shower 48 hours after surgery. You should then shower at least daily. Blow-dry or use a clean dry towel to pat dry the perineal incision. Avoid soaking the incisions (e.g. bath, pool, hot tub) until the incisions are well healed, usually 4-5 weeks. Returning to work When you return to work will depend on your recovery and the type of job you have. On average, most patients need 2-6 weeks to recover. Your surgeon will let you know when you can go back to work. Call your surgeon if you have any of the following: Temperature greater than 101 F Chills Nausea or vomiting Your incision becomes red or swollen, opens or drains pus The skin around your incision becomes warmer than elsewhere Severe pain not controlled by pain medications Inability to urinate Blood in the urine Burning with urination Increased frequency or urgency of urination Remember... Everyday, things usually get a little easier. You can use an ice pack and take Ibuprofen and Tylenol for pain relief. Take measures to avoid constipation. Ask us about anything that concerns you. Follow-up Visits We will schedule your follow-up visits for you. If you do not receive a call or letter in 1 week that confirms your appointment, call Dr. Del Valle's office. Your first follow-up visit will be 4 weeks after you leave the hospital with our Nurse Practitioner. At that time, you will be shown how to use the IPP Your incisions will be examined After your first follow-up visit, you will be seen in 3-6 months in person or by video and then as needed. Thank you for choosing [facility] for your care. We hope you find this guide helpful. If you have any clinical questions, please use the [employer] secure portal: [email or web address] For questions regarding scheduling please call us Susannah Rodriguez at . documented in this encounter [facility] 11-05-[address] [facility] 07-24-2024 Consult note [facility] 07-24-2024 Consult note Note Date/Time July 24, 2024 9:27am [facility] Medical Records Department [address] [place] [address] Anesthesia Postop Eval I 07/24/24924 MR#: [id number] Acct: [id number] Name: TORRI BRITT V Rep #:[id number] : 1960 63 From: Gene AGUAYO PCP: Dr. Shady Pathak MD Status:REG S DC Y Race: C Location: [place] [address] Anesthesia: Postop Eval I Current Vital Signs Temperature: 98.6 F Pulse Rate: 75 Blood Pressure: 101/75 Respiratory Rate: 16 Pulse Ox: 93 Assessment Airway patent: Yes Spontaneous unlabored respirations: Yes nausea: No Vomiting: No Anesthesia Complication: No Fluid Hydration Crystalloid volume administer (ml): 1,700 Total IV fluid infused: 1,700 Progress Note Anesthesia document: Postop Eval 1 completed: Yes 07/24/24926 <Electronically signed by Gene Blackwell CRNA> Date _ Genedanna EarlKingfishermason FINCH Cosigner Signature: Date CC: ~ Signed [facility] Work Phone: 1(477) 719-371603-26-2025 Discharge summary Author Compa Manrique [facility] Note Date/Time July 24, 2024 9:1 6am [facility] Medical Records Department [address] [place] [address] Instructions for Home/Discharge Instructions 07/24/24912 MR#: [id number] Acct: [id number] Name: TORRI BRITT V Rep #:[id number] : 1960 63 From: Compa Manrique MD PCP: Dr. Shady Pathak MD Status:REG S DC Discharge Instructions Diet Discharge Diet: No restrictions Activity May resume sexual activity in: No Restrictions Ice area for (Minutes): 10 Lifting Restrictions: no lifting over 1 pound, ok for breaks from the sling Additional Activity Instructions:: ok for pendulums and elbow ROM 4x/day Dressing / Incision Call your doctor if your incision/area has: Continuous Slow Oozing, Sudden Increased Bleeding, Increased Pain/ Swelling, Increased Redness, Foul Smelling Discharge and Swelling at the incision site Call your doctor if you observe: Fever of 101 or Higher, Coldness, Increased Pain and Numbness or Tingling Change Dressing in: leave in place till F/U Cleanse incision/area with: Do not get Incision Wet Additional Dressing/Incision Instructions:: OK to change dressings if leaking / strike through Follow Up Care Please Follow Up With: Compa Manrique MD When: 2 days or within 2 weeks Test Results: Test results from this visit will be discussed in further detail at your follow- up appointment, if applicable. Discharge Plan Admission Attending Provider: Compa Manrique Primary Care Provider: Shady Pathak Instructions Patient Instructions: After Shoulder Arthroscopy Print Language: Vincentian Discharge Orders/Prescriptions Prescriptions: New oxycodone-acetaminophen [Endocet] 5-325 mg tablet 1 tab PO Q4H MDD 6 PRN (Reason: pain) 5 Days Qty: 30 0RF No Action meloxicam 15 MG tablet 15 mg PO DAILY Cholecalciferol (Vitamin D3) [Vitamin D3] 5,000 UNIT capsule 5,000 unit PO DAILY bupropion HCl 300 mg tablet extended release 24 hr 300 mg PO DAILY Patient Comments: TAKE 1 TABLET BY MOUTHEONCE DAILY losartan 50 mg tablet 50 mg PO DAILY Patient Comments: TAKE 1 TABLET BY MOUTHCONCE DAILY Fish OiL Referrals / Follow Up: Care Physician,No Primary [Non-Staff] - Compa Manrique MD [Med Staff - Active Staff] - Disposition Disposition (needs filled in before D/C Order can be placed): Home, Self Care 07/24/24915<Electronically signed by Compa Manrique MD>Compa Manrique MD CC: Dr. Shady Pathak MD ~ Signed [facility] Work Phone: 1(668) 400-968003-26-2025 Consult note [facility] Medical Records Department [address] [place] [address] Anesthesia Postop Eval I 07/24/24924 MR#: [id number] Acct: [id number] Name: TORRI BRITT V Rep #:[id number] : 1960 63 From: Gene AGUAYO PCP: Dr. Shady Pathak MD Status:REG S DC Y Race: C Location: [place] [address] Anesthesia: Postop Eval I Current Vital Signs Temperature: 98.6 F Pulse Rate: 75 Blood Pressure: 101/75 Respiratory Rate: 16 Pulse Ox: 93 Assessment Airway patent: Yes Spontaneous unlabored respirations: Yes nausea: No Vomiting: No Anesthesia Complication: No Fluid Hydration Crystalloid volume administer (ml): 1,700 Total IV fluid infused: 1,700 Progress Note Anesthesia document: Postop Eval 1 completed: Yes 07/24/24926 DRY WALL APPLICATOR> Date _ Gene Blackwell CRNA Cosigner Signature: Date CC: ~ Signed [facility]03-26-2025 Discharge summary [facility] Medical Records Department [address] [place] [address] Instructions for Home/Discharge Instructions 07/24/24 0913 MR#: [id number] Acct: [id number] Name: TORRI BRITT V Rep #:[id number] : 1960 63 From: Compa Manrique MD PCP: Dr. Shady Pathak MD Status:REG S DC Discharge Instructions Diet Discharge Diet: No restrictions Activity May resume sexual activity in: No Restrictions Ice area for (Minutes): 10 Lifting Restrictions: no lifting over 1 pound, ok for breaks from the sling Additional Activity Instructions:: ok for pendulums and elbow ROM 4x/day Dressing / Incision Call your doctor if your incision/area has: Continuous Slow Oozing, Sudden Increased Bleeding, Increased Pain/ Swelling, Increased Redness, Foul Smelling Discharge and Swelling at the incision site Call your doctor if you observe: Fever of 101 or Higher, Coldness, Increased Pain and Numbness or Tingling Change Dressing in: leave in place till F/U Cleanse incision/area with: Do not get Incision Wet Additional Dressing/Incision Instructions:: OK to change dressings if leaking / strike through Follow Up Care Please Follow Up With: Compa Manrique MD When: 2 days or within 2 weeks Test Results: Test results from this visit will be discussed in further detail at your follow- up appointment, if applicable. Discharge Plan Admission Attending Provider: Compa Manrique Primary Care Provider: Shady Pathak Patient Instructions: After Shoulder Arthroscopy Print Language: Vincentian Discharge Orders/Prescriptions Prescriptions: New oxycodone-acetaminophen [Endocet] 5-325 mg tablet 1 tab PO Q4H MDD 6 PRN (Reason: pain) 5 Days Qty: 30 0RF No Action meloxicam 15 MG tablet 15 mg PO DAILY Cholecalciferol (Vitamin D3) [Vitamin D3] 5,000 UNIT capsule 5,000 unit PO DAILY bupropion HCl 300 mg tablet extended release 24 hr 300 mg PO DAILY Patient Comments: TAKE 1 TABLET BY MOUTHEONCE DAILY losartan 50 mg tablet 50 mg PO DAILY Patient Comments: TAKE 1 TABLET BY MOUTHCONCE DAILY Fish OiL Referrals / Follow Up: Care Physician,No Primary [Non-Staff] - Compa Manrique MD [Med Staff - Active Staff] - Disposition Disposition (needs filled in before D/C Order can be placed): Home, Self Care 07/24/24 0916Compa Manrique MD CC: Dr. Shady Pathak MD ~ Signed [facility]03-26-2025 Procedure note [facility] Medical Records Department [address] [place] [address] Operative Report 07/24/24902 MR#: [id number] Acct: [id number] Name: TORRI BRITT V Rep #:[id number] : 1960 63 From: Compa Manrique MD PCP: Dr. Shady Pathak MD Status:REG S GA Location: [place] [address] Problems Associated Problem List Diagnoses (1) Arthrosis of left acromioclavicular joint: (2) Left rotator cuff tear: (3) Impingement of left shoulder: (4) Left shoulder pain: (5) Superior labrum [id number]-xl-[id number] (SLAP) tear of left shoulder: Procedures Musculoskeletal [id number]-29xxx: Other Procedure See Report Operative Report (Standard) Operative Information Date of Procedure: 07/24/24 Pre-Operative Diagnosis: Left shoulder impingement syndrome rotator cuff tear and biceps tear Post-Operative Diagnosis: Left shoulder impingement syndrome rotator cuff tear and SLAP tear Surgery/Procedure Performed: Left shoulder arthroscopy subacromial decompressionrotator cuff repairbiceps tenodesis power plant assistant: Yes Forex Trader: rudy Tasks completed by orthodontist assistant: Retracting Type of Anesthesia: General and Local RN Documented Start/Stop Times: Operation Date: 07/24/24 07:30 Case Time Into Pre-Op 07/24/24 06:04 Out of Pre-Op 07/24/24 07:22 Anesthesia Start 07/24/24 07:27 Into Room 07/24/24 07:27 Procedure Start 07/24/24 07:51 Procedure Start Time: 07:51 Procedure Stop Time: 09:08 Select all DRAINS/GRAFTS/IMPLANTS that apply: Implanted device Implanted device details: Arthrex 4.75 mm swivel lock anchor and metal biceps button Estimated Blood Loss: 50 Specimen collected: Yes Description of specimen(s) removed: Long head of biceps Description of surgery: Patient brought to the operating room theater. Placed supine on the table. SCDs on the legs. General anesthetic induced. 3 g IV Ancef administered prior to the start of the case. Patient transferred left side up lateral decubitus beanbag positioner axillary roll used all bony prominences padded. Upper extremity prepped and draped with chlorhexidine-based prep solution allowing over 3 minutes drying time prior to draping. 15 pounds of inline traction with the arm in 40 degrees of abduction was utilized. Preoperative timeout performedto confirm the site patient the surgery. Began by inserting the arthroscope through a standard posterior arthroscopy portal. Did a full diagnostic arthroscopy. The cartilage on the glenoid and humeral head appeared normal. Subscapularis wasnormal. No loose bodies. Slight labral fraying. I established an anterior portal through the rotator interval. I gently debrided the anterior labrum. The biceps - Slightly hypertrophic with a type IISLAP tear so I performed an intra-articular biceps tenotomy to plan for later tenodesis. There was a full-thickness anterior leading edge tear of the supraspinatus tendon as consistent with the MRI. I marked this with a spinal needle. Next I placed the arthroscope in the subacromial space. I established to accessory working lateral portals with cannulas. There is a high amount of inflammatory bursitis. I performed a complete bursectomy. I did a subacromial decompression for 4 mm down to flat margins with a high-speed carolyn instrument. Identified the full-thickness tear of the anterior leading edge of the cuff tendon. This is about 1 cm x 1 cm. I performed a decortication at the greater tuberosity as well as multiple trephination's using power pick instrument. I then passed an inverted horizontal mattress fiber tape suture as well as a fiberlink suture at the anterior leading edge tissue gently debrided the margins of the rotator cuff. I then inserted this into a knotless 4.75 mm Arthrex swivel lock bio composite anchor just off the greater tuberosity this achieved good compression of the footprint I also used the staysuture in a knotless configuration to slightly compress a very small dogear. Arthroscopy pictures taken and saved onto the system throughout the case. I then turned my attention to the biceps tenodesis subpectoral technique. Performed a 1 inch incision centered over the long head of the biceps on the upper proximal medial aspect of the humerus carried the dissection down through skin and subcutaneous tissue achieved meticulous hemostasis. Identified the long head of the biceps tendon shorten this. I used the Arthrex biceps tension tight button technique with the locking loop suture. I passed the loop and a luggage tag configuration then distal to this from anterior to posterior past the suture back through the tendon to create a locking configuration. I then drilled a unicortical hole removed any bone dust. I then passed the button flipped the button and then did an onlay technique with the biceps tension tightbutton pulling the free and to shorten up the suture and then cut this short. This is a solid repair. Wound thoroughly irrigated subcutaneous tissue closed with 2-0 Vicryl suture andskin with 3-0 Monocryl. Skin cleaned with wet dry dressing. 20 cc of quarter percent bupivacaine instilled in and around the soft tissues. Skin cleaned withwet dry dressing followed by Steri-Strips Adaptic 4 x 4 gauze ABD dressing clothtape with an abduction pillow sling for the upper extremity. Patient woken up from the general anesthetic transferred off the operating tabletaken to postanesthetic care unit in stable condition. All sponge needle instrument counts were correct no complications plan for the patient discharged home according to day surgery criteria follow-up in the office in 2 days time. CPT 76758, 67885, 19150, 34058? Surgical Findings: as above Complications Complications: No Admit VTE Documentation VTE Present on Admission: No VTE Mechan Device Prophylaxis: SCD's VTE Pharm Prophylaxis ordered?: No Reason prophylaxis not ordered: Treatment Not Indicated 07/24/24 0912 Cosigner Signature (if applicable): CC: Dr. Shady Pathak MD; Dr. Compa Manrique MD~ Signed [facility]03-26-2025 Consult note Author Malik Ortiz [facility] Note Date/Time July 24, 2024 7:0 5am [facility] Medical Records Department [address] [place] [address] Pre-Anesthesia Evaluation 07/24/24 0704 MR#: [id number] Acct: [id number] Name: TORRI BRITT V Rep #:[id number] : 1960 63 From: Malik Ortiz MD PCP: Dr. Shady Pathak MD Status:REG S DC Y Race: C Location: [place] [address] ASA Classification* ASA Classification ASA Classification: 3 Assessment & Plan Anesthesia* Anesthesia Assessment Anesthesia Assessment: Discussed sedation and/or anesthesia options, risks, benefits, and alternatives with patient/parents/legal guardian/POA. Questions invited. The patient/parents/legal guardian/POA seems to understand and agrees to proceedwith anesthesia plan. Reviewed the physical assessment, medical history, allergy history and patient home medications list prior to surgery/procedure/anesthetic and documented any changes. Performed airway and anesthesia risk assessments. Anesthesia Type Anesthesia Type: General Anesthesia Focused Assessment* Temperature: 99.2 F Pulse Rate: 69 Blood Pressure: 144/85 Respiratory Rate: 16 Pulse Ox: 94 Airway Assessment Mouth opens: >3 cm Mallampati Score: II Focused Labs Anesthesia Preop lab: CBC WBC 8.0 K/mm3 (4.4-11.0) 07/18/24 12:07/18/24 RBC 4.90 M/mm3 (4.6-6.2) 07/18/24 12:07/18/24 Hgb 16.9 g/dL (13.0-16.5) H 07/18/24 12: 5 Hct 50.7 % (40-54) 07/18/24 12:07/18/24 Plt Count 166 K/mm3 (150-450) 07/18/24 12:00 07/18/24 CHEMISTRY Potassium 4.5 mmol/L (3.3-5.1) 07/18/24 12:07/18/24 Sodium 139 mmol/L (133-145) 07/18/24 12:07/18/24 BUN 17 mg/dL (4-19) 07/18/24 12:07/18/24 Creatinine 1.12 mg/dL (0.70-1.20) 07/18/24 12:07/18/24 Glucose 81 mg/dL (70-99) 07/18/24 12:00 07/18/24 TSH 1.52 uIU/mL (0.358-3.74) 11/17/22 12:16 COAG PT 13.9 SECONDS (11.7-14.9) 04/03/23 23:55 Pre-Assessment Diagnosis/Proposed Procedure Planned Operative Procedure(s): LEFT SHOULDER ARTHROSCOPY SUBCROMIAL DECOMPRESSION RTC REPAIR POSS BICEPS TENODESIS Anesthesia History 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 When Was Last Pacemaker Check QUESTION #4 FULL TEXT: You/Your Family Experience fever (hyperthermia) with Anesthesia Last Oral Intake Last Oral intake: Last Oral Intake NPO since 00:00 07/24/24 06:32 Meds taken in AM with sips of Yes 07/24/24 06:32 water? Meds patient instructed to bupropion 07/24/24 06:32 take am of surgery losartan PONV PONV - textiles and clothing teacher: PONV - textiles and clothing teacher Female No 07/10/24 12:54 HX of Motion Sickness No 07/10/24 12:54 HX of N/V After Surgery No 07/10/24 12:54 Non-Smoker No 07/10/24 12:54 Duration of Surgery greater Yes 07/10/24 12:54 than 60 minutes Number of Risk Factors 1 07/10/24 12:54 PONV Score Low Risk 07/10/24 12:54 Height & Weight Height & Weight: Anesthesia: Height & Weight Height 6 ft 2 in 07/24/24 06:32 Weight: 146 kg 07/24/24 06:32 Body Mass Index (BMI) 41.3 07/24/24 06:32 Respiratory Assessment Respiratory Assessment - textiles and clothing teacher: Respiratory Tract Infection Hx - textiles and clothing teacher Hx Respiratory Tract Infection No 07/10/24 12:54 STOP Sleep Apnea STOP Sleep Apnea - textiles and clothing teacher: STOP Sleep Apnea - textiles and clothing teacher Hx Hypertension Yes: CONTROLLED WITH MED 07/10/24 12:54 Hx Sleep Apnea Yes 07/10/24 12:54 CPAP Yes 07/10/24 12:54 BIPAP No 07/10/24 12:54 Do you snore loudly (louder than talking or can be heard Do you often feel tired/ fatigued/ sleepy during daytime? Has anyone observed you stop breathing during sleep? STOP Results Positive 07/10/24 12:54 QUESTION #5 FULL TEXT : Do you snore loudly (louder than talking or can be heard through closed doors)? 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 Specify any problems Hx of Preganancy in last 3 N/A 07/10/24 12:54 Months Nurse Filling Out Transfusion DSCHRIBER 07/10/24 12:54 & Questions: Date: 07/10/24 07/10/24 12:54 Time: 12:55 07/10/24 12:54 Patient unable to answer at this time (ie. confused, unrespo /Reproduction History /Reproductive History - textiles and clothing teacher: /Reproductive Hx- textiles and clothing teacher Hx Now Gestational Age (in weeks): EDC: Hx Hx Para Hx Section SAB No 07/10/24 12:54 Active Medications Active Medications: Current Medications Generic Name Dose Route Start Last Admin Trade Name Freq PRN Reason Stop Dose Admin Cefazolin Sodium 3 gm/ N/A 30 mls @ 600 mls/hr 07/24/24 09:05 IV 07/24/24 09:07 PREOP ONE Sodium Chloride 1,000 mls @ 15 mls/hr 07/24/24 06:10 07/24/24 06:31 IV 07/29/24 19:29 15 mls/hr .Q48H TAMIKA Administration PFSH Medical History Alcohol use History of steroid therapy Arthritis Prostate disease Restless legs Back pain Arthrosis of left acromioclavicular joint Left rotator cuff tear Impingement of left shoulder Left shoulder pain Anxiety Chews tobacco Depression Umbilical hernia CPAP (continuous positive airway pressure) dependence Hypertension Home Medications ?Medication ?Instructions ?Recorded ?Last Taken ?Type meloxicam 15 mg tablet 15 mg PO DAILY pain 12/30/19 07/23/24 History Cholecalciferol (Vitamin D3) 5,000 unit PO DAILY suppl ement 03/24/20 07/23/24 History [Vitamin D3] bupropion HCl 300 mg 24 hr tablet, 300 mg PO DAILY 08/2107/24/24 History extended release losartan 50 mg tablet 50 mg PO DAILY 04/03/2306/30 History Fish OiL 07/24/24 07/23/24 History Allergy/AdvReac Type Severity Reaction Status Date / Time No Known Allergies Allergy Verified 07/10/24 12:51 Surgical History History of umbilical hernia repair History of cataract extraction with lens replacement History of colonoscopy History of appendectomy Social History Smoking Status: Current every day smoker tobacco type: smokeless tobacco Review of Systems (Anesthesia) ROS Narrative System reviewed and no additional complaints, except as documented. 07/24/24704 <Electronically signed by Malik Ortiz MD > Date _ Malik Ortiz MD Cosigner Signature: Date CC: ~ Signed [facility] Work Phone: 1(223) 126-331903-26-2025 History and physical note Author Compa Manrique [facility] Note Date/Time July 24, 2024 7:0 4am [facility] Medical Records Department [address] [place] [address] History & Physical Exam 07/24/24 0703 MR#: [id number] Acct: [id number] Name: TORRI BRITT V Rep #[id number] : 1960 63 From: Compa Manrique MD PCP: Dr. Shady Pathak MD Status:REG S DC Location: [place] [address] HPI - General HPI Narrative TORRI BRITT, is a 63 M who presents for a left shoulder arthroscopy, subacromial decompression, rotator cuff repair, possible biceps tenodesis. no changes to h and p. rab, post op instructions, narcotic counselling given. left shoulder marked. no further questions. will proceed. MR#: [id number] Acct: [id number] Name: TORRI BRITT V Rep #: [id number] : 1960 Provider: Dr. Compa Manrique MD Age/Sex: 63/M Location: [facility] [place] Status: Signed Intake Vital Signs 04/18/2413:52 Height 6 ft 2 in Weight: 318 lb 2 oz BMI 40.8 Intake Visit Reasons: LEFT SHOULDER Chief Complaint: left shoulder MRI review Accompanied by: Self Is patient in pain?: Yes Pain scale (1-10): 3 Allergies No Known Allergies Allergy (Verified 06/06/24 10:00) Medications ?Medication ?Instructions ?Recorded ?Confirmed ?Type meloxicam 15 mg tablet 15 mg PO DAILY pain 12/30/19 06/06/24 Hi story Cholecalciferol (Vitamin D3) 5,000 unit PO DAILY supplement 03/24/20 06/06/24 History [Vitamin D3] sertraline 50 mg tablet 50 mg PO DAILY depression 03/24/2006/06 History bupropion HCl 300 mg 24 hr tablet, 300 mg PO DAILY 04/03/23 06/06/24 Histor y extended release losartan 50 mg tablet 50 mg PO DAILY 04/03/23 06/06/24 History metoprolol tartrate 25 mg tablet 25 mg PO Q12H 04/03/23 06/06/24 History phentermine 15 mg-topiramate ER 92 1 cap PO Q24H 04/03/23 06/06/24 History mg capsule,ext.[id number] multphas (Qsymia) Have you fallen in the past year?: No PFSH Medical History (Updated 06/06/24 @ 10:03 by Compa Manrique MD) Arthrosis of left acromioclavicular joint Left rotator cuff tear Impingement of left shoulder Left shoulder pain Anxiety Chews tobacco Depression Umbilical hernia CPAP (continuous positive airway pressure) dependence Sleep apnea Hypertension Surgical History History of cataract extraction with lens replacement History of colonoscopy History of appendectomy Social History Smoking Status: Never smoker HPI LEFT SHOULDER Details: This documentation accurately reflects the service provided and the decisions made by me, Dr. Compa Manrique MD 06/06/24 0937. Part of today?s visit was documented by [ ], acting as scribe. TORRI BRITT is a 63 year old M here today for FU L shoulder MRI. Patient had a cortisone injection little over 6 weeks ago that helped temporarily but the pain is back and worse with lifting with the arm in abduction and mostly located on the lateral aspect of the shoulder. Supplemental Info [facility] Imaging Services [address], [place] [address] Upper Ext Joint Only(Routine) MR#: [id number] Acct: [id number] Name: TORRI BRITT V Rep #: [id number] : 1960 M 63 From: Georges Lock DO PCP: Care Physician,No Primary Status: REG CLI Study: Upper Ext Joint Only(Routine) Date of Exam: 06/02/24 Exam# [id number] Ordering Dr: Compa Manrique MD PROCEDURE: MRI left shoulder without IV contrast REASON FOR EXAM: Pain TECHNIQUE: Multisequence multiplanar MR images of the left shoulder were obtained without the administration of intravenous contrast. COMPARISON: None. FINDINGS Full-thickness full width tear of the supraspinatus tendon with mild retraction measuring up to 8 mm. Moderate superimposed supraspinatus tendinopathy. Mild infraspinatus tendinopathy without discrete tear. Subscapularis tendon is intact. No significant rotator cuff muscle atrophy. Mild intracapsular biceps tendinopathy near the labral anchor. Glenohumeral joint alignment is maintained. No displaced labral tear or paralabral cysts. No focal chondral defects. No significant joint effusion. Severe acromioclavicular joint osteoarthritis including large marginal osteophytes, subcortical cysts, capsular hypertrophy and bone marrow edema. Undersurface osteophytes at the AC joint measure up to 5 mm. Negative for fracture or marrow replacement. Prominent marginal osteophyte along the inferior glenoid measuring up to 7 mm. Moderate fluid in the subacromial/subdeltoid bursa. Large amount of fluid in the subcoracoid bursa measuring 2.0 x 4.5 x 4.1 cm (AP, TV and CC dimensions). MRI/Upper Ext Joint Only(Routine) IMPRESSION: 1. Full-thickness full width mildly retracted tear of the supraspinatus tendon with superimposed tendinopathy. No significant rotator cuff muscle atrophy. 2. Mild infraspinatus tendinopathy. 3. Mild intracapsular biceps tendinopathy. 4. Severe acromioclavicular joint osteoarthritis. 5. Subcoracoid bursitis as above. Moderate fluid in the subacromial/subdeltoid bursa. Reading Location: [facility] Moreno independently reviewed the imaging. Concur with radiologist report. Coding Level of Care Code Off vis,est,level 4 Diagnoses Impingement of left shoulder M25.812 Left shoulder pain M25.512 Left rotator cuff tear M75.102 Arthrosis of left acromioclavicular joint M19.012 Assessment and Plan Assessment and Plan (1) Impingement of left shoulder: Status: Acute Plan: 63-year-old man with rotator cuff tear tendinitis of the biceps as well as AC joint arthrosis. Explained the diagnosis prognosis different treatment options available to the patient. Generally rotator cuff tears are recommended to be fixed as a 10-year follow-up they do better and are smaller at 10 years follow-up. Patient would like to go ahead with a left shoulder arthroscopy, subacromial decompression, rotator cuff repair, possible biceps tenodesis. The patient is not having any pain at the AC joint and a negative cross body adduction test so I have chosen not to perform a distal clavicle excision despite the AC joint arthrosis. They understand patient does use a sleep apnea machine with PAT so I will get a clearance from the family Dr. Pathak. Generally medical problems like PAT and obesity can increase the risks of infection and other complications related to surgery. Patient understands signed the consent form for surgery as well as possible need for blood products. Pros and cons risks and benefits were discussed with the patient including but not limited to infection, pain, stiffness, bleeding, damage to surrounding structures, neurovascular injury, recurrence or retear, failure or wear of hardware or fixation, instability, fracture, deep vein thrombosis and pulmonary embolism, anesthetic risks, , patient dissatisfaction, need for further surgery and other risks. Patient understood and wished to proceed with surgery,and signed the informed consent documentation. (2) Left shoulder pain: Status: Acute (3) Left rotator cuff tear: Status: Acute (4) Arthrosis of left acromioclavicular joint: Status: Acute Clinical Quality Measures Falls Risk Screening/Assistive Devices Have you fallen in the past year?: No Ortho Exam General General: Yes no acute distress Neurologic: Yes alert and Yes oriented x3 Psychologic: Yes reasonable and appropriate [facility] Medical History (Updated 07/10/24 @ 13:01 by Nay Werner) Alcohol use History of steroid therapy Arthritis Prostate disease Restless legs Back pain Arthrosis of left acromioclavicular joint Left rotator cuff tear Impingement of left shoulder Left shoulder pain Anxiety Chews tobacco Depression Umbilical hernia CPAP (continuous positive airway pressure) dependence Hypertension Home Medications ?Medication ?Instructions ?Recorded ?Last Taken ?Type meloxicam 15 mg tablet 15 mg PO DAILY pain 12/30/19 07/23/24 History Cholecalciferol (Vitamin D3) 5,000 unit PO DAILY suppl ement 03/24/20 07/23/24 History [Vitamin D3] bupropion HCl 300 mg 24 hr tablet, 300 mg PO DAILY 08/2107/24/24 History extended release losartan 50 mg tablet 50 mg PO DAILY 04/03/2306/30 History Fish OiL 07/24/24 07/23/24 History Allergy/AdvReac Type Severity Reaction Status Date / Time No Known Allergies Allergy Verified 07/10/24 12:51 Surgical History (Updated 07/10/24 @ 13:01 by Nay Werner) History of umbilical hernia repair History of cataract extraction with lens replacement History of colonoscopy History of appendectomy Social History Smoking Status: Current every day smoker tobacco type: smokeless tobacco Vital Signs Vital Signs Vital Signs: 07/24/24 06:28 07/24/24 06:32 Temperature 99.2 F H Temperature Source Temporal Pulse Rate 69 Respiratory Rate 16 Respiratory Pattern Normal Blood Pressure 144/85 H Blood Pressure Mean 104 Blood Pressure Source Monitor Blood Pressure Position Semi-Fowlers Blood Pressure Location Left Arm Pulse Ox 94 Oxygen Delivery Method Room Air Weight Weight: 321 lb 13.998 oz Body Mass Index (BMI) 41.3 Results Lab / Micro Data 07/11/24 08:37 07/24/24 0704 <Electronically signed by Compa Manrique MD> Cosigner Signature (if applicable): CC: Dr. Shady Pathak MD; Dr. Compa Manrique MD~ Signed [facility] Work Phone: 1(416) 858-229803-26-2025 Evaluation note* Diagnosis Onset Date Resolution Status Admit Date Arthrosis of left acromioclavicular joint acute July 242024 5:53am Impingement of left shoulder acute July 24, 2024 5:53am Left rotator cuff tear acute [facility] 2024 5:53am Left shoulder pain acute July 24, 2024 5:53am Superior labrum noqjyumv-is-hzxvgqnui (SLAP) tear of left shoulder acute July 24 5:53am Impingement of left shoulder acute July 26, 2024 9:28am Left rotator cuff tear acute [facility] 2024 9:28am Left shoulder pain acute July 26, 2024 9:28am Superior labrum aihncwdg-es-zqwvxhsta (SLAP) tear of left shoulder acute July 26 9:28am Arthrosis of left acromioclavicular joint acute July 9:34am Impingement of left shoulder acute August 06, 2024 9:34am Left rotator cuff tear acute [facility] 2024 9:34am Superior labrum fvocrpuv-qy-zsrpwcxvy (SLAP) tear of left shoulder acute August 06, 2024 9:34am Facial erythema acute July 9:48am S/P rotator cuff repair acute M ay 2024 8:46am Superior labrum yevqudms-ih-tntailvpm (SLAP) tear of left shoulder acute September 03, 2024 8 :46am S/P rotator cuff repair acute J joanne 2024 9:20am [employer] Work Phone: 1(322) 240-810303-26-2025 Consult note [facility] Medical Records Department [address] [place] [address] Pre-Anesthesia Evaluation 07/24/24 07 MR#: [id number] Acct: [id number] Name: TORRI BRITT V Rep #:[id number] : 1960 63 From: Malik Ortiz MD PCP: Dr. Shady Pathak MD Status:REG S DC Y Race: C Location: [place] [address] ASA Classification* ASA Classification ASA Classification: 3 Assessment & Plan Anesthesia* Anesthesia Assessment Anesthesia Assessment: Discussed sedation and/or anesthesia options, risks, benefits, and alternatives with patient/parents/legal guardian/POA. Questions invited. The patient/parents/legal guardian/POA seems to understand and agrees to proceedwith anesthesia plan. Reviewed the physical assessment, medical history, allergy history and patient home medications list prior to surgery/procedure/anesthetic and documented any changes. Performed airway and anesthesia risk assessments. Anesthesia Type Anesthesia Type: General Anesthesia Focused Assessment* Temperature: 99.2 F Pulse Rate: 69 Blood Pressure: 144/85 Respiratory Rate: 16 Pulse Ox: 94 Airway Assessment Mouth opens: >3 cm Mallampati Score: II Focused Labs Anesthesia Preop lab: CBC WBC 8.0 K/mm3 (4.4-11.0) 07/18/24 12:07/18/24 RBC 4.90 M/mm3 (4.6-6.2) 07/18/24 12:07/18/24 Hgb 16.9 g/dL (13.0-16.5) H 07/18/24 12: 5 Hct 50.7 % (40-54) 07/18/24 12:07/18/24 Plt Count 166 K/mm3 (150-450) 07/18/24 12:00 07/18/24 CHEMISTRY Potassium 4.5 mmol/L (3.3-5.1) 07/18/24 12:00 07/18/24 Sodium 139 mmol/L (133-145) 07/18/24 12:00 07/18/24 BUN 17 mg/dL (4-19) 07/18/24 12:00 07/18/24 Creatinine 1.12 mg/dL (0.70-1.20) 07/18/24 12:00 07/18/24 Glucose 81 mg/dL (70-99) 07/18/24 12:00 07/18/24 TSH 1.52 uIU/mL (0.358-3.74) 11/17/22 12:16 COAG PT 13.9 SECONDS (11.7-14.9) 04/03/23 23:55 Pre-Assessment Diagnosis/Proposed Procedure Planned Operative Procedure(s): LEFT SHOULDER ARTHROSCOPY SUBCROMIAL DECOMPRESSION RTC REPAIR POSS BICEPS TENODESIS Anesthesia History 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 When Was Last Pacemaker Check QUESTION #4 FULL TEXT: You/Your Family Experience fever (hyperthermia) with Anesthesia Last Oral Intake Last Oral intake: Last Oral Intake NPO since 00:00 07/24/24 06:32 Meds taken in AM with sips of Yes 07/24/24 06:32 water? Meds patient instructed to bupropion 07/24/24 06:32 take am of surgery losartan PONV PONV - textiles and clothing teacher: PONV - textiles and clothing teacher Female No 07/10/24 12:54 HX of Motion Sickness No 07/10/24 12:54 HX of N/V After Surgery No 07/10/24 12:54 Non-Smoker No 07/10/24 12:54 Duration of Surgery greater Yes 07/10/24 12:54 than 60 minutes Number of Risk Factors 1 07/10/24 12:54 PONV Score Low Risk 07/10/24 12:54 Height & Weight Height & Weight: Anesthesia: Height & Weight Height 6 ft 2 in 07/24/24 06:32 Weight: 146 kg 07/24/24 06:32 Body Mass Index (BMI) 41.3 07/24/24 06:32 Respiratory Assessment Respiratory Assessment - textiles and clothing teacher: Respiratory Tract Infection Hx - textiles and clothing teacher Hx Respiratory Tract Infection No 07/10/24 12:54 STOP Sleep Apnea STOP Sleep Apnea - textiles and clothing teacher: STOP Sleep Apnea - textiles and clothing teacher Hx Hypertension Yes: CONTROLLED WITH MED 07/10/24 12:54 Hx Sleep Apnea Yes 07/10/24 12:54 CPAP Yes 07/10/24 12:54 BIPAP No 07/10/24 12:54 Do you snore loudly (louder than talking or can be heard Do you often feel tired/ fatigued/ sleepy during daytime? Has anyone observed you stop breathing during sleep? STOP Results Positive 07/10/24 12:54 QUESTION #5 FULL TEXT : Do you snore loudly (louder than talking or can be heard through closeddoors)? 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 Specify any problems Hx of Preganancy in last 3 N/A 07/10/24 12:54 Months Nurse Filling Out Transfusion DSCHRIBER 07/10/24 12:54 & Questions: Date: 07/10/24 07/10/24 12:54 Time: 12:55 07/10/24 12:54 Patient unable to answer at this time (ie. confused, unrespo /Reproduction History /Reproductive History - textiles and clothing teacher: /Reproductive Hx- textiles and clothing teacher Hx Now Gestational Age (in weeks): EDC: Hx Hx Para Hx Section SAB No 07/10/24 12:54 Active Medications Active Medications: Current Medications Generic Name Dose Route Start Last Admin Trade Name Freq PRN Reason Stop Dose Admin Cefazolin Sodium 3 gm/ N/A 30 mls @ 600 mls/hr 07/24/24 09:05 IV 07/24/24 09:07 PREOP ONE Sodium Chloride 1,000 mls @ 15 mls/hr 07/24/24 06:10 07/24/24 06:31 IV 07/29/24 19:29 15 mls/hr .Q48H TAMIKA Administration PFSH Medical History Alcohol use History of steroid therapy Arthritis Prostate disease Restless legs Back pain Arthrosis of left acromioclavicular joint Left rotator cuff tear Impingement of left shoulder Left shoulder pain Anxiety Chews tobacco Depression Umbilical hernia CPAP (continuous positive airway pressure) dependence Hypertension Home Medications ?Medication ?Instructions ?Recorded ?Last Taken ?Type meloxicam 15 mg tablet 15 mg PO DAILY pain 12/30/19 07/23/24 History Cholecalciferol (Vitamin D3) 5,000 unit PO DAILY suppl ement 03/24/20 07/23/24 History [Vitamin D3] bupropion HCl 300 mg 24 hr tablet, 300 mg PO DAILY 08/2107/24/24 History extended release losartan 50 mg tablet 50 mg PO DAILY 04/03/2306/30 History Fish OiL 07/24/24 07/23/24 History Allergy/AdvReac Type Severity Reaction Status Date / Time No Known Allergies Allergy Verified 07/10/24 12:51 Surgical History History of umbilical hernia repair History of cataract extraction with lens replacement History of colonoscopy History of appendectomy Social History Smoking Status: Current every day smoker tobacco type: smokeless tobacco Review of Systems (Anesthesia) ROS Narrative System reviewed and no additional complaints, except as documented. 07/24/24 0705 > Date _ Malik Monignjayne Signature: Date CC: ~ Signed [facility]03-26-2025 History and physical note [facility] Medical Records Department [address] [place] [address] History & Physical Exam 07/24/24702 MR#: [id number] Acct: [id number] Name: TORRI BRITT V Rep #:[id number] : 1960 63 From: Compa Manrique MD PCP: Dr. Shady Pathak MD Status:REG S DC Location: [place] [address] HPI - General HPI Narrative TORRI BRITT, is a 63 M who presents for a left shoulder arthroscopy, subacromial decompression, rotator cuff repair, possible biceps tenodesis. no changes to h and p. rab, post op instructions, narcotic counselling given. left shoulder marked. no further questions. will proceed. MR#: [id number] Acct: [id number] Name: TORRI BRITT V Rep #: [id number] : 1960 Provider: Dr. Compa Manrique MD Age/Sex: 63/M Location: [facility] [place] Status: Signed Intake Vital Signs 04/18/2413:52 Height 6 ft 2 in Weight: 318 lb 2 oz BMI 40.8 Intake Visit Reasons: LEFT SHOULDER Chief Complaint: left shoulder MRI review Accompanied by: Self Is patient in pain?: Yes Pain scale (1-10): 3 Allergies No Known Allergies Allergy (Verified 06/06/24 10:00) Medications ?Medication ?Instructions ?Recorded ?Confirmed ?Type meloxicam 15 mg tablet 15 mg PO DAILY pain 12/30/19 06/06/24 Hi story Cholecalciferol (Vitamin D3) 5,000 unit PO DAILY supplement 03/24/20 06/06/24 History [Vitamin D3] sertraline 50 mg tablet 50 mg PO DAILY depression 03/24/2006/06 History bupropion HCl 300 mg 24 hr tablet, 300 mg PO DAILY 04/03/23 06/06/24 Histor y extended release losartan 50 mg tablet 50 mg PO DAILY 04/03/23 06/06/24 History metoprolol tartrate 25 mg tablet 25 mg PO Q12H 04/03/23 06/06/24 History phentermine 15 mg-topiramate ER 92 1 cap PO Q24H 04/03/23 06/06/24 History mg capsule,ext.gkivzqf76sg multphas (Qsymia) Have you fallen in the past year?: No PFSH Medical History (Updated 06/06/24 @ 10:03 by Compa Manrique MD) Arthrosis of left acromioclavicular joint Left rotator cuff tear Impingement of left shoulder Left shoulder pain Anxiety Chews tobacco Depression Umbilical hernia CPAP (continuous positive airway pressure) dependence Sleep apnea Hypertension Surgical History History of cataract extraction with lens replacement History of colonoscopy History of appendectomy Social History Smoking Status: Never smoker HPI LEFT SHOULDER Details: This documentation accurately reflects the service provided and the decisions made by me, Dr. Edmund MD 06/06/24 0937. Part of today?s visit was documented by [ ], acting as scribe. TORRI BRITT is a 63 year old M here today for FU L shoulder MRI. Patient had a cortisone injection little over 6 weeks ago that helped temporarily but the pain is back and worse with lifting with the arm in abduction and mostly located on the lateral aspect of the shoulder. Supplemental Info [facility] Imaging Services [address] [place] [address] Upper Ext Joint Only(Routine) MR#: [id number] Acct: [id number] Name: TORRI BRITT V Rep #: [id number] : 1960 M 63 From: Georges Lock DO PCP: Care Physician,No Primary Status: REG CLI Study: Upper Ext Joint Only(Routine) Date of Exam: 06/02/24 Exam# [id number] Ordering Dr: Compa Manrique MD PROCEDURE: MRI left shoulder without IV contrast REASON FOR EXAM: Pain TECHNIQUE: Multisequence multiplanar MR images of the left shoulder were obtained without the administration of intravenous contrast. COMPARISON: None. FINDINGS Full-thickness full width tear of the supraspinatus tendon with mild retraction measuring up to 8 mm. Moderate superimposed supraspinatus tendinopathy. Mild infraspinatus tendinopathy without discrete tear. Subscapularis tendon is intact. No significant rotator cuff muscle atrophy. Mild intracapsular biceps tendinopathy near the labral anchor. Glenohumeral joint alignment is maintained. No displaced labral tear or paralabral cysts. No focal chondral defects. No significant joint effusion. Severe acromioclavicular joint osteoarthritis including large marginal osteophytes, subcortical cysts, capsular hypertrophy and bone marrow edema. Undersurface osteophytes at the AC joint measure up to 5 mm. Negative for fracture or marrow replacement. Prominent marginal osteophyte along the inferior glenoid measuring up to 7 mm. Moderate fluid in the subacromial/subdeltoid bursa. Large amount of fluid in the subcoracoid bursa measuring 2.0 x 4.5 x 4.1 cm (AP, TV and CC dimensions). MRI/Upper Ext Joint Only(Routine) IMPRESSION: 1. Full-thickness full width mildly retracted tear of the supraspinatus tendon with superimposed tendinopathy. No significant rotator cuff muscle atrophy. 2. Mild infraspinatus tendinopathy. 3. Mild intracapsular biceps tendinopathy. 4. Severe acromioclavicular joint osteoarthritis. 5. Subcoracoid bursitis as above. Moderate fluid in the subacromial/subdeltoid bursa. Reading Location: [facility] Moreno independently reviewed the imaging. Concur with radiologist report. Coding Level of Care Code Off vis,est,level 4 Diagnoses Impingement of left shoulder M25.812 Left shoulder pain M25.512 Left rotator cuff tear M75.102 Arthrosis of left acromioclavicular joint M19.012 Assessment and Plan Assessment and Plan (1) Impingement of left shoulder: Status: Acute Plan: 63-year-old man with rotator cuff tear tendinitis of the biceps as well as AC joint arthrosis. Explained the diagnosis prognosis different treatment options available to the patient. Generally rotator cuff tears are recommended to be fixed as a 10-year follow-up they do betterand are smaller at 10 years follow- up. Patient would like to go ahead with a left shoulder arthroscopy, subacromial decompression, rotator cuff repair, possible biceps tenodesis. The patient is not having any pain at the AC joint and a negative cross body adduction test so I have chosen not to perform a distal clavicle excision despite the AC joint arthrosis. They understand patient does use a sleep apnea machine with PAT so I will get a clearance from the family Dr. Pathak. Generally medical problems like PAT and obesity can increase the risks of infection and other complications related tosurgery. Patient understands signed the consent form for surgery as well as possible need for bloodproducts. Pros and cons risks and benefits were discussed with the patient including but not limited to infection, pain, stiffness, bleeding, damage to surrounding structures, neurovascular injury, recurrence or retear, failure or wear of hardware or fixation, instability, fracture, deepvein thrombosis and pulmonary embolism, anesthetic risks, , patient dissatisfaction, need for further surgery and other risks. Patient understood and wished to proceed with surgery,and signed the informed consent documentation. (2) Left shoulder pain: Status: Acute (3) Left rotator cuff tear: Status: Acute (4) Arthrosis of left acromioclavicular joint: Status: Acute Clinical Quality Measures Falls Risk Screening/Assistive Devices Have you fallen in the past year?: No Ortho Exam General General: Yes no acute distress Neurologic: Yes alert and Yes oriented x3 Psychologic: Yes reasonable and appropriate [facility] / [facility] Medical History (Updated 07/10/24 @ 13:01 by Nay Werner) Alcohol use History of steroid therapy Arthritis Prostate disease Restless legs Back pain Arthrosis of left acromioclavicular joint Left rotator cuff tear Impingement of left shoulder Left shoulder pain Anxiety Chews tobacco Depression Umbilical hernia CPAP (continuous positive airway pressure) dependence Hypertension Home Medications ?Medication ?Instructions ?Recorded ?Last Taken ?Type meloxicam 15 mg tablet 15 mg PO DAILY pain 12/30/19 07/23/24 History Cholecalciferol (Vitamin D3) 5,000 unit PO DAILY suppl ement 03/24/20 07/23/24 History [Vitamin D3] bupropion HCl 300 mg 24 hr tablet, 300 mg PO DAILY 08/2107/24/24 History extended release losartan 50 mg tablet 50 mg PO DAILY 04/03/23 03/10/23 History Fish OiL 07/24/24 07/23/24 History Allergy/AdvReac Type Severity Reaction Status Date / Time No Known Allergies Allergy Verified 07/10/24 12:51 Surgical History (Updated 07/10/24 @ 13:01 by Nay Werner) History of umbilical hernia repair History of cataract extraction with lens replacement History of colonoscopy History of appendectomy Social History Smoking Status: Current every day smoker tobacco type: smokeless tobacco Vital Signs Vital Signs Vital Signs: 07/24/24 06:28 07/24/24 06:32 Temperature 99.2 F H Temperature Source Temporal Pulse Rate 69 Respiratory Rate 16 Respiratory Pattern Normal Blood Pressure 144/85 H Blood Pressure Mean 104 Blood Pressure Source Monitor Blood Pressure Position Semi-Fowlers Blood Pressure Location Left Arm Pulse Ox 94 Oxygen Delivery Method Room Air Weight Weight: 321 lb 13.998 oz Body Mass Index (BMI) 41.3 Results Lab / Micro Data 07/11/24 08:37 07/24/24 0704 Cosigner Signature (if applicable): CC: Dr. Shady Pathak MD; Dr. Compa Manrique MD~ Signed [facility]03-26-2025 [facility] Medical Records Department [address] [place] [address] History Physical Exam 07/24/24 0703 MR#: [id number] Acct: [id number] Name: TORRI BRITT V Rep #: [id number] : 1960 63 From: Compa Manrique MD PCP: Dr. Shady Pathak MD Status:REG [facility] Location: [place] [address] HPI - General HPI Narrative TORRI BRITT, is a 63 M who presents for a left shoulder arthroscopy, subacromial decompression, rotator cuff repair, possible biceps tenodesis. no changes to h and p. rab, post op instructions, narcotic counselling given. left shoulder marked. no further questions. will proceed. MR#: [id number] Acct: [id number] Name: TORRI BRITT V Rep #: [id number] : 1960 Provider: Dr. Compa Manrique MD Age/Sex: 63/M Location[place] [facility] Status: Signed Intake Vital Signs 04/18/2413:52 Height 6 ft 2 in Weight: 318 lb 2 oz BMI 40.8 Intake Visit Reasons: LEFT SHOULDER Chief Complaint: left shoulder MRI review Accompanied by: Self Is patient in pain?: Yes Pain scale (1-10): 3 Allergies No Known Allergies Allergy (Verified 06/06/24 10:00) Medications ???Medication ???Instructions ???Recorded ???Confirmed ???Type meloxicam 15 mg tablet 15 mg PO DAILY pain 12/30/19 06/06/24 History Cholecalciferol (Vitamin D3) 5,000 unit PO DAILY supplement 03/24/20 06/06/24 H istory [Vitamin D3] sertraline 50 mg tablet 50 mg PO DAILY depression 03/24/20 06/06/24 Histor y bupropion HCl 300 mg 24 hr tablet, 300 mg PO DAILY 04/03/23 06/06/24 History extended release losartan 50 mg tablet 50 mg PO DAILY 04/03/23 06/06/24 History metoprolol tartrate 25 mg tablet 25 mg PO Q12H 04/03/23 06/06/24 History phentermine 15 mg-topiramate ER 92 1 cap PO Q24H 04/03/23 06/06/24 History mg capsule,ext.nblbbip99sh multphas (Qsymia) Have you fallen in the past year?: No PFSH Medical History (Updated 06/06/24 @ 10:03 by Compa Manrique MD) Arthrosis of left acromioclavicular joint Left rotator cuff tear Impingement of left shoulder Left shoulder pain Anxiety Chews tobacco Depression Umbilical hernia CPAP (continuous positive airway pressure) dependence Sleep apnea Hypertension Surgical History History of cataract extraction with lens replacement History of colonoscopy History of appendectomy Social History Smoking Status: Never smoker HPI LEFT SHOULDER Details: This documentation accurately reflects the service provided and the decisions made by me, Dr. Compa Manrique MD 06/06/24 0937. Part of today???s visit was documented by [ ], acting as scribe. TORRI BRITT is a 63 year old M here today for FU L shoulder MRI. Patient had a cortisone injection little over 6 weeks ago that helped temporarily but the pain is back and worse with lifting with the arm in abduction and mostly located on the lateral aspect of the shoulder. Supplemental Info [facility] Imaging Services [address] [place] [address] Upper Ext Joint Only(Routine) MR#: [id number] Acct: [id number] Name: TORRI BRITT V Rep #: [id number] : 1960 M 63 From: Georges Lock DO PCP: Care Physician,No Primary Status: REG CLI Study: Upper Ext Joint Only(Routine) Date of Exam: 06/02/24 Exam# [id number] Ordering Dr: Compa Manrique MD PROCEDURE: MRI left shoulder without IV contrast REASON FOR EXAM: Pain TECHNIQUE: Multisequence multiplanar MR images of the left shoulder were obtained without the administration of intravenous contrast. COMPARISON: None. FINDINGS Full-thickness full width tear of the supraspinatus tendon with mild retraction measuring up to 8 mm. Moderate superimposed supraspinatus tendinopathy. Mild infraspinatus tendinopathy without discrete tear. Subscapularis tendon is intact. No significant rotator cuff muscle atrophy. Mild intracapsular biceps tendinopathy near the labral anchor. Glenohumeral joint alignment is maintained. No displaced labral tear or paralabral cysts. No focal chondral defects. No significant joint effusion. Severe acromioclavicular joint osteoarthritis including large marginal osteophytes, subcortical cysts, capsular hypertrophy and bone marrow edema. Undersurface osteophytes at the AC joint measure up to 5 mm. Negative for fracture or marrow replacement. Prominent marginal osteophyte along the inferior glenoid measuring up to 7 mm. Mo (more content not included)...[facility]12-19-2024 Evaluation note* Diagnosis Onset Date Resolution Status Admit Date Impingement of left shoulder acute April 18, 2024 1:49pm Left shoulder pain acute Decemb er 2023 1:49pm Impingement of left shoulder acute May 14, 2024 9:31am Left shoulder pain acute 2024 9:31am Arthrosis of left acromioclavicular joint acute June 06, 2024 9:55am Impingement of left shoulder acute June 06, 2024 9:55am Left rotator cuff tear acute bru2024 9:55am Left shoulder pain acute 2024 9:55am Arthrosis of left acromioclavicular joint acute July 242024 5:53am Impingement of left shoulder acute July 24, 2024 5:53am Left rotator cuff tear acute [facility] 2024 5:53am Left shoulder pain acute July 24, 2024 5:53am Superior labrum lnmeeyql-np-aiwmfbzxt (SLAP) tear of left shoulder acute July 24 5:53am [facility] Work Phone: 1(809) 331-857712-19-2024 Evaluation note* Diagnosis Onset Date Resolution Status Admit Date Impingement of left shoulder acute April 18, 2024 1:49pm Left shoulder pain acute Decemb er 2023 1:49pm Impingement of left shoulder acute May 14, 2024 9:31am Left shoulder pain acute 2024 9:31am Arthrosis of left acromioclavicular joint acute June 06, 2024 9:55am Impingement of left shoulder acute June 06, 2024 9:55am Left rotator cuff tear acute bru2024 9:55am Left shoulder pain acute 2024 9:55am Arthrosis of left acromioclavicular joint acute July 242024 5:53am Impingement of left shoulder acute July 24, 2024 5:53am Left rotator cuff tear acute [facility] 2024 5:53am Left shoulder pain acute July 24, 2024 5:53am Superior labrum tspelxls-qj-mztcbkxuz (SLAP) tear of left shoulder acute July 24 5:53am Impingement of left shoulder acute July 26, 2024 9:28am Left rotator cuff tear acute [facility] 2024 9:28am Left shoulder pain acute July 26, 2024 9:28am Superior labrum dmkcrbwu-fa-mzohzwtzr (SLAP) tear of left shoulder acute July 26 9:28am [facility] Work Phone: 1(261) 825-774012-03-2024 History of Present illness Narrative* Yao Mccabe MD - 04/02/2024 1:30 PM EST Chief Complaint ED HPI Mr. Britt is a 63 y.o. male with h/o of ED Tried Trimix, upped dose from 10u to 40u and ended up with priapism. Has since been using Cialis instead and states this is sufficient. Requests refill. Family h/o prostate cancer in grandfather. I have reviewed the patient's medical history in detail and updated the computerized patient record. Review of Systems Constitutional: No fevers or chills Skin: Negative for rash Endocrine: No heat/cold intolerance Gastrointestinal: Negative for constipation, nausea or vomiting Genitourinary: Negative for new lower urinary tract symptoms, gross hematuria or dysuria. Musculoskeletal: Negative for flank pain Neurological: Negative for frequent headaches or dizziness Lymph/Heme: Negative for leg swelling or calf pain Physical Exam Ht 1.88 m (6' 2) Wt (!) 141.5 kg (312 lb) BMI 40.06 kg/m Smoking Status Never Constitutional: NAD, WDWN. Cardiovascular: Regular rate. Pulmonary/Chest: Respirations are even and non-labored bilaterally. Abdominal: Soft. No distension, tenderness, masses or guarding. No CVA tenderness. Extremities: DENZEL x 4, Warm. No clubbing. No cyanosis. Skin: [place], warm and dry. No rashes noted. LEATHA: no nodularity Labs Lab Results Component Value Date PSA 4.01 (H) 12/28/2023 Radiographic Studies na Assessment 63 y.o. male with ED Doing well on Cialis. Had priapism with Trimix. Prostate cancer screening Elevated PSA to 4.01, LEATHA normal. Recommended MRI Plan Refilled rx for Cialis 20mg Prostate MRI ordered Ativan 1mg for MRI Follow up telehealth to go over MRI results [facility] History of Present illness Narrative* Raine Eubanks LPN - 02/21/2024 10:00 AM EDT Patient Education; 1. Explained to patient the purpose of injection therapy and how we want the patient to use it for sexual purposes. 2. Reviewed side effects with patient, including; priapism and told patient to go to emergency roomif erection is lasting > than 3 hours / Ache-pain in penis in about 15% of patients and if not tolerable to contact MD's office / to alternate sides when injecting the medication. 3. Medication has to be kept frozen at all times and can be injected at least 24 hours apart, no more than 3 times a week. 4. Patient Handout Treatment for Erectile Dysfunction (ED): Injection of Medication given to patient on 2nd visit if they didn't already have it. Patient verbalized understanding of these issues and agrees with the plan of all above. Patient denies use of oral PDE-5i over past 48 hours. Injection Technique Today the patient received an injection of Trimix 0.1 mL (10 U), administered by spouse. This was given in the right shaft. The results of this injection: 30% erection. After 30 minutes he was 30% rigid. He did not require reversal of his erection with 1mg of Phenylephrine (1 mg/ml) x . He was discharged at 30% rigidity. This was administered under the direction of Dr. Grady DEL REAL. The patient's starting TRIAL dose will be 0.25 mL (25 U). Patient instructed to call in report after 1st home dose. Pharmacy information and written copy of order provided. [facility] History of Present illness Narrative* Yao Mccabe MD - 12/28/2023 8:30 AM EDT UROLOGY H&P Date of evaluation: 12/28/2023 Reason for Consult: ED AKUTAN: Torri Britt was seen and examined today. he is a 63 y.o. male with history of hypogonadism on IM testosterone (200mg every 2wks), presents as a referral for ED. Patient has tried and failed max dose Cialis and Viagra. Is able to attain but not maintain erections. In addition complains of low ejaculate volume and weaker climax. In addition complains of worsening LUTS over the past year, weak stream and dribbling. No dysuria or gross hematuria. Is on TRT for testosterone levels in the 150-170 range before treatment. Feels improved mood and energy and libido. No family history of Prostate cancer, is unsure if he has had a PSA ROS: - CONSTITUTIONAL: Denies weight loss, fever and chills. - HEENT: Denies changes in vision and hearing. - RESPIRATORY: Denies SOB and cough. - CV: Denies palpitations and CP. - GI: Denies abdominal pain, nausea, vomiting and diarrhea. - : Denies dysuria and urinary frequency. - MSK: Denies myalgia and joint pain. - SKIN: Denies rash and pruritus. - NEUROLOGICAL: Denies headache and syncope. - PSYCHIATRIC: Denies recent changes in mood. Denies anxiety and depression. History: No past medical history on file. No past surgical history on file. No Known Allergies No family history on file. Social History Socioeconomic History Marital status: Spouse name: Not on file Number of children: Not on file Years of education: Not on file Highest education level: Not on file Occupational History Not on file Tobacco Use Smoking status: Never Smokeless tobacco: Current Types: Snuff Substance and Sexual Activity Alcohol use: Not on file Drug use: Not on file Sexual activity: Not on file Other Topics Concern Not on file Social History Narrative Not on file Social Determinants of Health Financial Resource Strain: Not on file Food Insecurity: Not on file Transportation Needs: Not on file Physical Activity: Not on file Stress: Not on file Social Connections: Not on file Intimate Partner Violence: Not on file Housing Stability: Not on file Vitals: Vitals: 12/28/23 0830 Pulse: 66 SpO2: 98% Weight: (!) 140.6 kg (310 lb) Height: 1.88 m (6' 2) Physical Exam: Constitutional: Appears well. No acute distress. Pulm: Respirations are full and nonlabored. CV: Regular rate and rhythm. Abdomen: Soft, non-distended, non-tender. Neurological: No gross sensory or motor deficits. : circumcised, normal glans and meatus, LEATHA shows no nodularity; bilateral descended testicles without mass Medications: Outpatient Medications Prior to Visit Medication Sig Dispense Refill ASHWAGANDHA PO Take by mouth. Biotin 5 MG tablet Take by mouth. buPROPion 300 MG tablet XL Cholecalciferol (Vitamin D) 125 MCG (5000 UT) capsule HERBAL PRODUCT Methylfoal/ B complex HERBAL PRODUCT Replace this text with the name of the herbal product HERBAL PRODUCT Nitric oxide booster HERBAL PRODUCT liporush HERBAL PRODUCT Censor body toner Losartan 50 MG tablet Meloxicam 15 MG Tab Dispersible Qsymia 15-92 MG Cap SR 24HR testosterone cypionate 200 MG/ML Solution injection No facility-administered medications prior to visit. Laboratory Data: No results found for: SPGRVTYUR, SPECGRAVUR, GLUCUR, GLUCOSEURINE, BILIRUBINURI, KETONESURINE, BLOODURINE, PHURINE, NITRITEURINE, NITRITESURIN, LEUKOCESTUR, WBCURINE, RBCURINE, BACTERIAURIN No results found for: SODIUM, POTASSIUM, CHLORIDE, CO2, BUN, CREATSERUM Imaging: ASSESSMENT: Torri Britt is a 63 y.o. year old male with ED Recommended trial of Trimix, discussed risks of priapism. 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 His is an [employer] and will accompany him to assist. BPH Discussed the role of flomax. He has a friend who he states had similar symptoms which improved significantly on daily 5mg tadalafil and he would like to try this instead. Had no side effects from 20mg when he was taking this prn for ED. Counseled patient not to take this on days he plans to use trimix. PVR was only 50cc. UA unremarkable. 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 Shady Pathak MD Status:REG S DC Discharge Instructions Procedure Hernia Diet Discharge Diet: Light diet - advance as tolerated Activity Discharge Activity: May Not Drive (for 2-3 days or while taking narcotic pain meds.) and May Shower (with the bandage in place 1-2 days after surgery.) Lifting Restrictions: 20 pounds for 6 weeks. Additional Activity Instructions:: Climbing stairs is fine, walking is encouraged. Sitting in bed may be uncomfortable. Sitting up using your lateral muscles (sitting up sideways) is usually more comfortable. Do not drive, work heavy equipment of sign legal documents for 24 hours. Pain medications may cause nausea, you should typically eat light foods as you take your pain medications. Pain medications may also cause constipation. If you have difficulty with this, discuss with your doctor. Dressing / Incision Call your doctor if your incision/area has: Continuous Slow Oozing, Sudden Increased Bleeding, Increased Pain/ Swelling, Increased Redness and Foul Smelling Discharge Call your doctor if you observe: Fever of 101 or Higher Suture Line Care: Avoid Pulling/Pushing and Avoid Pinching/Bending Remove Dressing in: 2 days (Remove clear bandages in 2 days, remove Steri- Stripsin 7 to 10 days.) Follow Up Care Please Follow Up With: Moses Montalvo MD When: Please call to schedule 2 week follow up appointment. [phone] Test Results: Test results from this visit will be discussed in further detail at your follow- up appointment, if applicable. Discharge Plan Admission Attending Provider: Moses Montalvo Primary Care Provider: Shady Pathak Instructions Additional Instructions / Restrictions: Alternate ibuprofen and Tylenol for pain, oxycodone for breakthrough Discharge Orders/Prescriptions Prescriptions: New oxycodone 5 mg tablet 5 - 10 mg PO Q6H PRN (Reason: pain) 5 Days Qty: 10 0RF No Action meloxicam 15 MG tablet 15 mg PO DAILY sertraline 50 MG tablet 50 mg PO DAILY Cholecalciferol (Vitamin D3) [Vitamin D3] 5,000 UNIT capsule 5,000 unit PO DAILY bupropion HCl 300 mg tablet extended release 24 hr 300 mg PO DAILY Patient Comments: TAKE 1 TABLET BY MOUTHEONCE DAILY losartan 50 mg tablet 50 mg PO DAILY Patient Comments: TAKE 1 TABLET BY MOUTHCONCE DAILY metoprolol tartrate 25 mg tablet 25 mg PO Q12H Patient Comments: TAKE 1 TABLET BY MOUTH 2TTIMES A DAY Qsymia 15-92 mg capsule, ER multiphase 24 hr 1 cap PO Q24H Patient Comments: TAKE 1 CAPSULE BY MOUTHTONCE DAILY Referrals / Follow Up: Shady Pathak MD [Primary Care Provider] - Disposition Disposition (needs filled in before D/C Order can be placed): Home, Self Care 04/28/23825<Electronically signed by Moses Montalvo MD>Moses Montalvo MD CC: Dr. Shady Pathak MD ~ Signed [facility] Work Phone: 1(437) 414-528412-29-2023 History and physical note Author [facility] April 28, 2023 6:46am Note Date/Time April 28, 2023 6:46am [facility] Medical Records Department [address] [place] [address] History & Physical Exam 04/28/2346 MR#: [id number] Acct: [id number] Name: TORRI BRITT V Rep #:[id number] : 1960 62 From: Moses disla MD PCP: Dr. Shady Pathak MD Status:REG S GA Location: [place] [address] History and Physical Date of Admission: 04/28/23 Intake Vital Signs 04/04/2305:29 Height 6 ft 2 in Intake Visit Reasons: APPY 12-5 Chief Complaint: appy f/u Rolls Baker Required: No Is patient in pain?: No Allergies No Known Allergies Allergy (Verified 04/17/23 09:57) Medications meloxicam 15 mg tablet 15 mg PO DAILY pain 12/30/19 [History Confirmed 04/03/23] Cholecalciferol (Vitamin D3) [Vitamin D3] 5,000 unit PO DAILY supplement 03/24/20 [History Confirmed 04/03/23] sertraline 50 mg tablet 50 mg PO DAILY depression 03/24/20 [History Confirmed 04/03/23] bupropion HCl 300 mg 24 hr tablet, extended release 300 mg PO DAILY 04/03/23 [History Confirmed 04/03/23] losartan 50 mg tablet 50 mg PO DAILY 04/03/23 [History Confirmed 04/03/23] metoprolol tartrate 25 mg tablet 25 mg PO Q12H 04/03/23 [History Confirmed 04/03/23] phentermine 15 mg-topiramate ER 92 mg capsule,ext.[id number] multphas (Qsymia) 1 cap PO Q24H 04/03/23 [History Confirmed 04/03/23] Subjective Details: Patient is doing well after laparoscopic appendectomy. He would like to addresshis umbilical hernia. Objective Details: Incisions are healing well. Abdomen is soft and nontender. Coding Level of Care Code Global Post Op Diagnoses Umbilical hernia K42.9 [facility] Medical History (Updated 04/17/23 @ 10:[address] Moses Montalvo MD) CPAP (continuous positive airway pressure) dependence Depression Hypertension Sleep apnea Umbilical hernia Social History Smoking Status: Never smoker Assessment and Plan (No Qualifiers) Assessment and Plan (1) Umbilical hernia: Status: Acute Plan: The patient has a small umbilical hernia containing fat which is reducible but it is bothering him and growing larger and he would like it repaired. He is doing well after laparoscopic appendectomy with no abdominal pain and he may return to activity as tolerated. I discussed umbilical hernia repair with mesh. The umbilical defect is less than 3 [address] but I would place mesh due to his body habitus. I discussed open repair with mesh placement and the patient understands all the risks. I described the risks of bleeding, infection, injury other organs. Patient understands and is willing to proceed. Moses Montalvo MD Pager: [facility] [address] [place] [address], [address] [place] [address] Office: I have examined the patient and the H&P has been reviewed. There are no clinicalchanges since date of exam. 04/28/23 0646 <Electronically signed by Moses oMntalvo MD> Cosigner Signature (if applicable): CC: Dr. Moses Montalvo MD; Dr. Shady Pathak MD~ Signed [facility] Work Phone: 1(672) 219-981312-29-2023 Procedure [facility] 04-04-2023 Consult note Author Celia Boyd [facility] April 04, 2023 2:31pm Note Date/Time April 04, 2023 2 :31pm [facility] Medical Records Department [address] [place] [address] Counseling Note - Pharmacy 04/04/23 1430 MR#: [id number] Acct: [id number] Name: TORRI BRITT V Rep #:[id number] : 1960 62 From: Celia Boyd PCP: Dr. Shady Pathak MD Status:ADM I NO Y Location: [place] [id number] Pharmacy [facility] Pharmacy Service has performed discharge medication reconciliation and counseling for this patient. 1. OXYCODONE 5-10MG PO Q4H PRN PAIN 4-10 The patient's discharge medication list was reviewed for discrepancies and discrepancies were resolved. The patient was counseled on the following discharge medications and changes in medications for homegoing were reviewed. The Reason for Use, instructions for use, and potential side effects were reviewed for all new medications. The patient's questions regarding all of their medications were answered. The patient was able to verbally demonstrate an understanding of their dischargemedications. Medications at Discharge Home Medications meloxicam 15 mg tablet 15 mg PO DAILY pain 12/30/19 Cholecalciferol (Vitamin D3) [Vitamin D3] 5,000 unit PO DAILY supplement 03/24/20 sertraline 50 mg tablet 50 mg PO DAILY depression 03/24/20 bupropion HCl 300 mg 24 hr tablet, extended release 300 mg PO DAILY 04/03/23 losartan 50 mg tablet 50 mg PO DAILY 04/03/23 metoprolol tartrate 25 mg tablet 25 mg PO Q12H 04/03/23 phentermine 15 mg-topiramate ER 92 mg capsule,ext.[id number] multphas (Qsymia) 1 cap PO Q24H 12/04/23 acetaminophen 325 mg tablet 650 mg (2 x 325 mg) PO Q4H PRN PRN Pain 1-10 Or Fever #0 tabs 04/04/23 oxycodone 5 mg tablet 5 - 10 mg (1 - 2 x 5 mg) PO Q4H PRN PRN Pain Score 4-10 5 days #10 tabs 04/04/23 04/04/23 1431 <Electronically signed by Celia Boyd> Date _ Celia Boyd Cosigner Signature (if applicable): Date CC: ~ Signed [facility] Work Phone: 1(524) 836-397612-05-2023 Discharge summary Author Moses Montalvo [facility] April 04, 2023 1:34pm Note Date/Time April 04, 2023 1 :33pm [facility] Medical Records Department [address] [place] [address] Instructions for Home/Discharge Instructions 04/04/23 1332 MR#: [id number] Acct: [id number] Name: TORRI BRITT V Rep #:[id number] : 1960 62 From: Moses disla MD PCP: Dr. Shady Pathak MD Status:ADM I NO Discharge Instructions Diet Discharge Diet: Light diet - advance as tolerated Activity Discharge Activity: May Not Drive (for 2-3 days or while taking narcotic pain medications) May shower in (days): 1 Lifting Restrictions: 20 lbs for 2 weeks Dressing / Incision Call your doctor if your incision/area has: Continuous Slow Oozing, Sudden Increased Bleeding, Increased Pain/ Swelling, Increased Redness and Foul Smelling Discharge Call your doctor if you observe: Fever of 101 or Higher Suture Line Care: Avoid Pulling/Pushing and Avoid Pinching/Bending Remove Dressing in: 2 days Cleanse incision/area with: Soap & Water Follow Up Care Please Follow Up With: Moses Montalvo MD When: Please call to schedule 2 week follow up appointment at [phone] Test Results: Test results from this visit will be discussed in further detail at your follow- up appointment, if applicable. Discharge Plan Admission Admit Date/Time: 04/04/23 01:01 Attending Provider: Moses Montalvo Primary Care Provider: Shady Pathak Instructions Additional Instructions / Restrictions: Alternate ibuprofen and Tylenol for pain, oxycodone for breakthrough. Discharge Orders/Prescriptions Prescriptions: New acetaminophen 325 mg Tablet 650 mg PO Q4H PRN PRN (Reason: Pain 1-10 Or Fever) Qty: 0 0RF oxycodone 5 mg Tablet 5 - 10 mg PO Q4H PRN PRN (Reason: Pain Score 4-10) 5 Days Qty: 10 0RF Continued meloxicam 15 MG tablet 15 mg PO DAILY sertraline 50 MG tablet 50 mg PO DAILY Cholecalciferol (Vitamin D3) [Vitamin D3] 5,000 UNIT capsule 5,000 unit PO DAILY bupropion HCl 300 mg tablet extended release 24 hr 300 mg PO DAILY Patient Comments: TAKE 1 TABLET BY MOUTHEONCE DAILY losartan 50 mg tablet 50 mg PO DAILY Patient Comments: TAKE 1 TABLET BY MOUTHCONCE DAILY metoprolol tartrate 25 mg tablet 25 mg PO Q12H Patient Comments: TAKE 1 TABLET BY MOUTH 2TTIMES A DAY Qsymia 15-92 mg capsule, ER multiphase 24 hr 1 cap PO Q24H Patient Comments: TAKE 1 CAPSULE BY MOUTHTONCE DAILY Referrals / Follow Up: Shady Pathak MD [Primary Care Provider] - Disposition Disposition (needs filled in before D/C Order can be placed): Home, Self Care 04/04/23 1334<Electronically signed by Moses Montalvo MD>Moses Montalvo MD CC: Dr. Shady Pathak MD ~ Signed [facility] Work Phone: [phone]) 635-335312-05-2023 History and physical note Author [facility] April 04, 2023 9:08am Note Date/Time April 04, 2023 9 :08am [facility] Medical Records Department [address] [place] [address] H&P Exam - Surgical 04/04/23 0906 MR#: [id number] Acct: [id number] Name: TORRI BRITT V Rep #:[id number] : 1960 62 From: Moses disla MD PCP: Dr. Shady Pathak MD Status:ADM I NO Location: MS3 AF869-4 HPI - General General Date of Admission: 04/04/23 HPI Narrative TORRI BRITT, is a 62 M who presents with right lower quadrant pain that started yesterday afternoon. Patient denies any fevers or chills. Patient reports the pain is in the right lower quadrant does not radiate. He denies headache or diarrhea. [facility] Medical History (Updated 04/04/23 @ 09:[address] Moses Montalvo MD) CPAP (continuous positive airway pressure) dependence Depression Hypertension Sleep apnea Umbilical hernia Home Medications meloxicam 15 mg tablet 15 mg PO DAILY pain 12/30/19 [History Last Taken 03/24/20] Cholecalciferol (Vitamin D3) [Vitamin D3] 5,000 unit PO DAILY supplement 03/24/20 [History Last Taken 03/24/20] sertraline 50 mg tablet 50 mg PO DAILY depression 03/24/20 [History Last Taken 03/24/20] bupropion HCl 300 mg 24 hr tablet, extended release 300 mg PO DAILY 04/03/23 [History Last Taken Unknown] losartan 50 mg tablet 50 mg PO DAILY 04/03/23 [History Last Taken Unknown] metoprolol tartrate 25 mg tablet 25 mg PO Q12H 04/03/23 [History Last Taken Unknown] phentermine 15 mg-topiramate ER 92 mg capsule,ext.[id number] multphas (Qsymia) 1 cap PO Q24H 04/03/23 [History Last Taken Unknown] Allergy/AdvReac Type Severity Reaction Status Date / Time No Known Allergies Allergy Verified 04/04/23 00:13 Social History Smoking Status: Never smoker Vital Signs Vital Signs Vital Signs: 04/03/23 23:27 04/04/23 01:11 04/04/23 02:46 Temperature 96.4 F L 97.5 F L Temperature Source Temporal Temporal Pulse Rate 59 L 53 L 52 L Respiratory Rate 16 18 16 Respiratory Effort Respiratory Depth Respiratory Pattern Blood Pressure 115/64 119/70 130/64 H Blood Pressure Mean 81 86 86 Blood Pressure Source Monitor Blood Pressure Position Semi-Fowlers Blood Pressure Location Right Forearm Baseline BP Pulse Ox 99 95 96 Oxygen Delivery Method Room Air Room Air Oxygen Flow Rate (L/min) 04/04/23 05:29 04/04/23 06:53 04/04/23 07:01 Temperature 97.8 F 98.1 F Temperature Source Temporal Temporal Pulse Rate 59 L 64 60 Respiratory Rate 18 20 H 18 Respiratory Effort Respiratory Depth Respiratory Pattern Normal Blood Pressure 128/58 H 131/66 H 117/61 Blood Pressure Mean 81 87 79 Blood Pressure Source Monitor Monitor Blood Pressure Position Semi-Fowlers Semi-Fowlers Blood Pressure Location Right Forearm Right Arm Baseline BP 128/58 128/58 Pulse Ox 95 95 96 Oxygen Delivery Method Room Air Nasal Cannula Nasal Cannula Oxygen Flow Rate (L/min) 4 3 04/04/23 07:15 04/04/23 07:50 04/04/23 07:54 Temperature 97.2 F L 98.0 F Temperature Source Temporal Temporal Pulse Rate 63 60 Respiratory Rate 18 16 Respiratory Effort Normal Non-Labored Respiratory Depth Normal Respiratory Pattern Normal Blood Pressure 119/58 L 133/70 H Blood Pressure Mean 78 91 Blood Pressure Source Monitor Monitor Blood Pressure Position Semi-Fowlers Semi-Fowlers Blood Pressure Location Right Arm Right Arm Baseline BP 128/58 Pulse Ox 95 95 Oxygen Delivery Method Nasal Cannula Nasal Cannula Oxygen Flow Rate (L/min) 3 3 Weight Weight: 328 lb 11.347 oz Body Mass Index (BMI) 42.2 Physical Exam Const alert and oriented x3 HEENT normocephalic Eyes PERRL Resp normal respiratory effort and normal air movement Cardio regular rate and regular rhythm GI soft to palpation and non-distended Palpation: tender RLQ Extremity normal to inspection Results Lab / Micro Data 04/03/23 23:55 04/03/23 23:55 Labs: Laboratory Results - last 24 hr 04/03/23 23:55: WBC 14.2 H, RBC 4.66, Hgb 15.2, Hct 46.4, MCV 99.6 H, MCH 32.6 H, MCHC 32.8, RDW Std Deviation 45.4 H, RDW Coeff of Donny 12.4, Plt Count 194, MPV11.1, Immature Gran % (Auto) 1.200 H, Neut % (Auto) 78.6 H, Lymph % (Auto) 10.2 L, [place] % (Auto) 8.2, Eos % (Auto) 1.4, Baso % (Auto) 0.4, Absolute Neuts (auto)11.2 H, Absolute Lymphs (auto) 1.45, Nucleated RBC % 0, PT 13.9, INR 1.1, APTT 27.2, Sodium 138, Potassium 4.3, Chloride 111 H, Carbon Dioxide 22.0, Anion Gap 5, BUN 25 H, Creatinine 1.29, Estim Creat Clear Calc 67.26, Est GFR (MDRD) Af Amer 72, Est GFR (MDRD) Non-Af 60, BUN/Creatinine Ratio 19.4, Glucose 114 H, Calcium 9.2, Blood Type B POSITIVE, Antibody Screen NEGATIVE 04/04/23 00:55: Urine Color Yellow, Urine Clarity Cloudy, Urine pH 7.0, Ur Specific [place] 1.010, Urine Protein 15 H, Urine Glucose (UA) Normal, Urine Ketones Negative, Urine Occult Blood Negative, Urine Nitrite Negative, Urine Bilirubin Negative, Urine Urobilinogen Normal, Ur Leukocyte Esterase Negative, Urine RBC 0 SEEN, Urine WBC 0 SEEN, Ur Squamous Epith Cells 0 SEEN, Amorphous Sediment 4+, Urine Bacteria 1+, Urine Mucus 0 SEEN Imagaing Radiology Impression Chest X-Ray 04/04/23 01:11 IMPRESSION: Borderline cardiomegaly and mild pulmonary vascular congestion appears similar to previous radiograph. Electronically Signed: Kate Cloud MD at 2:23 EST Reading Location ID and State: [address] [place] [address] , Service support , Abdomen/Pelvis CT 04/04/23 23:35 IMPRESSION: undefined ADDENDUM: 04/04/23 0147 IMPRESSION: undefined Assessment & Plan Assessment/Plan (1) Acute appendicitis: QUALIFIERS: Acute appendicitis type: unspecified acute appendicitis type Qualified Code(s): K35.80 - Unspecified acute appendicitis PLAN: The patient had right lower quadrant pain and CT scan revealed acute appendicitis. Patient was admitted and started on antibiotics. Patient will betaken this morning for laparoscopic appendectomy. I discussed laparoscopic appendectomy in detail with the patient. I discussed the risks including but not limited to bleeding, infection, injury to other organs that he has the bowelor bladder or ureter. Patient understands the risks and when to proceed. Moses Montalvo MD Pager: [facility] [address] [place] [address], [address] [place] [address] Office: 04/04/23 0908 <Electronically signed by Moses Montalvo MD> Cosigner Signature (if applicable): CC: Dr. Moses Montalvo MD; Dr. Shady Pathak MD~ Signed [facility] Work Phone: 1([phone]) 784-659612-05-2023 Procedure [facility] 04-04-2023 Discharge summary Author Supa Barragan [facility] April 04, 2023 1:56am Note Date/Time April 03, 2023 1 1:39pm [facility] Medical Records Department [address] [place] [address] Emergency Department Summary 04/03/23 MR#: [id number] Acct: [id number] Name: TORRI BRITT V Rep #:[id number] : 1960 62 From: Supa Love PCP: Dr. Shady Pathak MD Status:ADM I NO Location: [place] [id number] HPI HPI - GI History of Present Illness Chief Complaint: Abd Pain Informant: patient and spouse/S.O. Narrative Narrative: Abdominal pain progressed to right lower quadrant. Started having discomfort mid abdomen around noon. Bowel movement with no relief. It was nonbloody. An hour ago pain with the right lower quadrant. No fevers. No nausea or vomiting. No diarrhea. Denies any abdominal surgeries in the past. Last meal was at noon. History of hypertension on lisinopril. History of sleep apnea. Prior similar symptoms: No PFSH PFSH Home Medications meloxicam 15 mg tablet 15 mg PO DAILY pain 12/30/19 [History Last Taken 03/24/20] Cholecalciferol (Vitamin D3) [Vitamin D3] 5,000 unit PO DAILY supplement 03/24/20 [History Last Taken 03/24/20] sertraline 50 mg tablet 50 mg PO DAILY depression 03/24/20 [History Last Taken 03/24/20] bupropion HCl 300 mg 24 hr tablet, extended release 300 mg PO DAILY 04/03/23 [History Last Taken Unknown] losartan 50 mg tablet 50 mg PO DAILY 04/03/23 [History Last Taken Unknown] metoprolol tartrate 25 mg tablet 25 mg PO Q12H 04/03/23 [History Last Taken Unknown] phentermine 15 mg-topiramate ER 92 mg capsule,ext.[id number] multphas (Qsymia) 1 cap PO Q24H 04/03/23 [History Last Taken Unknown] Allergy/AdvReac Type Severity Reaction Status Date / Time No Known Allergies Allergy Verified 04/04/23 00:13 Social History Smoking Status: Never smoker ROS ROS ED Constitutional Constitutional ED: Denies chills, fever(s) or sweats Eyes Eyes: Denies change in vision ENT ENT ED: Denies dysphagia or sore throat Cardiovascular Cardiovascular: Denies chest pain, leg edema, palpitations or racing heartbeat Respiratory/Chest Respiratory/Chest: Denies cough, dyspnea or dyspnea on exertion Gastrointestinal Gastrointestinal: Reports abdominal pain; Denies diarrhea, nausea or vomiting Genitourinary Genitourinary ED: Denies dysuria, hematuria or urinary frequency Musculoskeletal Musculoskeletal: Denies back pain, extremity pain or neck pain Integumentary Denies rash or wounds Neurologic Neurologic: Denies headache(s), paresthesias or weakness EXAM Physical Exam Const Vital Signs: 04/03/23 23:27 Temperature 96.4 F L Temperature Source Temporal Pulse Rate 59 L Respiratory Rate 16 Blood Pressure 115/64 Blood Pressure Mean 81 Pulse Ox 99 Oxygen Delivery Method Room Air Positive well nourished, well developed and obese General Appearance ED: well developed and NAD Nutritional Appearance: obese HEENT Reports moist mucous membranes normocephalic and atraumatic Eyes PERRL, EOMs intact bilaterally and conjunctivae normal General Eye ED: Yes normal appearance of both eyes Neck no lymphadenopathy and supple General: Negative for tenderness Chest Wall Chest: Negative for tenderness Resp normal respiratory effort and normal air movement Effort and Inspection: symmetric chest movement; Negative for respiratory distress Cardio regular rate, regular rhythm and no murmurs Peripheral Pulses: pulses 2+ throughout GI normal to inspection, nondistended, normoactive bowel sounds GI Narrative: Right lower quadrant tenderness guarding, negative rebound. Negative Rovsing's. Palpation: guarding; Negative for rebound tenderness present Back/Spine no CVA tenderness and no thoracic nor lumbar tenderness Extremity normal to inspection General Extremety ED: Negative for edema or tenderness General Extremity: Negative for edema Neuro oriented x3 and no sensory deficits noted Sensorium / Orientation: awake and alert Skin no rashes or lesions noted and no wounds MDM MDM MDM Narrative Medical decision making narrative: Interventions / MDM: Differential diagnosis: Appendicitis, abdominal pain Diagnosis considered but do not suspect: N/A My EKG interpretation: EKG: Sinus rate of 53, no ST or T wave changes. Imaging independently reviewed and interpreted by myself: CT abdomen pelvis IV contrast: Dilated appendix with appendicolith with stranding. No perforation isnoted. Pending final read from radiology. Preop 1 view chest x-ray: No acute process. External documents reviewed: N/A Test considered but not ordered:N/A ED course: Patient mid on pain progressed to right lower quadrant. Guarding without rebound. IV established labs and fluids started. CT scan ordered. Declined any pain medications. 1250: White count at 14. Creatinine 1.29. CT scan abdomen pelvis interpreted by myself concerning for acute appendicitis with dilated appendix with appendicolith and stranding. No perforations noted. Is covered with Zosyn. Preop EKG chest x-ray ordered. Patient continued on IV fluids with n.p.o. status. He still declines any pain medicines at this time. 1255: I discussed with surgeon Dr. Montalvo with concerning findings. Patientbe admitted under surgery service for plan OR in the morning. Discussed this with the patient and spouse. Radiologist did call confirming appendicitis no perforations. 2 liver hypodensities also noted on report. Re-evaluation: stable Disposition discussed with patient/family/significant other: Patient and spouse Case discussed with consulting clinician: General surgery This note was generated with My Single Point dictation software. It may contain incorrectwords, spelling, and punctuation that were not noted in checking the note beforesigning. Lab Data Attestation: I reviewed the patient's lab results. Labs: Laboratory Results - last 24 hr 04/03/23 04/04/23 23:55 00:55 WBC 14.2 H RBC 4.66 Hgb 15.2 Hct 46.4 MCV 99.6 H MCH 32.6 H MCHC 32.8 RDW Std Deviation 45.4 H RDW Coeff of Donny 12.4 Plt Count 194 MPV 11.1 Immature Gran % (Auto) 1.200 H Neut % (Auto) 78.6 H Lymph % (Auto) 10.2 L [place] % (Auto) 8.2 Eos % (Auto) 1.4 Baso % (Auto) 0.4 Absolute Neuts (auto) 11.2 H Absolute Lymphs (auto) 1.45 Nucleated RBC % 0 PT 13.9 INR 1.1 APTT 27.2 Sodium 138 Potassium 4.3 Chloride 111 H Carbon Dioxide 22.0 Anion Gap 5 BUN 25 H Creatinine 1.29 Estim Creat Clear Calc 67.26 Est GFR (MDRD) Af Amer 72 Est GFR (MDRD) Non-Af 60 BUN/Creatinine Ratio 19.4 Glucose 114 H Calcium 9.2 Urine Color Yellow Urine Clarity Cloudy Urine pH 7.0 Ur Specific [place] 1.010 Urine Protein 15 H Urine Glucose (UA) Normal Urine Ketones Negative Urine Occult Blood Negative Urine Nitrite Negative Urine Bilirubin Negative Urine Urobilinogen Normal Ur Leukocyte Esterase Negative Urine RBC 0 SEEN Urine WBC 0 SEEN Ur Squamous Epith Cells 0 SEEN Amorphous Sediment 4+ Urine Bacteria 1+ Urine Mucus 0 SEEN Blood Type B POSITIVE Antibody Screen NEGATIVE Discharge Plan Dx/Rx/DC Orders Clinical Impression: Acute appendicitis, Obstructive sleep apnea, History of hypertension, Abdominalpain Disposition Disposition: Acute Care Hospital [facility] Discharge Date/Time: 04/04/23 01:48 What to do if you have Problems For any increased pain, shortness of breath, bleeding, nausea or vomiting, chestpain, or any unexpected problems, contact your Primary Care Provider. Call [facility] ([phone]) or report to the closest Emergency Room. Call 911 if necessary. 04/04/23 0156 <Electronically signed by Supa Love> Cosigner Signature (if applicable): CC: Dr. Shady Pathak MD ~ Signed [facility] Work Phone: 1(477) 377-528104-02-2021 NoteHNO ID: [id number] Author: Jolene Fernando Service: ? Author Type: Underwear Cutter Type: Anesthesia Procedure Notes Filed: 07/31/2020 11:09 [...] not difficult SIGNATURE: ORTEGA GUTIERREZ PATIENT NAME: Torri Britt DATE: July 31, 2020 TIME: 11:09 AM [facility]: [id number] Author Malik Ortiz [facility] Note Date/Time July 24, 2024 12: 25pm [facility] Medical Records Department [address] [place] [address] Anesthesia Postop Eval II 07/24/24 1035 MR#: [id number] Acct: [id number] Name: TORRI BRITT V Rep #:[id number] : 1960 63 From: Malik Ortiz MD PCP: Dr. Shady Pathak MD Status:REG S DC Y Race: C Location: [place] [address] Anesthesia Postop Eval I Sum Postop Eval Completion status Anesthesia document: Postop Eval 1 completed: Yes Anesthesia Postop Eval I Summary Anesthesia Postop Eval I Summary: Anesthesia Postop Eval I: Assessment Summary Airway patent Yes 07/24/24 09:25 DRY WALL [email or web address] Spontaneous unlabored Yes 07/24/24 09:25 DRY WALL [email or web address] respirations Mental status nausea No 07/24/24 09:25 DRY WALL [email or web address] Vomiting No 07/24/24 09:25 DRY WALL [email or web address] Anesthesia Postop Eval I: Fluid Summary Crystalloid volume administer 1,700 07/24/24 09:25 DRY WALL [email or web address] (ml) Colloids volume administered ( ml) Blood Product volume administered (ml) Total IV fluid infused 1,700 07/24/24 09:25 DRY WALL [email or web address] Anesthesia Postop Eval I: Summary Notes Anesthesia Complication No 07/24/24 09:25 DRY WALL [email or web address] Anesthesia Complication Comment: Post-operative progress note Anesthesia: Postop Eval II Evaluation Mental status: Awake Pain Level: 0 nausea: No Vomiting: No 07/24/24 1035 <Electronically signed by Malik Ortiz MD > Date _ Malik Ortiz MD Cosigner Signature: Date CC: ~ Signed [facility] Work Phone: Evaluation noteNo assessment information available [facility] Work Phone: Evaluation note* Diagnosis Onset Date Resolution Status Abdominal pain acute Acute appendicitis acute History of hypertension acut e Obstructive sleep apnea 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 jovi [facility] Work Phone: Evaluation note* Diagnosis Onset Date Resolution Status History of hypertension acut e Obstructive sleep apnea 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 jovi Abdominal pain resolved Acute appendicitis resolved Umbilical hernia acute [facility] Work Phone: Evaluation note* Diagnosis Onset Date Resolution Status Umbilical hernia acute [facility] Work Phone: Evaluation note* Diagnosis Erectile dysfunction, unspecified erectile dysfunction type- Primary Prostate cancer screening Special screening for malignant neoplasm of prostate Benign non-nodular prostatic hyperplasia with lower urinary tract symptoms [facility] Erectile dysfunction, unspecified erectile dysfunction type- Primary [facility] Prostate cancer screening- Primary Special screening for malignant neoplasm of prostate Elevated prostate specific antigen (PSA) Erectile dysfunction, unspecified erectile dysfunction type [facility] Acquired buried penis- Primary Other specified disorder of penis Hyperglycemia, unspecified [facility]* PT Referral Location: None Selected [facility] Work Phone: Progress note Author Compa Manrique [facility] Note Date/Time November 05, 2024 9:50a m [facility] [address] [place] [address] OFFICE VISIT Date of Service: 11/05/24 MR#: [id number] Acct: [id number] Name: TORRI BRITT V Rep #: [id number] : 1960 Provider: Dr. Aly Manrique MD Age/Sex: 63/M Location: [facility] Status: Signed Intake Vital Signs 09/03/24 08:50 Height 6 ft 2 in Weight: 312 lb BMI 40.0 Intake Visit Reasons: LEFT SHOULDER Accompanied by: Self Is patient in pain?: No (only has pain at night) Allergies No Known Allergies Allergy (Verified 11/05/24 09:25) Medications ?Medication ?Instructions ?Recorded ?Confirmed ?Type meloxicam 15 mg tablet 15 mg PO DAILY pain 12/30/19 11/05/24 History Cholecalciferol (Vitamin D3) 5,000 unit PO DAILY suppl ement 03/24/20 11/05/24 History [Vitamin D3] bupropion HCl 300 mg 24 hr tablet, 300 mg PO DAILY 08/2111/05/24 History extended release losartan 50 mg tablet 50 mg PO DAILY 04/03/2312/23 History Fish OiL 07/24/24 11/05/24 History ashwagandha extract 500 mg capsule mg PO 08/10/2412/23 History biotin 10 mg tablet 10 mg PO BID 08/10/24 History levomefolate 7.5 mg-algal oil 1 cap PO QDAY 08/10/24 0 11/05/24 History 90.314 mg capsule (L-Methylfolate Forte) liporush .Route 08/10/24 11/05/24 His tory loratadine 10 mg tablet (Claritin) 10 mg PO QDAY 08/1011/05/24 History nitric oxide booster .Route 08/10/24 11/05/24 His tory phentermine 15 mg-topiramate ER 92 1 cap PO Q24H 08/1011/05/24 History mg capsule,ext.[id number] multphas (Qsymia) tadalafil 5 mg tablet 5 mg PO QDAY 08/10/24 History Have you fallen in the past year?: No PFSH Medical History Superior labrum kjnowuxl-kl-qxonjwzev (SLAP) tear of left shoulder Alcohol use History of steroid therapy Arthritis Prostate disease Restless legs Back pain Arthrosis of left acromioclavicular joint Left rotator cuff tear Impingement of left shoulder Left shoulder pain Anxiety Chews tobacco Depression Umbilical hernia CPAP (continuous positive airway pressure) dependence Hypertension Surgical History S/P rotator cuff repair History of umbilical hernia repair History of cataract extraction with lens replacement History of colonoscopy History of appendectomy Social History Smoking Status: Current every day smoker tobacco type: smokeless tobacco HPI LEFT SHOULDER Details: This documentation accurately reflects the service provided and the decisions made by me, Dr. Compa Manrique MD 11/05/24 09. Part of today?s visit was documented by [ ], acting as scribe. TORRI BRITT is a 63 year old M here today for 3.5 months FU Left shoulder arthroscopy subacromial decompression rotator cuff repair biceps tenodesis. Patient doing well. Has been doing physical therapy as well as some other self-directed exercises for strengthening of the upper extremity. Still has some mild nighttime laterally sided pain in the shoulder worse with sleeping on that side he is more of a side sleeper. Ortho Exam General General: Yes no acute distress Neurologic: Yes alert and Yes oriented x3 Psychologic: Yes reasonable and appropriate Left Shoulder Skin/Wound: Yes CDI, Yes healed, No ecchymosis, No erythema and No swelling (mild) Testing: No Hawkin's, No Neer's, No Speed's, No TTP Biceps, Yes AROM-Forward Elevation 0-180, Yes AROM-External Rotation at side 0-60 and No empty can SHOULDER: nvi mru ain/pin ax nerve. strong rad pulse. Full strength in forward elevation external rotation and with elbow flexion. Coding Level of Care Code Off vis,est,level 3 Diagnoses S/P rotator cuff repair Z98.890 Assessment and Plan Assessment and Plan (1) S/P rotator cuff repair: Status: Acute Plan: TORRI BRITT is a 63 year old M here today for 3.5 months FU Left shoulder arthroscopy subacromial decompression rotator cuff repair biceps tenodesis. Patient doing a lot better now. I would recommend to discontinue physical therapy at this point send simply focus on pain control and light strengthening of the upper extremity and follow-up as needed. The patient understands and agreement with the plan no further questions or concerns. Clinical Quality Measures Falls Risk Screening/Assistive Devices Have you fallen in the past year?: No 11/05/24 0950 <Electronically signed by Compa quintero MD> Date _ Compa Manrique MD Cosigner Signature: Date (if applicable) CC: ~ [employer] Work Phone: Summary Purpose Family History No Family History Records Found Relationship Condition Age at Onset Recorded Date/T ana Unknown Family History?No pe rtinent history Unknown March 24, 2020 6:38pm Family History?No pe rtinent history Unknown March 24, 2020 6:38pm Relationship Condition Age at Onset Recorded Date/T ana Unknown Family History?No pe rtinent history Unknown March 24, 2020 5:38pm Family History?No pe rtinent history Unknown March 24, 2020 5:38pm Advance Directives No Advanced Directives Records Found Advance Directive Response Recorded Date/ Time Living Will No March 24, 020 3:56pm Power of Peoplesoft Analyst No March 24, 2020 3:56pm Advance Directive Response Recorded Date/ Time Living Will No April 03 11:31pm Power of Peoples[employer] Analyst No April 03, 2023 11:31pm Advance Directive Response Recorded Date/ Time Living Will No April 04 2:16am Power of Peoples[employer] Analyst No April 04, 2023 2:16am Advance Directive Response Recorded Date/ Time Living Will No April 21, 023 10:20am Power of Peoplesoft Analyst No April 21, 2023 10:20am Advance Directive Response Recorded Date/ Time Living Will No Ralph 22nd, 2 023 11:20am Power of Peoples[employer] Analyst No April 21, 2023 11:20am Advance Directive Response Recorded Date/ Time Living Will No July 10, 2024 12:54pm Do you have a Healthcare Power of Peoplesoft Analyst? No July 10, 2024 12:54pm Chief Complaint and Reason for Visit Chief Complaint ACUTE APPENDICITIS Reason for Visit Abdominal pain Acute appendicitis History of hypertension Obstructive sleep apnea Chief Complaint ACUTE APPENDICITIS ACUTE APPENDICITIS Reason for Visit Abdominal pain Acute appendicitis History of hypertension Obstructive sleep apnea Chief Complaint ACUTE APPENDICITIS ACUTE APPENDICITIS APPY 12-5 Hernia, Incisional Repair w/ Mesh Hernia, Incisional Repair w/ Mesh Reason for Visit History of hypertens ion Obstructive sleep apnea Abdominal pain Acute appendicitis Umbilical hernia Chief Complaint Hernia, Incisional R epair w/ Mesh Hernia, Incisional Repair w/ Mesh Hernia, Incisional Repair w/ Mesh 04/28 Reason for Visit Umbilical hernia Chief Complaint Hernia, Incisional R epair w/ Mesh 04/28 Reason for Visit Umbilical hernia Chief Complaint Admit Date PROSTATE CANCER SCREENING, ELEVATED PSA April 11, 2024 1:02pm pain- LEFT SHOULDER April 16, 2024 12:39pm LEFT SHOULDER April 18, 2024 1:49pm LEFT SHOULDER May 14, 2024 9 :31am PN IN L SHLD/RX HERE May 28, 2024 10:30am LEFT SHOULDER PAIN June 02, 2024 1 1:45am LEFT SHOULDER June 06, 2024 9 :55am PREOP July 11, 2024 8:3 1am Left shoulder Arthroscopy, subacromial d ecompressi July 24, 2024 5:53am Left shoulder Arthroscopy, subacromial d ecompressi July 24, 2024 7:03am Reason for Visit Admit Date Impingement of left shoulder April 182023 1:49pm Left shoulder pain April 18, 2024 1:49pm Impingement of left shoulder May 9:31am Left shoulder pain May 14, 2024 9 :31am Arthrosis of left acromioclavicular join t June 06, 2024 9:55am Impingement of left shoulder June 9:55am Left rotator cuff tear June 06 9:55am Left shoulder pain June 06, 2024 9 :55am Arthrosis of left acromioclavicular join t July 24, 2024 5:53am Impingement of left shoulder July 24, 2024 5:53am Left rotator cuff tear July 24, 2024 5:53am Left shoulder pain July 24, 2024 5:5 3am Superior labrum anterior-to- posterior (SLAP) tear of left shoulder July 24, 2024 5:53am Chief Complaint Admit Date PROSTATE CANCER SCREENING, ELEVATED PSA April 11, 2024 1:02pm pain- LEFT SHOULDER April 16, 2024 12:39pm LEFT SHOULDER April 18, 2024 1:49pm LEFT SHOULDER May 14, 2024 9 :31am PN IN L SHLD/RX HERE May 28, 2024 10:30am LEFT SHOULDER PAIN June 02, 2024 1 1:45am LEFT SHOULDER June 06, 2024 9 :55am PREOP July 11, 2024 8:3 1am Left shoulder Arthroscopy, subacromial d ecompressi July 24, 2024 5:53am Left shoulder Arthroscopy, subacromial d ecompressi July 24, 2024 7:03am left shoulder July 26, 2024 9:2 8am Reason for Visit Admit Date Impingement of left shoulder April 182023 1:49pm Left shoulder pain April 18, 2024 1:49pm Impingement of left shoulder May 9:31am Left shoulder pain May 14, 2024 9 :31am Arthrosis of left acromioclavicular join t June 06, 2024 9:55am Impingement of left shoulder June 9:55am Left rotator cuff tear June 06 9:55am Left shoulder pain June 06, 2024 9 :55am Arthrosis of left acromioclavicular join t July 24, 2024 5:53am Impingement of left shoulder July 24, 2024 5:53am Left rotator cuff tear July 24, 2024 5:53am Left shoulder pain July 24, 2024 5:5 3am Superior labrum anterior-to- posterior (SLAP) tear of left shoulder July 24, 2024 5:53am Impingement of left shoulder July 26, 2024 9:28am Left rotator cuff tear July 26, 2024 9:28am Left shoulder pain July 26, 2024 9:2 8am Superior labrum anterior-to- posterior (SLAP) tear of left shoulder July 26, 2024 9:28am Chief Complaint Admit Date PREOP July 11, 2024 8:3 1am Left shoulder Arthroscopy, subacromial d ecompressi July 24, 2024 5:53am Left shoulder Arthroscopy, subacromial d ecompressi July 24, 2024 7:03am left shoulder July 26, 2024 9:2 8am left shoulder August 06, 2024 9:34 am R FACIAL IRRITATION/CONCERN FOR CELLULIT IS August 10, 2024 9:48am SHOULDER RX HERE August 30, 2024 10:00a m LEFT SHOULDER September 03, 2024 8:46am LEFT SHOULDER November 05, 2024 9:20a m Reason for Visit Admit Date Arthrosis of left acromioclavicular join t July 24, 2024 5:53am Impingement of left shoulder July 24, 2024 5:53am Left rotator cuff tear July 24, 2024 5:53am Left shoulder pain July 24, 2024 5:5 3am Superior labrum anterior-to- posterior (SLAP) tear of left shoulder July 24, 2024 5:53am Impingement of left shoulder July 26, 2024 9:28am Left rotator cuff tear July 26, 2024 9:28am Left shoulder pain July 26, 2024 9:2 8am Superior labrum anterior-to- posterior (SLAP) tear of left shoulder July 26, 2024 9:28am Arthrosis of left acromioclavicular join t August 06, 2024 9:34am Impingement of left shoulder August 06, 2024 9:34am Left rotator cuff tear August 06, 2024 9 :34am Superior labrum anterior-to- posterior (SLAP) tear of left shoulder August 06, 2024 9:34am Facial erythema August 10, 2024 9:4 8am S/P rotator cuff repair September 03, 2024 8: 46am Superior labrum anterior-to- posterior (SLAP) tear of left shoulder September 03, 2024 8:46am S/P rotator cuff repair November 05, 2024 9 :20am Reason for Referral Specialty Diagnoses / Procedures Referred By Saul t Referred To Contact Diagnoses Prostate cancer screening Elevated prostate specific antigen (PSA) Procedures MRI PROSTATE WITH AND WITHOUT CONTRAST CHG MRI PELVIS W/O & W/CONTRAST MATERIAL Yao Mccabe MD [address] [facility] [address] [place] [address] Referral ID Status Reason Start Date Expiration Date V isits Requested Visits Authorized [id number] New Request 04/02/2024 04/27/2025 1 1 Additional Source Comments (unrecognized sect ion and content) No Status Records FoundNo Status Records FoundNo Status Records FoundNo Status Records Found INFORMATION SOURCE (unrecogn ized section and content) DATE CREATED AUTHOR 10/31/2020 [facility] DATE CREATED AUTHOR AUTHOR'S ORGANIZ ATION 06/14/2021 [facility] DATE CREATED AUTHOR AUTHOR'S ORGANIZ ATION 11/09/2024 [facility] DATE CREATED AUTHOR AUTHOR'S ORGANIZ ATION 11/16/2024 [facility] Care Teams (unrecognized sec tion and content) Team Status: Active Member Role Status Dates Dr. Shady Pathak MD Family Provider Active Dr. Shady Pathak MD Primary Care Provider Active Team Status: Inactive Member Role Status Dates Dr. Shady Pathak MD Primary Care Provider, Attending Provider Active Team Status: Active Member Role Status Dates Dr. Shady Pathak MD Primary Care Provider Active Dr. Supa Barragan DO Emergency Provider Active Dr. Moses Montalvo MD Admit Provid er, Attending Provider, Referring Provider Active Team Status: Active Member Role Status Dates Dr. Shady Pathak MD Primary Care Provider Active Dr. Supa Barragan DO Emergency Provider Active Dr. Moses Montalvo MD Admit Provid er, Attending Provider, Referring Provider, Other Provider Active Team Status: Inactive Member Role Status Dates Dr. Shady Pathak MD Primary Care Provider Active Dr. Supa Barragan DO Emergency Provider Active Dr. Moses Montalvo MD Admit Provid er, Attending Provider, Referring Provider Active Team Status: Inactive Member Role Status Dates Dr. Shady Pathak MD Primary Care Provider, Referring Provider Active Dr. Moses Montalvo MD Attending Provider Active Team Status: Active Member Role Status Dates Dr. Shady Pathak MD Primary Care Provider Active Dr. Moses Montalvo MD Attending Pr ovider, Referring Provider, Other Provider Active Team Status: Inactive Member Role Status Dates Dr. Shady Pathak MD Primary Care Provider Active Dr. Moses Montalvo MD Attending Provider, Referr ing Provider Active Structural Analyst Relationship Specialty Start Date End Date Shady Pathak MD [address] [place] [address] PCP - General Family Medicine 11/20/23 Structural Analyst Relationship Specialty Start Date End Date Shady Pathak MD [address] [place] [address] PCP - General Family Medicine 11/20/23 Structural Analyst Relationship Specialty Start Date End Date Shady Pathak MD [address] [place], [place] [address] PCP - General Family Medicine 11/20/23 Team Status: Active Member Role Status Dates Dr. Shady Pathak MD Primary Care Provider Active Team Status: Inactive Member Role Status Dates Dr. Shady Pathak MD Primary Care Provider Active Start: April 11, 2024 End: April 11, 2024 TERI SANTANA Attending Provider Active Start: 2023 End: April 11, 2024 TERI SANTANA Referring Provider Active Start: 2023 End: April 11, 2024 Team Status: Inactive Member Role Status Dates Dr. Shady Pathak MD Primary Care Provider Active Start: April 16, 2024 End: April 16, 2024 Compa Manrique MD Attending Provider Active St art: April 16, 2024 End: April 16, 2024 Compa Manrique MD Referring Provider Active St art: April 16, 2024 End: April 16, 2024 Team Status: Inactive Member Role Status Dates Dr. Shady Pathak MD Primary Care Provider Active Start: April 18, 2024 End: April 18, 2024 Dr. Shady Pathak MD Referring Provider Active Start: April 18, 2024 End: April 18, 2024 Compa Manrique MD Attending Provider Active St art: April 18, 2024 End: April 18, 2024 Team Status: Inactive Member Role Status Dates Dr. Shady Pathak MD Referring Provider Active Start: May 14, 2024 End: May 14, 2024 Compa Manrique MD Attending Provider Active St art: May 14, 2024 End: May 14, 2024 Team Status: Active Member Role Status Dates Compa Manrique MD Attending Provider Active St art: May 28, 2024 Compa Manrique MD Referring Provider Active St art: May 28, 2024 Dr. Shady Pathak MD Primary Care Provider Active Start: May 28, 2024 Team Status: Inactive Member Role Status Dates Compa Manrique MD Attending Provider Active St art: June 02, 2024 End: June 02, 2024 Compa Manrique MD Referring Provider Active St art: June 02, 2024 End: June 02, 2024 No Primary Care Physician Primary Care Provider Active Start: June 02, 2024 End: June 02, 2024 Team Status: Inactive Member Role Status Dates No Primary Care Physician Primary Care Provider Active Start: June 06, 2024 End: June 06, 2024 No Primary Care Physician Referring Provider Active Start: June 06, 2024 End: June 06, 2024 Compa Manrique MD Attending Provider Active St art: June 06, 2024 End: June 06, 2024 Team Status: Active Member Role Status Dates Dr. Shady Pathak MD Primary Care Provider Active Start: July 11, 2024 End: July 11, 2024 Dr. Nestor Soni MD Attending Provider Activ e Start: July 11, 2024 End: July 11, 2024 Compa Manrique MD Referring Provider Active St art: July 11, 2024 End: July 11, 2024 Team Status: Active Member Role Status Dates Dr. Shady Pathak MD Primary Care Provider Active Start: July 18, 2024 Dr. Shayd Pathak MD Attending Provider Active Start: July 18, 2024 Dr. Shady Pathak MD Referring Provider Active Start: July 18, 2024 Team Status: Inactive Member Role Status Dates Compa Manrique MD Attending Provider Active St art: July 24, 2024 End: July 24, 2024 Compa Manrique MD Referring Provider Active St art: July 24, 2024 End: July 24, 2024 Dr. Shady Pathak MD Primary Care Provider Active Start: July 24, 2024 End: July 24, 2024 Team Status: Active Member Role Status Dates Compa Manrique MD Attending Provider Active St art: July 24, 2024 Compa Manrique MD Referring Provider Active St art: July 24, 2024 Compa Manrique MD Other Provider Active Start: July 24, 2024 Dr. Shady Pathak MD Primary Care Provider Active Start: July 24, 2024 Team Status: Inactive Member Role Status Dates Compa Manrique MD Attending Provider Active St art: May 28, 2024 End: July 26, 2024 Compa Manrique MD Referring Provider Active St art: May 28, 2024 End: July 26, 2024 Dr. Shady Pathak MD Primary Care Provider Active Start: May 28, 2024 End: July 26, 2024 Team Status: Inactive Member Role Status Dates No Primary Care Physician Referring Provider Active Start: July 26, 2024 End: July 26, 2024 Compa Manrique MD Attending Provider Active St art: July 26, 2024 End: July 26, 2024 Team Status: Inactive Member Role Status Dates Dr. Shady Pathak MD Primary Care Provider Active Start: July 18, 2024 End: July 18, 2024 Dr. Shady Pathak MD Attending Provider Active Start: July 18, 2024 End: July 18, 2024 Dr. Shady Pathak MD Referring Provider Active Start: July 18, 2024 End: July 18, 2024 Team Status: Active Member Role/Relationship Status Dates Dr. Shady Pathak MD Primary Care Provider Active Team Status: Active Member Role/Relationship Status Dates Dr. Shady Pathak MD Primary Care Provider Active Start: July 11, 2024 End: July 11, 2024 Dr. Nestor Soni MD Attending Provider Activ e Start: July 11, 2024 End: July 11, 2024 Compa Manrique MD Referring Provider Active St art: July 11, 2024 End: July 11, 2024 Team Status: Inactive Member Role/Relationship Status Dates Dr. Shady Pathak MD Primary Care Provider Active Start: July 18, 2024 End: July 18, 2024 Dr. Shady Pathak MD Attending Provider Active Start: July 18, 2024 End: July 18, 2024 Dr. Shady Pathak MD Referring Provider Active Start: July 18, 2024 End: July 18, 2024 Team Status: Inactive Member Role/Relationship Status Dates Compa Manrique MD Attending Provider Active St art: July 24, 2024 End: July 24, 2024 Compa Manrique MD Referring Provider Active St art: July 24, 2024 End: July 24, 2024 Dr. Shady Pathak MD Primary Care Provider Active Start: July 24, 2024 End: July 24, 2024 Team Status: Active Member Role/Relationship Status Dates Compa Manrique MD Attending Provider Active St art: July 24, 2024 Compa Manrique MD Referring Provider Active St art: July 24, 2024 Compa Manrique MD Other Provider Active Start: July 24, 2024 Dr. Shady Pathak MD Primary Care Provider Active Start: July 24, 2024 Team Status: Inactive Member Role/Relationship Status Dates No Primary Care Physician Referring Provider Active Start: July 26, 2024 End: July 26, 2024 Compa Manrique MD Attending Provider Active St art: July 26, 2024 End: July 26, 2024 Team Status: Inactive Member Role/Relationship Status Dates No Primary Care Physician Referring Provider Active Start: August 06, 2024 End: August 06, 2024 Compa Manrique MD Attending Provider Active St art: August 06, 2024 End: August 06, 2024 Dr. Shady Pathak MD Primary Care Provider Active Start: August 06, 2024 End: August 06, 2024 Team Status: Inactive Member Role/Relationship Status Dates Dr. Shady Pathak MD Primary Care Provider Active Start: August 10, 2024 End: August 10, 2024 Dr. Shady Pathak MD Referring Provider Active Start: August 10, 2024 End: August 10, 2024 ARNIE Mattson Attending Provider Active Start: August 10, 2024 End: August 10, 2024 Team Status: Active Member Role/Relationship Status Dates Compa Manrique MD Attending Provider Active St art: August 30, 2024 Compa Manrique MD Referring Provider Active St art: August 30, 2024 Dr. Shady Pathak MD Primary Care Provider Active Start: August 30, 2024 Team Status: Inactive Member Role/Relationship Status Dates Dr. Shady Pathak MD Primary Care Provider Active Start: September 03, 2024 End: September 03, 2024 Dr. Shady Pathak MD Referring Provider Active Start: September 03, 2024 End: September 03, 2024 Compa Manrique MD Attending Provider Active St art: September 03, 2024 End: September 03, 2024 Team Status: Inactive Member Role/Relationship Status Dates Dr. Shady Pathak MD Primary Care Provider Active Start: November 05, 2024 End: November 05, 2024 Dr. Shady Pathak MD Referring Provider Active Start: November 05, 2024 End: November 05, 2024 Compa Manrique MD Attending Provider Active St art: November 05, 2024 End: November 05, 2024 Structural Analyst Relationship Specialty Start Date End Date Shady Pathak MD PCP - General Family Medicine 11/20/23 Goals (unrecognized section and content) Goals may be documented in a n alternate sectionGoals may be documented in an alternate section Reason for Visit (unrecogniz ed section and content) Reason Comments Follow-up ED Reason Comments New Patient [facility] Reason Comments Follow-up Reason Comments New Patient NEW UROLOGY - To see if penile implant is the way to go Specialty Diagnoses / Procedures Referred By Saul t Referred To Contact Urology Diagnoses Erectile dysfunction, unspecified erectile dysfunction type Yao Mccabe MD [address] [facility] [address] [place] [address] Phone: tel: fax: Referral ID Status Reason Start Date Expiration Date V isits Requested Visits Authorized [id number] Pending Review 10/05/2024 10/30/2025 1 1 FOR RECORDS PERTAINING TO PATIENTS WHO ARE [...] BE BASED ON THE PRIMARY CLINICAL RECORDS. [employer] provides no warranty or guarantee of the accuracy or completeness of information in this document.
== END 2024-11-27 23:59 | disposition home or self-care (01) ==
LOC: MFPLAB 10:05
PROVIDERS: PCP Family Medicine; Referring Provider Family Medicine; Visit Provider Family Medicine
DX: Z01.818 Encounter for other preprocedural examination (principal); E78.00 Pure hypercholesterolemia, unspecified
CPT/HCPCS: 36415; 80053; 80061; 83036